=== PATIENT | female | born 2000 | race Caucasian/White ===

== ENCOUNTER 2019-09-05 06:30 | Emergency (ER) | payer BC ==
--- NOTE | 2019-09-05 06:59 | EDM.PDOC ---
ED HPI GENERAL MEDICAL PROBLEM - General Chief Complaint: Genitourinary Problem Stated Complaint: UTI Time Seen by Provider: 09/05/19 06:58 Source of Information: Reports: Patient - History of Present Illness INITIAL COMMENTS - FREE TEXT/NARRATIVE: HISTORY AND PHYSICAL: History of present illness: [A shunt presents with 4 days of frequency and dysuria no fever nausea vomiting chills sweats] Review of systems: As per history of present illness and below otherwise all systems reviewed and negative. Past medical history: As per history of present illness and as reviewed below otherwise noncontributory. Surgical history: As per history of present illness and as reviewed below otherwise noncontributory. Social history: No reported history of drug or alcohol abuse. Family history: As per history of present illness and as reviewed below otherwise noncontributory. Physical exam: HEENT: Atraumatic, normocephalic, pupils reactive, negative for conjunctival pallor or scleral icterus, mucous membranes moist, throat clear, neck supple, nontender, trachea midline. Lungs: Clear to auscultation, breath sounds equal bilaterally, chest nontender. Heart: S1S2, regular, negative for clicks, rubs, or JVD. Abdomen: Soft, nondistended, nontender. Negative for masses or hepatosplenomegaly. Negative for costovertebral tenderness. Pelvis: Stable nontender. Genitourinary: Deferred. Rectal: Deferred. Extremities: Atraumatic, negative for cords or calf pain. Neurovascular unremarkable. Neuro: Awake, alert, oriented. Cranial nerves II through XII unremarkable. Cerebellum unremarkable. Motor and sensory unremarkable throughout. Exam nonfocal. Diagnostics: [Way hCG ] Therapeutics: [Bactrim Pyridium ] Impression: [ dysuria UTI ] Definitive disposition and diagnosis as appropriate pending reevaluation and review of above. suprapubic Pain Score (Numeric/FACES): 3 - Related Data Allergies Allergy/AdvReac Type Severity Reaction Status Date / Time No Known Allergies Allergy Verified 09/05/19 06:35 Home Meds: Home Meds . [No Known Home Meds] 09/05/19 [History] Past Medical History - Past Health History Medical/Surgical History: Denies Medical/Surgical History Social & Family History - Family History Family Medical History: Noncontributory - Tobacco Use Smoking Status *Q: Never Smoker - Recreational Drug Use Recreational Drug Use: No ED ROS GENERAL - Review of Systems Review Of Systems: See Below ED EXAM, GENERAL - Physical Exam Exam: See Below Course - Vital Signs Last Recorded V/S: Last Vital Signs Temp 96.4 F 09/05/19 06:44 Pulse 86 09/05/19 06:44 Resp 18 09/05/19 06:44 BP 110/55 L 09/05/19 06:44 Pulse Ox 95 09/05/19 06:44 - Orders/Labs/Meds Orders: Active Orders 24 hr Category Date Time Status UA W/MICROSCOPIC [URIN] Stat Lab 09/05/19 06:44 Results Labs: Laboratory Tests 09/05/19 09/05/19 Range/Units 06:44 06:44 Urine Color YELLOW Urine Appearance SLT CLOUDY Urine pH 5.0 (5.0-8.0) Ur Specific [place] >= 1.030 (1.001-1.035) Urine Protein NEGATIVE (NEGATIVE) mg/dL Urine Glucose (UA) NEGATIVE (NEGATIVE) mg/dL Urine Ketones NEGATIVE (NEGATIVE) mg/dL Urine Occult Blood MODERATE H (NEGATIVE) Urine Nitrite NEGATIVE (NEGATIVE) Urine Bilirubin NEGATIVE (NEGATIVE) Urine Urobilinogen 0.2 (<2.0) EU/dL Ur Leukocyte Esterase NEGATIVE (NEGATIVE) Urine HCG, Qual NEGATIVE (NEGATIVE) Departure - Departure Time of Disposition: 06:59 Disposition: Home, Self-Care 01 Condition: Good Clinical Impression: UTI, Urinary tract infectious disease - Discharge Information Referrals: PCP,None [Primary Care Provider] - Additional Instructions: The following information is given to patients seen in the emergency department who are being discharged to home. This information is to outline your options for follow-up care. We provide all patients seen in our emergency department with a follow-up referral. The need for follow-up, as well as the timing and circumstances, are variable depending upon the specifics of your emergency department visit. If you don't have a primary care physician on staff, we will provide you with a referral. We always advise you to contact your personal physician following an emergency department visit to inform them of the circumstance of the visit and for follow-up with them and/or the need for any referrals to a consulting specialist. The emergency department will also refer you to a specialist when appropriate. This referral assures that you have the opportunity for follow-up care with a specialist. All of these measure are taken in an effort to provide you with optimal care, which includes your follow-up. Under all circumstances we always encourage you to contact your private physician who remains a resource for coordinating your care. When calling for follow-up care, please make the office aware that this follow-up is from your recent emergency room visit. If for any reason you are refused follow-up, please contact the emergency department at and asked to speak to the emergency department charge nurse. - My Orders Last 24 Hours: My Active Orders 09/05/19 06:44 UA W/MICROSCOPIC [URIN] Stat - Assessment/Plan Last 24 Hours: My Active Orders 09/05/19 06:44 UA W/MICROSCOPIC [URIN] Stat
== END 2019-09-05 07:07 | disposition home or self-care (01) ==
LOC: MW.ED 06:30
DX: N39.0 Urinary tract infection, site not specified (principal)
CPT/HCPCS: 81001; 81025; 99283

== ENCOUNTER 2020-01-19 18:59 | Emergency (ER) | payer BC ==
--- NOTE | 2020-01-19 19:48 | EDM.PDOC ---
ED HPI GENERAL MEDICAL PROBLEM - General Chief Complaint: General Stated Complaint: UTI Time Seen by Provider: 01/19/20 19:01 Source of Information: Reports: Patient History Limitations: Reports: No Limitations - History of Present Illness INITIAL COMMENTS - FREE TEXT/NARRATIVE: HISTORY AND PHYSICAL: History of present illness: Patient is a 19-year-old female who presents to the ED today with concern of possible urinary tract infection. Patient states she has had burning with urination over the past 2 to 3 days and urinary frequency. Patient states she is been taking [id number] Azo hoping that this would treat her symptoms and make the urinary tract infection go away. Patient states she took her last dose of Azo last night and started having burning again today. Patient states she took an [id number] test which stated that she probably has a urine infection. Patient denies any other symptoms or concerns. Patient denies fever, chills, chest pain, shortness of breath, or cough. Denies headache, neck stiff ness, change in vision, syncope, or near syncope. Denies nausea, vomiting, abdominal pain, diarrhea, constipation. Has not noted any blood in urine or stool. Patient has been eating and drinking appropriately. Review of systems: As per history of present illness and below otherwise all systems reviewed and negative. Past medical history: As per history of present illness and as reviewed below otherwise noncontributory. Surgical history: As per history of present illness and as reviewed below otherwise noncontributory. Social history: See social history for further information Family history: As per history of present illness and as reviewed below otherwise noncontributory. Physical exam: General: Patient is alert, oriented, and in no acute distress. Patient sitting comfortably on exam table. HEENT: Atraumatic, normocephalic, pupils equal and reactive bilaterally, negative for conjunctival pallor or scleral icterus, mucous membranes moist, TMs normal bilaterally, throat clear, neck supple, nontender, trachea midline. No drooling or trismus noted. No meningeal signs. No hot potato voice noted. Lungs: Clear to auscultation, breath sounds equal bilaterally, chest nontender. Heart: S1S2, regular rate and rhythm without overt murmur Abdomen: Soft, nondistended, nontender. Negative for masses or hepatosplenomegaly. Negative for costovertebral tenderness. Pelvis: Stable nontender. Genitourinary: Deferred. Rectal: Deferred. Skin: Intact, warm, dry. No lesions or rashes noted. Extremities: Atraumatic, negative for cords or calf pain. Neurovascular unremarkable. Neuro: Awake, alert, oriented. Cranial nerves II through XII unremarkable. Cerebellum unremarkable. Motor and sensory unremarkable throughout. Exam nonfocal. Notes: Discussed importance for follow-up with a primary care provider. Voices understanding and is agreeable to plan of care. Denies any further questions or concerns at this time. Diagn[facility]: [facility] Therapeutics: None Prescription: Bactrim DS Impression: Urinary tract infection Plan: 1. Take medication as prescribed. Continue to use Azo [id number] as directed for pain and discomfort. You can also use Tylenol and ibuprofen as directed for pain and discomfort. 2. Follow-up with a primary care provider as discussed. Return to the ED as needed and as discussed. Definitive disposition and diagnosis as appropriate pending reevaluation and review of above. perineal area Pain Score (Numeric/FACES): 3 - Related Data Allergies Allergy/AdvReac Type Severity Reaction Status Date / Time No Known Allergies Allergy Verified 01/19/20 19:13 Home Meds: Home Meds Sulfamethoxazole/Trimethoprim [Bactrim Ds Tablet] 1 each PO BID #20 tablet 01/18 [Rx] Past Medical History - Past Health History Medical/Surgical History: Denies Medical/Surgical History Social & Family History - Family History Family Medical History: Noncontributory - Tobacco Use Smoking Status *Q: Never Smoker Second Hand Smoke Exposure: No - Caffeine Use Caffeine Use: Reports: Coffee - Recreational Drug Use Recreational Drug Use: No ED ROS GENERAL - Review of Systems Review Of Systems: Comprehensive ROS is negative, except as noted in HPI. ED EXAM, GENERAL - Physical Exam Exam: See Below (see dictation) Course - Vital Signs Last Recorded V/S: Last Vital Signs Temp 98.2 F 01/19/20 19:10 Pulse 86 01/19/20 19:10 Resp 18 01/19/20 19:10 BP 114/64 01/19/20 19:10 Pulse Ox 100 01/19/20 19:10 - Orders/Labs/Meds Orders: Active Orders 24 hr Category Date Time Status CULTURE URINE [RM] Stat Lab 01/19/20 19:40 Received Labs: Laboratory Tests 01/19/20 01/19/20 Range/Units 19:40 19:40 Urine Color YELLOW Urine Appearance SLT CLOUDY Urine pH 5.5 (5.0-8.0) Ur Specific [place] >= 1.030 (1.001-1.035) Urine Protein NEGATIVE (NEGATIVE) mg/dL Urine Glucose (UA) NEGATIVE (NEGATIVE) mg/dL Urine Ketones NEGATIVE (NEGATIVE) mg/dL Urine Occult Blood NEGATIVE (NEGATIVE) Urine Nitrite POSITIVE H (NEGATIVE) Urine Bilirubin NEGATIVE (NEGATIVE) Urine Urobilinogen 0.2 (<2.0) EU/dL Ur Leukocyte Esterase SMALL H (NEGATIVE) Urine RBC 0-4 (0-2/HPF) Urine WBC 30-40 (0-5/HPF) Ur Epithelial Cells MODERATE (NONE-FEW) Urine Bacteria 2+ H (NEGATIVE) Urine Mucus MODERATE (NONE-MOD) Urine HCG, Qual NEGATIVE (NEGATIVE) Departure - Departure Time of Disposition: 20:17 Disposition: Home, Self-Care 01 Clinical Impression: Urinary tract infection Qualifiers: Urinary tract infection type: acute cystitis Hematuria presence: without hematuria Qualified Code(s): N30.00 - Acute cystitis without hematuria - Discharge Information Prescriptions: Sulfamethoxazole/Trimethoprim [Bactrim Ds Tablet] 1 each PO BID #20 tablet Referrals: PCP,None [Primary Care Provider] - Forms: ED Department Discharge Additional Instructions: The following information is given to patients seen in the emergency department who are being discharged to home. This information is to outline your options for follow-up care. We provide all patients seen in our emergency department with a follow-up referral. The need for follow-up, as well as the timing and circumstances, are variable depending upon the specifics of your emergency department visit. If you don't have a primary care physician on staff, we will provide you with a referral. We always advise you to contact your personal physician following an emergency department visit to inform them of the circumstance of the visit and for follow-up with them and/or the need for any referrals to a consulting specialist. The emergency department will also refer you to a specialist when appropriate. This referral assures that you have the opportunity for follow-up care with a specialist. All of these measure are taken in an effort to provide you with optimal care, which includes your follow-up. Under all circumstances we always encourage you to contact your private physician who remains a resource for coordinating your care. When calling for follow-up care, please make the office aware that this follow-up is from your recent emergency room visit. If for any reason you are refused follow-up, please contact the [facility] Emergency Department at and asked to speak to the emergency department charge nurse. [facility] [address] [place] [address] [facility] [address] [place] [id number] 1. Take medication as prescribed. Continue to use Azo [id number] as directed for pain and discomfort. You can also use Tylenol and ibuprofen as directed for pain and discomfort. 2. Follow-up with a primary care provider as discussed. Return to the ED as needed and as discussed. Sepsis Event Note - Evaluation Sepsis Screening Result: No Definite Risk - Focused Exam Vital Signs: Vital Signs Temp Pulse Resp BP Pulse Ox 01/19/20 19:10 98.2 F 86 18 114/64 100 Date Exam was Performed: 01/19/20 Time Exam was Performed: 20:16 - My Orders Last 24 Hours: My Active Orders 01/19/20 19:40 CULTURE URINE [RM] Stat - Assessment/Plan Last 24 Hours: My Active Orders 01/19/20 19:40 CULTURE URINE [RM] Stat
== END 2020-01-19 20:33 | disposition home or self-care (01) ==
LOC: MW.ED 18:59
DX: N30.00 Acute cystitis without hematuria (principal)
CPT/HCPCS: 81001; 81025; 87086; 99283

== ENCOUNTER 2020-07-01 15:04 | Emergency (ER) | payer BC ==
[2020-07-01] MEDS ORDERED: Acetaminophen 500 MG Tab PO ONE (15:11)
--- NOTE | 2020-07-01 15:15 | EDM.PDOC ---
ED HPI GENERAL MEDICAL PROBLEM - General Chief Complaint: General Stated Complaint: possible SEIZURE Time Seen by Provider: 07/01/20 15:10 Source of Information: Reports: Patient, Family History Limitations: Reports: No Limitations - History of Present Illness INITIAL COMMENTS - FREE TEXT/NARRATIVE: 20F approx 8-weeks presents w/ AHUMADA and neurologic complaints. Patient w as in normal state of health until approx 30-min [employer] when she had a sudden onset AHUMADA diffuse associated with numbness/tingling sensation in her entire face L>R and left arm numbness/tingling. She had difficulty speaking. She was very emotional throughout history and crying. She states symptoms are improving but still present. AHUMADA presently at b/l back of head. Not worst AHUMADA of life, patient does note remote history of migraines, but not for several years. Nausea without vomiting. No abdominal pain. Left Face/Facial Pain Score (Numeric/FACES): 4 - Related Data Allergies Allergy/AdvReac Type Severity Reaction Status Date / Time No Known Allergies Allergy Verified 07/01/20 15:11 Home Meds: Home Meds . [No Known Home Meds] 07/01/20 [History] Past Medical History - Past Health History Medical/Surgical History: Denies Medical/Surgical History Social & Family History - Family History Family Medical History: Noncontributory - Caffeine Use Caffeine Use: Reports: Coffee ED ROS GENERAL - Review of Systems Review Of Systems: See Below ED EXAM, GENERAL - Physical Exam Exam: See Below Exam Limited By: No Limitations General Appearance: Alert, WD/WN, No Apparent Distress, Anxious Eye Exam: Bilateral Eye: EOMI, PERRL Ears: Normal External Exam Nose: Normal Inspection Head: Atraumatic, Normocephalic Neck: Normal Inspection, Supple Respiratory/Chest: No Respiratory Distress, Lungs Clear, Normal Breath Sounds, No Accessory Muscle Use Cardiovascular: Normal Peripheral Pulses, Tachycardia GI/Abdominal: Soft, Non-Tender Extremities: Normal Inspection Neurological: Alert, Oriented, CN II-XII Intact, Normal Cognition, Normal Gait, Normal Reflexes, No Motor/Sensory Deficits, Other (normal [id number]) Psychiatric: Anxious, Tearful Skin Exam: Warm, Dry EKG INTERPRETATION EKG Date: 07/01/20 Time: 15:51 Rhythm: NSR Rate (Beats/Min): 74 [place]: Normal P-Wave: Present QRS: Normal ST-T: Normal QT: Normal Course - Vital Signs Last Recorded V/S: Last Vital Signs Temp 96.7 F L 07/01/20 15:12 Pulse 65 07/01/20 17:29 Resp 16 07/01/20 17:29 BP 117/75 07/01/20 15:12 Pulse Ox 100 07/01/20 17:29 - Orders/Labs/Meds Orders: Active Orders 24 hr Category Date Time Status Blood Glucose Check, Bedside [RC] ONETIME Care 07/01/20 15:11 Active Labs: Laboratory Tests 07/01/20 07/01/20 07/01/20 Range/Units 15:15 15:38 15:38 WBC 8.86 (4.0-11.0) K/uL RBC 4.36 (4.30-5.90) M/uL Hgb 12.5 (12.0-16.0) g/dL Hct 37.8 (36.0-46.0) % MCV 86.7 (80.0-98.0) fL MCH 28.7 (27.0-32.0) pg MCHC 33.1 (31.0-37.0) g/dL RDW Std Deviation 41.9 (28.0-62.0) fl RDW Coeff of Leslee 13 (11.0-15.0) % Plt Count 169 (150-400) K/uL MPV 10.80 (7.40-12.00) fL Neut % (Auto) 65.2 (48.0-80.0) % Lymph % (Auto) 27.4 (16.0-40.0) % Wayne % (Auto) 6.0 (0.0-15.0) % Eos % (Auto) 1.2 (0.0-7.0) % Baso % (Auto) 0.2 (0.0-1.5) % Neut # (Auto) 5.8 H (1.4-5.7) K/uL Lymph # (Auto) 2.4 (0.6-2.4) K/uL [place] # (Auto) 0.5 (0.0-0.8) K/uL Eos # (Auto) 0.1 (0.0-0.7) K/uL Baso # (Auto) 0.0 (0.0-0.1) K/uL Nucleated RBC % 0.0 /100WBC Nucleated RBCs # 0 K/uL Sodium 134 L (136-145) mmol/L Potassium 3.8 (3.5-5.1) mmol/L Chloride 101 (98-107) mmol/L Carbon Dioxide 25.4 (21.0-32.0) mmol/L BUN 7 (7.0-18.0) mg/dL Creatinine 0.7 (0.6-1.0) mg/dL Est Cr Clr Drug Dosing 114.40 mL/min Estimated GFR (MDRD) > 60.0 ml/min Glucose 89 (74-106) mg/dL Calcium 8.4 L (8.5-10.1) mg/dL Magnesium 1.7 L (1.8-2.4) mg/dL HCG, Qual (NEG) Urine Color YELLOW Urine Appearance CLEAR Urine pH 5.5 (5.0-8.0) Ur Specific [place] >= 1.030 (1.001-1.035) Urine Protein NEGATIVE (NEGATIVE) mg/dL Urine Glucose (UA) NEGATIVE (NEGATIVE) mg/dL Urine Ketones TRACE H (NEGATIVE) mg/dL Urine Occult Blood NEGATIVE (NEGATIVE) Urine Nitrite NEGATIVE (NEGATIVE) Urine Bilirubin NEGATIVE (NEGATIVE) Urine Urobilinogen 0.2 (<2.0) EU/dL Ur Leukocyte Esterase TRACE H (NEGATIVE) Urine RBC 0-1 (0-2/HPF) Urine WBC 0-2 (0-5/HPF) Ur Epithelial Cells OCCASIONAL (NONE-FEW) Urine Bacteria RARE (NEGATIVE) 07/01/20 Range/Units 15:38 WBC (4.0-11.0) K/uL RBC (4.30-5.90) M/uL Hgb (12.0-16.0) g/dL Hct (36.0-46.0) % MCV (80.0-98.0) fL MCH (27.0-32.0) pg MCHC (31.0-37.0) g/dL RDW Std Deviation (28.0-62.0) fl RDW Coeff of Leslee (11.0-15.0) % Plt Count (150-400) K/uL MPV (7.40-12.00) fL Neut % (Auto) (48.0-80.0) % Lymph % (Auto) (16.0-40.0) % [place] % (Auto) (0.0-15.0) % Eos % (Auto) (0.0-7.0) % Baso % (Auto) (0.0-1.5) % Neut # (Auto) (1.4-5.7) K/uL Lymph # (Auto) (0.6-2.4) K/uL [place] # (Auto) (0.0-0.8) K/uL Eos # (Auto) (0.0-0.7) K/uL Baso # (Auto) (0.0-0.1) K/uL Nucleated RBC % /100WBC Nucleated RBCs # K/uL Sodium (136-145) mmol/L Potassium (3.5-5.1) mmol/L Chloride (98-107) mmol/L Carbon Dioxide (21.0-32.0) mmol/L BUN (7.0-18.0) mg/dL Creatinine (0.6-1.0) mg/dL Est Cr Clr Drug Dosing mL/min Estimated GFR (MDRD) ml/min Glucose (74-106) mg/dL Calcium (8.5-10.1) mg/dL Magnesium (1.8-2.4) mg/dL HCG, Qual POSITIVE H (NEG) Urine Color Urine Appearance Urine pH (5.0-8.0) Ur Specific [place] (1.001-1.035) Urine Protein (NEGATIVE) mg/dL Urine Glucose (UA) (NEGATIVE) mg/dL Urine Ketones (NEGATIVE) mg/dL Urine Occult Blood (NEGATIVE) Urine Nitrite (NEGATIVE) Urine Bilirubin (NEGATIVE) Urine Urobilinogen (<2.0) EU/dL Ur Leukocyte Esterase (NEGATIVE) Urine RBC (0-2/HPF) Urine WBC (0-5/HPF) Ur Epithelial Cells (NONE-FEW) Urine Bacteria (NEGATIVE) Meds: Medications Discontinued Medications Generic Name Dose Route Start Last Admin Trade Name Freq PRN Reason Stop Dose Admin Acetaminophen 1,000 mg 07/01/20 15:11 07/01/20 16:06 Tylenol Extra Strength PO 07/01/20 15:12 1,000 mg ONETIME ONE Administration - Re-Assessments/Exams Free Text/Narrative Re-Assessment/Exam: 07/01/20 15:49 Patient presents with AHUMADA and numbness/tingling of face and L arm. Considering concerning history of sudden onset symptoms, will get head CT to r/o intracranial hemorrhage. Patient's symptoms have rapidly improved just while taking H&P. Discussed risks associated with radiation from head CT in setting of known , but benefits clearly outweigh risks and patient agrees. 07/01/20 16:00 CT delayed as there is a trauma code patient still on the table; patient will be next for CT as soon as possible. She remains neurologically intact without new symptoms and with AHUMADA continuing to improve. 07/01/20 18:07 CT imaging unremarkable. Patient notes AHUMADA now 3/10 and no longer with any numbness/tingling/neuro complaints. Those symptoms resolved roughly 5-min into ED stay. She is well appearing. I recommend f/u with OBGYN and explained return precautions including onset of worst AHUMADA of life or another episode of thunderclap onset AHUMADA. Patient understands and agrees with plan. Departure - Departure Time of Disposition: 17:15 Disposition: Home, Self-Care 01 Condition: Good Clinical Impression: Migraine Qualifiers: Migraine type: other Status migrainosus presence: without status migrainosus Intractability: not intractable Qualified Code(s): G43.809 - Other migraine, not intractable, without status migrainosus - Discharge Information Instructions: Migraine Headache Referrals: PMD, PMD [Other] Forms: ED Department Discharge Additional Instructions: The following information is given to patients seen in the emergency department who are being discharged to home. This information is to outline your options for follow-up care. We provide all patients seen in our emergency department with a follow-up referral. The need for follow-up, as well as the timing and circumstances, are variable depending upon the specifics of your emergency department visit. If you don't have a primary care physician on staff, we will provide you with a referral. We always advise you to contact your personal physician following an emergency department visit to inform them of the circumstance of the visit and for follow-up with them and/or the need for any referrals to a consulting specialist. The emergency department will also refer you to a specialist when appropriate. This referral assures that you have the opportunity for follow-up care with a specialist. All of these measure are taken in an effort to provide you with optimal care, which includes your follow-up. Under all circumstances we always encourage you to contact your private physician who remains a resource for coordinating your care. When calling for follow-up care, please make the office aware that this follow-up is from your recent emergency room visit. If for any reason you are refused follow-up, please contact the [facility] Emergency Department at and asked to speak to the emergency department charge nurse. Sepsis Event Note (ED) - Focused Exam Vital Signs: Vital Signs Temp Pulse Resp BP Pulse Ox 07/01/20 17:29 65 16 100 07/01/20 15:12 96.7 F L 102 H 22 H 117/75 98 - My Orders Last 24 Hours: My Active Orders 07/01/20 15:11 Blood Glucose Check, Bedside [RC] ONETIME - Assessment/Plan Last 24 Hours: My Active Orders 07/01/20 15:11 Blood Glucose Check, Bedside [RC] ONETIME
[2020-07-01 15:59] LABS: BLOOD UREA NITROGEN,BUN 7 mg/dL (7.0-18.0); CARBON DIOXIDE,CO2 25.4 mmol/L (21.0-32.0); CHLORIDE,CL 101 mmol/L (98-107); GLUCOSE RANDOM 89 mg/dL (74-106); POTASSIUM,K 3.8 mmol/L (3.5-5.1); SODIUM,NA 134 mmol/L (136-145)
--- NOTE | 2020-07-01 17:05 | CT ---
Head CT Technique: Multiple axial sections through the brain were obtained. Intravenous contrast was not utilized. Comparison: No prior intracranial imaging is available. Findings: Ventricles along with basal cisterns and sulci over the convexities are within normal limits for the patient's age. No abnormal parenchymal densities are seen. No evidence of intracranial hemorrhage. No midline shift or mass-effect is seen. Bone window settings were reviewed which shows no acute calvarial finding. Visualized paranasal sinuses and mastoid sinuses show nothing acute. Impression: 1. Nothing acute is appreciated on noncontrast head CT exam. Diagnostic code #1 This report was dictated in MDT
== END 2020-07-01 18:20 | disposition home or self-care (01) ==
LOC: MW.ED 15:04
DX: G43.809 Other migraine, not intractable, without status migrainosus (principal)
CPT/HCPCS: 36415; 70450; 80048; 81001; 83735; 84703; 85025; 93005; 99285; A9270

== ENCOUNTER 2021-01-12 10:17 | Inpatient (IN) | payer BC ==
[2021-01-12] MEDS ORDERED: Sodium Chloride 0.9% 2.5 ML Syringe FLUSH PRN (11:47)
[2021-01-12] MEDS ORDERED: Sodium Chloride 0.9% 10 ML SDV IV PRN (11:47)
[2021-01-12] MEDS ORDERED: Butorphanol 1 MG/ML SDV IVPUSH PRN (11:47)
[2021-01-12] MEDS ORDERED: Sodium Chloride 0.9% 10 ML Syringe FLUSH PRN (11:47)
[2021-01-12] MEDS ORDERED: Lidocaine 1% 50 ML MDV INJECT PRN (11:47)
[2021-01-12] MEDS ORDERED: Carboprost Tromethamine 250 MCG/1 ML Amp IM PRN (11:47)
[2021-01-12] MEDS ORDERED: Misoprostol 200 MCG Tab PO PRN (11:47)
[2021-01-12] MEDS ORDERED: Methylergonovine 0.2 MG/1 ML Amp IM PRN (11:47)
[2021-01-12] MEDS ORDERED: Tranexamic Acid 1,000 MG in Sodium Chloride 0.9% 100 ML IV PRN (11:47)
[2021-01-12] MEDS ORDERED: Water For Irrigation,Sterile 1,000 ML Container IRR PRN (11:47)
[2021-01-12] MEDS ORDERED: Nalbuphine 10 MG/1 ML Vial IVPUSH PRN (11:47)
[2021-01-12] MEDS ORDERED: Ampicillin 2 GM in Sodium Chloride 0.9% 100 ML IV ONE (12:00)
[2021-01-12] MEDS ORDERED: Oxytocin/0.9 % Sodium Chloride 30 UNIT/500 ML BAG IV SCH ×2 (12:00→15:45)
[2021-01-12] MEDS: Lactated Ringers 1,000 ML IV SCH ×2 (12:15→21:53)
[2021-01-12] MEDS ORDERED: Ampicillin 1 GM in Sodium Chloride 0.9% 50 ML IV SCH ×2 (13:15→16:30)
[2021-01-12] MEDS ORDERED: Terbutaline 1 MG/ML SDV SUBCUT PRN (15:40)
[2021-01-12] MEDS ORDERED: Misoprostol 25 MCG (1/4 of 100 MCG) Tab VAG PRN ×2 (15:40)
[2021-01-12] MEDS ORDERED: Oxytocin/0.9 % Sodium Chloride 30 UNIT/500 ML BAG ONE ×2 (16:17→20:23)
[2021-01-12] MEDS ORDERED: Lidocaine 1% 50 ML MDV ONE (18:08)
--- NOTE | 2021-01-12 18:34 | PCM.LDHP ---
L&D History of Present Illness - General Date of Service: 01/12/21 Admit Problem/Dx: Patient Status Order with Admit Dx/Problem 01/12/21 10:51 Patient Status [ADT] Routine Admission Diagnosis/Problem Admission Diagnosis/Problem Source of Information: Patient History Limitations: Reports: No Limitations - History of Present Illness Introduction:: 20 year old at 36+0 with premature rupture of membranes early this morning. Patient is from [place], [place] and transferred to [place], [place] after membrane rupture for evaluation. Patient was currently breathing through contractions upon entering the room and reports regular contractions approximately every 5 minutes. Good movement. Denies bleeding or complications with the . Pain Score: 0 - Related Data Allergies/Adverse Reactions: Allergies Allergy/AdvReac Type Severity Reaction Status Date / Time No Known Allergies Allergy Verified 01/12/21 10:50 Home Medications: Home Meds . [No Known Home Meds] 07/01/20 [History] Past Medical History - Past Health History Medical/Surgical History: Denies Medical/Surgical History [employer] History: Reports: : 1 - Infectious Disease History Infectious Disease History: Reports: None Social & Family History - Family History Family Medical History: No Pertinent Family History - Tobacco Use Tobacco Use Status *Q: Never Tobacco User Second Hand Smoke Exposure: No - Caffeine Use Caffeine Use: Reports: Coffee, Soda - Recreational Drug Use Recreational Drug Use: No H&P Review of Systems - Review of Systems: Review Of Systems: See Below General: Reports: No Symptoms HEENT: Reports: No Symptoms Pulmonary: Reports: No Symptoms Cardiovascular: Reports: No Symptoms Gastrointestinal: Reports: No Symptoms Genitourinary: Reports: Other (Pelvic pain with contractions) Musculoskeletal: Reports: No Symptoms Skin: Reports: No Symptoms Psychiatric: Reports: No Symptoms Neurological: Reports: No Symptoms Hematologic/Lymphatic: Reports: No Symptoms Immunologic: Reports: No Symptoms L&D Exam - Exam Exam: See Below - Vital Signs Weight: 180 lb - OB Specific Contraction Frequency (min): 2-5 Contraction Intensity: Moderate Movement: Active Heart Tones: Present Heart Tones per Min: 130 Heart Rate (FHR) Variability: Moderate (6-25 bmp) Presentation: Vertex Estimated Weight: 2800 - Villanueva Score Villanueva Score Cervix Position: Posterior Villanueva Score Consistency: Soft Villanueva Score Effacement: >80% Villanueva Score Dilation: 3-4 cm Villanueva Score Infant's Station: -1 ,0 Villanueva Score Total: 9 - Exam General: Alert, Oriented HEENT: EACs Clear, EOMI, Hearing Intact, TMs Clear, PERRLA Neck: Supple, Trachea Midline Lungs: Clear to Auscultation, Normal Respiratory Effort Cardiovascular: Regular Rate, Regular Rhythm GI/Abdominal Exam: Soft, Non-Tender, No Organomegaly, No Distention, No Mass Rectal Exam: Normal Exam Genitourinary: Normal external exam Extremities: Normal Inspection, Normal Range of Motion, Non-Tender, No Pedal Edema, Normal Capillary Refill Skin: Warm, Dry, Intact Psychiatric: Alert, Normal Affect, Normal Mood - Patient Data Lab Results Last 24 hrs: Laboratory Results - last 24 hr 01/12/21 01/12/21 01/12/21 Range/Units 11:00 11:10 12:15 WBC 15.95 H (4.0-11.0) K/uL RBC 4.55 (4.30-5.90) M/uL Hgb 13.8 (12.0-16.0) g/dL Hct 41.5 (36.0-46.0) % MCV 91.2 (80.0-98.0) fL MCH 30.3 (27.0-32.0) pg MCHC 33.3 (31.0-37.0) g/dL RDW Std Deviation 43.7 (28.0-62.0) fl RDW Coeff of Leslee 13 (11.0-15.0) % Plt Count 185 (150-400) K/uL MPV 11.70 (7.40-12.00) fL Nucleated RBC % 0.0 /100WBC Nucleated RBCs # 0 K/uL Urine Color YELLOW Urine Appearance CLEAR Urine pH 6.0 (5.0-8.0) Ur Specific [place] 1.020 (1.001-1.035) Urine Protein NEGATIVE (NEGATIVE) mg/dL Urine Glucose (UA) NEGATIVE (NEGATIVE) mg/dL Urine Ketones NEGATIVE (NEGATIVE) mg/dL Urine Occult Blood SMALL H (NEGATIVE) Urine Nitrite NEGATIVE (NEGATIVE) Urine Bilirubin NEGATIVE (NEGATIVE) Urine Urobilinogen 0.2 (<2.0) EU/dL Ur Leukocyte Esterase NEGATIVE (NEGATIVE) Membrane Rupture POSITIVE SARS-CoV-2 RNA (FERNANDO) (NEGATIVE) Blood Type Antibody Screen 01/12/21 01/12/21 Range/Units 12:15 12:20 WBC (4.0-11.0) K/uL RBC (4.30-5.90) M/uL Hgb (12.0-16.0) g/dL Hct (36.0-46.0) % MCV (80.0-98.0) fL MCH (27.0-32.0) pg MCHC (31.0-37.0) g/dL RDW Std Deviation (28.0-62.0) fl RDW Coeff of Leslee (11.0-15.0) % Plt Count (150-400) K/uL MPV (7.40-12.00) fL Nucleated RBC % /100WBC Nucleated RBCs # K/uL Urine Color Urine Appearance Urine pH (5.0-8.0) Ur Specific [place] (1.001-1.035) Urine Protein (NEGATIVE) mg/dL Urine Glucose (UA) (NEGATIVE) mg/dL Urine Ketones (NEGATIVE) mg/dL Urine Occult Blood (NEGATIVE) Urine Nitrite (NEGATIVE) Urine Bilirubin (NEGATIVE) Urine Urobilinogen (<2.0) EU/dL Ur Leukocyte Esterase (NEGATIVE) Membrane Rupture SARS-CoV-2 RNA (FERNANDO) NEGATIVE (NEGATIVE) Blood Type A POSITIVE Antibody Screen NEGATIVE Result Diagrams: 01/12/21 12:15 - Problem List (1) premature rupture of membranes SNOMED Code(s): 844527529 ICD Code: O42.919 - PRETRM GREG ROM, UNSP TIME BETW RUPT AND ONST LABR, UNSP TRI Status: Acute Current Visit: Yes Onset Date: ~01/12/21 Qualifiers: PROM onset of labor timing: onset of labor within 24 hours of rupture Qualified Code(s): O42.019 - premature rupture of membranes, onset of labor within 24 hours of rupture, unspecified trimester Problem List Initiated/Reviewed/Updated: Yes Orders Last 24hrs: Active Orders 24 hr Category Date Time Status Patient Status [ADT] Routine ADT 01/12/21 10:51 Active Bedrest Bathroom Privileges [RC] ASDIRECTED Care 01/12/21 15:40 Active Communication Order [RC] ASDIRECTED Care 01/12/21 15:40 Active Heart Tones [RC] CONTINUOUS Care 01/12/21 11:47 Active Non Stress Test [RC] PER UNIT ROUTINE Care 01/12/21 10:51 Active Notify Provider [RC] PRN Care 01/12/21 11:47 Active Notify Provider [RC] PRN Care 01/12/21 15:40 Active Notify Provider [RC] PRN Care 01/12/21 15:40 Active Notify Provider [RC] STAT Care 01/12/21 15:40 Active Up ad Kenzie [RC] ASDIRECTED Care 01/12/21 10:51 Active Up ad Kenzie [RC] ASDIRECTED Care 01/12/21 11:47 Active Vaginal Exam [RC] Click to Edit Care 01/12/21 10:51 Active Vaginal Exam [RC] PRN Care 01/12/21 11:47 Active Vaginal Exam [RC] PRN Care 01/12/21 15:40 Active Vital Signs [RC] PER UNIT ROUTINE Care 01/12/21 10:51 Active GBS [CULTURE GROUP B STREP] [RM] Routine Lab 01/12/21 14:05 Received RPR (SYPHILIS SERO) W/ RFLX [REF] Routine Lab 01/12/21 12:15 Received Ampicillin 1 gm Med 01/12/21 16:30 Active Sodium Chloride 0.9% [Normal Saline] 50 ml IV Q4H Butorphanol [Stadol] Med 01/12/21 11:47 Active 1 mg IVPUSH Q1H PRN Carboprost Tromethamine [Hemabate DS] Med 01/12/21 11:47 Active 250 mcg IM ASDIRECTED PRN Lactated Ringers [Ringers, Lactated] 1,000 ml Med 01/12/21 12:00 Active IV ASDIRECTED Lidocaine 1% [Xylocaine 1%] Med 01/12/21 11:47 Active 50 ml INJECT ONETIME PRN Methylergonovine [Methergine] Med 01/12/21 11:47 Active 0.2 mg IM ASDIRECTED PRN Nalbuphine [Nubain] Med 01/12/21 11:47 Active 10 mg IVPUSH Q1H PRN Oxytocin/0.9 % Sodium Chloride [Oxytocin 30 Unit/500 ML Med 01/12/21 12:00 Active -NS] 30 unit in 500 ml IV TITRATE Oxytocin/0.9 % Sodium Chloride [Oxytocin 30 Unit/500 ML Med 01/12/21 15:45 Active -NS] 30 unit in 500 ml IV TITRATE Sodium Chloride 0.9% [Normal Saline] Med 01/12/21 11:47 Active 10 ml IV ASDIRECTED PRN Sodium Chloride 0.9% [Saline Flush] Med 01/12/21 11:47 Active 10 ml FLUSH ASDIRECTED PRN Sodium Chloride 0.9% [Saline Flush] Med 01/12/21 11:47 Active 2.5 ml FLUSH ASDIRECTED PRN Terbutaline [Brethine] Med 01/12/21 15:40 Active 0.25 mg SUBCUT ASDIRECTED PRN Tranexamic Acid [Cyklokapron] 1,000 mg Med 01/12/21 11:47 Active Sodium Chloride 0.9% [Normal Saline] 100 ml IV ONETIME Water For Irrigation,Sterile [Sterile Water for Med 01/12/21 11:47 Active Irrigation] 1,000 ml IRR ASDIRECTED PRN miSOPROStoL [Cytotec] Med 01/12/21 11:47 Active 200 mcg PO ONETIME PRN miSOPROStoL [Cytotec] Med 01/12/21 15:40 Active 25 mcg VAG ONETIME PRN miSOPROStoL [Cytotec] Med 01/12/21 15:40 Active 25 mcg VAG Q4H PRN Scalp Electrode [WOMSER] Per Unit Routine Oth 01/12/21 11:47 Ordered Medication Administration Instruction [OM.PC] Q3H Oth 01/12/21 15:45 Ordered Peripheral IV Insertion Adult [OM.PC] Routine Oth 01/12/21 11:47 Ordered Resuscitation Status Routine Resus Stat 01/12/21 10:50 Ordered Medication Orders Butorphanol Tartrate (Stadol) 1 mg IVPUSH Q1H PRN PRN Reason: Pain Last Admin: 01/12/21 16:59 Dose: 1 mg Documented by: MORTEZA Carboprost Tromethamine (Hemabate Ds) 250 mcg IM ASDIRECTED PRN PRN Reason: Post Hemorrhage Lactated Ringer's (Ringers, Lactated) 1,000 mls @ 150 mls/hr IV ASDIRECTED DANNY Last Admin: 01/12/21 12:15 Dose: 150 mls/hr Documented by: MORTEZA Oxytocin/Sodium Chloride (Oxytocin 30 Unit/500 Ml-Ns) 30 unit in 500 mls @ 500 mls/hr IV TITRATE DANNY Tranexamic Acid 1,000 mg/ (Sodium Chloride) 110 mls @ 660 mls/hr IV ONETIME PRN PRN Reason: Bleeding Ampicillin Sodium 1 gm/ Sodium (Chloride) 50 mls @ 100 mls/hr IV Q4H DANNY Last Admin: 01/12/21 16:26 Dose: 100 mls/hr Documented by: MORTEZA Oxytocin/Sodium Chloride (Oxytocin 30 Unit/500 Ml-Ns) 30 unit in 500 mls @ 2 mls/hr IV TITRATE DANNY; Protocol Last Titration: 01/12/21 17:44 Dose: 4 munits/min, 4 mls/hr Documented by: Admin: 01/12/21 16:43 Dose: 2 munits/min, 2 mls/hr Documented by: MORTEZA Lidocaine HCl (Xylocaine 1%) 50 ml INJECT ONETIME PRN PRN Reason: Laceration repair Methylergonovine Maleate (Methergine) 0.2 mg IM ASDIRECTED PRN PRN Reason: Post Hemorrhage Misoprostol (Cytotec) 200 mcg PO ONETIME PRN PRN Reason: Post Hemorrhage Misoprostol (Cytotec) 25 mcg VAG ONETIME PRN PRN Reason: Cervical Ripening Misoprostol (Cytotec) 25 mcg VAG Q4H PRN PRN Reason: Cervical Ripening Nalbuphine HCl (Nubain) 10 mg IVPUSH Q1H PRN PRN Reason: Pain (severe 7-10) Sodium Chloride (Saline Flush) 10 ml FLUSH ASDIRECTED PRN PRN Reason: Keep Vein Open Sodium Chloride (Saline Flush) 2.5 ml FLUSH ASDIRECTED PRN PRN Reason: Keep Vein Open Sodium Chloride (Normal Saline) 10 ml IV ASDIRECTED PRN PRN Reason: IV Use Sterile Water (Sterile Water For Irrigation) 1,000 ml IRR ASDIRECTED PRN PRN Reason: delivery Terbutaline Sulfate (Brethine) 0.25 mg SUBCUT ASDIRECTED PRN PRN Reason: Tacysystole Assessment/Plan Comment:: 20 year old G1 at 36+0 (EDC 02/09/21 by LMP c/w 1st trimester u/s) with PPROM in labor. * Admit to labor and delivery for PPROM * GBS status unknown - 2g loading dose ampicillin and secondary dose given. GBS swab collected * A positive, rubella immune * Will recheck cervix in 2 hours, if no change noted will augment with Pitocin due to increased risk of infection with prolonged rupture of membranes * May receive epidural PRN pain * Proceed with expectant management of labor Dispo - stable. Anticipate routine labor course.
[2021-01-12] MEDS ORDERED: Morphine 2 MG/ML SYRINGE ONE ×2 (19:00→20:29)
[2021-01-12] MEDS ORDERED: Bisacodyl 10 MG Supp RECTAL PRN (20:08)
[2021-01-12] MEDS ORDERED: Witch Hazel Medicated Pads 40/Jar TOP PRN (20:08)
[2021-01-12] MEDS ORDERED: Acetaminophen 500 MG Tab PO PRN (20:08)
[2021-01-12] MEDS ORDERED: Benzocaine/Menthol 20%-0.5% Spray 78 GM Cannister TOP PRN (20:08)
[2021-01-12] MEDS ORDERED: Ibuprofen 400 MG Tab PO PRN (20:08)
[2021-01-12] MEDS ORDERED: Lanolin 100% Cream 7 GM Tube TOP PRN (20:08)
--- NOTE | 2021-01-12 20:15 | PCM.DEL ---
<Sofia Washington - Last Filed: 01/12/21 20:17> L & D Note - General Info Date of Service: 01/12/21 Mother's Due Date: 02/09/21 - Delivery Note Labor: Spontaneous, Augmented by Oxytocin Delivery Outcome: Livebirth Infant Delivery Method: Spontaneous Vaginal Delivery-Single Infant Delivery Mode: Spontaneous Presentation: Vertex Nuchal Cord: None Prep: Other Anesthesia Type: Local Anesthetic: Lidocaine (Xylocaine) 1% Plain Local Anesthetic Volume: Other Amniotic Fluid Description: Clear Episiotomy Type: None Laceration: Labial Suture type: Chromic Suture size: 4-0 Placenta: Intact, Spontaneous Cord: 3 Vessels Estimated Blood Loss: 100 Resuscitation Needed: No : Suctioned, Bulb Syringe, Stimulated Score 1 min: 8 Score 5 min: 9 - General Info Date of Service: 01/12/21 - Review of Systems General: Reports: No Symptoms HEENT: Reports: No Symptoms Pulmonary: Reports: No Symptoms Cardiovascular: Reports: No Symptoms Gastrointestinal: Reports: No Symptoms Genitourinary: Reports: No Symptoms Musculoskeletal: Reports: No Symptoms Skin: Reports: No Symptoms Neurological: Reports: No Symptoms Psychiatric: Reports: No Symptoms - Patient Data Weight - Most Recent: 180 lb Lab Results Last 24 Hours: Laboratory Results - last 24 hr 01/12/21 01/12/21 01/12/21 Range/Units 11:00 11:10 12:15 WBC 15.95 H (4.0-11.0) K/uL RBC 4.55 (4.30-5.90) M/uL Hgb 13.8 (12.0-16.0) g/dL Hct 41.5 (36.0-46.0) % MCV 91.2 (80.0-98.0) fL MCH 30.3 (27.0-32.0) pg MCHC 33.3 (31.0-37.0) g/dL RDW Std Deviation 43.7 (28.0-62.0) fl RDW Coeff of Leslee 13 (11.0-15.0) % Plt Count 185 (150-400) K/uL MPV 11.70 (7.40-12.00) fL Nucleated RBC % 0.0 /100WBC Nucleated RBCs # 0 K/uL Urine Color YELLOW Urine Appearance CLEAR Urine pH 6.0 (5.0-8.0) Ur Specific [place] 1.020 (1.001-1.035) Urine Protein NEGATIVE (NEGATIVE) mg/dL Urine Glucose (UA) NEGATIVE (NEGATIVE) mg/dL Urine Ketones NEGATIVE (NEGATIVE) mg/dL Urine Occult Blood SMALL H (NEGATIVE) Urine Nitrite NEGATIVE (NEGATIVE) Urine Bilirubin NEGATIVE (NEGATIVE) Urine Urobilinogen 0.2 (<2.0) EU/dL Ur Leukocyte Esterase NEGATIVE (NEGATIVE) Membrane Rupture POSITIVE SARS-CoV-2 RNA (FERNANDO) (NEGATIVE) Blood Type Antibody Screen 01/12/21 01/12/21 Range/Units 12:15 12:20 WBC (4.0-11.0) K/uL RBC (4.30-5.90) M/uL Hgb (12.0-16.0) g/dL Hct (36.0-46.0) % MCV (80.0-98.0) fL MCH (27.0-32.0) pg MCHC (31.0-37.0) g/dL RDW Std Deviation (28.0-62.0) fl RDW Coeff of Leslee (11.0-15.0) % Plt Count (150-400) K/uL MPV (7.40-12.00) fL Nucleated RBC % /100WBC Nucleated RBCs # K/uL Urine Color Urine Appearance Urine pH (5.0-8.0) Ur Specific [place] (1.001-1.035) Urine Protein (NEGATIVE) mg/dL Urine Glucose (UA) (NEGATIVE) mg/dL Urine Ketones (NEGATIVE) mg/dL Urine Occult Blood (NEGATIVE) Urine Nitrite (NEGATIVE) Urine Bilirubin (NEGATIVE) Urine Urobilinogen (<2.0) EU/dL Ur Leukocyte Esterase (NEGATIVE) Membrane Rupture SARS-CoV-2 RNA (FERNANDO) NEGATIVE (NEGATIVE) Blood Type A POSITIVE Antibody Screen NEGATIVE Med Orders - Current: Current Medications Butorphanol Tartrate (Stadol) 1 mg IVPUSH Q1H PRN PRN Reason: Pain Last Admin: 01/12/21 16:59 Dose: 1 mg Documented by: Carboprost Tromethamine (Hemabate Ds) 250 mcg IM ASDIRECTED PRN PRN Reason: Post Hemorrhage Lactated Ringer's (Ringers, Lactated) 1,000 mls @ 150 mls/hr IV ASDIRECTED DANNY Last Admin: 01/12/21 12:15 Dose: 150 mls/hr Documented by: Oxytocin/Sodium Chloride (Oxytocin 30 Unit/500 Ml-Ns) 30 unit in 500 mls @ 500 mls/hr IV TITRATE [facility] Tranexamic Acid 1,000 mg/ (Sodium Chloride) 110 mls @ 660 mls/hr IV ONETIME PRN PRN Reason: Bleeding Ampicillin Sodium 1 gm/ Sodium (Chloride) 50 mls @ 100 mls/hr IV Q4H DANNY Last Admin: 01/12/21 16:26 Dose: 100 mls/hr Documented by: Oxytocin/Sodium Chloride (Oxytocin 30 Unit/500 Ml-Ns) 30 unit in 500 mls @ 2 mls/hr IV TITRATE [facility]; Protocol Last Titration: 01/12/21 17:44 Dose: 4 munits/min, 4 mls/hr Documented by: Lidocaine HCl (Xylocaine 1%) 50 ml INJECT ONETIME PRN PRN Reason: Laceration repair Methylergonovine Maleate (Methergine) 0.2 mg IM ASDIRECTED PRN PRN Reason: Post Hemorrhage Misoprostol (Cytotec) 200 mcg PO ONETIME PRN PRN Reason: Post Hemorrhage Misoprostol (Cytotec) 25 mcg VAG ONETIME PRN PRN Reason: Cervical Ripening Misoprostol (Cytotec) 25 mcg VAG Q4H PRN PRN Reason: Cervical Ripening Nalbuphine HCl (Nubain) 10 mg IVPUSH Q1H PRN PRN Reason: Pain (severe 7-10) Sodium Chloride (Saline Flush) 10 ml FLUSH ASDIRECTED PRN PRN Reason: Keep Vein Open Sodium Chloride (Saline Flush) 2.5 ml FLUSH ASDIRECTED PRN PRN Reason: Keep Vein Open Sodium Chloride (Normal Saline) 10 ml IV ASDIRECTED PRN PRN Reason: IV Use Sterile Water (Sterile Water For Irrigation) 1,000 ml IRR ASDIRECTED PRN PRN Reason: delivery Terbutaline Sulfate (Brethine) 0.25 mg SUBCUT ASDIRECTED PRN PRN Reason: Tacysystole Discontinued Medications Ampicillin Sodium 2 gm/ Sodium (Chloride) 100 mls @ 200 mls/hr IV ONETIME ONE Stop: 01/12/21 12:29 Last Admin: 01/12/21 12:36 Dose: 200 mls/hr Documented by: Oxytocin/Sodium Chloride (Oxytocin 30 Unit/500 Ml-Ns) Confirm Administered Dose 30 unit in 500 mls @ as directed .ROUTE .STK-MED ONE Stop: 01/12/21 16:18 Lidocaine HCl (Xylocaine 1%) Confirm Administered Dose 50 ml .ROUTE .STK-MED ONE Stop: 01/12/21 18:09 Morphine Sulfate (Morphine) Confirm Administered Dose 2 mg .ROUTE .STK-MED ONE Stop: 01/12/21 19:01 - Exam General: Alert, Oriented HEENT: Pupils Equal, Pupils Reactive, EOMI, Mucous Membr. Moist/[place] Neck: Supple Lungs: Clear to Auscultation, Normal Respiratory Effort Cardiovascular: Regular Rate, Regular Rhythm GI/Abdominal Exam: Soft, No Organomegaly, No Distention, No Mass (Female) Exam: Vaginal Bleeding, Other (small left labial/paraurethral laceration repaired) Back Exam: Normal Inspection, Full Range of Motion Extremities: Normal Inspection, Normal Range of Motion, Non-Tender, No Pedal Edema, Normal Capillary Refill Skin: Warm, Dry, Intact Wound/Incisions: Healing Well Neurological: No New Focal Deficit Psy/Mental Status: Alert, Normal Affect, Normal Mood - Problem List & Annotations (1) premature rupture of membranes SNOMED Code(s): 070420671 Code(s): O42.919 - PRETRM GREG ROM, UNSP TIME BETW RUPT AND ONST LABR, UNSP TRI Status: Acute Current Visit: Yes Onset Date: ~01/12/21 Qualifiers: PROM onset of labor timing: onset of labor within 24 hours of rupture Qualified Code(s): O42.019 - premature rupture of membranes, onset of labor within 24 hours of rupture, unspecified trimester (2) Vaginal delivery SNOMED Code(s): 266244573 Code(s): O80 - ENCOUNTER FOR FULL-TERM UNCOMPLICATED DELIVERY Status: Acute Current Visit: Yes Onset Date: ~01/12/21 - Problem List Review Problem List Initiated/Reviewed/Updated: Yes - Assessment Assessment:: 20 year old G1 at 36+0 weeks (EDC 02/09/21 by LMP c/w 1st trimester u/s) presented with PPROM, delivered via a viable female infant, weight 2760, apgars 8 & 9. Small left labial/paraurethral laceration repaired. Uterus firm. Mom and baby stable. - Plan Plan:: 20 year old G1 at 36+0 (EDC 02/09/21 by LMP c/w 1st trimester u/s) with PPROM s/p . Routine pp cares * GBS status unknown - 2g loading dose ampicillin and secondary dose given. GBS swab collected. Monitor for s/s of infection. * A positive, rubella immune * PO pain medications ordered PRN * Regular diet as tolerated * Encourage fluid intake and ambulation * , nursing assistance as indicated Dispo - stable. Anticipate routine post- course. <DejasienaErinn miramontes M - Last Filed: 01/12/21 20:56> L & D Note - Delivery Note Delivery Comments (Free Text/Narrative):: Dictation #[id number] - Patient Data Lab Results Last 24 Hours: Laboratory Results - last 24 hr 01/12/21 01/12/21 01/12/21 Range/Units 11:00 11:10 12:15 WBC 15.95 H (4.0-11.0) K/uL RBC 4.55 (4.30-5.90) M/uL Hgb 13.8 (12.0-16.0) g/dL Hct 41.5 (36.0-46.0) % MCV 91.2 (80.0-98.0) fL MCH 30.3 (27.0-32.0) pg MCHC 33.3 (31.0-37.0) g/dL RDW Std Deviation 43.7 (28.0-62.0) fl RDW Coeff of Leslee 13 (11.0-15.0) % Plt Count 185 (150-400) K/uL MPV 11.70 (7.40-12.00) fL Nucleated RBC % 0.0 /100WBC Nucleated RBCs # 0 K/uL Urine Color YELLOW Urine Appearance CLEAR Urine pH 6.0 (5.0-8.0) Ur Specific [place] 1.020 (1.001-1.035) Urine Protein NEGATIVE (NEGATIVE) mg/dL Urine Glucose (UA) NEGATIVE (NEGATIVE) mg/dL Urine Ketones NEGATIVE (NEGATIVE) mg/dL Urine Occult Blood SMALL H (NEGATIVE) Urine Nitrite NEGATIVE (NEGATIVE) Urine Bilirubin NEGATIVE (NEGATIVE) Urine Urobilinogen 0.2 (<2.0) EU/dL Ur Leukocyte Esterase NEGATIVE (NEGATIVE) Membrane Rupture POSITIVE SARS-CoV-2 RNA (FERNANDO) (NEGATIVE) Blood Type Antibody Screen 01/12/21 01/12/21 Range/Units 12:15 12:20 WBC (4.0-11.0) K/uL RBC (4.30-5.90) M/uL Hgb (12.0-16.0) g/dL Hct (36.0-46.0) % MCV (80.0-98.0) fL MCH (27.0-32.0) pg MCHC (31.0-37.0) g/dL RDW Std Deviation (28.0-62.0) fl RDW Coeff of Leslee (11.0-15.0) % Plt Count (150-400) K/uL MPV (7.40-12.00) fL Nucleated RBC % /100WBC Nucleated RBCs # K/uL Urine Color Urine Appearance Urine pH (5.0-8.0) Ur Specific [place] (1.001-1.035) Urine Protein (NEGATIVE) mg/dL Urine Glucose (UA) (NEGATIVE) mg/dL Urine Ketones (NEGATIVE) mg/dL Urine Occult Blood (NEGATIVE) Urine Nitrite (NEGATIVE) Urine Bilirubin (NEGATIVE) Urine Urobilinogen (<2.0) EU/dL Ur Leukocyte Esterase (NEGATIVE) Membrane Rupture SARS-CoV-2 RNA (FERNANDO) NEGATIVE (NEGATIVE) Blood Type A POSITIVE Antibody Screen NEGATIVE Med Orders - Current: Current Medications Acetaminophen (Tylenol Extra Strength) 500 mg PO Q4H PRN PRN Reason: Pain Acetaminophen (Tylenol Extra Strength) 1,000 mg PO Q4H PRN PRN Reason: Pain Benzocaine/Menthol (Dermoplast Pain Relief 20%-0.5% [place]) 78 gm TOP ASDIRECTED PRN PRN Reason: Perineal Comfort Measure Bisacodyl (Dulcolax) 10 mg RECTAL ONETIME PRN PRN Reason: Constipation Butorphanol Tartrate (Stadol) 1 mg IVPUSH Q1H PRN PRN Reason: Pain Last Admin: 01/12/21 16:59 Dose: 1 mg Documented by: Carboprost Tromethamine (Hemabate Ds) 250 mcg IM ASDIRECTED PRN PRN Reason: Post Hemorrhage Docusate Sodium (Colace) 100 mg PO BID PRN PRN Reason: Constipation Emollient Ointment (Lansinoh Hpa) 0 gm TOP ASDIRECTED PRN PRN Reason: Sore Nipples Lactated Ringer's (Ringers, Lactated) 1,000 mls @ 150 mls/hr IV ASDIRECTED DANNY Last Admin: 01/12/21 12:15 Dose: 150 mls/hr Documented by: Oxytocin/Sodium Chloride (Oxytocin 30 Unit/500 Ml-Ns) 30 unit in 500 mls @ 500 mls/hr IV TITRATE [facility] Tranexamic Acid 1,000 mg/ (Sodium Chloride) 110 mls @ 660 mls/hr IV ONETIME PRN PRN Reason: Bleeding Ampicillin Sodium 1 gm/ Sodium (Chloride) 50 mls @ 100 mls/hr IV Q4H [facility] Last Admin: 01/12/21 16:26 Dose: 100 mls/hr Documented by: Oxytocin/Sodium Chloride (Oxytocin 30 Unit/500 Ml-Ns) 30 unit in 500 mls @ 2 mls/hr IV TITRATE [facility]; Protocol Last Titration: 01/12/21 17:44 Dose: 4 munits/min, 4 mls/hr Documented by: Ibuprofen (Motrin) 400 mg PO Q4H PRN PRN Reason: Pain Ibuprofen (Motrin) 800 mg PO Q6H PRN PRN Reason: Pain Lidocaine HCl (Xylocaine 1%) 50 ml INJECT ONETIME PRN PRN Reason: Laceration repair Methylergonovine Maleate (Methergine) 0.2 mg IM ASDIRECTED PRN PRN Reason: Post Hemorrhage Misoprostol (Cytotec) 200 mcg PO ONETIME PRN PRN Reason: Post Hemorrhage Misoprostol (Cytotec) 25 mcg VAG ONETIME PRN PRN Reason: Cervical Ripening Misoprostol (Cytotec) 25 mcg VAG Q4H PRN PRN Reason: Cervical Ripening Nalbuphine HCl (Nubain) 10 mg IVPUSH Q1H PRN PRN Reason: Pain (severe 7-10) Oxycodone HCl (Oxycodone) 5 mg PO Q2H PRN PRN Reason: Pain Sodium Chloride (Saline Flush) 10 ml FLUSH ASDIRECTED PRN PRN Reason: Keep Vein Open Sodium Chloride (Saline Flush) 2.5 ml FLUSH ASDIRECTED PRN PRN Reason: Keep Vein Open Sodium Chloride (Normal Saline) 10 ml IV ASDIRECTED PRN PRN Reason: IV Use Sterile Water (Sterile Water For Irrigation) 1,000 ml IRR ASDIRECTED PRN PRN Reason: delivery Terbutaline Sulfate (Brethine) 0.25 mg SUBCUT ASDIRECTED PRN PRN Reason: Tacysystole Witch Eliza (Tucks) 1 pad TOP ASDIRECTED PRN PRN Reason: comfort care Discontinued Medications Ampicillin Sodium 2 gm/ Sodium (Chloride) 100 mls @ 200 mls/hr IV ONETIME ONE Stop: 01/12/21 12:29 Last Admin: 01/12/21 12:36 Dose: 200 mls/hr Documented by: Oxytocin/Sodium Chloride (Oxytocin 30 Unit/500 Ml-Ns) Confirm Administered Dose 30 unit in 500 mls @ as directed .ROUTE .STK-MED ONE Stop: 01/12/21 16:18 Oxytocin/Sodium Chloride (Oxytocin 30 Unit/500 Ml-Ns) Confirm Administered Dose 30 unit in 500 mls @ as directed .ROUTE .STK-MED ONE Stop: 01/12/21 20:24 Lidocaine HCl (Xylocaine 1%) Confirm Administered Dose 50 ml .ROUTE .STK-MED ONE Stop: 01/12/21 18:09 Methylergonovine Maleate (Methergine) Confirm Administered Dose 0.2 mg .ROUTE .STK-MED ONE Stop: 01/12/21 20:30 Morphine Sulfate (Morphine) Confirm Administered Dose 2 mg .ROUTE .STK-MED ONE Stop: 01/12/21 19:01 Morphine Sulfate (Morphine) Confirm Administered Dose 2 mg .ROUTE .STK-MED ONE Stop: 01/12/21 20:30 - My Orders Last 24 Hours: My Active Orders 01/12/21 10:50 Resuscitation Status Routine 01/12/21 10:51 Patient Status [ADT] Routine Non Stress Test [RC] PER UNIT ROUTINE Up ad Kenzie [RC] ASDIRECTED Vaginal Exam [RC] Click to Edit Vital Signs [RC] PER UNIT ROUTINE 01/12/21 11:47 Heart Tones [RC] CONTINUOUS Notify Provider [RC] PRN Up ad Kenzie [RC] ASDIRECTED Vaginal Exam [RC] PRN Butorphanol [Stadol] 1 mg IVPUSH Q1H PRN Carboprost Tromethamine [Hemabate DS] 250 mcg IM ASDIRECTED PRN Lidocaine 1% [Xylocaine 1%] 50 ml INJECT ONETIME PRN Methylergonovine [Methergine] 0.2 mg IM ASDIRECTED PRN Nalbuphine [Nubain] 10 mg IVPUSH Q1H PRN Sodium Chloride 0.9% [Normal Saline] 10 ml IV ASDIRECTED PRN Sodium Chloride 0.9% [Saline Flush] 10 ml FLUSH ASDIRECTED PRN Sodium Chloride 0.9% [Saline Flush] 2.5 ml FLUSH ASDIRECTED PRN Tranexamic Acid [Cyklokapron] 1,000 mg Sodium Chloride 0.9% [Normal Saline] 100 ml IV ONETIME Water For Irrigation,Sterile [Sterile Water for Irrigation] 1,000 ml IRR ASDIRECTED PRN miSOPROStoL [Cytotec] 200 mcg PO ONETIME PRN Scalp Electrode [WOMSER] Per Unit Routine Peripheral IV Insertion Adult [OM.PC] Routine 01/12/21 12:00 Lactated Ringers [Ringers, Lactated] 1,000 ml IV ASDIRECTED Oxytocin/0.9 % Sodium Chloride [Oxytocin 30 Unit/500 ML-NS] 30 unit in 500 ml IV TITRATE 01/12/21 12:15 RPR (SYPHILIS SERO) W/ RFLX [REF] Routine 01/12/21 14:05 GBS [CULTURE GROUP B STREP] [RM] Routine 01/12/21 15:40 Bedrest Bathroom Privileges [RC] ASDIRECTED Communication Order [RC] ASDIRECTED Notify Provider [RC] PRN Notify Provider [RC] PRN Notify Provider [RC] STAT Vaginal Exam [RC] PRN Terbutaline [Brethine] 0.25 mg SUBCUT ASDIRECTED PRN miSOPROStoL [Cytotec] 25 mcg VAG ONETIME PRN miSOPROStoL [Cytotec] 25 mcg VAG Q4H PRN 01/12/21 15:45 Oxytocin/0.9 % Sodium Chloride [Oxytocin 30 Unit/500 ML-NS] 30 unit in 500 ml IV TITRATE Medication Administration Instruction [OM.PC] Q3H 01/12/21 16:30 Ampicillin 1 gm Sodium Chloride 0.9% [Normal Saline] 50 ml IV Q4H 01/12/21 20:08 Patient Status [ADT] Routine May Shower [RC] ASDIRECTED Up ad Kenzie [RC] ASDIRECTED Vital Signs [RC] PER UNIT ROUTINE Acetaminophen [Tylenol Extra Strength] 1,000 mg PO Q4H PRN Acetaminophen [Tylenol Extra Strength] 500 mg PO Q4H PRN Benzocaine/Menthol [Dermoplast Pain Relief 20%-0.5% [place]] 78 gm TOP ASDIRECTED PRN Docusate Sodium [Colace] 100 mg PO BID PRN Ibuprofen [Motrin] 400 mg PO Q4H PRN Ibuprofen [Motrin] 800 mg PO Q6H PRN Lanolin [Lansinoh HPA] See Dose Instructions TOP ASDIRECTED PRN bisacodyL [Dulcolax] 10 mg RECTAL ONETIME PRN oxyCODONE 5 mg PO Q2H PRN witch Eliza [Tucks] 1 pad TOP ASDIRECTED PRN Assess Lochia [WOMSER] Per Unit Routine Assess Uterine Involution [WOMSER] Per Unit Routine Peripheral IV Discontinue [OM.PC] Routine 01/13/21 05:11 HEMOGLOBIN/HEMATOCRIT,HH [HEME] Timed
[2021-01-12] MEDS ORDERED: Methylergonovine 0.2 MG/1 ML Amp ONE (20:29)
[2021-01-12] MEDS: Ibuprofen 800 MG Tab PO PRN (20:58)
--- NOTE | 2021-01-12 21:01 | PCM.SN.2 ---
- Free Text/Narrative Note: At approximately 2024, I was notified that patient had a large gush of vaginal bleeding. Presented to patient's room as nursing staff was starting a second bag of IV Pitocin. Uterine fundus was difficult to palpate and moderate amount of vaginal bleeding was noted. hemorrhage cart was brought into the room . The patient received IV Morphine for pain. The patient's bladder was drained with approximately 100cc of clear urine noted. Fundal massage was continued and two large clots were expelled. IM Methergine was administered in patient's left thigh at 2031. After these interventions, the uterine fundus was palpated below the umbilicus and was firm. Vaginal bleeding diminished. Vital signs remained stable throughout the episode. Hemoglobin and hematocrit ordered. Hgb prior to delivery was 13.8. Weighed EBL was 436cc. Patient denies symptoms of lightheadedness, dizziness, nausea or vomiting. Bleeding precautions reviewed with patient and nursing staff.
[2021-01-12] MEDS ORDERED: Misoprostol 200 MCG Tab RECTAL ONE (21:45)
[2021-01-12] MEDS: Acetaminophen 500 MG Tab PO PRN (23:49)
[2021-01-13] MEDS ORDERED: Morphine 4 MG/ML Syringe ONE (00:48)
[2021-01-13] MEDS ORDERED: Morphine 2 MG/ML SYRINGE ONE ×2 (00:58)
[2021-01-13] MEDS ORDERED: Misoprostol 200 MCG Tab ONE ×2 (01:13→14:27)
--- NOTE | 2021-01-13 01:44 | OR ---
SURGEON: BUBBA ELIAS MD DATE OF PROCEDURE: 01/12/2021 PREOPERATIVE DIAGNOSES: 1. intrauterine at 36 weeks 0 days. 2. premature rupture of membranes. 3. Group B Streptococcus unknown. POSTOPERATIVE DIAGNOSES: 1. intrauterine at 36 weeks 0 days. 2. premature rupture of membranes. 3. Group B Streptococcus unknown. PROCEDURE: Spontaneous vaginal delivery. PRIMARY SURGEON: Bubba Elias MD. Present for the entire procedure. WATER CONTROL SUPERVISOR: DEMETRIO Lopez. ANESTHESIA: Local anesthetic with 1% lidocaine. COMPLICATIONS: None known at the time of delivery. ESTIMATED BLOOD LOSS: 100 mL at the time of delivery. FINDINGS: Normal-appearing female , cephalic presentation, clear amniotic fluid. scores 8 and 9. Weight was 2760 g. Periurethral laceration. INDICATION: This 20-year-old 1 female presented to Labor and Delivery at 36 weeks 0 days with spontaneous rupture of membranes at approximately 8 hours prior to arrival. Clear fluid was noted. Contractions were noted at approximately every 5 minutes. Upon arrival, she was admitted to Labor and Delivery. Cervical exam was 5 cm, 80% effaced, and -1 station with in the vertex presentation. Group B strep swab was obtained, however, due to group B strep unknown status, IV ampicillin was initiated. The patient labored with contractions every 2 to 5 minutes. After 2 hours, no cervical changes noted, and Pitocin was initiated. The patient then quickly progressed to 8 cm dilated, 100% effaced, and +1 station. PROCEDURE IN DETAIL: I was called to the patient's room when she was completely dilated, and the patient desired to initiate pushing efforts in the [id number] position. Over several contractions, the patient spontaneously delivered the infant's head followed quickly by the anterior and posterior shoulders and the rest of the infant's body. The nose and mouth were suctioned with a bulb, and the was passed to awaiting nursing staff at bedside. The umbilical cord was clamped and cut, and the baby was taken over to the warmer for assessment by the stereo operator and the respiratory therapist along with nursing staff. The patient was then repositioned onto her back. Cord blood gases were then obtained along with arterial and venous blood. The placenta then delivered intact, 3-vessel cord was noted. The placenta was noted to be small in size for 36 weeks' gestation and had probable findings of concealed placental abruption. The perineum was then inspected and a small midline periurethral laceration was noted. Due to oozing from the laceration site, approximately 5 mL of local anesthetic was injected, and the incision was repaired in a running fashion with 4-0 chromic. Hemostasis was then assured. EBL at the time of delivery was 100 mL. The patient tolerated the procedure well. Mother and are recovering in patient's room at this time. KERI DOMINIQUE /[id number] MTDD
[2021-01-13] MEDS ORDERED: Methylergonovine 0.2 MG/1 ML Amp PRN (01:46)
[2021-01-13] MEDS ORDERED: Methylergonovine 0.2 MG Tab ONE ×2 (01:51→06:06)
[2021-01-13] MEDS: Lactated Ringers 1,000 ML IV SCH ×4 (02:23→22:58)
[2021-01-13] MEDS: Prenatal Multivitamin with Calcium/Folic Acid/Iron Tab PO SCH (06:29)
[2021-01-13] MEDS: Ibuprofen 800 MG Tab PO PRN ×3 (06:29→21:48)
[2021-01-13] MEDS: Ferrous Sulfate 325 MG Tab PO SCH ×3 (06:30→19:06)
[2021-01-13] MEDS ORDERED: Morphine 2 MG/ML SYRINGE IVPUSH ONE (07:32)
--- NOTE | 2021-01-13 08:17 | PCM.PNPP ---
- General Info Date of Service: 01/13/21 Admission Dx/Problem (Free Text): Patient Status Order with Admit Dx/Problem 01/12/21 10:51 Patient Status [ADT] Routine Admission Diagnosis/Problem Admission Diagnosis/Problem Subjective Update: Resting in bed upon arrival to patient's room. Reports lightheadedness and dizziness with ambulation. Pain controlled between fundal checks. Denies fever/chills, headaches or nausea/vomiting. See additional physician's note for full details of overnight care. - Patient Data Weight - Most Recent: 180 lb I&O - Last 24 Hours: Intake & Output 01/12/21 01/13/21 01/13/21 22:59 06:59 14:59 Intake Total 1000 Balance 1000 Lab Results - Last 24 Hours: Laboratory Results - last 24 hr 01/12/21 01/12/21 01/12/21 Range/Units 11:00 11:10 12:15 WBC 15.95 H (4.0-11.0) K/uL RBC 4.55 (4.30-5.90) M/uL Hgb 13.8 (12.0-16.0) g/dL Hct 41.5 (36.0-46.0) % MCV 91.2 (80.0-98.0) fL MCH 30.3 (27.0-32.0) pg MCHC 33.3 (31.0-37.0) g/dL RDW Std Deviation 43.7 (28.0-62.0) fl RDW Coeff of Leslee 13 (11.0-15.0) % Plt Count 185 (150-400) K/uL MPV 11.70 (7.40-12.00) fL Neut % (Auto) (48.0-80.0) % Lymph % (Auto) (16.0-40.0) % Williamson % (Auto) (0.0-15.0) % Eos % (Auto) (0.0-7.0) % Baso % (Auto) (0.0-1.5) % Neut # (Auto) (1.4-5.7) K/uL Lymph # (Auto) (0.6-2.4) K/uL Williamson # (Auto) (0.0-0.8) K/uL Eos # (Auto) (0.0-0.7) K/uL Baso # (Auto) (0.0-0.1) K/uL Nucleated RBC % 0.0 /100WBC Nucleated RBCs # 0 K/uL Urine Color YELLOW Urine Appearance CLEAR Urine pH 6.0 (5.0-8.0) Ur Specific [place] 1.020 (1.001-1.035) Urine Protein NEGATIVE (NEGATIVE) mg/dL Urine Glucose (UA) NEGATIVE (NEGATIVE) mg/dL Urine Ketones NEGATIVE (NEGATIVE) mg/dL Urine Occult Blood SMALL H (NEGATIVE) Urine Nitrite NEGATIVE (NEGATIVE) Urine Bilirubin NEGATIVE (NEGATIVE) Urine Urobilinogen 0.2 (<2.0) EU/dL Ur Leukocyte Esterase NEGATIVE (NEGATIVE) Membrane Rupture POSITIVE SARS-CoV-2 RNA (FERNANDO) (NEGATIVE) Blood Type Antibody Screen Crossmatch 01/12/21 01/12/21 01/12/21 Range/Units 12:15 12:20 13:07 WBC (4.0-11.0) K/uL RBC (4.30-5.90) M/uL Hgb (12.0-16.0) g/dL Hct (36.0-46.0) % MCV (80.0-98.0) fL MCH (27.0-32.0) pg MCHC (31.0-37.0) g/dL RDW Std Deviation (28.0-62.0) fl RDW Coeff of Leslee (11.0-15.0) % Plt Count (150-400) K/uL MPV (7.40-12.00) fL Neut % (Auto) (48.0-80.0) % Lymph % (Auto) (16.0-40.0) % Williamson % (Auto) (0.0-15.0) % Eos % (Auto) (0.0-7.0) % Baso % (Auto) (0.0-1.5) % Neut # (Auto) (1.4-5.7) K/uL Lymph # (Auto) (0.6-2.4) K/uL Williamson # (Auto) (0.0-0.8) K/uL Eos # (Auto) (0.0-0.7) K/uL Baso # (Auto) (0.0-0.1) K/uL Nucleated RBC % /100WBC Nucleated RBCs # K/uL Urine Color Urine Appearance Urine pH (5.0-8.0) Ur Specific [place] (1.001-1.035) Urine Protein (NEGATIVE) mg/dL Urine Glucose (UA) (NEGATIVE) mg/dL Urine Ketones (NEGATIVE) mg/dL Urine Occult Blood (NEGATIVE) Urine Nitrite (NEGATIVE) Urine Bilirubin (NEGATIVE) Urine Urobilinogen (<2.0) EU/dL Ur Leukocyte Esterase (NEGATIVE) Membrane Rupture SARS-CoV-2 RNA (FERNANDO) NEGATIVE (NEGATIVE) Blood Type A POSITIVE Antibody Screen NEGATIVE Crossmatch See Detail See Detail 01/12/21 01/13/21 Range/Units 22:05 06:20 WBC 23.95 H (4.0-11.0) K/uL RBC 4.03 L (4.30-5.90) M/uL Hgb 12.2 8.6 L (12.0-16.0) g/dL Hct 36.7 26.0 L (36.0-46.0) % MCV 91.1 (80.0-98.0) fL MCH 30.3 (27.0-32.0) pg MCHC 33.2 (31.0-37.0) g/dL RDW Std Deviation 43.7 (28.0-62.0) fl RDW Coeff of Leslee 13 (11.0-15.0) % Plt Count 160 (150-400) K/uL MPV 11.50 (7.40-12.00) fL Neut % (Auto) 89.6 H (48.0-80.0) % Lymph % (Auto) 6.5 L (16.0-40.0) % Williamson % (Auto) 3.8 (0.0-15.0) % Eos % (Auto) 0.1 (0.0-7.0) % Baso % (Auto) 0.0 (0.0-1.5) % Neut # (Auto) 21.5 H (1.4-5.7) K/uL Lymph # (Auto) 1.6 (0.6-2.4) K/uL Williamson # (Auto) 0.9 H (0.0-0.8) K/uL Eos # (Auto) 0.0 (0.0-0.7) K/uL Baso # (Auto) 0.0 (0.0-0.1) K/uL Nucleated RBC % 0.0 /100WBC Nucleated RBCs # 0 K/uL Urine Color Urine Appearance Urine pH (5.0-8.0) Ur Specific [place] (1.001-1.035) Urine Protein (NEGATIVE) mg/dL Urine Glucose (UA) (NEGATIVE) mg/dL Urine Ketones (NEGATIVE) mg/dL Urine Occult Blood (NEGATIVE) Urine Nitrite (NEGATIVE) Urine Bilirubin (NEGATIVE) Urine Urobilinogen (<2.0) EU/dL Ur Leukocyte Esterase (NEGATIVE) Membrane Rupture SARS-CoV-2 RNA (FERNANDO) (NEGATIVE) Blood Type Antibody Screen Crossmatch Med Orders - Current: Current Medications Acetaminophen (Tylenol Extra Strength) 500 mg PO Q4H PRN PRN Reason: Pain Acetaminophen (Tylenol Extra Strength) 1,000 mg PO Q4H PRN PRN Reason: Pain Last Admin: 01/12/21 23:49 Dose: 1,000 mg Documented by: Benzocaine/Menthol (Dermoplast Pain Relief 20%-0.5% Jewett) 78 gm TOP ASDIRECTED PRN PRN Reason: Perineal Comfort Measure Last Admin: 01/12/21 22:38 Dose: 1 bottle Documented by: Bisacodyl (Dulcolax) 10 mg RECTAL ONETIME PRN PRN Reason: Constipation Butorphanol Tartrate (Stadol) 1 mg IVPUSH Q1H PRN PRN Reason: Pain Last Admin: 01/12/21 16:59 Dose: 1 mg Documented by: Carboprost Tromethamine (Hemabate Ds) 250 mcg IM ASDIRECTED PRN PRN Reason: Post Hemorrhage Last Admin: 01/12/21 21:27 Dose: 250 mcg Documented by: Docusate Sodium (Colace) 100 mg PO BID PRN PRN Reason: Constipation Emollient Ointment (Lansinoh Hpa) 0 gm TOP ASDIRECTED PRN PRN Reason: Sore Nipples Last Admin: 01/12/21 22:39 Dose: 1 applic Documented by: Ferrous Sulfate (Ferrous Sulfate) 325 mg PO BIDNVALS [facility] Last Admin: 01/13/21 06:30 Dose: 325 mg Documented by: Lactated Ringer's (Ringers, Lactated) 1,000 mls @ 150 mls/hr IV ASDIRECTED DANNY Last Admin: 01/13/21 07:29 Dose: 150 mls/hr Documented by: Oxytocin/Sodium Chloride (Oxytocin 30 Unit/500 Ml-Ns) 30 unit in 500 mls @ 500 mls/hr IV TITRATE DANNY Tranexamic Acid 1,000 mg/ (Sodium Chloride) 110 mls @ 660 mls/hr IV ONETIME PRN PRN Reason: Bleeding Last Admin: 01/12/21 22:59 Dose: 660 mls/hr Documented by: Ampicillin Sodium 1 gm/ Sodium (Chloride) 50 mls @ 100 mls/hr IV Q4H DANNY Last Admin: 01/12/21 16:26 Dose: 100 mls/hr Documented by: Oxytocin/Sodium Chloride (Oxytocin 30 Unit/500 Ml-Ns) 30 unit in 500 mls @ 2 mls/hr IV TITRATE [facility]; Protocol Last Titration: 01/12/21 17:44 Dose: 4 munits/min, 4 mls/hr Documented by: Ibuprofen (Motrin) 400 mg PO Q4H PRN PRN Reason: Pain Ibuprofen (Motrin) 800 mg PO Q6H PRN PRN Reason: Pain Last Admin: 01/13/21 06:29 Dose: 800 mg Documented by: Lidocaine HCl (Xylocaine 1%) 50 ml INJECT ONETIME PRN PRN Reason: Laceration repair Methylergonovine Maleate (Methergine) 0.2 mg IM ASDIRECTED PRN PRN Reason: Post Hemorrhage Last Admin: 01/12/21 22:54 Dose: 0.2 mg Documented by: Methylergonovine Maleate (Methergine) 0.2 mg .XX Q4H PRN PRN Reason: Bleeding Misoprostol (Cytotec) 200 mcg PO ONETIME PRN PRN Reason: Post Hemorrhage Misoprostol (Cytotec) 25 mcg VAG ONETIME PRN PRN Reason: Cervical Ripening Nalbuphine HCl (Nubain) 10 mg IVPUSH Q1H PRN PRN Reason: Pain (severe 7-10) Oxycodone HCl (Oxycodone) 5 mg PO Q2H PRN PRN Reason: Pain Prenat Multivit/Loan Counselor/Iron/Folic Ac ( Plus Iron) 1 each PO DAILY [facility] Last Admin: 01/13/21 06:29 Dose: 1 each Documented by: Sodium Chloride (Saline Flush) 10 ml FLUSH ASDIRECTED PRN PRN Reason: Keep Vein Open Sodium Chloride (Saline Flush) 2.5 ml FLUSH ASDIRECTED PRN PRN Reason: Keep Vein Open Sodium Chloride (Normal Saline) 10 ml IV ASDIRECTED PRN PRN Reason: IV Use Sterile Water (Sterile Water For Irrigation) 1,000 ml IRR ASDIRECTED PRN PRN Reason: delivery Terbutaline Sulfate (Brethine) 0.25 mg SUBCUT ASDIRECTED PRN PRN Reason: Tacysystole Witritesh Eliza (Tucks) 1 pad TOP ASDIRECTED PRN PRN Reason: comfort care Last Admin: 01/12/21 22:38 Dose: 1 box Documented by: Discontinued Medications Ampicillin Sodium 2 gm/ Sodium (Chloride) 100 mls @ 200 mls/hr IV ONETIME ONE Stop: 01/12/21 12:29 Last Admin: 01/12/21 12:36 Dose: 200 mls/hr Documented by: Oxytocin/Sodium Chloride (Oxytocin 30 Unit/500 Ml-Ns) Confirm Administered Dose 30 unit in 500 mls @ as directed .ROUTE .STK-MED ONE Stop: 01/12/21 16:18 Last Admin: 01/12/21 20:40 Dose: 999 mls/hr Documented by: Oxytocin/Sodium Chloride (Oxytocin 30 Unit/500 Ml-Ns) Confirm Administered Dose 30 unit in 500 mls @ as directed .ROUTE .STK-MED ONE Stop: 01/12/21 20:24 Last Admin: 01/12/21 21:17 Dose: 999 mls/hr Documented by: Lidocaine HCl (Xylocaine 1%) Confirm Administered Dose 50 ml .ROUTE .STK-MED ONE Stop: 01/12/21 18:09 Last Admin: 01/12/21 19:40 Dose: 50 ml Documented by: Methylergonovine Maleate (Methergine) Confirm Administered Dose 0.2 mg .ROUTE .STK-MED ONE Stop: 01/12/21 20:30 Last Admin: 01/12/21 20:31 Dose: 0.2 mg Documented by: Methylergonovine Maleate (Methergine) Confirm Administered Dose 0.2 mg .ROUTE .STK-MED ONE Stop: 01/13/21 01:52 Methylergonovine Maleate (Methergine) Confirm Administered Dose 0.2 mg .ROUTE .STK-MED ONE Stop: 01/13/21 06:07 Last Admin: 01/13/21 06:30 Dose: 0.2 mg Documented by: Misoprostol (Cytotec) 25 mcg VAG Q4H PRN PRN Reason: Cervical Ripening Misoprostol (Cytotec) 600 mcg RECTAL ONETIME ONE Stop: 01/12/21 21:46 Last Admin: 01/12/21 21:27 Dose: 600 mcg Documented by: Misoprostol (Cytotec) Confirm Administered Dose 600 mcg .ROUTE .STK-MED ONE Stop: 01/13/21 01:14 Last Admin: 01/13/21 01:21 Dose: 600 mcg Documented by: Morphine Sulfate (Morphine) Confirm Administered Dose 2 mg .ROUTE .STK-MED ONE Stop: 01/12/21 19:01 Last Admin: 01/12/21 19:00 Dose: 2 mg Documented by: Morphine Sulfate (Morphine) Confirm Administered Dose 2 mg .ROUTE .STK-MED ONE Stop: 01/12/21 20:30 Last Admin: 01/12/21 22:12 Dose: 2 mg Documented by: Morphine Sulfate (Morphine) Confirm Administered Dose 4 mg .ROUTE .STK-MED ONE Stop: 01/13/21 00:49 Morphine Sulfate (Morphine) Confirm Administered Dose 2 mg .ROUTE .STK-MED ONE Stop: 01/13/21 00:59 Last Admin: 01/13/21 01:05 Dose: 2 mg Documented by: Morphine Sulfate (Morphine) Confirm Administered Dose 2 mg .ROUTE .STK-MED ONE Stop: 01/13/21 00:59 Last Admin: 01/13/21 01:33 Dose: 2 mg Documented by: Morphine Sulfate (Morphine) 2 mg IVPUSH ONETIME ONE Stop: 01/13/21 07:33 Last Admin: 01/13/21 07:44 Dose: 2 mg Documented by: - Interaction Infant Disposition, : to Nursery Feeding: Attempted ; Nursed Fair/Poor Support Person: Significant Other - Recovery Exam Fundal Tone: Firm Fundal Level: 1 Fingerbreadths Above Umbilicus Fundal Placement: Midline Lochia Amount: Small (during roundings this AM), Clots/Tissue Present (occasional with fundal check) Lochia Color: Rubra/Red Perineum Description: Intact, Minimal Bruising/Swelling Episiotomy/Laceration: Approximated Bladder Status: Voiding Urinary Elimination: Voided - Exam General: Alert Lungs: Clear to Auscultation, Normal Respiratory Effort Cardiovascular: Regular Rate, Regular Rhythm GI/Abdominal Exam: Soft, Tender (appropriate) Extremities: Normal Inspection, Normal Range of Motion, Pedal Edema (trace) Skin: Warm, Dry, Intact Neurological: No New Focal Deficit Psy/Mental Status: Normal Mood - Problem List Review Problem List Initiated/Reviewed/Updated: Yes - My Orders Last 24 Hours: My Active Orders 01/12/21 10:50 Resuscitation Status Routine 01/12/21 10:51 Patient Status [ADT] Routine Non Stress Test [RC] PER UNIT ROUTINE Up ad Kenzie [RC] ASDIRECTED Vaginal Exam [RC] Click to Edit Vital Signs [RC] PER UNIT ROUTINE 01/12/21 11:47 Heart Tones [RC] CONTINUOUS Notify Provider [RC] PRN Up ad Kenzie [RC] ASDIRECTED Vaginal Exam [RC] PRN Butorphanol [Stadol] 1 mg IVPUSH Q1H PRN Carboprost Tromethamine [Hemabate DS] 250 mcg IM ASDIRECTED PRN Lidocaine 1% [Xylocaine 1%] 50 ml INJECT ONETIME PRN Methylergonovine [Methergine] 0.2 mg IM ASDIRECTED PRN Nalbuphine [Nubain] 10 mg IVPUSH Q1H PRN Sodium Chloride 0.9% [Normal Saline] 10 ml IV ASDIRECTED PRN Sodium Chloride 0.9% [Saline Flush] 10 ml FLUSH ASDIRECTED PRN Sodium Chloride 0.9% [Saline Flush] 2.5 ml FLUSH ASDIRECTED PRN Tranexamic Acid [Cyklokapron] 1,000 mg Sodium Chloride 0.9% [Normal Saline] 100 ml IV ONETIME Water For Irrigation,Sterile [Sterile Water for Irrigation] 1,000 ml IRR ASDIRECTED PRN miSOPROStoL [Cytotec] 200 mcg PO ONETIME PRN Scalp Electrode [WOMSER] Per Unit Routine Peripheral IV Insertion Adult [OM.PC] Routine 01/12/21 12:00 Lactated Ringers [Ringers, Lactated] 1,000 ml IV ASDIRECTED Oxytocin/0.9 % Sodium Chloride [Oxytocin 30 Unit/500 ML-NS] 30 unit in 500 ml IV TITRATE 01/12/21 12:15 RED BLOOD CELLS LP [BBK] Routine RPR (SYPHILIS SERO) W/ RFLX [REF] Routine TYPE AND SCREEN [BBK] Routine 01/12/21 14:05 GBS [CULTURE GROUP B STREP] [RM] Routine 01/12/21 15:40 Bedrest Bathroom Privileges [RC] ASDIRECTED Communication Order [RC] ASDIRECTED Notify Provider [RC] PRN Notify Provider [RC] PRN Notify Provider [RC] STAT Vaginal Exam [RC] PRN Terbutaline [Brethine] 0.25 mg SUBCUT ASDIRECTED PRN miSOPROStoL [Cytotec] 25 mcg VAG ONETIME PRN 01/12/21 15:45 Oxytocin/0.9 % Sodium Chloride [Oxytocin 30 Unit/500 ML-NS] 30 unit in 500 ml IV TITRATE Medication Administration Instruction [OM.PC] Q3H 01/12/21 16:30 Ampicillin 1 gm Sodium Chloride 0.9% [Normal Saline] 50 ml IV Q4H 01/12/21 20:08 Patient Status [ADT] Routine May Shower [RC] ASDIRECTED Up ad Kenzie [RC] ASDIRECTED Vital Signs [RC] PER UNIT ROUTINE Acetaminophen [Tylenol Extra Strength] 1,000 mg PO Q4H PRN Acetaminophen [Tylenol Extra Strength] 500 mg PO Q4H PRN Benzocaine/Menthol [Dermoplast Pain Relief 20%-0.5% Jewett] 78 gm TOP ASDIRECTED PRN Docusate Sodium [Colace] 100 mg PO BID PRN Ibuprofen [Motrin] 400 mg PO Q4H PRN Ibuprofen [Motrin] 800 mg PO Q6H PRN Lanolin [Lansinoh HPA] See Dose Instructions TOP ASDIRECTED PRN bisacodyL [Dulcolax] 10 mg RECTAL ONETIME PRN oxyCODONE 5 mg PO Q2H PRN witch Eliza [Tucks] 1 pad TOP ASDIRECTED PRN Assess Lochia [WOMSER] Per Unit Routine Assess Uterine Involution [WOMSER] Per Unit Routine Peripheral IV Discontinue [OM.PC] Routine 01/13/21 01:46 Methylergonovine [Methergine] 0.2 mg .XX Q4H PRN 01/13/21 03:00 Ferrous Sulfate 325 mg PO BIDMEALS Vit with Ca/FA/Iron [ Plus Iron] 1 each PO DAILY - Assessment Assessment:: 20 year old G1 now P1 PPD #1 s/p and hemorrhage - Plan Plan:: Routine pp cares * A positive, rubella immune * GBS status unknown - 2g loading dose ampicillin and secondary dose given. GBS swab collected. Monitor for s/s of infection. * PO pain medications ordered PRN * Regular diet as tolerated * Encourage fluid intake and ambulation * , nursing assistance as indicated hemorrhage secondary to MICHELLE atony * Hgb 12.2 > 8.6 after delivery * Asymptomatic with ambulation * Vital signs: systolic BP 90-100s, pulse 90-100s, SpO2 >95% * Medications given overnight - Pitocin x2 - Metherine IM x2, PO Metherine 0.2mg started this morning at 0600 and will continue q6hrs - Hemabate IM - Rectal Cytotec - TXA * Second IV successfully placed, 1u pRBCs currently infusing. Will draw H&H 2 hours after infusion. 4u pRBCs on hold for patient. * IVF running at 150cc, s/p 2L IVF overnight * Bleeding stable at this time Dispo: stable. Will continue to monitor patient's vaginal bleeding closely and will transfuse 2nd unit of pRBCs as indicated.
[2021-01-13] MEDS: Methylergonovine 0.2 MG Tab PO SCH ×4 (10:01→22:51)
[2021-01-13] MEDS: oxyCODONE 5 MG Tab PO PRN ×2 (10:01→17:31)
--- NOTE | 2021-01-13 19:07 | PCM.SN.2 ---
- Free Text/Narrative Note: S: Patient transferred to room this afternoon. Resting comfortably in bed this evening. Has been able to sleep off and on today. Reports symptoms of lightheadedness and dizziness have resolved after receiving 2u pRBCs. Has been ambulating to bedside commode. Scant amount of vaginal bleeding noted with last void. Denies expulsion of clots since this morning. Attempting to pump for baby in nursery. Tolerating regular diet. Has been passing gas, no bowel movement since delivery. O: * VSS, afebrile * No facial palor * Uterus fundus firm and palpated two fingerbreadths below the umbilicus. * No vaginal bleeding with fundal check * Trace pedal edema A: 20 year old G1 now P1 s/p with hemorrhage secondary to MICHELLE atony P: * Continue to monitor bleeding and vital signs closely * Repeat H&H ordered two hours after last unit of pRBCs * Discussed starting IV iron infusion pending hemoglobin level * Will continue PO Metherine x24hrs * PO iron and vitamin ordered for this evening Dispo: stable. Continue cares.
[2021-01-13] MEDS ORDERED: diphenhydrAMINE 25 MG Cap PO ONE (21:54)
[2021-01-14] MEDS: Methylergonovine 0.2 MG Tab PO SCH ×2 (02:10→05:49)
[2021-01-14] MEDS: oxyCODONE 5 MG Tab PO PRN ×2 (02:53→08:50)
[2021-01-14] MEDS: Lactated Ringers 1,000 ML IV SCH (05:59)
[2021-01-14] MEDS: Ferrous Sulfate 325 MG Tab PO SCH ×2 (07:20→17:23)
--- NOTE | 2021-01-14 08:36 | PCM.PNPP ---
- General Info Date of Service: 01/14/21 Functional Status: Reports: Pain Controlled, Tolerating Diet, Urinating (some incontinence). Denies: Ambulating - Review of Systems General: Reports: No Symptoms HEENT: Reports: No Symptoms Pulmonary: Reports: No Symptoms Cardiovascular: Reports: No Symptoms Gastrointestinal: Reports: No Symptoms Genitourinary: Reports: No Symptoms Musculoskeletal: Reports: No Symptoms Skin: Reports: No Symptoms Neurological: Reports: No Symptoms Psychiatric: Reports: No Symptoms - General Info Date of Service: 01/14/21 - Patient Data Vital Signs - Most Recent: Last Vital Signs Temp 37.1 C 01/14/21 07:45 Pulse 86 01/14/21 07:45 Resp 16 01/14/21 07:45 BP 84/45 L 01/14/21 08:00 Pulse Ox 99 01/14/21 07:45 Weight - Most Recent: 81.647 kg I&O - Last 24 Hours: Intake & Output 01/13/21 01/14/21 01/14/21 22:59 06:59 14:59 Intake Total 350 350 Balance 350 350 Lab Results - Last 24 Hours: Laboratory Results - last 24 hr 01/12/21 01/12/21 01/13/21 Range/Units 12:15 19:40 13:16 WBC 19.56 H (4.0-11.0) K/uL RBC 2.95 L (4.30-5.90) M/uL Hgb 9.0 L (12.0-16.0) g/dL Hct 27.0 L (36.0-46.0) % MCV 91.5 (80.0-98.0) fL MCH 30.5 (27.0-32.0) pg MCHC 33.3 (31.0-37.0) g/dL RDW Std Deviation 45.0 (28.0-62.0) fl RDW Coeff of Leslee 14 (11.0-15.0) % Plt Count 153 (150-400) K/uL MPV 11.50 (7.40-12.00) fL Neut % (Auto) 80.9 H (48.0-80.0) % Lymph % (Auto) 12.6 L (16.0-40.0) % Ida % (Auto) 6.3 (0.0-15.0) % Eos % (Auto) 0.1 (0.0-7.0) % Baso % (Auto) 0.1 (0.0-1.5) % Neut # (Auto) 15.8 H (1.4-5.7) K/uL Lymph # (Auto) 2.5 H (0.6-2.4) K/uL Ida # (Auto) 1.2 H (0.0-0.8) K/uL Eos # (Auto) 0.0 (0.0-0.7) K/uL Baso # (Auto) 0.0 (0.0-0.1) K/uL Nucleated RBC % 0.0 /100WBC Nucleated RBCs # 0 K/uL INR APTT (18.6-31.3) SEC Fibrinogen (215-411) mg/dL Cord VBG pH 7.314 (7.25-7.45) Cord VBG Base Excess -5 (-10--2) Blood Type A POSITIVE Antibody Screen NEGATIVE Crossmatch See Detail 01/13/21 01/13/21 01/13/21 Range/Units 13:16 13:16 21:29 WBC (4.0-11.0) K/uL RBC (4.30-5.90) M/uL Hgb 9.1 L (12.0-16.0) g/dL Hct 27.1 L (36.0-46.0) % MCV (80.0-98.0) fL MCH (27.0-32.0) pg MCHC (31.0-37.0) g/dL RDW Std Deviation (28.0-62.0) fl RDW Coeff of Leslee (11.0-15.0) % Plt Count (150-400) K/uL MPV (7.40-12.00) fL Neut % (Auto) (48.0-80.0) % Lymph % (Auto) (16.0-40.0) % Ida % (Auto) (0.0-15.0) % Eos % (Auto) (0.0-7.0) % Baso % (Auto) (0.0-1.5) % Neut # (Auto) (1.4-5.7) K/uL Lymph # (Auto) (0.6-2.4) K/uL Ida # (Auto) (0.0-0.8) K/uL Eos # (Auto) (0.0-0.7) K/uL Baso # (Auto) (0.0-0.1) K/uL Nucleated RBC % /100WBC Nucleated RBCs # K/uL INR 1.00 APTT 24.1 (18.6-31.3) SEC Fibrinogen 531 H (215-411) mg/dL Cord VBG pH (7.25-7.45) Cord VBG Base Excess (-10--2) Blood Type Antibody Screen Crossmatch 01/14/21 Range/Units 05:05 WBC (4.0-11.0) K/uL RBC (4.30-5.90) M/uL Hgb 9.4 L (12.0-16.0) g/dL Hct 28.3 L (36.0-46.0) % MCV (80.0-98.0) fL MCH (27.0-32.0) pg MCHC (31.0-37.0) g/dL RDW Std Deviation (28.0-62.0) fl RDW Coeff of Leslee (11.0-15.0) % Plt Count (150-400) K/uL MPV (7.40-12.00) fL Neut % (Auto) (48.0-80.0) % Lymph % (Auto) (16.0-40.0) % Ida % (Auto) (0.0-15.0) % Eos % (Auto) (0.0-7.0) % Baso % (Auto) (0.0-1.5) % Neut # (Auto) (1.4-5.7) K/uL Lymph # (Auto) (0.6-2.4) K/uL Ida # (Auto) (0.0-0.8) K/uL Eos # (Auto) (0.0-0.7) K/uL Baso # (Auto) (0.0-0.1) K/uL Nucleated RBC % /100WBC Nucleated RBCs # K/uL INR APTT (18.6-31.3) SEC Fibrinogen (215-411) mg/dL Cord VBG pH (7.25-7.45) Cord VBG Base Excess (-10--2) Blood Type Antibody Screen Crossmatch Med Orders - Current: Current Medications Acetaminophen (Tylenol Extra Strength) 500 mg PO Q4H PRN PRN Reason: Pain Acetaminophen (Tylenol Extra Strength) 1,000 mg PO Q4H PRN PRN Reason: Pain Last Admin: 01/12/21 23:49 Dose: 1,000 mg Documented by: Benzocaine/Menthol (Dermoplast Pain Relief 20%-0.5% [place]) 78 gm TOP ASDIRECTED PRN PRN Reason: Perineal Comfort Measure Last Admin: 01/12/21 22:38 Dose: 1 bottle Documented by: Bisacodyl (Dulcolax) 10 mg RECTAL ONETIME PRN PRN Reason: Constipation Butorphanol Tartrate (Stadol) 1 mg IVPUSH Q1H PRN PRN Reason: Pain Last Admin: 01/12/21 16:59 Dose: 1 mg Documented by: Carboprost Tromethamine (Hemabate Ds) 250 mcg IM ASDIRECTED PRN PRN Reason: Post Hemorrhage Last Admin: 01/12/21 21:27 Dose: 250 mcg Documented by: Docusate Sodium (Colace) 100 mg PO BID PRN PRN Reason: Constipation Emollient Ointment (Lansinoh Hpa) 0 gm TOP ASDIRECTED PRN PRN Reason: Sore Nipples Last Admin: 01/12/21 22:39 Dose: 1 applic Documented by: Ferrous Sulfate (Ferrous Sulfate) 325 mg PO BIDMEALS [facility] Last Admin: 01/14/21 07:20 Dose: 325 mg Documented by: Lactated Ringer's (Ringers, Lactated) 1,000 mls @ 150 mls/hr IV ASDIRECTED [facility] Last Admin: 01/14/21 05:59 Dose: 999 mls/hr Documented by: Oxytocin/Sodium Chloride (Oxytocin 30 Unit/500 Ml-Ns) 30 unit in 500 mls @ 500 mls/hr IV TITRATE [facility] Tranexamic Acid 1,000 mg/ (Sodium Chloride) 110 mls @ 660 mls/hr IV ONETIME PRN PRN Reason: Bleeding Last Admin: 01/12/21 22:59 Dose: 660 mls/hr Documented by: Ampicillin Sodium 1 gm/ Sodium (Chloride) 50 mls @ 100 mls/hr IV Q4H [facility] Last Admin: 01/12/21 16:26 Dose: 100 mls/hr Documented by: Oxytocin/Sodium Chloride (Oxytocin 30 Unit/500 Ml-Ns) 30 unit in 500 mls @ 2 mls/hr IV TITRATE [facility]; Protocol Last Titration: 01/12/21 17:44 Dose: 4 munits/min, 4 mls/hr Documented by: Iron Sucrose 100 mg/ Sodium (Chloride) 105 mls @ 400 mls/hr IV DAILY [facility] Stop: 01/18/21 09:01 Ibuprofen (Motrin) 400 mg PO Q4H PRN PRN Reason: Pain Ibuprofen (Motrin) 800 mg PO Q6H PRN PRN Reason: Pain Last Admin: 01/13/21 21:48 Dose: 800 mg Documented by: Lidocaine HCl (Xylocaine 1%) 50 ml INJECT ONETIME PRN PRN Reason: Laceration repair Methylergonovine Maleate (Methergine) 0.2 mg IM ASDIRECTED PRN PRN Reason: Post Hemorrhage Last Admin: 01/12/21 22:54 Dose: 0.2 mg Documented by: Misoprostol (Cytotec) 200 mcg PO ONETIME PRN PRN Reason: Post Hemorrhage Misoprostol (Cytotec) 25 mcg VAG ONETIME PRN PRN Reason: Cervical Ripening Nalbuphine HCl (Nubain) 10 mg IVPUSH Q1H PRN PRN Reason: Pain (severe 7-10) Oxycodone HCl (Oxycodone) 5 mg PO Q2H PRN PRN Reason: Pain Last Admin: 01/14/21 02:53 Dose: 5 mg Documented by: Prenat Multivit/Ruhenstroth/Iron/Folic Ac ( Plus Iron) 1 each PO DAILY [facility] Last Admin: 01/13/21 06:29 Dose: 1 each Documented by: Sodium Chloride (Saline Flush) 10 ml FLUSH ASDIRECTED PRN PRN Reason: Keep Vein Open Sodium Chloride (Saline Flush) 2.5 ml FLUSH ASDIRECTED PRN PRN Reason: Keep Vein Open Sodium Chloride (Normal Saline) 10 ml IV ASDIRECTED PRN PRN Reason: IV Use Sterile Water (Sterile Water For Irrigation) 1,000 ml IRR ASDIRECTED PRN PRN Reason: delivery Terbutaline Sulfate (Brethine) 0.25 mg SUBCUT ASDIRECTED PRN PRN Reason: Tacysystole Estefany Kay (Tucks) 1 pad TOP ASDIRECTED PRN PRN Reason: comfort care Last Admin: 01/12/21 22:38 Dose: 1 box Documented by: Discontinued Medications Diphenhydramine HCl (Benadryl) 25 mg PO ONETIME ONE Stop: 01/13/21 21:55 Last Admin: 01/13/21 22:04 Dose: 25 mg Documented by: Ampicillin Sodium 2 gm/ Sodium (Chloride) 100 mls @ 200 mls/hr IV ONETIME ONE Stop: 01/12/21 12:29 Last Admin: 01/12/21 12:36 Dose: 200 mls/hr Documented by: Oxytocin/Sodium Chloride (Oxytocin 30 Unit/500 Ml-Ns) Confirm Administered Dose 30 unit in 500 mls @ as directed .ROUTE .STK-MED ONE Stop: 01/12/21 16:18 Last Admin: 01/12/21 20:40 Dose: 999 mls/hr Documented by: Oxytocin/Sodium Chloride (Oxytocin 30 Unit/500 Ml-Ns) Confirm Administered Dose 30 unit in 500 mls @ as directed .ROUTE .STK-MED ONE Stop: 01/12/21 20:24 Last Admin: 01/12/21 21:17 Dose: 999 mls/hr Documented by: Lidocaine HCl (Xylocaine 1%) Confirm Administered Dose 50 ml .ROUTE .STK-MED ONE Stop: 01/12/21 18:09 Last Admin: 01/12/21 19:40 Dose: 50 ml Documented by: Methylergonovine Maleate (Methergine) Confirm Administered Dose 0.2 mg .ROUTE .STK-MED ONE Stop: 01/12/21 20:30 Last Admin: 01/12/21 20:31 Dose: 0.2 mg Documented by: Methylergonovine Maleate (Methergine) Confirm Administered Dose 0.2 mg .ROUTE .STK-MED ONE Stop: 01/13/21 01:52 Methylergonovine Maleate (Methergine) Confirm Administered Dose 0.2 mg .ROUTE .STK-MED ONE Stop: 01/13/21 06:07 Last Admin: 01/13/21 06:30 Dose: 0.2 mg Documented by: Methylergonovine Maleate (Methergine) 0.2 mg PO Q4H [facility]AN[facility] Stop: 01/14/21 05:46 Last Admin: 01/14/21 05:49 Dose: Not Given Documented by: Misoprostol (Cytotec) 25 mcg VAG Q4H PRN PRN Reason: Cervical Ripening Misoprostol (Cytotec) 600 mcg RECTAL ONETIME ONE Stop: 01/12/21 21:46 Last Admin: 01/12/21 21:27 Dose: 600 mcg Documented by: Misoprostol (Cytotec) Confirm Administered Dose 600 mcg .ROUTE .STK-MED ONE Stop: 01/13/21 01:14 Last Admin: 01/13/21 01:21 Dose: 600 mcg Documented by: Misoprostol (Cytotec) Confirm Administered Dose 600 mcg .ROUTE .STK-MED ONE Stop: 01/13/21 14:28 Morphine Sulfate (Morphine) Confirm Administered Dose 2 mg .ROUTE .STK-MED ONE Stop: 01/12/21 19:01 Last Admin: 01/12/21 19:00 Dose: 2 mg Documented by: Morphine Sulfate (Morphine) Confirm Administered Dose 2 mg .ROUTE .STK-MED ONE Stop: 01/12/21 20:30 Last Admin: 01/12/21 22:12 Dose: 2 mg Documented by: Morphine Sulfate (Morphine) Confirm Administered Dose 4 mg .ROUTE .STK-MED ONE Stop: 01/13/21 00:49 Morphine Sulfate (Morphine) Confirm Administered Dose 2 mg .ROUTE .STK-MED ONE Stop: 01/13/21 00:59 Last Admin: 01/13/21 01:05 Dose: 2 mg Documented by: Morphine Sulfate (Morphine) Confirm Administered Dose 2 mg .ROUTE .STK-MED ONE Stop: 01/13/21 00:59 Last Admin: 01/13/21 01:33 Dose: 2 mg Documented by: Morphine Sulfate (Morphine) 2 mg IVPUSH ONETIME ONE Stop: 01/13/21 07:33 Last Admin: 01/13/21 07:44 Dose: 2 mg Documented by: Tranexamic Acid (Cyklokapron) Confirm Administered Dose 1,000 mg .ROUTE .STK-MED ONE Stop: 01/13/21 13:53 - Interaction Disposition, : to Nursery Feeding: Attempted ; Nursed Fair/Poor Support Person: Significant Other - Recovery Exam Fundal Tone: Firm Fundal Level: 2 Fingerbreadths Below Umbilicus Fundal Placement: Left Lochia Amount: Small Lochia Color: Rubra/Red Perineum Description: Intact, Minimal Bruising/Swelling Episiotomy/Laceration: Approximated Bladder Status: Voiding Urinary Elimination: Voided - Exam General: Alert, Oriented HEENT: Pupils Equal Neck: Supple Lungs: Normal Respiratory Effort GI/Abdominal Exam: Normal Bowel Sounds, Soft, Non-Tender, No Organomegaly, No Distention, No Abnormal Bruit, No Mass, Pelvis Stable Extremities: Non-Tender. No: No Pedal Edema (1+) Skin: Warm, Dry, Intact Neurological: No New Focal Deficit Psy/Mental Status: Alert, Normal Affect, Normal Mood - Problem List & Annotations (1) hemorrhage, delivered, current hospitalization SNOMED Code(s): 90744669, 218815124 Code(s): O72.1 - OTHER IMMEDIATE HEMORRHAGE Status: Acute Current Visit: Yes (2) premature rupture of membranes SNOMED Code(s): 672182439 Code(s): O42.919 - PRETRM GREG ROM, UNSP TIME BETW RUPT AND ONST LABR, UNSP TRI Status: Acute Current Visit: Yes Onset Date: ~01/12/21 Qualifiers: PROM onset of labor timing: onset of labor within 24 hours of rupture Qualified Code(s): O42.019 - premature rupture of membranes, onset of labor within 24 hours of rupture, unspecified trimester (3) Vaginal delivery SNOMED Code(s): 584451135 Code(s): O80 - ENCOUNTER FOR FULL-TERM UNCOMPLICATED DELIVERY Status: Acute Current Visit: Yes Onset Date: ~01/12/21 - Problem List Review Problem List Initiated/Reviewed/Updated: Yes - Assessment Assessment:: 20 year old G1 now P1 PPD #2 after , complicated by hemorrhage with hypotension, has received 3 units of PRBC, completing final dose of methergine, and getting iron transfusion. Has not been successfully yet. - Plan Plan:: Second iron transfusion today complete methergine. Hemoglobin is stable Saline lock IV Ambulate with assist Shower with assist Work with nursing staff on . Re[place] for discharge this evening, potentially tomorrow due to recovery from hemorrhage.
[2021-01-14] MEDS: Ibuprofen 800 MG Tab PO PRN ×2 (08:37→19:56)
[2021-01-14] MEDS: Docusate Sodium 100 MG Cap PO PRN (08:44)
[2021-01-14] MEDS ORDERED: Sodium Chloride 0.9% 100 ML IV SCH (10:30)
[2021-01-14] MEDS: Iron Sucrose Complex 100 MG in Sodium Chloride 0.9% 100 ML IV SCH (11:05)
[2021-01-14] MEDS: Acetaminophen 500 MG Tab PO PRN (14:17)
--- NOTE | 2021-01-14 20:09 | PCM.SN.2 ---
- Free Text/Narrative Note: Notified by RN of patient passing clot, roughly 4-5cm diameter. Patient denies dizziness, chest pain, shortness of breath. Had scant lochia prior to passing clot. BP 120s/80s. Fundus firm with scant bleeding on fundal rub. Will monitor closely. H&H ordered for morning.
[2021-01-15] MEDS: Acetaminophen 500 MG Tab PO PRN ×2 (00:53→08:07)
[2021-01-15] MEDS: Docusate Sodium 100 MG Cap PO PRN ×2 (00:53→09:15)
[2021-01-15] MEDS ORDERED: diphenhydrAMINE 25 MG Cap PO ONE (01:08)
--- NOTE | 2021-01-15 08:16 | PCM.PNPP ---
- General Info Date of Service: 01/15/21 Admission Dx/Problem (Free Text): Patient Status Order with Admit Dx/Problem 01/12/21 10:51 Patient Status [ADT] Routine Admission Diagnosis/Problem Admission Diagnosis/Problem Subjective Update: Patient improved this am. Sitting up in bed holding and states she feels much better. Ambulating in room and halls yesterday without difficulty. States did pass clot last evening - was assessed by on-call OBGYN Dr. Sanchez. Voiding without difficulty. Pain controlled with PO pain meds. Eating and drinking without difficulty. Significant other voices concerns in regards to going home today stating they live [place] out of town. Concerns regarding on-going bleeding and potential for hemorrhage. Functional Status: Reports: Pain Controlled - Review of Systems General: Reports: No Symptoms HEENT: Reports: No Symptoms Pulmonary: Reports: No Symptoms Cardiovascular: Reports: No Symptoms Gastrointestinal: Reports: No Symptoms Genitourinary: Reports: No Symptoms Musculoskeletal: Reports: No Symptoms Skin: Reports: No Symptoms Neurological: Reports: No Symptoms Psychiatric: Reports: No Symptoms - General Info Date of Service: 01/15/21 - Patient Data Vital Signs - Most Recent: Last Vital Signs Temp 98.7 F 01/15/21 07:59 Pulse 101 H 01/15/21 07:59 Resp 18 01/15/21 07:59 BP 103/70 01/15/21 07:59 Pulse Ox 99 01/15/21 07:59 Weight - Most Recent: 180 lb Lab Results - Last 24 Hours: Laboratory Results - last 24 hr 01/12/21 01/15/21 Range/Units 14:35 05:12 Hgb 8.8 L (12.0-16.0) g/dL Hct 26.2 L (36.0-46.0) % Group B Strep (PCR) NEGATIVE (NEGATIVE) Med Orders - Current: Current Medications Acetaminophen (Tylenol Extra Strength) 500 mg PO Q4H PRN PRN Reason: Pain Acetaminophen (Tylenol Extra Strength) 1,000 mg PO Q4H PRN PRN Reason: Pain Last Admin: 01/15/21 08:07 Dose: 1,000 mg Documented by: Benzocaine/Menthol (Dermoplast Pain Relief 20%-0.5% [place]) 78 gm TOP ASDIRECTED PRN PRN Reason: Perineal Comfort Measure Last Admin: 01/12/21 22:38 Dose: 1 bottle Documented by: Bisacodyl (Dulcolax) 10 mg RECTAL ONETIME PRN PRN Reason: Constipation Butorphanol Tartrate (Stadol) 1 mg IVPUSH Q1H PRN PRN Reason: Pain Last Admin: 01/12/21 16:59 Dose: 1 mg Documented by: Carboprost Tromethamine (Hemabate Ds) 250 mcg IM ASDIRECTED PRN PRN Reason: Post Hemorrhage Last Admin: 01/12/21 21:27 Dose: 250 mcg Documented by: Docusate Sodium (Colace) 100 mg PO BID PRN PRN Reason: Constipation Last Admin: 01/15/21 00:53 Dose: 100 mg Documented by: Emollient Ointment (Lansinoh Hpa) 0 gm TOP ASDIRECTED PRN PRN Reason: Sore Nipples Last Admin: 01/12/21 22:39 Dose: 1 applic Documented by: Ferrous Sulfate (Ferrous Sulfate) 325 mg PO BIDMEALS [facility] Last Admin: 01/14/21 17:23 Dose: 325 mg Documented by: Lactated Ringer's (Ringers, Lactated) 1,000 mls @ 150 mls/hr IV ASDIRECTED DANNY Last Admin: 01/14/21 05:59 Dose: 999 mls/hr Documented by: Oxytocin/Sodium Chloride (Oxytocin 30 Unit/500 Ml-Ns) 30 unit in 500 mls @ 500 mls/hr IV TITRATE [facility] Tranexamic Acid 1,000 mg/ (Sodium Chloride) 110 mls @ 660 mls/hr IV ONETIME PRN PRN Reason: Bleeding Last Admin: 01/12/21 22:59 Dose: 660 mls/hr Documented by: Ampicillin Sodium 1 gm/ Sodium (Chloride) 50 mls @ 100 mls/hr IV Q4H [facility] Last Admin: 01/12/21 16:26 Dose: 100 mls/hr Documented by: Oxytocin/Sodium Chloride (Oxytocin 30 Unit/500 Ml-Ns) 30 unit in 500 mls @ 2 mls/hr IV TITRATE [facility]; Protocol Last Titration: 01/12/21 17:44 Dose: 4 munits/min, 4 mls/hr Documented by: Iron Sucrose 100 mg/ Sodium (Chloride) 105 mls @ 400 mls/hr IV DAILY [facility] Stop: 01/18/21 09:01 Last Admin: 01/14/21 11:05 Dose: 200 mls/hr Documented by: Sodium Chloride (Normal Saline) 100 mls @ 200 mls/hr IV ASDIRECTED [facility] Ibuprofen (Motrin) 400 mg PO Q4H PRN PRN Reason: Pain Ibuprofen (Motrin) 800 mg PO Q6H PRN PRN Reason: Pain Last Admin: 01/14/21 19:56 Dose: 800 mg Documented by: Lidocaine HCl (Xylocaine 1%) 50 ml INJECT ONETIME PRN PRN Reason: Laceration repair Methylergonovine Maleate (Methergine) 0.2 mg IM ASDIRECTED PRN PRN Reason: Post Hemorrhage Last Admin: 01/12/21 22:54 Dose: 0.2 mg Documented by: Misoprostol (Cytotec) 200 mcg PO ONETIME PRN PRN Reason: Post Hemorrhage Misoprostol (Cytotec) 25 mcg VAG ONETIME PRN PRN Reason: Cervical Ripening Nalbuphine HCl (Nubain) 10 mg IVPUSH Q1H PRN PRN Reason: Pain (severe 7-10) Oxycodone HCl (Oxycodone) 5 mg PO Q2H PRN PRN Reason: Pain Last Admin: 01/14/21 08:50 Dose: 5 mg Documented by: Powerat Multivit/Refrigerating Engineer/Iron/Folic Ac ( Plus Iron) 1 each PO DAILY [facility] Last Admin: 01/13/21 06:29 Dose: 1 each Documented by: Sodium Chloride (Saline Flush) 10 ml FLUSH ASDIRECTED PRN PRN Reason: Keep Vein Open Sodium Chloride (Saline Flush) 2.5 ml FLUSH ASDIRECTED PRN PRN Reason: Keep Vein Open Sodium Chloride (Normal Saline) 10 ml IV ASDIRECTED PRN PRN Reason: IV Use Sterile Water (Sterile Water For Irrigation) 1,000 ml IRR ASDIRECTED PRN PRN Reason: delivery Terbutaline Sulfate (Brethine) 0.25 mg SUBCUT ASDIRECTED PRN PRN Reason: Tacysystole Witch Eliza (Tucks) 1 pad TOP ASDIRECTED PRN PRN Reason: comfort care Last Admin: 01/12/21 22:38 Dose: 1 box Documented by: Discontinued Medications Diphenhydramine HCl (Benadryl) 25 mg PO ONETIME ONE Stop: 01/13/21 21:55 Last Admin: 01/13/21 22:04 Dose: 25 mg Documented by: Diphenhydramine HCl (Benadryl) 25 mg PO ONETIME ONE Stop: 01/15/21 01:09 Last Admin: 01/15/21 01:20 Dose: 25 mg Documented by: Ampicillin Sodium 2 gm/ Sodium (Chloride) 100 mls @ 200 mls/hr IV ONETIME ONE Stop: 01/12/21 12:29 Last Admin: 01/12/21 12:36 Dose: 200 mls/hr Documented by: Oxytocin/Sodium Chloride (Oxytocin 30 Unit/500 Ml-Ns) Confirm Administered Dose 30 unit in 500 mls @ as directed .ROUTE .STK-MED ONE Stop: 01/12/21 16:18 Last Admin: 01/12/21 20:40 Dose: 999 mls/hr Documented by: Oxytocin/Sodium Chloride (Oxytocin 30 Unit/500 Ml-Ns) Confirm Administered Dose 30 unit in 500 mls @ as directed .ROUTE .STK-MED ONE Stop: 01/12/21 20:24 Last Admin: 01/12/21 21:17 Dose: 999 mls/hr Documented by: Lidocaine HCl (Xylocaine 1%) Confirm Administered Dose 50 ml .ROUTE .STK-MED ONE Stop: 01/12/21 18:09 Last Admin: 01/12/21 19:40 Dose: 50 ml Documented by: Methylergonovine Maleate (Methergine) Confirm Administered Dose 0.2 mg .ROUTE .STK-MED ONE Stop: 01/12/21 20:30 Last Admin: 01/12/21 20:31 Dose: 0.2 mg Documented by: Methylergonovine Maleate (Methergine) Confirm Administered Dose 0.2 mg .ROUTE .STK-MED ONE Stop: 01/13/21 01:52 Methylergonovine Maleate (Methergine) Confirm Administered Dose 0.2 mg .ROUTE .STK-MED ONE Stop: 01/13/21 06:07 Last Admin: 01/13/21 06:30 Dose: 0.2 mg Documented by: Methylergonovine Maleate (Methergine) 0.2 mg PO Q4H [facility] Stop: 01/14/21 05:46 Last Admin: 01/14/21 05:49 Dose: Not Given Documented by: Misoprostol (Cytotec) 25 mcg VAG Q4H PRN PRN Reason: Cervical Ripening Misoprostol (Cytotec) 600 mcg RECTAL ONETIME ONE Stop: 01/12/21 21:46 Last Admin: 01/12/21 21:27 Dose: 600 mcg Documented by: Misoprostol (Cytotec) Confirm Administered Dose 600 mcg .ROUTE .STK-MED ONE Stop: 01/13/21 01:14 Last Admin: 01/13/21 01:21 Dose: 600 mcg Documented by: Misoprostol (Cytotec) Confirm Administered Dose 600 mcg .ROUTE .STK-MED ONE Stop: 01/13/21 14:28 Morphine Sulfate (Morphine) Confirm Administered Dose 2 mg .ROUTE .STK-MED ONE Stop: 01/12/21 19:01 Last Admin: 01/12/21 19:00 Dose: 2 mg Documented by: Morphine Sulfate (Morphine) Confirm Administered Dose 2 mg .ROUTE .STK-MED ONE Stop: 01/12/21 20:30 Last Admin: 01/12/21 22:12 Dose: 2 mg Documented by: Morphine Sulfate (Morphine) Confirm Administered Dose 4 mg .ROUTE .STK-MED ONE Stop: 01/13/21 00:49 Morphine Sulfate (Morphine) Confirm Administered Dose 2 mg .ROUTE .STK-MED ONE Stop: 01/13/21 00:59 Last Admin: 01/13/21 01:05 Dose: 2 mg Documented by: Morphine Sulfate (Morphine) Confirm Administered Dose 2 mg .ROUTE .STK-MED ONE Stop: 01/13/21 00:59 Last Admin: 01/13/21 01:33 Dose: 2 mg Documented by: Morphine Sulfate (Morphine) 2 mg IVPUSH ONETIME ONE Stop: 01/13/21 07:33 Last Admin: 01/13/21 07:44 Dose: 2 mg Documented by: Tranexamic Acid (Cyklokapron) Confirm Administered Dose 1,000 mg .ROUTE .STK-MED ONE Stop: 01/13/21 13:53 - Interaction Infant Disposition, : [place] in Room with Family Infant Interaction: Holding Infant Feeding: Attempted ; Nursed Fair/Poor Support Person: Significant Other - Recovery Exam Fundal Tone: Firm Fundal Level: 1 Fingerbreadths Below Umbilicus Fundal Placement: Midline Lochia Amount: Scant Lochia Color: Rubra/Red Perineum Description: Intact, Minimal Bruising/Swelling Episiotomy/Laceration: None Bladder Status: Voiding Urinary Elimination: Voided - Exam General: Alert, Oriented HEENT: Pupils Equal, EOMI Neck: Supple Lungs: Clear to Auscultation, Normal Respiratory Effort Cardiovascular: Regular Rate, Regular Rhythm GI/Abdominal Exam: Soft, No Distention, No Mass, Tender (appropriate) Extremities: Normal Inspection, Normal Range of Motion, No Pedal Edema, Normal Capillary Refill Skin: Warm, Dry, Intact Neurological: No New Focal Deficit Psy/Mental Status: Alert, Normal Affect, Normal Mood - Problem List & Annotations (1) premature rupture of membranes SNOMED Code(s): 321815009 Code(s): O42.919 - PRETRM GREG ROM, UNSP TIME BETW RUPT AND ONST LABR, UNSP TRI Status: Acute Current Visit: Yes Onset Date: ~01/12/21 Qualifiers: PROM onset of labor timing: onset of labor within 24 hours of rupture Qualified Code(s): O42.019 - premature rupture of membranes, onset of labor within 24 hours of rupture, unspecified trimester (2) Vaginal delivery SNOMED Code(s): 532324505 Code(s): O80 - ENCOUNTER FOR FULL-TERM UNCOMPLICATED DELIVERY Status: Acute Current Visit: Yes Onset Date: ~01/12/21 - Problem List Review Problem List Initiated/Reviewed/Updated: Yes - Assessment Assessment:: 20 year old G1 now P1 PPD #3 after , complicated by hemorrhage with hypotension, has received 3 units of PRBC, completing final dose of methergine, and getting iron transfusion x 2. Has not been successfully yet. - Plan Plan:: Second iron transfusion today. Completed methergine. Hemoglobin is stable. VS stable. Continue oral iron upon discharge. Discharge to home today. Bleeding precautions reviewed.
[2021-01-15] MEDS: Prenatal Multivitamin with Calcium/Folic Acid/Iron Tab PO SCH ×2 (08:30→14:46)
[2021-01-15] MEDS: Ferrous Sulfate 325 MG Tab PO SCH (09:15)
[2021-01-15] MEDS: Iron Sucrose Complex 100 MG in Sodium Chloride 0.9% 100 ML IV SCH (09:20)
== END 2021-01-15 16:00 | disposition home or self-care (01) | DRG 560 ==
LOC: MW.OB 10:17 → MW.OBCHECK 10:17 → MW.OB 19:39 → MW.OBCHECK 19:39 → MW.OB 19:40 → MW.OBCHECK 19:40 → OBSVTOIN 19:40 → MW.OB 01-13 13:55
PROVIDERS: ADMIT Obstetrics & Gynecology; ATTEND Obstetrics & Gynecology
PROC: 10E0XZZ Delivery of Products of Conception, External Approach (ICD-10-PCS; principal; 2021-01-12)
PROC: 10907ZC Drainage of Amniotic Fluid, Therapeutic from Products of Conception, Via Natural or Artificial Opening (ICD-10-PCS; 2021-01-12)
PROC: 0HQ9XZZ Repair Perineum Skin, External Approach (ICD-10-PCS; 2021-01-12)
PROC: 4A1HXCZ Monitoring of Products of Conception, Cardiac Rate, External Approach (ICD-10-PCS; 2021-01-12)
PROC: 30233N1 Transfusion of Nonautologous Red Blood Cells into Peripheral Vein, Percutaneous Approach (ICD-10-PCS; 2021-01-14)
DX: O42.013 Preterm premature rupture of membranes, onset of labor within 24 hours of rupture, third trimester (principal); Z3A.36 36 weeks gestation of pregnancy; Z37.0 Single live birth; O70.0 First degree perineal laceration during delivery; O72.1 Other immediate postpartum hemorrhage; I95.9 Hypotension, unspecified; Z20.822 Contact with and (suspected) exposure to COVID-19
CPT/HCPCS: 36415; 36430; 59025; 59409; 81003; 82803; 84112; 85014; 85018; 85025; 85027; 85384; 85610; 85730; 86592; 86850; 86900; 86901; 86920; 86921; 86922; 87653; 88307; A9270-GY; J0290; J0595; J1756; J2001; J2210; J2270; J2590; J7120; P9016; U0002

== ENCOUNTER 2021-01-18 07:28 | Emergency (ER) | payer BC ==
--- NOTE | 2021-01-18 07:36 | EDM.PDOC ---
ED HPI GENERAL MEDICAL PROBLEM - General Stated Complaint: POSSIBLE IV INFECTION ON LEFT FOREARM Time Seen by Provider: 01/18/21 07:31 Source of Information: Reports: Patient History Limitations: Reports: No Limitations - History of Present Illness INITIAL COMMENTS - FREE TEXT/NARRATIVE: 20-year-old female status post vaginal delivery on Thursday followed by hemorrhage with 2 units PRBC transfusion presents with left upper extremity swelling and pain that started at 530 this morning. She had an IV in her left forearm while she was in the hospital, she started noticing pain and redness and swelling to her left forearm this morning at 530. She is still having trace vaginal bleeding with clots and is concerned about being anemic again. She denies feeling lightheaded or dizzy, chest pain, shortness of breath, palpitation, fever, chills. ROS: A 10-point review of systems, other than pertinent positives and negatives as stated per HPI, is otherwise negative Past medical history: No additional pertinent history Past Surgical history: No additional pertinent history Social history: No additional pertinent history Family history: No additional pertinent history PHYSICAL EXAM General: AOx4, GCS = 15, No distress HEENT: dry mucous membrane Neck: supple, no meningismus, no Kernig or Brudzinski Cardiac: S1S2 RRR Respiratory: CTAB, no crackles or rales, no wheezing Abdomen: Soft, nontender, no rebound or guarding, nondistended, no pulsatile mass. Back: nontender Musculoskeletal: NVI distally, left forearm swelling, erythema, warmth, or redness at peripheral IV site 7x10cm in size. Neuro: No focal deficits, CN 2 - 12 WNL. left arm Pain Score (Numeric/FACES): 4 - Related Data Allergies Allergy/AdvReac Type Severity Reaction Status Date / Time No Known Allergies Allergy Verified 01/18/21 07:49 Home Meds: Home Meds Diclofenac Sodium 100 gm TP Q6H PRN 5 Days #1 gel..gram. 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: - Infectious Disease History Infectious Disease History: Reports: None Social & Family History - Family History Family Medical History: No Pertinent Family History - Caffeine Use Caffeine Use: Reports: Coffee, Soda ED ROS GENERAL - Review of Systems Review Of Systems: See Below (see dictation) ED EXAM, GENERAL - Physical Exam Exam: See Below (see dictation) Course - Vital Signs Last Recorded V/S: Last Vital Signs Temp 97.1 F 01/18/21 07:42 Pulse 101 H 01/18/21 07:42 Resp 18 01/18/21 07:42 BP 117/61 01/18/21 07:42 Pulse Ox 99 01/18/21 07:42 - Orders/Labs/Meds Orders: Active Orders 24 hr Category Date Time Status Venous Doppler Upr Ext Lt [US] Stat Exams 01/18/21 07:51 Taken Labs: Laboratory Tests 01/18/21 Range/Units 08:04 Hgb 10.0 L (12.0-16.0) g/dL - Re-Assessments/Exams Free Text/Narrative Re-Assessment/Exam: 01/18/21 0900 After doppler study, she is currently stable for discharge. I advised the patient to return to the ER for reevaluation if symptoms worsened, including pain/swelling, fever, or any other worrisome symptoms. I instructed the patient to follow up with their PCP within 2-3 days. MEDICAL DECISION MAKING: I reviewed the patients past medical records, lab and radiographic findings. I discussed the case with the patient. My differential diagnosis included: Phlebitis, superficial thrombophlebitis, superficial/deep venous thrombosis. She does not have coagulopathy despite recent vaginal delivery. I suspect she is at low risk for deep vein thromboembolism propogation for need for anticoagulation at this time, furthermore she is still having vaginal bleeding, which would be made worse if anticoagulation is initiated now. She does not have a proximal basilic or cephalic vein thrombosis, she does not have a deep vein thrombosis, no anticoagulation is recommended per ACCP guidelines. Ultrasound demonstrated superficial thrombophlebitis, amendable for conservative management in the outpatient setting with instruction for serial doppler in 6 weeks to investigate for propagation, patient is informed of the need for serial doppler in 6 weeks. I instructed her to return promptly for repeat duplex ultrasound if she has expansion of her swelling or redness or pain. I instructed her to practice symptomatic care, including topical NSAIDs, compression, elevation, warm compresses. No fever to suggest infectious etiology, do not suspect need for antibiotic at this time. Departure - Departure Time of Disposition: 09:09 Disposition: Home, Self-Care 01 Condition: Good Clinical Impression: Superficial thrombophlebitis - Discharge Information *PRESCRIPTION DRUG MONITORING PROGRAM REVIEWED*: Not Applicable *COPY OF PRESCRIPTION DRUG MONITORING REPORT IN PATIENT KELVIN: Not Applicable Prescriptions: Diclofenac Sodium 100 gm TP Q6H PRN 5 Days #1 gel..gram. PRN Reason: Pain (Moderate 4-6) Instructions: Thrombophlebitis Referrals: Keena Oakes MD [Primary Care Provider] - 3 Days Forms: ED Department Discharge Additional Instructions: The need for follow-up, as well as the timing and circumstances, are variable depending upon the specifics of your emergency department visit. If you don't have a primary care physician on staff, we will provide you with a referral. We always advise you to contact your personal physician following an emergency department visit to inform them of the circumstance of the visit and for follow-up with them and/or the need for any referrals to a consulting specialist. The emergency department will also refer you to a specialist when appropriate. This referral assures that you have the opportunity for follow-up care with a specialist. All of these measure are taken in an effort to provide you with optimal care, which includes your follow-up. Under all circumstances we always encourage you to contact your private physician who remains a resource for coordinating your care. When calling for follow-up care, please make the office aware that this follow-up is from your recent emergency room visit. If for any reason you are refused follow-up, please contact the [facility] Emergency Department at and asked to speak to the emergency department charge nurse. If you do not have a primary care doctor, please follow up with the clinics below within 3-5 days. [facility] [address] [place] [address] [facility] [address] [place] [address] Sepsis Event Note (ED) - Focused Exam Vital Signs: Vital Signs Temp Pulse Resp BP Pulse Ox 01/18/21 07:42 97.1 F 101 H 18 117/61 99 - My Orders Last 24 Hours: My Active Orders 01/18/21 07:51 Venous Doppler Upr Ext Lt [US] Stat - Assessment/Plan Last 24 Hours: My Active Orders 01/18/21 07:51 Venous Doppler Upr Ext Lt [US] Stat
--- NOTE | 2021-01-18 09:02 | US ---
INDICATION: Painful swelling left forearm; patient had an IV 3 days ago in the left forearm. COMPARISON: None. TECHNIQUE: Duplex ultrasound evaluation venous system left upper extremity; color Doppler duplex assessment. FINDINGS: No evidence of deep venous thrombosis left upper extremity venous system. The cephalic and basilic veins in the left arm are unremarkable . Occlusive thrombus identified in 1 of the superficial veins in the left forearm for a length of 10 cm indicating superficial thrombophlebitis. This is the site of previous intravenous catheter insertion. IMPRESSION: 1. Superficial thrombophlebitis left forearm. 2. No DVT left upper extremity venous system. Dictated by Adis Nunn MD @ Jan 18 2021 8:56AM Signed by Dr. Adis Nunn @ Jan 18 2021 9:00AM
== END 2021-01-18 09:28 | disposition home or self-care (01) ==
LOC: MW.ED 07:28
DX: I80.8 Phlebitis and thrombophlebitis of other sites (principal)
CPT/HCPCS: 36415; 85018; 93971-26-LT; 93971-LT; 99282; 99284-25

== ENCOUNTER 2021-01-20 16:40 | Observation (INO) | payer BC ==
[2021-01-20] MEDS ORDERED: Sodium Chloride 0.9% 2.5 ML Syringe FLUSH PRN (16:43)
[2021-01-20] MEDS ORDERED: Sodium Chloride 0.9% 10 ML Syringe FLUSH PRN (16:43)
[2021-01-20] MEDS ORDERED: Sodium Chloride 0.9% 1,000 ML IV STA (18:14)
[2021-01-20] MEDS ORDERED: cefTRIAXone 1 GM in Premix Bag 1 BAG IV ONE (18:27)
[2021-01-20 18:46] LABS: BLOOD UREA NITROGEN,BUN 7 mg/dL (7.0-18.0); CARBON DIOXIDE,CO2 25.8 mmol/L (21.0-32.0); CHLORIDE,CL 101 mmol/L (98-107); GLUCOSE RANDOM 103 mg/dL (74-106); POTASSIUM,K 3.5 mmol/L (3.5-5.1); SODIUM,NA 137 mmol/L (136-145)
[2021-01-20] MEDS ORDERED: Sodium Chloride 0.9% 1,000 ML IV ONE (18:52)
--- NOTE | 2021-01-20 18:52 | EDM.PDOC ---
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 She did have a vaginal delivery on 01/12/2021 in which she said she had to receive 2 units of blood. Since then her bleeding has been mild with a few clots. She is concerned she has a "bad bladder infection". Patient denies any fever, chills, headache, change in vision, syncope or near syncope. Denies any chest pain, back pain, shortness of breath or cough. Denies any abdominal pain, nausea, vomiting, diarrhea, constipation or dysuria. Has not noted any blood in urine or stool. Patient has been eating and drinking appropriately. Review of systems: As per history of present illness and below otherwise all systems reviewed and negative. Past medical history: As per history of present illness and as reviewed below otherwise noncontributory. Surgical history: As per history of present illness and as reviewed below otherwise noncontributory. Social history: See social history for further information Family history: As per history of present illness and as reviewed below otherwise noncontributory. Physical exam: General: Well developed and well nourished. Alert and orientated x 3. Nontoxic in appearance and in no acute distress. Vital signs are stable and have been reviewed by me. Nursing notes were reviewed. HEENT: Atraumatic, normocephalic, pupils equal and reactive bilaterally, negative for conjunctival pallor or scleral icterus, mucous membranes moist, TMs normal bilaterally, throat clear, neck supple, nontender, trachea midline. No drooling or trismus noted. No meningeal signs. No hot potato voice noted. Lungs: Clear to auscultation bilaterally. No wheezes, rales, or rhonchi. Chest nontender. Normal work of breathing, no accessory muscles used. Heart: S1S2, regular rate and rhythm without overt murmur, gallops, or rubs. No JVD. No peripheral edema Abdomen: Soft, nondistended, nontender. Normoactive bowel sounds. Negative for masses or costovertebral tenderness. Pelvis: Stable nontender. Genitourinary/Rectal: This was done with consent and a physiotherapy aide at the bedside. Skin: Intact, warm, dry. No lesions or rashes noted. Hematologic: No petechiae or purpra. Mucosa appropriate color and normal nail bed color and refill. Extremities: Atraumatic, moves all extremities per self without difficulty or deficits, negative for cords or calf pain. Neurovascular unremarkable. Neuro: Awake, alert, oriented. Cranial nerves II through XII unremarkable. Cerebellum unremarkable. Motor and sensory unremarkable throughout. Exam nonfocal. Psychiatric: Mood and affect are appropriate. Normal thought process. Answering questions appropriately. Notes: *This patient was seen and evaluated during the 2019 SARS-CoV-2 novel coronavirus pandemic period. Community viral transmission is ongoing at time of this encounter and the emergency department is operating under pandemic response procedures. Patient does have a leukocytosis. With the recent vaginal delivery of child I will do a CT of the abdomen and pelvis. CT shows uterine enlargement with large amount of heterogeneous material within the endometrial cavity likely representing hemorrhage. Extensive hyperdensity within the presumed endometrial hemorrhage is suspicious for active bleeding. Underlying retained products of conception is not excluded. I did call and talk with Dr Clark, [facility] on-call provider, about patient and her presentation. She states this is a normal finding. Dr Robison, hospitalist on-call, was consulted and agreeable to keeping patient for further care and management. Patient is aware and agreeable. She states she does feel somewhat improved since IV fluids and medication. Diagnostics: CBC, CMP, UA, CT abd/pelvis, BC x 2, Lactate Therapeutics: Rocephin, IV fluids Impression: Urosepsis Plan: Observation admission Definitive disposition and diagnosis as appropriate pending reevaluation and review of above. headache Pain Score (Numeric/FACES): 4 - Related Data Allergies Allergy/AdvReac Type Severity Reaction Status Date / Time No Known Allergies Allergy Verified 01/20/21 18:09 Home Meds: Home Meds Diclofenac Sodium 100 gm TP Q6H PRN 5 Days #1 gel..gram. 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 ED EXAM, RENAL/ - Physical Exam Exam: See Below (See dictation) Course - Vital Signs Last Recorded V/S: Last Vital Signs Temp 97.5 F 01/20/21 18:01 Pulse 136 H 01/20/21 18:01 Resp 16 01/20/21 18:01 BP 109/78 01/20/21 18:01 Pulse Ox 99 01/20/21 18:01 - Orders/Labs/Meds Orders: Active Orders 24 hr Category Date Time Status Admission Status [Patient Status] [ADT] Stat ADT 01/20/21 20:48 Active CULTURE BLOOD [BC] Stat Lab 01/20/21 18:20 Received CULTURE BLOOD [BC] Stat Lab 01/20/21 18:38 Received CULTURE URINE [RM] Stat Lab 01/20/21 17:58 Received TYPE AND SCREEN [BBK] Stat Lab 01/20/21 20:31 Received Sodium Chloride 0.9% [Normal Saline] 1,000 ml Med 01/20/21 18:52 Active IV STAT Sodium Chloride 0.9% [Saline Flush] Med 01/20/21 16:43 Active 10 ml FLUSH ASDIRECTED PRN Sodium Chloride 0.9% [Saline Flush] Med 01/20/21 16:43 Active 2.5 ml FLUSH ASDIRECTED PRN Blood Culture x2 Reflex Set [OM.PC] Stat Oth 01/20/21 18:13 Ordered Saline Lock Insert [OM.PC] Stat Oth 01/20/21 16:43 Ordered Medication Orders Sodium Chloride (Normal Saline) 1,000 mls @ 125 mls/hr IV STAT ONE Stop: 01/21/21 02:51 Last Admin: 01/20/21 19:42 Dose: 125 mls/hr Documented by: HANSMAC Sodium Chloride (Saline Flush) 10 ml FLUSH ASDIRECTED PRN PRN Reason: Keep Vein Open Last Admin: 01/20/21 18:41 Dose: 10 ml Documented by: MURDNIC Sodium Chloride (Saline Flush) 2.5 ml FLUSH ASDIRECTED PRN PRN Reason: Keep Vein Open Last Admin: 01/20/21 18:41 Dose: 2.5 ml Documented by: OLIVIA Labs: Laboratory Tests 01/20/21 01/20/21 01/20/21 Range/Units 17:58 18:20 18:20 WBC 18.20 H (4.0-11.0) K/uL RBC 3.82 L (4.30-5.90) M/uL Hgb 11.6 L (12.0-16.0) g/dL Hct 35.4 L (36.0-46.0) % MCV 92.7 (80.0-98.0) fL MCH 30.4 (27.0-32.0) pg MCHC 32.8 (31.0-37.0) g/dL RDW Std Deviation 46.0 (28.0-62.0) fl RDW Coeff of Leslee 14 (11.0-15.0) % Plt Count 323 (150-400) K/uL MPV 9.70 (7.40-12.00) fL Neut % (Auto) 80.6 H (48.0-80.0) % Lymph % (Auto) 12.4 L (16.0-40.0) % Nash % (Auto) 6.0 (0.0-15.0) % Eos % (Auto) 0.9 (0.0-7.0) % Baso % (Auto) 0.1 (0.0-1.5) % Neut # (Auto) 14.7 H (1.4-5.7) K/uL Lymph # (Auto) 2.3 (0.6-2.4) K/uL Nash # (Auto) 1.1 H (0.0-0.8) K/uL Eos # (Auto) 0.2 (0.0-0.7) K/uL Baso # (Auto) 0.0 (0.0-0.1) K/uL Nucleated RBC % 0.0 /100WBC Nucleated RBCs # 0 K/uL Lactate (0.20-2.00) mmol/L Sodium 137 (136-145) mmol/L Potassium 3.5 (3.5-5.1) mmol/L Chloride 101 (98-107) mmol/L Carbon Dioxide 25.8 (21.0-32.0) mmol/L BUN 7 (7.0-18.0) mg/dL Creatinine 0.7 (0.6-1.0) mg/dL Est Cr Clr Drug Dosing 109.78 mL/min Estimated GFR (MDRD) > 60.0 ml/min Glucose 103 (74-106) mg/dL Calcium 9.2 (8.5-10.1) mg/dL Total Bilirubin 0.3 (0.2-1.0) mg/dL AST 16 (15-37) IU/L ALT 19 (14-63) IU/L Alkaline Phosphatase 177 H (46-116) U/L Total Protein 7.9 (6.4-8.2) g/dL Albumin 3.0 L (3.4-5.0) g/dL Globulin 4.9 H (2.6-4.0) g/dL Albumin/Globulin Ratio 0.6 L (0.9-1.6) Urine Color DARK YELLOW Urine Appearance CLOUDY Urine pH 6.0 (5.0-8.0) Ur Specific [place] <= 1.005 (1.001-1.035) Urine Protein 30 H (NEGATIVE) mg/dL Urine Glucose (UA) NEGATIVE (NEGATIVE) mg/dL Urine Ketones NEGATIVE (NEGATIVE) mg/dL Urine Occult Blood LARGE H (NEGATIVE) Urine Nitrite NEGATIVE (NEGATIVE) Urine Bilirubin NEGATIVE (NEGATIVE) Urine Urobilinogen 0.2 (<2.0) EU/dL Ur Leukocyte Esterase LARGE H (NEGATIVE) Urine RBC 35-40 (0-2/HPF) Urine WBC 45-50 (0-5/HPF) Ur Epithelial Cells MODERATE (NONE-FEW) Urine Bacteria 1+ H (NEGATIVE) SARS-CoV-2 RNA (FERNANDO) (NEGATIVE) 01/20/21 01/20/21 Range/Units 18:20 19:49 WBC (4.0-11.0) K/uL RBC (4.30-5.90) M/uL Hgb (12.0-16.0) g/dL Hct (36.0-46.0) % MCV (80.0-98.0) fL MCH (27.0-32.0) pg MCHC (31.0-37.0) g/dL RDW Std Deviation (28.0-62.0) fl RDW Coeff of Leslee (11.0-15.0) % Plt Count (150-400) K/uL MPV (7.40-12.00) fL Neut % (Auto) (48.0-80.0) % Lymph % (Auto) (16.0-40.0) % Nash % (Auto) (0.0-15.0) % Eos % (Auto) (0.0-7.0) % Baso % (Auto) (0.0-1.5) % Neut # (Auto) (1.4-5.7) K/uL Lymph # (Auto) (0.6-2.4) K/uL Nash # (Auto) (0.0-0.8) K/uL Eos # (Auto) (0.0-0.7) K/uL Baso # (Auto) (0.0-0.1) K/uL Nucleated RBC % /100WBC Nucleated RBCs # K/uL Lactate 0.6 (0.20-2.00) mmol/L Sodium (136-145) mmol/L Potassium (3.5-5.1) mmol/L Chloride (98-107) mmol/L Carbon Dioxide (21.0-32.0) mmol/L BUN (7.0-18.0) mg/dL Creatinine (0.6-1.0) mg/dL Est Cr Clr Drug Dosing mL/min Estimated GFR (MDRD) ml/min Glucose (74-106) mg/dL Calcium (8.5-10.1) mg/dL Total Bilirubin (0.2-1.0) mg/dL AST (15-37) IU/L ALT (14-63) IU/L Alkaline Phosphatase (46-116) U/L Total Protein (6.4-8.2) g/dL Albumin (3.4-5.0) g/dL Globulin (2.6-4.0) g/dL Albumin/Globulin Ratio (0.9-1.6) Urine Color Urine Appearance Urine pH (5.0-8.0) Ur Specific [place] (1.001-1.035) Urine Protein (NEGATIVE) mg/dL Urine Glucose (UA) (NEGATIVE) mg/dL Urine Ketones (NEGATIVE) mg/dL Urine Occult Blood (NEGATIVE) Urine Nitrite (NEGATIVE) Urine Bilirubin (NEGATIVE) Urine Urobilinogen (<2.0) EU/dL Ur Leukocyte Esterase (NEGATIVE) Urine RBC (0-2/HPF) Urine WBC (0-5/HPF) Ur Epithelial Cells (NONE-FEW) Urine Bacteria (NEGATIVE) SARS-CoV-2 RNA (FERNANDO) NEGATIVE (NEGATIVE) Meds: Medications Generic Name Dose Route Start Last Admin Trade Name Freq PRN Reason Stop Dose Admin Sodium Chloride 1,000 mls @ 125 mls/hr 01/20/21 18:52 01/20/21 19:42 Normal Saline IV 01/21/21 02:51 125 mls/hr STAT ONE Administration Sodium Chloride 10 ml 01/20/21 16:43 01/20/21 18:41 Saline Flush FLUSH 10 ml ASDIRECTED PRN Administration Keep Vein Open Sodium Chloride 2.5 ml 01/20/21 16:43 01/20/21 18:41 Saline Flush FLUSH 2.5 ml ASDIRECTED PRN Administration Keep Vein Open Discontinued Medications Generic Name Dose Route Start Last Admin Trade Name Freq PRN Reason Stop Dose Admin Sodium Chloride 1,000 mls @ 999 mls/hr 01/20/21 18:14 01/20/21 18:42 Normal Saline IV 01/20/21 19:14 999 mls/hr NOW STA Administration Ceftriaxone Sodium/Dextrose 1 50 mls @ 100 mls/hr 01/20/21 18:27 01/20/21 18:42 gm/ Premix IV 01/20/21 18:56 100 mls/hr ONETIME ONE Administration Iopamidol 100 ml 01/20/21 19:44 01/20/21 19:45 Isovue Multipack-370 (76%) IVPUSH 01/20/21 19:45 100 ml ONETIME STA Administration Departure - Departure Time of Disposition: 20:51 Disposition: Refer to Observation Clinical Impression: Sepsis secondary to UTI - Discharge Information Referrals: PCP,None [Primary Care Provider] - Forms: ED Department Discharge Sepsis Event Note (ED) - Evaluation Sepsis Screening Result: Possible Sepsis Risk - Focused Exam Vital Signs: Vital Signs Temp Pulse Resp BP Pulse Ox 01/20/21 18:01 97.5 F 136 H 16 109/78 99 - My Orders Last 24 Hours: My Active Orders 01/20/21 16:43 Sodium Chloride 0.9% [Saline Flush] 10 ml FLUSH ASDIRECTED PRN Sodium Chloride 0.9% [Saline Flush] 2.5 ml FLUSH ASDIRECTED PRN Saline Lock Insert [OM.PC] Stat 01/20/21 17:58 CULTURE URINE [RM] Stat 01/20/21 18:13 Blood Culture x2 Reflex Set [OM.PC] Stat 01/20/21 18:20 CULTURE BLOOD [BC] Stat 01/20/21 18:38 CULTURE BLOOD [BC] Stat 01/20/21 18:52 Sodium Chloride 0.9% [Normal Saline] 1,000 ml IV STAT 01/20/21 20:31 TYPE AND SCREEN [BBK] Stat 01/20/21 20:48 Admission Status [Patient Status] [ADT] Stat - Assessment/Plan Last 24 Hours: My Active Orders 01/20/21 16:43 Sodium Chloride 0.9% [Saline Flush] 10 ml FLUSH ASDIRECTED PRN Sodium Chloride 0.9% [Saline Flush] 2.5 ml FLUSH ASDIRECTED PRN Saline Lock Insert [OM.PC] Stat 01/20/21 17:58 CULTURE URINE [RM] Stat 01/20/21 18:13 Blood Culture x2 Reflex Set [OM.PC] Stat 01/20/21 18:20 CULTURE BLOOD [BC] Stat 01/20/21 18:38 CULTURE BLOOD [BC] Stat 01/20/21 18:52 Sodium Chloride 0.9% [Normal Saline] 1,000 ml IV STAT 01/20/21 20:31 TYPE AND SCREEN [BBK] Stat 01/20/21 20:48 Admission Status [Patient Status] [ADT] Stat
[2021-01-20] MEDS ORDERED: Iopamidol 755 MG/ML 500 ML Multipack Bottle IVPUSH STA (19:44)
--- NOTE | 2021-01-20 20:19 | CT ---
INDICATION: 1 week with lower abdominal pain. CT ABDOMEN AND PELVIS WITH CONTRAST TECHNIQUE: Multidetector CT imaging was performed through the abdomen and pelvis following intravenous contrast administration using 100 mL Isovue 370. Coronal and sagittal reconstructions were generated. COMPARISON: None. FINDINGS: Lower chest: Lung bases are clear. Liver: Within normal limits. Gallbladder and bile ducts: No gallbladder wall thickening or calcified gallstones. No biliary dilation identified. Pancreas: Unremarkable. Spleen: Normal. Adrenals: No nodules or masses. Kidneys, ureters, and urinary bladder: No renal masses or hydronephrosis. No bladder mass or definite wall thickening. Gastrointestinal tract: Normal caliber bowel without wall thickening. The appendix is normal. Vascular structures: Normal for age. Peritoneum: No free air, abscess, or significant free fluid. Lymph nodes: No pathologically enlarged nodes identified. Reproductive organs: uterine enlargement measuring 17 x 8 x 11 centimeters. Large amount of heterogeneous material within the endometrial cavity, likely representing hemorrhage. Portions of the presumed hemorrhage are low to moderate in density, while other portions are hyperdense. The hyperdensity is suspicious for extravasated contrast from active bleeding. Underlying retained products of conception is not excluded. Bones: Normal for age. IMPRESSION: uterine enlargement with large amount of heterogeneous material within the endometrial cavity likely representing hemorrhage. Extensive hyperdensity within the presumed endometrial hemorrhage is suspicious for active bleeding. Underlying retained products of conception is not excluded. Results were called to Dr. Rodríguez at 8:12 p.m. on 01/20/2021. MARY ANNE MARIEE MD [facility] Dictated by Martin Mariee MD @ 01/20/2021 8:16:05 PM Dictated by: Martin Mariee MD @ 01/20/2021 20:17:19 (Electronically Signed)
[2021-01-20] MEDS ORDERED: Morphine 2 MG/ML SYRINGE IVPUSH PRN (21:57)
[2021-01-20] MEDS ORDERED: Ondansetron 4 MG/2 ML SDV IVPUSH PRN (21:57)
[2021-01-20] MEDS ORDERED: Albuterol/Ipratropium 3.0-0.5 MG/3 ML Neb Soln NEB PRN (21:57)
--- NOTE | 2021-01-20 22:02 | PCM.HP.2 ---
H&P History of Present Illness - General Date of Service: 01/20/21 Admit Problem/Dx: Admission Diagnosis/Problem Admission Diagnosis/Problem Urosepsis - History of Present Illness Initial Comments - Free Text/Narative: Patient is a 20-year-old female who presents to the emergency room with complaints of dizziness, blurry vision, fevers, pelvic pressure and dysuria for the past 2 days. Patient is post , had a vaginal delivery on 01/12/2021 which was complicated by post hemorrhage, she said she had to receive 2 units of blood due to blood loss and was put on severe hemostatic agents to stop bleeding per the patient. After discharge she has been passing few smaller clots and has some bleeding but no overt bleeding. Patient denies any fever, chills, headache, syncope or near syncope. Denies any chest pain, back pain, shortness of breath or cough. Denies any abdominal pain, nausea, vomiting, diarrhea, constipation or dysuria. Has not noted any blood in urine or stool. Patient has been eating and drinking appropriately. CT A/P pelvis showed uterine enlargement with large amount of heterogeneous material within the endometrial cavity likely representing hemorrhage. Extensive hyperdensity within the presumed endometrial hemorrhage is suspicious for active bleeding. Underlying retained products of conception is not excluded. Dr Clark, at [facility] on-call provider was consulted, about patient and her presentation, She stated this is a normal finding, pelvic exam done in ER was not tender or painful, Patient was septic with leucocytosis and tachycardia, lactate was normal, Hb had improved from prior level. Patient was admitted for sepsis secondary to UTI. headache Pain Score (Numeric/FACES): 4 - Related Data Allergies/Adverse Reactions: Allergies Allergy/AdvReac Type Severity Reaction Status Date / Time No Known Allergies Allergy Verified 01/20/21 18:09 Home Medications: Home Meds Diclofenac Sodium 100 gm TP Q6H PRN 5 Days #1 gel..gram. 01/18/21 [Rx] Past Medical History - Past Health History Medical/Surgical History: Denies Medical/Surgical History [employer] History: Reports: Psychiatric History: Reports: Anxiety - Infectious Disease History Infectious Disease History: Reports: Novel Coronavirus Social & Family History - Family History Family Medical History: No Pertinent Family History - Caffeine Use Caffeine Use: Reports: None - Recreational Drug Use Recreational Drug Use: No H&P Review of Systems - Review of Systems: Review Of Systems: See Below General: Reports: Chills, Malaise, Weakness Pulmonary: Denies: Shortness of Breath, Wheezing Gastrointestinal: Reports: Abdominal Pain, Decreased Appetite. Denies: Anorexia, Black Stool, Distension, Flatus, Hematemesis, Hematochezia Genitourinary: Reports: Dysuria, Burning, Pain, Urgency. Denies: Frequency, Hematuria, Retention, Discharge Musculoskeletal: Denies: Neck Pain, Shoulder Pain, Arm Pain, Back Pain Skin: Denies: Cyanosis, Jaundice, Mottled Psychiatric: Denies: Confusion, Depression, Mood Lability Neurological: Denies: Confusion, Dizziness, Headache Exam - Exam Exam: See Below - Vital Signs Vital Signs: Last Vital Signs Temp 36.4 C 01/20/21 18:01 Pulse 90 01/20/21 21:31 Resp 18 01/20/21 21:31 BP 106/53 L 01/20/21 21:31 Pulse Ox 98 01/20/21 21:31 Weight: 90.718 kg - Exam General: Alert, Oriented, Cooperative, Mild Distress Neck: Supple, Trachea Midline Lungs: Clear to Auscultation, Normal Respiratory Effort Cardiovascular: Regular Rate, Regular Rhythm, Normal S1, Normal S2 GI/Abdominal Exam: Normal Bowel Sounds, Soft, Distended, Tender. No: Hepatomegaly, Splenomegaly (Female) Exam: Normal External Exam, Enlarged Uterus, Vaginal Bleeding. No: Cervical Lesions, Cervix Motion Tenderness, Uterine Tenderness - Patient Data Lab Results Last 24 hrs: Laboratory Results - last 24 hr 01/20/21 01/20/21 01/20/21 Range/Units 17:58 18:20 18:20 WBC 18.20 H (4.0-11.0) K/uL RBC 3.82 L (4.30-5.90) M/uL Hgb 11.6 L (12.0-16.0) g/dL Hct 35.4 L (36.0-46.0) % MCV 92.7 (80.0-98.0) fL MCH 30.4 (27.0-32.0) pg MCHC 32.8 (31.0-37.0) g/dL RDW Std Deviation 46.0 (28.0-62.0) fl RDW Coeff of Leslee 14 (11.0-15.0) % Plt Count 323 (150-400) K/uL MPV 9.70 (7.40-12.00) fL Neut % (Auto) 80.6 H (48.0-80.0) % Lymph % (Auto) 12.4 L (16.0-40.0) % Moca % (Auto) 6.0 (0.0-15.0) % Eos % (Auto) 0.9 (0.0-7.0) % Baso % (Auto) 0.1 (0.0-1.5) % Neut # (Auto) 14.7 H (1.4-5.7) K/uL Lymph # (Auto) 2.3 (0.6-2.4) K/uL Moca # (Auto) 1.1 H (0.0-0.8) K/uL Eos # (Auto) 0.2 (0.0-0.7) K/uL Baso # (Auto) 0.0 (0.0-0.1) K/uL Nucleated RBC % 0.0 /100WBC Nucleated RBCs # 0 K/uL Lactate (0.20-2.00) mmol/L Sodium 137 (136-145) mmol/L Potassium 3.5 (3.5-5.1) mmol/L Chloride 101 (98-107) mmol/L Carbon Dioxide 25.8 (21.0-32.0) mmol/L BUN 7 (7.0-18.0) mg/dL Creatinine 0.7 (0.6-1.0) mg/dL Est Cr Clr Drug Dosing 109.78 mL/min Estimated GFR (MDRD) > 60.0 ml/min Glucose 103 (74-106) mg/dL Calcium 9.2 (8.5-10.1) mg/dL Total Bilirubin 0.3 (0.2-1.0) mg/dL AST 16 (15-37) IU/L ALT 19 (14-63) IU/L Alkaline Phosphatase 177 H (46-116) U/L Total Protein 7.9 (6.4-8.2) g/dL Albumin 3.0 L (3.4-5.0) g/dL Globulin 4.9 H (2.6-4.0) g/dL Albumin/Globulin Ratio 0.6 L (0.9-1.6) Urine Color DARK YELLOW Urine Appearance CLOUDY Urine pH 6.0 (5.0-8.0) Ur Specific [place] <= 1.005 (1.001-1.035) Urine Protein 30 H (NEGATIVE) mg/dL Urine Glucose (UA) NEGATIVE (NEGATIVE) mg/dL Urine Ketones NEGATIVE (NEGATIVE) mg/dL Urine Occult Blood LARGE H (NEGATIVE) Urine Nitrite NEGATIVE (NEGATIVE) Urine Bilirubin NEGATIVE (NEGATIVE) Urine Urobilinogen 0.2 (<2.0) EU/dL Ur Leukocyte Esterase LARGE H (NEGATIVE) Urine RBC 35-40 (0-2/HPF) Urine WBC 45-50 (0-5/HPF) Ur Epithelial Cells MODERATE (NONE-FEW) Urine Bacteria 1+ H (NEGATIVE) SARS-CoV-2 RNA (FERNANDO) (NEGATIVE) Blood Type Antibody Screen 01/20/21 01/20/21 01/20/21 Range/Units 18:20 19:49 20:31 WBC (4.0-11.0) K/uL RBC (4.30-5.90) M/uL Hgb (12.0-16.0) g/dL Hct (36.0-46.0) % MCV (80.0-98.0) fL MCH (27.0-32.0) pg MCHC (31.0-37.0) g/dL RDW Std Deviation (28.0-62.0) fl RDW Coeff of Leslee (11.0-15.0) % Plt Count (150-400) K/uL MPV (7.40-12.00) fL Neut % (Auto) (48.0-80.0) % Lymph % (Auto) (16.0-40.0) % Moca % (Auto) (0.0-15.0) % Eos % (Auto) (0.0-7.0) % Baso % (Auto) (0.0-1.5) % Neut # (Auto) (1.4-5.7) K/uL Lymph # (Auto) (0.6-2.4) K/uL Moca # (Auto) (0.0-0.8) K/uL Eos # (Auto) (0.0-0.7) K/uL Baso # (Auto) (0.0-0.1) K/uL Nucleated RBC % /100WBC Nucleated RBCs # K/uL Lactate 0.6 (0.20-2.00) mmol/L Sodium (136-145) mmol/L Potassium (3.5-5.1) mmol/L Chloride (98-107) mmol/L Carbon Dioxide (21.0-32.0) mmol/L BUN (7.0-18.0) mg/dL Creatinine (0.6-1.0) mg/dL Est Cr Clr Drug Dosing mL/min Estimated GFR (MDRD) ml/min Glucose (74-106) mg/dL Calcium (8.5-10.1) mg/dL Total Bilirubin (0.2-1.0) mg/dL AST (15-37) IU/L ALT (14-63) IU/L Alkaline Phosphatase (46-116) U/L Total Protein (6.4-8.2) g/dL Albumin (3.4-5.0) g/dL Globulin (2.6-4.0) g/dL Albumin/Globulin Ratio (0.9-1.6) Urine Color Urine Appearance Urine pH (5.0-8.0) Ur Specific [place] (1.001-1.035) Urine Protein (NEGATIVE) mg/dL Urine Glucose (UA) (NEGATIVE) mg/dL Urine Ketones (NEGATIVE) mg/dL Urine Occult Blood (NEGATIVE) Urine Nitrite (NEGATIVE) Urine Bilirubin (NEGATIVE) Urine Urobilinogen (<2.0) EU/dL Ur Leukocyte Esterase (NEGATIVE) Urine RBC (0-2/HPF) Urine WBC (0-5/HPF) Ur Epithelial Cells (NONE-FEW) Urine Bacteria (NEGATIVE) SARS-CoV-2 RNA (FERNANDO) NEGATIVE (NEGATIVE) Blood Type A POSITIVE Antibody Screen NEGATIVE Result Diagrams: 01/20/21 18:20 01/20/21 18:20 Sepsis Event Note - Evaluation Sepsis Screening Result: Possible Sepsis Risk - Focused Exam Vital Signs: Vital Signs Temp Pulse Resp BP Pulse Ox 01/20/21 21:31 90 18 106/53 L 98 01/20/21 18:01 36.4 C 136 H 16 109/78 99 - Problem List (1) History of hemorrhage SNOMED Code(s): 222796016 ICD Code: Z87.59 - PERSONAL HISTORY OF COMP OF PREG, CHLDBRTH AND THE PUERP Status: Acute Current Visit: Yes (2) Sepsis secondary to UTI SNOMED Code(s): 491239828 ICD Code: A41.9 - SEPSIS, UNSPECIFIED ORGANISM; N39.0 - URINARY TRACT INFECTION, SITE NOT SPECIFIED Status: Acute Current Visit: Yes (3) Vaginal delivery SNOMED Code(s): 390545937 ICD Code: O80 - ENCOUNTER FOR FULL-TERM UNCOMPLICATED DELIVERY Status: Acute Current Visit: No Onset Date: ~01/12/21 (4) premature rupture of membranes SNOMED Code(s): 838660371 ICD Code: O42.919 - PRETRM GREG ROM, UNSP TIME BETW RUPT AND ONST LABR, UNSP TRI Status: Acute Current Visit: No Onset Date: ~01/12/21 Qualifiers: PROM onset of labor timing: onset of labor within 24 hours of rupture Qualified Code(s): O42.019 - premature rupture of membranes, onset of labor within 24 hours of rupture, unspecified trimester Problem List Initiated/Reviewed/Updated: Yes Orders Last 24hrs: Active Orders 24 hr Category Date Time Status Admission Status [Patient Status] [ADT] Stat ADT 01/20/21 20:48 Active Ambulate [RC] ASDIRECTED Care 01/20/21 21:57 Active Antiembolic Devices [RC] PER UNIT ROUTINE Care 01/20/21 21:58 Active Oxygen Therapy [RC] PRN Care 01/20/21 21:57 Active RT Aerosol Therapy [RC] ASDIRECTED Care 01/20/21 21:58 Active VTE/DVT Education [RC] PER UNIT ROUTINE Care 01/20/21 21:57 Active Vital Signs [RC] Q4H Care 01/20/21 21:57 Active Clear Liquid Diet [DIET] Diet 01/21/21 Breakfast Active CULTURE BLOOD [BC] Stat Lab 01/20/21 18:20 Received CULTURE BLOOD [BC] Stat Lab 01/20/21 18:38 Received CULTURE URINE [RM] Stat Lab 01/20/21 17:58 Received Albuterol/Ipratropium [DuoNeb 3.0-0.5 MG/3 ML] Med 01/20/21 21:57 Active 3 ml NEB Q4HRRT PRN Lactated Ringers [Ringers, Lactated] 1,000 ml Med 01/20/21 22:00 Active IV ASDIRECTED Morphine Med 01/20/21 21:57 Ordered 2 mg IVPUSH Q4H PRN Ondansetron [Zofran] Med 01/20/21 21:57 Active 4 mg IVPUSH Q4H PRN Pantoprazole [ProTONIX IV] Med 01/21/21 09:00 Active 40 mg IV DAILY Piperacillin/Tazobactam [Piperacil-Tazobact] 4.5 gm Med 01/20/21 22:00 Active Sodium Chloride 0.9% [Normal Saline] 100 ml IV Q8H Sodium Chloride 0.9% [Normal Saline] 1,000 ml Med 01/20/21 18:52 Active IV STAT Sodium Chloride 0.9% [Saline Flush] Med 01/20/21 16:43 Active 10 ml FLUSH ASDIRECTED PRN Sodium Chloride 0.9% [Saline Flush] Med 01/20/21 16:43 Active 2.5 ml FLUSH ASDIRECTED PRN Blood Culture x2 Reflex Set [OM.PC] Stat Oth 01/20/21 18:13 Ordered Saline Lock Insert [OM.PC] Stat Oth 01/20/21 16:43 Ordered Sequential Compression Device [OM.PC] Per Unit Routine Oth 01/20/21 21:57 Ordered Resuscitation Status Routine Resus Stat 01/20/21 21:57 Ordered Medication Orders Albuterol/Ipratropium (Duoneb 3.0-0.5 Mg/3 Ml) 3 ml NEB Q4HRRT PRN PRN Reason: Shortness Of Breath/wheezing Sodium Chloride (Normal Saline) 1,000 mls @ 125 mls/hr IV STAT ONE Stop: 01/21/21 02:51 Last Admin: 01/20/21 19:42 Dose: 125 mls/hr Documented by: CARMEN Lactated Ringer's (Ringers, Lactated) 1,000 mls @ 200 mls/hr IV ASDIRECTED DANNY Piperacillin Sod/Tazobactam (Sod 4.5 gm/ Sodium Chloride) 100 mls @ 100 mls/hr IV Q8H DANNY Morphine Sulfate (Morphine) 2 mg IVPUSH Q4H PRN PRN Reason: Pain (severe 7-10) Stop: 01/21/21 21:58 Ondansetron HCl (Zofran) 4 mg IVPUSH Q4H PRN PRN Reason: Nausea/Vomiting Pantoprazole Sodium (Protonix Iv) 40 mg IV DAILY DANNY Sodium Chloride (Saline Flush) 10 ml FLUSH ASDIRECTED PRN PRN Reason: Keep Vein Open Last Admin: 01/20/21 18:41 Dose: 10 ml Documented by: OLIVIA Sodium Chloride (Saline Flush) 2.5 ml FLUSH ASDIRECTED PRN PRN Reason: Keep Vein Open Last Admin: 01/20/21 18:41 Dose: 2.5 ml Documented by: [email or web address] Assessment/Plan Comment:: 20 y/o F admitted for sepsis secondary to UTI start aggressive IV fluid hydration Pelvic exam reveled some clots in the vaginal vault and some bleeding CT abdomen noted, OBGYN consulted in ER, recommendations noted Will start IV Zosyn for broad spectrum coverage IV tranexamic acid Obtain Transvaginal USG Watch closely for active bleeding, soaking of pads, soaking of linen Check Hb in AM Will consult OBGYN again if bleeding gets worse f/u on urine and blood cultures
[2021-01-20] MEDS ORDERED: Tranexamic Acid 1,000 MG in Sodium Chloride 0.9% 100 ML IV ONE (23:00)
[2021-01-21] MEDS: Piperacillin/Tazobactam 4.5 GM in Sodium Chloride 0.9% 100 ML IV SCH ×4 (00:01→18:02)
[2021-01-21] MEDS: Lactated Ringers 1,000 ML IV SCH ×3 (00:01→19:18)
[2021-01-21] MEDS ORDERED: Acetaminophen 325 MG/10.15 ML ML PO PRN (00:50)
[2021-01-21] MEDS: Acetaminophen 325 MG Tab PO PRN ×5 (01:14→22:12)
[2021-01-21 06:09] LABS: BLOOD UREA NITROGEN,BUN 4 mg/dL (7.0-18.0); CARBON DIOXIDE,CO2 22.6 mmol/L (21.0-32.0); CHLORIDE,CL 107 mmol/L (98-107); GLUCOSE RANDOM 87 mg/dL (74-106); POTASSIUM,K 3.6 mmol/L (3.5-5.1); SODIUM,NA 140 mmol/L (136-145)
[2021-01-21] MEDS ORDERED: Sodium Chloride 0.9% 2.5 ML Syringe FLUSH PRN (07:54)
--- NOTE | 2021-01-21 07:57 | PCM.PN ---
- General Info Date of Service: 01/21/21 Admission Dx/Problem (Free Text): Admission Diagnosis/Problem Admission Diagnosis/Problem Urosepsis Subjective Update: Having lower abdominal pain and fullness this morning just received Tylenol. Denies any chest pain shortness of breath, blurred vision, headache. She reports she has small amount of vaginal flow no significant clots. Significant other at bedside. Denies any dizziness or lightheadedness. Did have fever last evening 101.6 F. No other concerns this morning. - Review of Systems General: Reports: Weakness, Fatigue HEENT: Reports: No Symptoms. Denies: Headaches, Sore Throat, Visual Changes Pulmonary: Reports: No Symptoms. Denies: Shortness of Breath Cardiovascular: Reports: No Symptoms. Denies: Chest Pain Gastrointestinal: Reports: Abdominal Pain. Denies: Nausea Genitourinary: Reports: Dysuria, Burning, Other (vaginal bleeding) Musculoskeletal: Reports: No Symptoms Skin: Reports: No Symptoms Neurological: Reports: No Symptoms Psychiatric: Reports: No Symptoms - Patient Data Vitals - Most Recent: Last Vital Signs Temp 97.4 F 01/21/21 03:50 Pulse 89 01/21/21 03:50 Resp 16 01/21/21 03:50 BP 88/48 L 01/21/21 03:50 Pulse Ox 97 01/21/21 03:50 Weight - Most Recent: 87.997 kg I&O - Last 24 Hours: Intake & Output 01/20/21 01/21/21 01/21/21 22:59 06:59 14:59 Intake Total 1695 Output Total 400 Balance 1295 Lab Results Last 24 Hours: Laboratory Results - last 24 hr 01/20/21 01/20/21 01/20/21 Range/Units 17:58 18:20 18:20 WBC 18.20 H (4.0-11.0) K/uL RBC 3.82 L (4.30-5.90) M/uL Hgb 11.6 L (12.0-16.0) g/dL Hct 35.4 L (36.0-46.0) % MCV 92.7 (80.0-98.0) fL MCH 30.4 (27.0-32.0) pg MCHC 32.8 (31.0-37.0) g/dL RDW Std Deviation 46.0 (28.0-62.0) fl RDW Coeff of Leslee 14 (11.0-15.0) % Plt Count 323 (150-400) K/uL MPV 9.70 (7.40-12.00) fL Neut % (Auto) 80.6 H (48.0-80.0) % Lymph % (Auto) 12.4 L (16.0-40.0) % [place] % (Auto) 6.0 (0.0-15.0) % Eos % (Auto) 0.9 (0.0-7.0) % Baso % (Auto) 0.1 (0.0-1.5) % Neut # (Auto) 14.7 H (1.4-5.7) K/uL Lymph # (Auto) 2.3 (0.6-2.4) K/uL [place] # (Auto) 1.1 H (0.0-0.8) K/uL Eos # (Auto) 0.2 (0.0-0.7) K/uL Baso # (Auto) 0.0 (0.0-0.1) K/uL Nucleated RBC % 0.0 /100WBC Nucleated RBCs # 0 K/uL Lactate (0.20-2.00) mmol/L Sodium 137 (136-145) mmol/L Potassium 3.5 (3.5-5.1) mmol/L Chloride 101 (98-107) mmol/L Carbon Dioxide 25.8 (21.0-32.0) mmol/L BUN 7 (7.0-18.0) mg/dL Creatinine 0.7 (0.6-1.0) mg/dL Est Cr Clr Drug Dosing 109.78 mL/min Estimated GFR (MDRD) > 60.0 ml/min Glucose 103 (74-106) mg/dL Calcium 9.2 (8.5-10.1) mg/dL Phosphorus (2.6-4.7) mg/dL Magnesium (1.8-2.4) mg/dL Total Bilirubin 0.3 (0.2-1.0) mg/dL AST 16 (15-37) IU/L ALT 19 (14-63) IU/L Alkaline Phosphatase 177 H (46-116) U/L Total Protein 7.9 (6.4-8.2) g/dL Albumin 3.0 L (3.4-5.0) g/dL Globulin 4.9 H (2.6-4.0) g/dL Albumin/Globulin Ratio 0.6 L (0.9-1.6) Urine Color DARK YELLOW Urine Appearance CLOUDY Urine pH 6.0 (5.0-8.0) Ur Specific Lindsay <= 1.005 (1.001-1.035) Urine Protein 30 H (NEGATIVE) mg/dL Urine Glucose (UA) NEGATIVE (NEGATIVE) mg/dL Urine Ketones NEGATIVE (NEGATIVE) mg/dL Urine Occult Blood LARGE H (NEGATIVE) Urine Nitrite NEGATIVE (NEGATIVE) Urine Bilirubin NEGATIVE (NEGATIVE) Urine Urobilinogen 0.2 (<2.0) EU/dL Ur Leukocyte Esterase LARGE H (NEGATIVE) Urine RBC 35-40 (0-2/HPF) Urine WBC 45-50 (0-5/HPF) Ur Epithelial Cells MODERATE (NONE-FEW) Urine Bacteria 1+ H (NEGATIVE) SARS-CoV-2 RNA (FERNANDO) (NEGATIVE) Blood Type Antibody Screen 01/20/21 01/20/21 01/20/21 Range/Units 18:20 19:49 20:31 WBC (4.0-11.0) K/uL RBC (4.30-5.90) M/uL Hgb (12.0-16.0) g/dL Hct (36.0-46.0) % MCV (80.0-98.0) fL MCH (27.0-32.0) pg MCHC (31.0-37.0) g/dL RDW Std Deviation (28.0-62.0) fl RDW Coeff of Leslee (11.0-15.0) % Plt Count (150-400) K/uL MPV (7.40-12.00) fL Neut % (Auto) (48.0-80.0) % Lymph % (Auto) (16.0-40.0) % [place] % (Auto) (0.0-15.0) % Eos % (Auto) (0.0-7.0) % Baso % (Auto) (0.0-1.5) % Neut # (Auto) (1.4-5.7) K/uL Lymph # (Auto) (0.6-2.4) K/uL [place] # (Auto) (0.0-0.8) K/uL Eos # (Auto) (0.0-0.7) K/uL Baso # (Auto) (0.0-0.1) K/uL Nucleated RBC % /100WBC Nucleated RBCs # K/uL Lactate 0.6 (0.20-2.00) mmol/L Sodium (136-145) mmol/L Potassium (3.5-5.1) mmol/L Chloride (98-107) mmol/L Carbon Dioxide (21.0-32.0) mmol/L BUN (7.0-18.0) mg/dL Creatinine (0.6-1.0) mg/dL Est Cr Clr Drug Dosing mL/min Estimated GFR (MDRD) ml/min Glucose (74-106) mg/dL Calcium (8.5-10.1) mg/dL Phosphorus (2.6-4.7) mg/dL Magnesium (1.8-2.4) mg/dL Total Bilirubin (0.2-1.0) mg/dL AST (15-37) IU/L ALT (14-63) IU/L Alkaline Phosphatase (46-116) U/L Total Protein (6.4-8.2) g/dL Albumin (3.4-5.0) g/dL Globulin (2.6-4.0) g/dL Albumin/Globulin Ratio (0.9-1.6) Urine Color Urine Appearance Urine pH (5.0-8.0) Ur Specific Lindsay (1.001-1.035) Urine Protein (NEGATIVE) mg/dL Urine Glucose (UA) (NEGATIVE) mg/dL Urine Ketones (NEGATIVE) mg/dL Urine Occult Blood (NEGATIVE) Urine Nitrite (NEGATIVE) Urine Bilirubin (NEGATIVE) Urine Urobilinogen (<2.0) EU/dL Ur Leukocyte Esterase (NEGATIVE) Urine RBC (0-2/HPF) Urine WBC (0-5/HPF) Ur Epithelial Cells (NONE-FEW) Urine Bacteria (NEGATIVE) SARS-CoV-2 RNA (FERNANDO) NEGATIVE (NEGATIVE) Blood Type A POSITIVE Antibody Screen NEGATIVE 01/21/21 01/21/21 Range/Units 05:15 05:15 WBC 15.91 H (4.0-11.0) K/uL RBC 3.04 L (4.30-5.90) M/uL Hgb 9.3 L (12.0-16.0) g/dL Hct 28.3 L (36.0-46.0) % MCV 93.1 (80.0-98.0) fL MCH 30.6 (27.0-32.0) pg MCHC 32.9 (31.0-37.0) g/dL RDW Std Deviation 46.1 (28.0-62.0) fl RDW Coeff of Leslee 14 (11.0-15.0) % Plt Count 269 (150-400) K/uL MPV 9.60 (7.40-12.00) fL Neut % (Auto) 73.9 (48.0-80.0) % Lymph % (Auto) 17.8 (16.0-40.0) % [place] % (Auto) 7.4 (0.0-15.0) % Eos % (Auto) 0.8 (0.0-7.0) % Baso % (Auto) 0.1 (0.0-1.5) % Neut # (Auto) 11.8 H (1.4-5.7) K/uL Lymph # (Auto) 2.8 H (0.6-2.4) K/uL [place] # (Auto) 1.2 H (0.0-0.8) K/uL Eos # (Auto) 0.1 (0.0-0.7) K/uL Baso # (Auto) 0.0 (0.0-0.1) K/uL Nucleated RBC % 0.0 /100WBC Nucleated RBCs # 0 K/uL Lactate (0.20-2.00) mmol/L Sodium 140 (136-145) mmol/L Potassium 3.6 (3.5-5.1) mmol/L Chloride 107 (98-107) mmol/L Carbon Dioxide 22.6 (21.0-32.0) mmol/L BUN 4 L (7.0-18.0) mg/dL Creatinine 0.6 (0.6-1.0) mg/dL Est Cr Clr Drug Dosing 128.08 mL/min Estimated GFR (MDRD) > 60.0 ml/min Glucose 87 (74-106) mg/dL Calcium 8.1 L (8.5-10.1) mg/dL Phosphorus 2.2 L (2.6-4.7) mg/dL Magnesium 1.8 (1.8-2.4) mg/dL Total Bilirubin (0.2-1.0) mg/dL AST (15-37) IU/L ALT (14-63) IU/L Alkaline Phosphatase (46-116) U/L Total Protein (6.4-8.2) g/dL Albumin (3.4-5.0) g/dL Globulin (2.6-4.0) g/dL Albumin/Globulin Ratio (0.9-1.6) Urine Color Urine Appearance Urine pH (5.0-8.0) Ur Specific Lindsay (1.001-1.035) Urine Protein (NEGATIVE) mg/dL Urine Glucose (UA) (NEGATIVE) mg/dL Urine Ketones (NEGATIVE) mg/dL Urine Occult Blood (NEGATIVE) Urine Nitrite (NEGATIVE) Urine Bilirubin (NEGATIVE) Urine Urobilinogen (<2.0) EU/dL Ur Leukocyte Esterase (NEGATIVE) Urine RBC (0-2/HPF) Urine WBC (0-5/HPF) Ur Epithelial Cells (NONE-FEW) Urine Bacteria (NEGATIVE) SARS-CoV-2 RNA (FERNANDO) (NEGATIVE) Blood Type Antibody Screen Med Orders - Current: Current Medications Acetaminophen (Tylenol) 650 mg PO Q4H PRN PRN Reason: Pain/Fever Last Admin: 01/21/21 01:14 Dose: 650 mg Documented by: Albuterol/Ipratropium (Duoneb 3.0-0.5 Mg/3 Ml) 3 ml NEB Q4HRRT PRN PRN Reason: Shortness Of Breath/wheezing Lactated Ringer's (Ringers, Lactated) 1,000 mls @ 200 mls/hr IV ASDIRECTED DANNY Last Admin: 01/21/21 06:19 Dose: 200 mls/hr Documented by: Piperacillin Sod/Tazobactam (Sod 4.5 gm/ Sodium Chloride) 100 mls @ 100 mls/hr IV Q12H [facility] Morphine Sulfate (Morphine) 2 mg IVPUSH Q4H PRN PRN Reason: Pain (severe 7-10) Stop: 01/21/21 21:58 Ondansetron HCl (Zofran) 4 mg IVPUSH Q4H PRN PRN Reason: Nausea/Vomiting Pantoprazole Sodium (Protonix Iv) 40 mg IV DAILY [facility] Sodium Chloride (Saline Flush) 2.5 ml FLUSH ASDIRECTED PRN PRN Reason: Keep Vein Open Discontinued Medications Acetaminophen (Tylenol) 650 mg PO Q4H PRN PRN Reason: Pain/Fever Sodium Chloride (Normal Saline) 1,000 mls @ 999 mls/hr IV NOW STA Stop: 01/20/21 19:14 Last Admin: 01/20/21 18:42 Dose: 999 mls/hr Documented by: Ceftriaxone Sodium/Dextrose 1 (gm/ Premix) 50 mls @ 100 mls/hr IV ONETIME ONE Stop: 01/20/21 18:56 Last Admin: 01/20/21 18:42 Dose: 100 mls/hr Documented by: Sodium Chloride (Normal Saline) 1,000 mls @ 125 mls/hr IV STAT ONE Stop: 01/21/21 02:51 Last Admin: 01/20/21 19:42 Dose: 125 mls/hr Documented by: Piperacillin Sod/Tazobactam (Sod 4.5 gm/ Sodium Chloride) 100 mls @ 100 mls/hr IV Q8H DANNY Last Admin: 01/21/21 06:20 Dose: 100 mls/hr Documented by: Tranexamic Acid 1,000 mg/ (Sodium Chloride) 110 mls @ 600 mls/hr IV ONETIME ONE Stop: 01/20/21 23:10 Last Admin: 01/21/21 01:23 Dose: 600 mls/hr Documented by: Iopamidol (Isovue Multipack-370 (76%)) 100 ml IVPUSH ONETIME STA Stop: 01/20/21 19:45 Last Admin: 01/20/21 19:45 Dose: 100 ml Documented by: Sodium Chloride (Saline Flush) 10 ml FLUSH ASDIRECTED PRN PRN Reason: Keep Vein Open Last Admin: 01/20/21 18:41 Dose: 10 ml Documented by: Sodium Chloride (Saline Flush) 2.5 ml FLUSH ASDIRECTED PRN PRN Reason: Keep Vein Open Last Admin: 01/20/21 18:41 Dose: 2.5 ml Documented by: - Exam General: Alert, Oriented, Cooperative, No Acute Distress Lungs: Clear to Auscultation, Normal Respiratory Effort Cardiovascular: Regular Rate, Regular Rhythm GI/Abdominal Exam: Normal Bowel Sounds, Soft, No Distention, Tender Back Exam: Normal Inspection, Full Range of Motion Extremities: Normal Inspection, Normal Range of Motion, Non-Tender, No Pedal Edema Neurological: No New Focal Deficit Psy/Mental Status: Alert, Normal Affect, Normal Mood - Patient Data Lab Results Last 24 hrs: Laboratory Results - last 24 hr 01/20/21 01/20/21 01/20/21 Range/Units 17:58 18:20 18:20 WBC 18.20 H (4.0-11.0) K/uL RBC 3.82 L (4.30-5.90) M/uL Hgb 11.6 L (12.0-16.0) g/dL Hct 35.4 L (36.0-46.0) % MCV 92.7 (80.0-98.0) fL MCH 30.4 (27.0-32.0) pg MCHC 32.8 (31.0-37.0) g/dL RDW Std Deviation 46.0 (28.0-62.0) fl RDW Coeff of Leslee 14 (11.0-15.0) % Plt Count 323 (150-400) K/uL MPV 9.70 (7.40-12.00) fL Neut % (Auto) 80.6 H (48.0-80.0) % Lymph % (Auto) 12.4 L (16.0-40.0) % [place] % (Auto) 6.0 (0.0-15.0) % Eos % (Auto) 0.9 (0.0-7.0) % Baso % (Auto) 0.1 (0.0-1.5) % Neut # (Auto) 14.7 H (1.4-5.7) K/uL Lymph # (Auto) 2.3 (0.6-2.4) K/uL [place] # (Auto) 1.1 H (0.0-0.8) K/uL Eos # (Auto) 0.2 (0.0-0.7) K/uL Baso # (Auto) 0.0 (0.0-0.1) K/uL Nucleated RBC % 0.0 /100WBC Nucleated RBCs # 0 K/uL Lactate (0.20-2.00) mmol/L Sodium 137 (136-145) mmol/L Potassium 3.5 (3.5-5.1) mmol/L Chloride 101 (98-107) mmol/L Carbon Dioxide 25.8 (21.0-32.0) mmol/L BUN 7 (7.0-18.0) mg/dL Creatinine 0.7 (0.6-1.0) mg/dL Est Cr Clr Drug Dosing 109.78 mL/min Estimated GFR (MDRD) > 60.0 ml/min Glucose 103 (74-106) mg/dL Calcium 9.2 (8.5-10.1) mg/dL Phosphorus (2.6-4.7) mg/dL Magnesium (1.8-2.4) mg/dL Total Bilirubin 0.3 (0.2-1.0) mg/dL AST 16 (15-37) IU/L ALT 19 (14-63) IU/L Alkaline Phosphatase 177 H (46-116) U/L Total Protein 7.9 (6.4-8.2) g/dL Albumin 3.0 L (3.4-5.0) g/dL Globulin 4.9 H (2.6-4.0) g/dL Albumin/Globulin Ratio 0.6 L (0.9-1.6) Urine Color DARK YELLOW Urine Appearance CLOUDY Urine pH 6.0 (5.0-8.0) Ur Specific [place] <= 1.005 (1.001-1.035) Urine Protein 30 H (NEGATIVE) mg/dL Urine Glucose (UA) NEGATIVE (NEGATIVE) mg/dL Urine Ketones NEGATIVE (NEGATIVE) mg/dL Urine Occult Blood LARGE H (NEGATIVE) Urine Nitrite NEGATIVE (NEGATIVE) Urine Bilirubin NEGATIVE (NEGATIVE) Urine Urobilinogen 0.2 (<2.0) EU/dL Ur Leukocyte Esterase LARGE H (NEGATIVE) Urine RBC 35-40 (0-2/HPF) Urine WBC 45-50 (0-5/HPF) Ur Epithelial Cells MODERATE (NONE-FEW) Urine Bacteria 1+ H (NEGATIVE) SARS-CoV-2 RNA (FERNANDO) (NEGATIVE) Blood Type Antibody Screen 01/20/21 01/20/21 01/20/21 Range/Units 18:20 19:49 20:31 WBC (4.0-11.0) K/uL RBC (4.30-5.90) M/uL Hgb (12.0-16.0) g/dL Hct (36.0-46.0) % MCV (80.0-98.0) fL MCH (27.0-32.0) pg MCHC (31.0-37.0) g/dL RDW Std Deviation (28.0-62.0) fl RDW Coeff of Leslee (11.0-15.0) % Plt Count (150-400) K/uL MPV (7.40-12.00) fL Neut % (Auto) (48.0-80.0) % Lymph % (Auto) (16.0-40.0) % [place] % (Auto) (0.0-15.0) % Eos % (Auto) (0.0-7.0) % Baso % (Auto) (0.0-1.5) % Neut # (Auto) (1.4-5.7) K/uL Lymph # (Auto) (0.6-2.4) K/uL [place] # (Auto) (0.0-0.8) K/uL Eos # (Auto) (0.0-0.7) K/uL Baso # (Auto) (0.0-0.1) K/uL Nucleated RBC % /100WBC Nucleated RBCs # K/uL Lactate 0.6 (0.20-2.00) mmol/L Sodium (136-145) mmol/L Potassium (3.5-5.1) mmol/L Chloride (98-107) mmol/L Carbon Dioxide (21.0-32.0) mmol/L BUN (7.0-18.0) mg/dL Creatinine (0.6-1.0) mg/dL Est Cr Clr Drug Dosing mL/min Estimated GFR (MDRD) ml/min Glucose (74-106) mg/dL Calcium (8.5-10.1) mg/dL Phosphorus (2.6-4.7) mg/dL Magnesium (1.8-2.4) mg/dL Total Bilirubin (0.2-1.0) mg/dL AST (15-37) IU/L ALT (14-63) IU/L Alkaline Phosphatase (46-116) U/L Total Protein (6.4-8.2) g/dL Albumin (3.4-5.0) g/dL Globulin (2.6-4.0) g/dL Albumin/Globulin Ratio (0.9-1.6) Urine Color Urine Appearance Urine pH (5.0-8.0) Ur Specific Lindsay (1.001-1.035) Urine Protein (NEGATIVE) mg/dL Urine Glucose (UA) (NEGATIVE) mg/dL Urine Ketones (NEGATIVE) mg/dL Urine Occult Blood (NEGATIVE) Urine Nitrite (NEGATIVE) Urine Bilirubin (NEGATIVE) Urine Urobilinogen (<2.0) EU/dL Ur Leukocyte Esterase (NEGATIVE) Urine RBC (0-2/HPF) Urine WBC (0-5/HPF) Ur Epithelial Cells (NONE-FEW) Urine Bacteria (NEGATIVE) SARS-CoV-2 RNA (FERNANDO) NEGATIVE (NEGATIVE) Blood Type A POSITIVE Antibody Screen NEGATIVE 01/21/21 01/21/21 Range/Units 05:15 05:15 WBC 15.91 H (4.0-11.0) K/uL RBC 3.04 L (4.30-5.90) M/uL Hgb 9.3 L (12.0-16.0) g/dL Hct 28.3 L (36.0-46.0) % MCV 93.1 (80.0-98.0) fL MCH 30.6 (27.0-32.0) pg MCHC 32.9 (31.0-37.0) g/dL RDW Std Deviation 46.1 (28.0-62.0) fl RDW Coeff of Leslee 14 (11.0-15.0) % Plt Count 269 (150-400) K/uL MPV 9.60 (7.40-12.00) fL Neut % (Auto) 73.9 (48.0-80.0) % Lymph % (Auto) 17.8 (16.0-40.0) % [place] % (Auto) 7.4 (0.0-15.0) % Eos % (Auto) 0.8 (0.0-7.0) % Baso % (Auto) 0.1 (0.0-1.5) % Neut # (Auto) 11.8 H (1.4-5.7) K/uL Lymph # (Auto) 2.8 H (0.6-2.4) K/uL [place] # (Auto) 1.2 H (0.0-0.8) K/uL Eos # (Auto) 0.1 (0.0-0.7) K/uL Baso # (Auto) 0.0 (0.0-0.1) K/uL Nucleated RBC % 0.0 /100WBC Nucleated RBCs # 0 K/uL Lactate (0.20-2.00) mmol/L Sodium 140 (136-145) mmol/L Potassium 3.6 (3.5-5.1) mmol/L Chloride 107 (98-107) mmol/L Carbon Dioxide 22.6 (21.0-32.0) mmol/L BUN 4 L (7.0-18.0) mg/dL Creatinine 0.6 (0.6-1.0) mg/dL Est Cr Clr Drug Dosing 128.08 mL/min Estimated GFR (MDRD) > 60.0 ml/min Glucose 87 (74-106) mg/dL Calcium 8.1 L (8.5-10.1) mg/dL Phosphorus 2.2 L (2.6-4.7) mg/dL Magnesium 1.8 (1.8-2.4) mg/dL Total Bilirubin (0.2-1.0) mg/dL AST (15-37) IU/L ALT (14-63) IU/L Alkaline Phosphatase (46-116) U/L Total Protein (6.4-8.2) g/dL Albumin (3.4-5.0) g/dL Globulin (2.6-4.0) g/dL Albumin/Globulin Ratio (0.9-1.6) Urine Color Urine Appearance Urine pH (5.0-8.0) Ur Specific Lindsay (1.001-1.035) Urine Protein (NEGATIVE) mg/dL Urine Glucose (UA) (NEGATIVE) mg/dL Urine Ketones (NEGATIVE) mg/dL Urine Occult Blood (NEGATIVE) Urine Nitrite (NEGATIVE) Urine Bilirubin (NEGATIVE) Urine Urobilinogen (<2.0) EU/dL Ur Leukocyte Esterase (NEGATIVE) Urine RBC (0-2/HPF) Urine WBC (0-5/HPF) Ur Epithelial Cells (NONE-FEW) Urine Bacteria (NEGATIVE) SARS-CoV-2 RNA (FERNANDO) (NEGATIVE) Blood Type Antibody Screen Result Diagrams: 01/21/21 05:15 01/21/21 05:15 Sepsis Event Note - Evaluation Sepsis Screening Result: Sepsis Risk - Focused Exam Vital Signs: Vital Signs Temp Temp Pulse Resp BP Pulse Ox 01/21/21 03:50 97.4 F 89 16 88/48 L 97 01/21/21 02:42 97.8 F 01/21/21 01:14 101.6 F H 01/21/21 00:08 101.6 F H 103 H 18 87/48 L 98 01/20/21 21:31 90 18 106/53 L 98 - Problem List & Annotations (1) History of hemorrhage SNOMED Code(s): 621073789 Code(s): Z87.59 - PERSONAL HISTORY OF COMP OF PREG, CHLDBRTH AND THE PUERP Status: Acute Current Visit: Yes (2) Sepsis secondary to UTI SNOMED Code(s): 160234539 Code(s): A41.9 - SEPSIS, UNSPECIFIED ORGANISM; N39.0 - URINARY TRACT INFECTION, SITE NOT SPECIFIED Status: Acute Current Visit: Yes - Problem List Review Problem List Initiated/Reviewed/Updated: Yes - My Orders Last 24 Hours: My Active Orders 01/21/21 07:54 Sodium Chloride 0.9% [Saline Flush] 2.5 ml FLUSH ASDIRECTED PRN Saline Lock Insert [OM.PC] Routine - Plan Plan:: 20 y/o F admitted for sepsis secondary to UTI 1. Urosepsis, Group B strep UTI -Continue IV fluid hydration, LR -Continue Zosyn -UC returned with group B strep -Blood cultures pending 2. History of hemorrhage status post blood transfusion -Having small amount of bleeding with clots, pad count low not soaking a pad in 1 hour. -Hemoglobin 9.3 today which is likely closer to baseline as she was discharged home after blood transfusion with hemoglobin of 8. -Transvaginal ultrasound ordered today reveals mildly large amount of echogenic material within the endometrial canal without internal blood flow favoring blood products rather than retained products of conception. - I did speak with Dr. Oakes [employer] who is quite familiar with patient and sees her in the clinic. She was appreciative of obtaining ultrasound which she feels supports that this is likely more UTI than retained products of conception. She would recommend 2 weeks of antibiotic treatment and she would then be able to follow-up with GITA Jules at their clinic next week as she is out of town. She did say reach out if bleeding worsens or hemoglobin does dip. -Tylenol for pain as needed -Continue prenatals and iron -Continue Colace -Patient on and off breast-feeding, offered hospital pump but patient declined at this time. VTE prophylaxis: SCDs and ambulation CODE STATUS: Full code Dispo 1 to 2 days pending improvement.
[2021-01-21] MEDS: Pantoprazole 40 MG Vial IV SCH (08:20)
[2021-01-21] MEDS ORDERED: Ibuprofen 600 MG Tab PO PRN (09:04)
[2021-01-21] MEDS: Iron Polysaccharides Complex 150 MG Cap PO SCH (10:11)
[2021-01-21] MEDS: Docusate Sodium 100 MG Cap PO SCH (10:11)
--- NOTE | 2021-01-21 10:40 | US ---
INDICATION: bleeding. TECHNIQUE: Ultrasound pelvis transabdominal. Real-time sonographic images with spectral and color Doppler imaging of the ovaries were obtained. COMPARISON: None. FINDINGS: Uterus: 15 x 8 x 7 cm. Normal echotexture of the myometrium. No masses. Endometrium: Endometrial thickness measures 47 mm. Endometrium is distended with a relatively large amount of echogenic soft tissue material. There is no significant color Doppler blood flow within this material. Right ovary measures 2 x 2 x 1 cm and left ovary measures 2 x 2 x 1 cm. No ovarian or adnexal masses. Normal arterial and venous blood flow is demonstrated in both ovaries. Cul-de-sac: No significant free fluid. IMPRESSION: Relatively large amount of echogenic material within the endometrial canal without internal blood flow favors blood products rather than retained products of conception. Dictated by Jose Manuel Carvajal MD @ Jan 21 2021 10:37AM Signed by Dr. Jose Manuel Carvajal @ Jan 21 2021 10:40AM
[2021-01-21] MEDS: Prenatal Multivitamin with Calcium/Folic Acid/Iron Tab PO SCH (11:39)
[2021-01-22] MEDS: Lactated Ringers 1,000 ML IV SCH ×2 (01:55→11:02)
[2021-01-22] MEDS: Piperacillin/Tazobactam 4.5 GM in Sodium Chloride 0.9% 100 ML IV SCH ×2 (02:14→09:54)
[2021-01-22 07:09] LABS: BLOOD UREA NITROGEN,BUN 4 mg/dL (7.0-18.0); CARBON DIOXIDE,CO2 22.8 mmol/L (21.0-32.0); CHLORIDE,CL 107 mmol/L (98-107); GLUCOSE RANDOM 82 mg/dL (74-106); POTASSIUM,K 3.8 mmol/L (3.5-5.1); SODIUM,NA 139 mmol/L (136-145)
[2021-01-22] MEDS ORDERED: Piperacillin/Tazobactam 4.5 GM in Sodium Chloride 0.9% 100 ML IV SCH (08:15)
[2021-01-22] MEDS: Iron Polysaccharides Complex 150 MG Cap PO SCH (08:42)
[2021-01-22] MEDS: Docusate Sodium 100 MG Cap PO SCH (08:42)
[2021-01-22] MEDS: Pantoprazole 40 MG Vial IV SCH (08:43)
[2021-01-22] MEDS: Prenatal Multivitamin with Calcium/Folic Acid/Iron Tab PO SCH (08:43)
--- NOTE | 2021-01-22 08:56 | PCM.DCSUM1 ---
Discharge Summary - Hospital Course Brief History: Patient is a 20-year-old female who presents to the emergency room with complaints of dizziness, blurry vision, fevers, pelvic pressure and dysuria for the past 2 days. Patient is post , had a vaginal delivery on 01/12/2021 which was complicated by post hemorrhage, she said she had to receive 2 units of blood due to blood loss and was put on severe hemostatic agents to stop bleeding per the patient. After discharge she has been passing few smaller clots and has some bleeding but no overt bleeding. Patient denies any fever, chills, headache, syncope or near syncope. Denies any chest pain, back pain, shortness of breath or cough. Denies any abdominal pain, nausea, vomiting, diarrhea, constipation or dysuria. Has not noted any blood in urine or stool. Patient has been eating and drinking appropriately. CT A/P pelvis showed uterine enlargement with large amount of heterogeneous material within the endometrial cavity likely representing hemorrhage. Extensive hyperdensity within the presumed endometrial hemorrhage is suspicious for active bleeding. Underlying retained products of conception is not excluded. Dr Clark, at [facility] on-call provider was consulted, about patient and her presentation, She stated this is a normal finding, pelvic exam done in ER was not tender or painful, Patient was septic with leucocytosis and tachycardia, lactate was normal, Hb had improved from prior level. Patient was admitted for sepsis secondary to UTI. Diagnosis: Stroke: No - Discharge Data Discharge Date: 01/22/21 Discharge Disposition: Home, Self-Care 01 Condition: Good - Referral to Home Health Primary Care Physician: PCP None - Discharge Diagnosis/Problem(s) (1) History of hemorrhage SNOMED Code(s): 083659057 ICD Code: Z87.59 - PERSONAL HISTORY OF COMP OF PREG, CHLDBRTH AND THE PUERP Status: Acute (2) Sepsis secondary to UTI SNOMED Code(s): 452767315 ICD Code: A41.9 - SEPSIS, UNSPECIFIED ORGANISM; N39.0 - URINARY TRACT INFECTION, SITE NOT SPECIFIED Status: Acute - Patient Summary/Data Hospital Course: Admission diagnoses: Urosepsis UTI History hemorrhage status post PRBC transfusion Discharge diagnoses: Urosepsis-resolved Group B strep UTI History hemorrhage post PRBC transfusion General admitted secondary to urosepsis with significant leukocytosis hypotension and dizziness. Blood cultures were obtained along with UC. She was admitted and treated with aggressive IV fluid resuscitation along with TXA due to concern for possible hemorrhage. She had recently been discharged after blood transfusion for anemia secondary to hemorrhage. She was started on Zosyn for broad-spectrum coverage due to recent delivery as well as concern for gram-negative main sepsis. Blood cultures returned negative. UC returned with group B strep. She is continued on Zosyn as she was improving. Diet was increased and she tolerated this well. Hemoglobin on admission was noted to be 11.6 likely hemoconcentrated due to recent discharge on 01/18 with hemoglobin at 10. She denies significant vaginal bleeding at home she reported as a normal heavy period with some clots intermittently. Pad counts were kept here and she changed 3-4 in a 12-hour shift. She was offered BuSpar multiple times but had denied this. She reports she is intermittently breast-feeding at home otherwise formula is being fed to her . CT on admit showed possible hemorrhage within the uterus. [facility] provider Dr. Clark was consulted from the ER she felt this was normal finding for female. Transvaginal ultrasound was obtained the next morning there is no blood flow noted on Doppler suggesting no products of conception were being retained. There was noted to be blood products within the uterus. Consulted Dr. Oakes via telephone she felt very confident as no blood flow was noted on ultrasound that this is likely urosepsis and agreed with antibiotic treatment. She would like patient to be seen 1 week after discharge with the provider in their office. She will be discharged home today with amoxicillin 500 mg 3 times daily for total of 2 weeks. She was counseled on good perineal hygiene along with monitoring for any signs and symptoms and staying well-hydrated. She is to return to see G[facility] Jules [facility]. She is to return to the ER or clinic sooner if concerns should arise. - Patient Instructions Diet: Regular Diet as Tolerated Activity: As Tolerated, No Strenuous Activities Showering/Bathing: May Shower Notify Provider of: Fever, Increased Pain, Swelling and Redness, Drainage, Nausea and/or Vomiting - Discharge Plan *PRESCRIPTION DRUG MONITORING PROGRAM REVIEWED*: Not Applicable *COPY OF PRESCRIPTION DRUG MONITORING REPORT IN PATIENT KELVIN: Not Applicable Prescriptions/Med Rec: Amoxicillin 500 mg PO TID #36 tab Home Medications: Home Meds Diclofenac Sodium 100 gm TP Q6H PRN 5 Days #1 gel..gram. 01/18/21 [Rx] Acetaminophen [Tylenol] 650 mg PO Q4H PRN tablet 01/22/21 [Rx] Amoxicillin 500 mg PO TID #36 tab 01/22/21 [Rx] Iron Polysaccharides Complex [Ferrex 150] 150 mg PO DAILY cap 01/22/21 [Rx] Vit with Ca/FA/Iron [ Plus Iron] 1 each PO DAILY tablet 01/22/21 [Rx] Oxygen Therapy Mode: Room Air Patient Handouts: Amoxicillin capsules or tablets, Urinary Tract Infection, Adult, Care After Vaginal Delivery, Sepsis, Self Care, Adult Referrals: Kiah Zaragoza PA [Ordering Only Provider] - 01/30/21 2:30 pm () - Discharge Summary/Plan Comment DC Time >30 min.: No - Patient Data Vitals - Most Recent: Last Vital Signs Temp 97.9 F 01/22/21 07:47 Pulse 91 01/22/21 07:47 Resp 15 01/22/21 07:47 BP 97/42 L 01/22/21 07:47 Pulse Ox 97 01/22/21 07:47 Weight - Most Recent: 87.997 kg I&O - Last 24 hours: Intake & Output 01/21/21 01/22/21 01/22/21 22:59 06:59 14:59 Intake Total 540 100 Output Total 800 Balance -260 100 Lab Results - Last 24 hrs: Laboratory Results - last 24 hr 01/22/21 01/22/21 Range/Units 05:13 05:13 WBC 13.92 H (4.0-11.0) K/uL RBC 3.24 L (4.30-5.90) M/uL Hgb 9.8 L (12.0-16.0) g/dL Hct 30.3 L (36.0-46.0) % MCV 93.5 (80.0-98.0) fL MCH 30.2 (27.0-32.0) pg MCHC 32.3 (31.0-37.0) g/dL RDW Std Deviation 46.6 (28.0-62.0) fl RDW Coeff of Leslee 14 (11.0-15.0) % Plt Count 329 (150-400) K/uL MPV 9.70 (7.40-12.00) fL Neut % (Auto) 75.0 (48.0-80.0) % Lymph % (Auto) 16.7 (16.0-40.0) % [place] % (Auto) 6.8 (0.0-15.0) % Eos % (Auto) 1.4 (0.0-7.0) % Baso % (Auto) 0.1 (0.0-1.5) % Neut # (Auto) 10.4 H (1.4-5.7) K/uL Lymph # (Auto) 2.3 (0.6-2.4) K/uL [place] # (Auto) 1.0 H (0.0-0.8) K/uL Eos # (Auto) 0.2 (0.0-0.7) K/uL Baso # (Auto) 0.0 (0.0-0.1) K/uL Nucleated RBC % 0.0 /100WBC Nucleated RBCs # 0 K/uL Sodium 139 (136-145) mmol/L Potassium 3.8 (3.5-5.1) mmol/L Chloride 107 (98-107) mmol/L Carbon Dioxide 22.8 (21.0-32.0) mmol/L BUN 4 L (7.0-18.0) mg/dL Creatinine 0.7 (0.6-1.0) mg/dL Est Cr Clr Drug Dosing 109.78 mL/min Estimated GFR (MDRD) > 60.0 ml/min Glucose 82 (74-106) mg/dL Calcium 8.2 L (8.5-10.1) mg/dL Magnesium 1.7 L (1.8-2.4) mg/dL BAKARI Results - Last 24 hrs: Microbiology 01/20/21 17:58 Urine Culture - Preliminary Urine, Clean Catch Positive For Group B Strep 01/20/21 18:38 Aerobic Blood Culture - Preliminary Blood - Venous NO GROWTH AFTER 1 DAY Anaerobic Blood Culture - Preliminary NO GROWTH AFTER 1 DAY 01/20/21 18:20 Aerobic Blood Culture - Preliminary Blood - Venous - Lab Draw NO GROWTH AFTER 1 DAY Anaerobic Blood Culture - Preliminary NO GROWTH AFTER 1 DAY Med Orders - Current: Current Medications Acetaminophen (Tylenol) 650 mg PO Q4H PRN PRN Reason: Pain/Fever Last Admin: 01/21/21 22:12 Dose: 650 mg Documented by: Albuterol/Ipratropium (Duoneb 3.0-0.5 Mg/3 Ml) 3 ml NEB Q4HRRT PRN PRN Reason: Shortness Of Breath/wheezing Docusate Sodium (Colace) 100 mg PO DAILY [facility] Last Admin: 01/21/21 10:11 Dose: 100 mg Documented by: Piperacillin Sod/Tazobactam (Sod 4.5 gm/ Sodium Chloride) 100 mls @ 100 mls/hr IV Q6H [facility] Last Admin: 01/22/21 02:14 Dose: 100 mls/hr Documented by: Lactated Ringer's (Ringers, Lactated) 1,000 mls @ 125 mls/hr IV Q8H [facility] Last Admin: 01/22/21 01:55 Dose: Not Given Documented by: Ondansetron HCl (Zofran) 4 mg IVPUSH Q4H PRN PRN Reason: Nausea/Vomiting Pantoprazole Sodium (Protonix Iv) 40 mg IV DAILY [facility] Last Admin: 01/21/21 08:20 Dose: 40 mg Documented by: Polysaccharide Iron Complex (Ferrex 150) 150 mg PO DAILY [facility] Last Admin: 01/21/21 10:11 Dose: 150 mg Documented by: Prenat Multivit/[place]/Iron/Folic Ac ( Plus Iron) 1 each PO DAILY [facility] Last Admin: 01/21/21 11:39 Dose: 1 each Documented by: Sodium Chloride (Saline Flush) 2.5 ml FLUSH ASDIRECTED PRN PRN Reason: Keep Vein Open Discontinued Medications Acetaminophen (Tylenol) 650 mg PO Q4H PRN PRN Reason: Pain/Fever Sodium Chloride (Normal Saline) 1,000 mls @ 999 mls/hr IV NOW STA Stop: 01/20/21 19:14 Last Admin: 01/20/21 18:42 Dose: 999 mls/hr Documented by: Ceftriaxone Sodium/Dextrose 1 (gm/ Premix) 50 mls @ 100 mls/hr IV ONETIME ONE Stop: 01/20/21 18:56 Last Admin: 01/20/21 18:42 Dose: 100 mls/hr Documented by: Sodium Chloride (Normal Saline) 1,000 mls @ 125 mls/hr IV STAT ONE Stop: 01/21/21 02:51 Last Admin: 01/20/21 19:42 Dose: 125 mls/hr Documented by: Lactated Ringer's (Ringers, Lactated) 1,000 mls @ 200 mls/hr IV ASDIRECTED DANNY Last Admin: 01/21/21 06:19 Dose: 200 mls/hr Documented by: Piperacillin Sod/Tazobactam (Sod 4.5 gm/ Sodium Chloride) 100 mls @ 100 mls/hr IV Q8H [facility] Last Admin: 01/21/21 06:20 Dose: 100 mls/hr Documented by: Tranexamic Acid 1,000 mg/ (Sodium Chloride) 110 mls @ 600 mls/hr IV ONETIME ONE Stop: 01/20/21 23:10 Last Admin: 01/21/21 01:23 Dose: 600 mls/hr Documented by: Ibuprofen (Motrin) 600 mg PO Q6H PRN PRN Reason: Pain Iopamidol (Isovue Multipack-370 (76%)) 100 ml IVPUSH ONETIME STA Stop: 01/20/21 19:45 Last Admin: 01/20/21 19:45 Dose: 100 ml Documented by: Morphine Sulfate (Morphine) 2 mg IVPUSH Q4H PRN PRN Reason: Pain (severe 7-10) Stop: 01/21/21 21:58 Sodium Chloride (Saline Flush) 10 ml FLUSH ASDIRECTED PRN PRN Reason: Keep Vein Open Last Admin: 01/20/21 18:41 Dose: 10 ml Documented by: Sodium Chloride (Saline Flush) 2.5 ml FLUSH ASDIRECTED PRN PRN Reason: Keep Vein Open Last Admin: 01/20/21 18:41 Dose: 2.5 ml Documented by:
== END 2021-01-22 11:10 | disposition home or self-care (01) ==
LOC: MW.ED 16:40 → MW.MS 20:48
PROVIDERS: ADMIT Student in an Organized Health Care Education/Training Program; ATTEND Student in an Organized Health Care Education/Training Program
DX: A41.89 Other specified sepsis (principal); N39.0 Urinary tract infection, site not specified; B95.1 Streptococcus, group B, as the cause of diseases classified elsewhere; Z79.899 Other long term (current) drug therapy; Z87.59 Personal history of other complications of pregnancy, childbirth and the puerperium; Z20.822 Contact with and (suspected) exposure to COVID-19
CPT/HCPCS: 36415; 74177; 74177-26; 76857; 76857-26; 80048; 80053; 81001; 83605; 83735; 84100; 85025; 86850; 86900; 86901; 87040; 87086; 87088; 87186; 96365; 96366; 96367; 96375; 96376; 99284; 99285-25; A9270-GY; C9113; G0378; J0696; J2543; J7030; J7120; Q9967; U0002

== ENCOUNTER 2021-02-04 02:43 | Emergency (ER) | payer BC ==
--- NOTE | 2021-02-04 03:15 | EDM.PDOC ---
ED HPI GENERAL MEDICAL PROBLEM - General Chief Complaint: General Stated Complaint: BLADDER PROBLEM Time Seen by Provider: 02/04/21 03:00 - History of Present Illness INITIAL COMMENTS - FREE TEXT/NARRATIVE: History of present illness: [] Review of systems: As per history of present illness and below otherwise all systems reviewed and negative. Past medical history: As per history of present illness and as reviewed below otherwise noncontributory. Surgical history: As per history of present illness and as reviewed below otherwise noncontributory. Social history: No reported history of drug or alcohol abuse. Family history: As per history of present illness and as reviewed below otherwise noncontributory. Physical exam: Constitutional - well developed, well-nourished and in no acute distress HEENT - normocephalic, no evidence of trauma - external nose and mouth normal - no mass in neck and no JVD - mucosae moist EYES - full EOM, PERRL, no icterus - no evidence of inflammation, injection, or drainage Respiratory - no respiratory distress, equal bilateral expansion, lungs clear to auscultation and no abnormal lung sounds Cardiovascular - Regular Rhythm with S1 and S2 appreciated and no murmur, gallop or rub. GI - abdomen soft without distension or organomegaly - normal bowel sounds - no guard or rebound Musculoskeletal no gross deformity of long bones or joints - no tenderness, swelling or edema Neurologic - Alert and oriented times four - CN II-XII grossly intact - motor sensory and coordination symmetrically normal Psychiatric -has a flat affect. At times she is distressed. At the time she is calm relaxed and cooperative. She is not completely and continuously coherent. She tries to tell me the story of what she has been through and she says to ask her . She has trouble with concentration and remembering all the things she wants to tell me. Hematologic - No petechiae or purpura - mucosa appropriate color and sclera not pale - normal nail bed color and refill Integument - no rash or evidence of trauma - normal turgor Diagnostics: [] Therapeutics: [] Impression: [] Plan: [] Definitive disposition and diagnosis as appropriate pending reevaluation and review of above. - Related Data Allergies Allergy/AdvReac Type Severity Reaction Status Date / Time No Known Allergies Allergy Verified 02/04/21 03:06 Home Meds: Home Meds Diclofenac Sodium 100 gm TP Q6H PRN 5 Days #1 gel..gram. 01/18/21 [Rx] Acetaminophen [Tylenol] 650 mg PO Q4H PRN tablet 01/22/21 [Rx] Amoxicillin 500 mg PO TID #36 tab 01/22/21 [Rx] Iron Polysaccharides Complex [Ferrex 150] 150 mg PO DAILY cap 01/22/21 [Rx] Vit with Ca/FA/Iron [ Plus Iron] 1 each PO DAILY tablet 01/22/21 [Rx] Past Medical History - Past Health History Medical/Surgical History: Denies Medical/Surgical History [employer] History: Reports: Psychiatric History: Reports: Anxiety - Infectious Disease History Infectious Disease History: Reports: Novel Coronavirus Social & Family History - Family History Family Medical History: No Pertinent Family History - Caffeine Use Caffeine Use: Reports: Soda ED ROS GENERAL - Review of Systems Review Of Systems: Comprehensive ROS is negative, except as noted in HPI. ED EXAM, GENERAL - Physical Exam Exam: See Below Free Text/Narrative:: My physical exam is in the HPI Course - Vital Signs Text/Narrative:: When the patient was calm and understood we had a plan there is a chance that she would be able to improve back to baseline she became totally coherent and calm. She is not confused at all. Her doctors told her to take antibiotics for another 14 days to clear the urinary tract infection. The patient will be asked to have her doctor refer to neurology and psychology if she finishes clearing her urinary tract infection and still has difficulty concentrating or emotional lability. CT pending at the time of my shift ending and I will turn her over to my partner for CT results and disposition. Last Recorded V/S: Last Vital Signs Temp 36.3 C 02/04/21 05:49 Pulse 84 02/04/21 05:49 Resp 18 02/04/21 05:49 BP 95/58 L 02/04/21 05:49 Pulse Ox 100 02/04/21 05:49 - Orders/Labs/Meds Orders: Active Orders 24 hr Category Date Time Status CULTURE BLOOD [BC] Stat Lab 02/04/21 03:55 Received CULTURE BLOOD [BC] Stat Lab 02/04/21 04:10 Received Sodium Chloride 0.9% [Saline Flush] Med 02/04/21 03:38 Active 10 ml FLUSH ASDIRECTED PRN Sodium Chloride 0.9% [Saline Flush] Med 02/04/21 03:38 Active 2.5 ml FLUSH ASDIRECTED PRN Blood Culture x2 Reflex Set [OM.PC] Stat Ot 02/04/21 03:40 Ordered Saline Lock Insert [OM.PC] Stat Ot 02/04/21 03:38 Ordered Medication Orders Sodium Chloride (Sodium Chloride 0.9% 10 Ml Syringe) 10 ml FLUSH ASDIRECTED PRN PRN Reason: Keep Vein Open Last Admin: 02/04/21 05:21 Dose: 10 ml Documented by: ELLIOTT Sodium Chloride (Sodium Chloride 0.9% 2.5 Ml Syringe) 2.5 ml FLUSH ASDIRECTED PRN PRN Reason: Keep Vein Open Last Admin: 02/04/21 05:21 Dose: 2.5 ml Documented by: ELLIOTT Labs: Laboratory Tests 02/04/21 02/04/21 02/04/21 Range/Units 03:10 03:10 03:55 WBC 12.33 H (4.0-11.0) K/uL RBC 3.68 L (4.30-5.90) M/uL Hgb 10.8 L (12.0-16.0) g/dL Hct 33.4 L (36.0-46.0) % MCV 90.8 (80.0-98.0) fL MCH 29.3 (27.0-32.0) pg MCHC 32.3 (31.0-37.0) g/dL RDW Std Deviation 44.1 (28.0-62.0) fl RDW Coeff of Leslee 13 (11.0-15.0) % Plt Count 393 (150-400) K/uL MPV 10.40 (7.40-12.00) fL Neut % (Auto) 81.4 H (48.0-80.0) % Lymph % (Auto) 12.5 L (16.0-40.0) % [place] % (Auto) 5.3 (0.0-15.0) % Eos % (Auto) 0.6 (0.0-7.0) % Baso % (Auto) 0.2 (0.0-1.5) % Neut # (Auto) 10.1 H (1.4-5.7) K/uL Lymph # (Auto) 1.5 (0.6-2.4) K/uL [place] # (Auto) 0.7 (0.0-0.8) K/uL Eos # (Auto) 0.1 (0.0-0.7) K/uL Baso # (Auto) 0.0 (0.0-0.1) K/uL Nucleated RBC % 0.0 /100WBC Nucleated RBCs # 0 K/uL Lactate (0.20-2.00) mmol/L Sodium (136-145) mmol/L Potassium (3.5-5.1) mmol/L Chloride (98-107) mmol/L Carbon Dioxide (21.0-32.0) mmol/L BUN (7.0-18.0) mg/dL Creatinine (0.6-1.0) mg/dL Est Cr Clr Drug Dosing mL/min Estimated GFR (MDRD) ml/min Glucose (74-106) mg/dL Calcium (8.5-10.1) mg/dL Total Bilirubin (0.2-1.0) mg/dL AST (15-37) IU/L ALT (14-63) IU/L Alkaline Phosphatase (46-116) U/L Total Protein (6.4-8.2) g/dL Albumin (3.4-5.0) g/dL Globulin (2.6-4.0) g/dL Albumin/Globulin Ratio (0.9-1.6) TSH 3rd Generation (0.36-3.74) uIU/mL HCG, Quant mIU/mL Urine Color DARK YELLOW Urine Appearance SLT CLOUDY Urine pH 6.0 (5.0-8.0) Ur Specific [place] 1.010 (1.001-1.035) Urine Protein TRACE H (NEGATIVE) mg/dL Urine Glucose (UA) NEGATIVE (NEGATIVE) mg/dL Urine Ketones NEGATIVE (NEGATIVE) mg/dL Urine Occult Blood LARGE H (NEGATIVE) Urine Nitrite NEGATIVE (NEGATIVE) Urine Bilirubin NEGATIVE (NEGATIVE) Urine Urobilinogen 0.2 (<2.0) EU/dL Ur Leukocyte Esterase LARGE H (NEGATIVE) Urine RBC 5-10 (0-2/HPF) Urine WBC 30-40 (0-5/HPF) Ur Epithelial Cells FEW (NONE-FEW) Urine Bacteria 1+ H (NEGATIVE) Urine Opiates Screen POSITIVE (NEGATIVE) Ur Oxycodone Screen NEGATIVE (NEGATIVE) Urine Methadone Screen NEGATIVE (NEGATIVE) Ur Barbiturates Screen NEGATIVE (NEGATIVE) Ur Phencyclidine Scrn NEGATIVE (NEGATIVE) Ur Amphetamine Screen NEGATIVE (NEGATIVE) U Methamphetamines Scrn NEGATIVE (NEGATIVE) U Benzodiazepines Scrn NEGATIVE (NEGATIVE) U Cocaine Metab Screen NEGATIVE (NEGATIVE) U Marijuana (THC) Screen NEGATIVE (NEGATIVE) Ethyl Alcohol mg/dL 02/04/21 02/04/21 02/04/21 Range/Units 03:55 03:55 04:10 WBC (4.0-11.0) K/uL RBC (4.30-5.90) M/uL Hgb (12.0-16.0) g/dL Hct (36.0-46.0) % MCV (80.0-98.0) fL MCH (27.0-32.0) pg MCHC (31.0-37.0) g/dL RDW Std Deviation (28.0-62.0) fl RDW Coeff of Leslee (11.0-15.0) % Plt Count (150-400) K/uL MPV (7.40-12.00) fL Neut % (Auto) (48.0-80.0) % Lymph % (Auto) (16.0-40.0) % [place] % (Auto) (0.0-15.0) % Eos % (Auto) (0.0-7.0) % Baso % (Auto) (0.0-1.5) % Neut # (Auto) (1.4-5.7) K/uL Lymph # (Auto) (0.6-2.4) K/uL [place] # (Auto) (0.0-0.8) K/uL Eos # (Auto) (0.0-0.7) K/uL Baso # (Auto) (0.0-0.1) K/uL Nucleated RBC % /100WBC Nucleated RBCs # K/uL Lactate 0.7 (0.20-2.00) mmol/L Sodium 140 (136-145) mmol/L Potassium 3.8 (3.5-5.1) mmol/L Chloride 106 (98-107) mmol/L Carbon Dioxide 22.0 (21.0-32.0) mmol/L BUN 7 (7.0-18.0) mg/dL Creatinine 0.8 (0.6-1.0) mg/dL Est Cr Clr Drug Dosing 96.06 mL/min Estimated GFR (MDRD) > 60.0 ml/min Glucose 109 H (74-106) mg/dL Calcium 8.7 (8.5-10.1) mg/dL Total Bilirubin 0.2 (0.2-1.0) mg/dL AST 12 L (15-37) IU/L ALT 15 (14-63) IU/L Alkaline Phosphatase 105 (46-116) U/L Total Protein 6.6 (6.4-8.2) g/dL Albumin 2.8 L (3.4-5.0) g/dL Globulin 3.8 (2.6-4.0) g/dL Albumin/Globulin Ratio 0.7 L (0.9-1.6) TSH 3rd Generation 3.94 H (0.36-3.74) uIU/mL HCG, Quant 14.0 mIU/mL Urine Color Urine Appearance Urine pH (5.0-8.0) Ur Specific [place] (1.001-1.035) Urine Protein (NEGATIVE) mg/dL Urine Glucose (UA) (NEGATIVE) mg/dL Urine Ketones (NEGATIVE) mg/dL Urine Occult Blood (NEGATIVE) Urine Nitrite (NEGATIVE) Urine Bilirubin (NEGATIVE) Urine Urobilinogen (<2.0) EU/dL Ur Leukocyte Esterase (NEGATIVE) Urine RBC (0-2/HPF) Urine WBC (0-5/HPF) Ur Epithelial Cells (NONE-FEW) Urine Bacteria (NEGATIVE) Urine Opiates Screen (NEGATIVE) Ur Oxycodone Screen (NEGATIVE) Urine Methadone Screen (NEGATIVE) Ur Barbiturates Screen (NEGATIVE) Ur Phencyclidine Scrn (NEGATIVE) Ur Amphetamine Screen (NEGATIVE) U Methamphetamines Scrn (NEGATIVE) U Benzodiazepines Scrn (NEGATIVE) U Cocaine Metab Screen (NEGATIVE) U Marijuana (THC) Screen (NEGATIVE) Ethyl Alcohol < 3.0 mg/dL Meds: Medications Generic Name Dose Route Start Last Admin Trade Name Freq PRN Reason Stop Dose Admin Sodium Chloride 10 ml 02/04/21 03:38 02/04/21 05:21 Sodium Chloride 0.9% 10 Ml Syringe FLUSH 10 ml ASDIRECTED PRN Administration Keep Vein Open Sodium Chloride 2.5 ml 02/04/21 03:38 02/04/21 05:21 Sodium Chloride 0.9% 2.5 Ml Syringe FLUSH 2.5 ml ASDIRECTED PRN Administration Keep Vein Open Discontinued Medications Generic Name Dose Route Start Last Admin Trade Name [place] PRN Reason Stop Dose Admin Ceftriaxone Sodium/Dextrose 1 50 mls @ 100 mls/hr 02/04/21 04:44 02/04/21 05:18 gm/ Premix IV 02/04/21 05:13 100 mls/hr ONETIME ONE Administration Iopamidol 100 ml 02/04/21 05:49 02/04/21 05:49 Iopamidol 755 Mg/Ml 500 Ml Multipack Bottle IVPUSH 02/04/21 05:50 100 ml ONETIME STA Administration Departure - Departure Time of Disposition: 06:52 Disposition: Home, Self-Care 01 Condition: Good Clinical Impression: urinary tract infection, Confusion - Discharge Information Instructions: Confusion, Urinary Tract Infection, Adult Referrals: Keena Oakes MD [Primary Care Provider] - Forms: ED Department Discharge Additional Instructions: 10 you antibiotics as prescribed by your doctor but let your doctor know that a culture was sent again. [facility] [address] [place] [address] [facility] [address] [place] [address] Have your pastry cook apprentice refer you for neurology and neuropsychology evaluation if there is continued difficulty concentrating. The following information is given to patients seen in the emergency department who are being discharged to home. This information is to outline your options for follow-up care. We provide all patients seen in our emergency department with a follow-up referral. The need for follow-up, as well as the timing and circumstances, are variable depending upon the specifics of your emergency department visit. If you don't have a primary care physician on staff, we will provide you with a referral. We always advise you to contact your personal physician following an emergency department visit to inform them of the circumstance of the visit and f or follow-up with them and/or the need for any referrals to a consulting specialist. The emergency department will also refer you to a specialist when appropriate. This referral assures that you have the opportunity for follow-up care with a specialist. All of these measure are taken in an effort to provide you with optimal care, which includes your follow-up. Under all circumstances we always encourage you to contact your private physician who remains a resource for coordinating your care. When calling for follow-up care, please make the office aware that this follow-up is from your recent emergency room visit. If for any reason you are refused follow-up, please contact the [facility] Emergency Department at and asked to speak to the emergency department charge nurse. Sepsis Event Note (ED) - Evaluation Sepsis Screening Result: No Definite Risk - Focused Exam Vital Signs: Vital Signs Temp Pulse Resp BP Pulse Ox 02/04/21 05:49 36.3 C 84 18 95/58 L 100 02/04/21 03:05 36.6 C 104 H 18 108/65 97 - My Orders Last 24 Hours: My Active Orders 02/04/21 03:38 Sodium Chloride 0.9% [Saline Flush] 10 ml FLUSH ASDIRECTED PRN Sodium Chloride 0.9% [Saline Flush] 2.5 ml FLUSH ASDIRECTED PRN Saline Lock Insert [OM.PC] Stat 02/04/21 03:40 Blood Culture x2 Reflex Set [OM.PC] Stat 02/04/21 03:55 CULTURE BLOOD [BC] Stat 02/04/21 04:10 CULTURE BLOOD [BC] Stat - Assessment/Plan Last 24 Hours: My Active Orders 02/04/21 03:38 Sodium Chloride 0.9% [Saline Flush] 10 ml FLUSH ASDIRECTED PRN Sodium Chloride 0.9% [Saline Flush] 2.5 ml FLUSH ASDIRECTED PRN Saline Lock Insert [OM.PC] Stat 02/04/21 03:40 Blood Culture x2 Reflex Set [OM.PC] Stat 02/04/21 03:55 CULTURE BLOOD [BC] Stat 02/04/21 04:10 CULTURE BLOOD [BC] Stat
[2021-02-04] MEDS ORDERED: Sodium Chloride 0.9% 2.5 ML Syringe FLUSH PRN (03:38)
[2021-02-04] MEDS ORDERED: Sodium Chloride 0.9% 10 ML Syringe FLUSH PRN (03:38)
[2021-02-04] MEDS ORDERED: cefTRIAXone 1 GM in Premix Bag 1 BAG IV ONE (04:44)
[2021-02-04 05:04] LABS: BLOOD UREA NITROGEN,BUN 7 mg/dL (7.0-18.0); CHLORIDE,CL 106 mmol/L (98-107); GLUCOSE RANDOM 109 mg/dL (74-106); POTASSIUM,K 3.8 mmol/L (3.5-5.1); SODIUM,NA 140 mmol/L (136-145)
[2021-02-04] MEDS ORDERED: Iopamidol 755 MG/ML 500 ML Multipack Bottle IVPUSH STA (05:49)
--- NOTE | 2021-02-04 06:46 | CT ---
INDICATION: Abdominal pain. TECHNIQUE: CT abdomen and pelvis acquired with 100 cc Isovue 370 IV contrast. COMPARISON: None. FINDINGS: Lower chest: Unremarkable. Liver: Unremarkable. Normal in size and attenuation. No masses. Gallbladder and bile ducts: Unremarkable. No stones or inflammation. No biliary dilatation. Pancreas: Unremarkable. No mass or inflammation. Spleen: Unremarkable. Normal in size. No masses. Adrenal glands: Unremarkable. No nodules. Kidneys: Unremarkable. No masses, stones, or hydronephrosis. GI tract: Unremarkable. Normal in caliber. No sign of mass or inflammation. Normal appendix. Vasculature: Unremarkable. Mesenteric arteries are patent. Lymph nodes: No lymphadenopathy. Omentum/Peritoneum/Abdominal Wall: Unremarkable. No sign of mass or infiltration. No free air or significant free fluid. Pelvis: The endometrium is markedly distended with fluid and hyperdense material consistent with blood products. Remainder of the pelvis is unremarkable. Bones: Unremarkable for age. IMPRESSION: 1. uterus with marked fluid-filled distention of the endometrial canal which contains hyperdense material consistent with blood products. This is not significantly changed from the prior exam. 2. Remainder of the exam is unremarkable. No other finding to explain abdominal pain. Please note that all CT scans at this facility use dose modulation, iterative reconstruction, and/or weight-based dosing when appropriate to reduce radiation dose to as low as reasonably achievable. Dictated by Jose Manuel Carvajal MD @ Feb 04 2021 6:33AM Signed by Dr. Jose Manuel Carvajal @ Feb 04 2021 6:45AM
== END 2021-02-04 07:05 | disposition home or self-care (01) ==
LOC: MW.ED 02:43
DX: O86.20 Urinary tract infection following delivery, unspecified (principal); O90.89 Other complications of the puerperium, not elsewhere classified; R41.0 Disorientation, unspecified; Z86.16 Personal history of COVID-19
CPT/HCPCS: 36415; 74177; 80053; 80305; 80307; 81001; 83605; 84443; 84702; 85025; 87040; 87086; 87088; 87186; 96365; 99285; J0696; Q9967; 99283

== ENCOUNTER 2021-02-12 21:03 | Observation (INO) | payer BC ==
[2021-02-12] MEDS ORDERED: Sodium Chloride 0.9% 1,000 ML IV STA (21:32)
[2021-02-12] MEDS ORDERED: fentaNYL 50 MCG/ML SDV IVPUSH ONE (21:49)
[2021-02-12] MEDS ORDERED: Sodium Chloride 0.9% 1,000 ML IV ONE (21:49)
[2021-02-12] MEDS ORDERED: Ondansetron 4 MG/2 ML SDV IVPUSH ONE (21:49)
[2021-02-12] MEDS ORDERED: Vancomycin 1.5 GM in Dextrose 5% in Water 250 ML IV ONE ×2 (21:54)
[2021-02-12] MEDS ORDERED: Piperacillin/Tazobactam 3.375 GM in Sodium Chloride 0.9% 50 ML IV ONE (21:57)
[2021-02-12 21:59] LABS: BLOOD UREA NITROGEN,BUN 8 mg/dL (7.0-18.0); CARBON DIOXIDE,CO2 21.4 mmol/L (21.0-32.0); CHLORIDE,CL 101 mmol/L (98-107); GLUCOSE RANDOM 107 mg/dL (74-106); POTASSIUM,K 3.8 mmol/L (3.5-5.1); SODIUM,NA 138 mmol/L (136-145)
[2021-02-12] MEDS ORDERED: Pantoprazole 40 MG Vial IVPUSH SCH (22:00)
[2021-02-12] MEDS ORDERED: VANCOmycin 1.5 GM/300 ML 1.5 GM in Premix Bag 1 BAG IV ONE (22:30)
--- NOTE | 2021-02-12 22:36 | CR ---
Indication: Sepsis Technique: Chest 1 view Comparison: None Findings/Impression: Cardiovascular and mediastinum: Heart size and vasculature are normal in caliber and appearance. Mediastinum is within normal limits. Lungs and pleural space: A subtle medial left basilar retrocardiac opacity could represent focal vascular crowding/atelectasis, however correlate clinically to exclude an evolving infectious infiltrate/pneumonia, and follow-up, as clinically indicated. Slight blunting of the left costophrenic angle could represent minimal fluid. No pneumothorax. Bones and soft tissues: No significant findings. Dictated by Yang Engel MD @ Feb 12 2021 10:30PM Signed by Dr. Yang Engel @ Feb 12 2021 10:34PM
[2021-02-12] MEDS ORDERED: Iopamidol 755 MG/ML 500 ML Multipack Bottle IVPUSH STA (22:39)
--- NOTE | 2021-02-12 23:20 | CT ---
INDICATION: Abdominal pain TECHNIQUE: Axial images were obtained from the diaphragm to the pubic symphysis. Reformats were obtained in the coronal and sagittal plane. IV Contrast: 100 cc Isovue 370 Oral Contrast: None COMPARISON: Abdomen and pelvis CT 02/04/2021 FINDINGS: Lower chest: Noncalcified pulmonary nodule right lower lobe measuring 4 millimeters, stable. Liver: Unremarkable. Normal in size and attenuation. No masses. Gallbladder and bile ducts: Mild gallbladder distention without gallbladder wall thickening or pericholecystic inflammation. Spleen: Unremarkable. Normal in size without mass. Pancreas: Unremarkable. No mass or inflammation. Adrenal glands: Unremarkable. No nodules. Kidneys: Unremarkable. No masses, stones, or hydronephrosis. Vasculature: Unremarkable. GI tract: The stomach is unremarkable. No dilated loops of large or small intestine. Colon is decompressed with slight prominence of the colonic wall although this is probably due to incomplete distension. Pelvis: Enlargement of the uterus consistent with recent status with hypoechoic material filling the lower uterine segment expanding the uterus with thinning of the uterine wall measuring up to 7.0 centimeters. This extends inferiorly into the ray with thinning and distortion of the uterine wall and lateral vaginal fornix. This likely represents hematoma extending through a dehiscence section defect and/or hematoma markedly expanding the upper vaginal canal. Bones: Unremarkable for age. IMPRESSION: Extensive hypoechoic material measuring up to 7.0 centimeters, likely hematoma, which extends inferiorly from the lower uterine segment and to the right. This may represent partial hematoma extension through the section defect and/or extension to the upper vaginal vault (series 201, image 162). Please note that all CT scans at this facility use dose modulation, iterative reconstruction, and/or weight-based dosing when appropriate to reduce radiation dose to as low as reasonably achievable. Dictated by Messi Diggs MD @ Feb 12 2021 10:56PM Signed by Dr. Messi Diggs @ Feb 12 2021 11:19PM
[2021-02-12] MEDS ORDERED: HYDROmorphone 1 MG/ML Syringe IVPUSH ONE (23:48)
[2021-02-13] MEDS ORDERED: HYDROmorphone 1 MG/ML Syringe IVPUSH PRN (00:25)
--- NOTE | 2021-02-13 03:04 | US ---
INDICATION: Vaginal bleeding, s/p vaginal delivery on 01/12/2021 COMPARISON: CT abdomen pelvis with contrast 02/12/2021 TECHNIQUE: Multiple grayscale sonographic images of the pelvis. Scanning was performed transvaginally. FINDINGS/IMPRESSION: Enlarged uterus, consistent with status. Markedly thickened and heterogeneous endometrium measuring up to 5 cm in thickness. Color Doppler evaluation was not performed. While this may represent hematoma, retained products of conception are not excluded. The ovaries are not visualized. Consider follow-up contrast enhanced MRI. Dictated by Marquez Tyson MD @ 02/13/2021 3:03:18 AM Dictated by: Marquez Tyson MD @ 02/13/2021 03:03:35 (Electronically Signed)
--- NOTE | 2021-02-13 03:30 | EDM.PDOC ---
ED HPI GENERAL MEDICAL PROBLEM - General Chief Complaint: Fever Stated Complaint: ABDOMINAL PAIN Time Seen by Provider: 02/12/21 21:23 - History of Present Illness INITIAL COMMENTS - FREE TEXT/NARRATIVE: HISTORY AND PHYSICAL: History of present illness: This is a 20-year-old female who presents ER today complaining of abdominal pain in the suprapubic region with associated chills. Patient reports that her abdominal pain has been constant for the last 5 days however today she noticed chills that was new and was concerned that she might be having sepsis again. Patient is . Patient had a complicated course resulting in urosepsis requiring admission to the hospital. Patient was recently discharged from the hospital after receiving a course of IV antibiotics for urosepsis. Patient was seen and evaluated in the OB clinic and was initially diagnosed with group B strep in her urine and then changed over to Macrobid after being diagnosed with E. coli in her urine. Patient admits to tactile fevers with shakes and chills today. Patient complains of difficulty with urination and discomfort. Patient complains of suprapubic pain. Patient reports that she has had several episodes of vomiting over the last 12 hours with approximately 6 loose watery bowel movements throughout the course of the day. Patient denies any melena or bright red blood per rectum. Patient denies any chest pain or shortness of breath. Patient denies any cough or URI symptoms. Patient denies any Covid exposures Patient reports decreased appetite. Review of systems: As per history of present illness and below otherwise all systems reviewed and negative. Past medical history: As per history of present illness and as reviewed below otherwise noncontributory. Surgical history: As per history of present illness and as reviewed below otherwise noncontributory. Social history: No reported history of drug or alcohol abuse. Family history: As per history of present illness and as reviewed below otherwise noncontributory. Physical exam: This patient was seen and evaluated during the 2019 SARS-CoV-2 novel coronavirus pandemic period. Community viral transmission is ongoing at time of this encounter and the emergency department is operating under pandemic response procedures. Constitutional: Patient is oriented to person, place, and time. Appears well- developed and well-nourished. No distress. HEENT: Moist mucous membranes Head: Normocephalic and atraumatic Eyes: Right eye exhibits no discharge. Left eye exhibits no discharge. No scleral icterus Neck: Normal range of motion. No tracheal deviation present. Cardiovascular: Normal rate and regular rhythm. Pulmonary: Effort normal, no respiratory distress. Abd: Soft, nondistended, no rebound/guarding, no psoas or obturator signs, no tenderness at Mcberney's point, no Holley's sign. Pt does not present with an exam that would be consistent with an acute surgical abdomen at this time. Patient was tenderness to palpation to the suprapubic region. Musculoskeletal: Normal range of motion Neurologic: Alert and oriented to person, place and time. Skin: [place], warm and dry. Psychiatric: Normal mood and affect. Behavior is normal. Judgment and thought content normal. Nursing note and vital signs have been reviewed Diagnostics: [] Therapeutics: [] Assessment and plan: 20-year-old female who presents ER today secondary to abdominal pain with shaking chills. Patient has had a recent admission for a UTI with sepsis. Patient reports that her symptoms today are very similar to her prior admission for sepsis. Upon arrival to the ED, patient was noted to be tachycardic and to be in a moderate amount of abdominal discomfort. Patient was given IV, IV fluids, IV pain meds. Patient's labs are significant for an elevated WBC count of 19,000. Patient has a normal anion gap with a normal bicarb level. Patient's urinalysis does not reveal a significant amount WBCs or bacteria in her urine. Patient has CT scan of her abdomen pelvis which was concerning for possible large clot versus infection. Patient was started on vancomycin and Zosyn for broad-spectrum coverage. Case was discussed with her INSIDE TESTER doctor who is requested a transvaginal ultrasound. Patient's transvaginal ultrasound was reviewed with her INSIDE TESTER doctor. At this time, it is not felt that the pain discomfort or the elevated WBC count/sepsis is secondary to a [employer] source. She has requested we admit to the medical service and that she will assist with consultation. I have discussed the case with Dr. Slater who is agreed to accept patient for observation level care for IV antibiotics and monitoring of her abdominal discomfort. Critical Care: The high probability of sudden, clinically significant deterioration in the patient's condition required the highest level of my preparedness to intervene urgently. The services I provided to this patient were to treat and/or prevent clinically significant deterioration. Services included the following: chart data review, reviewing nursing notes and/or old charts, documentation time, systems security consultant collaboration regarding findings and treatment options, medication orders and management, direct patient care, vital sign assessments and ordering, interpreting and reviewing diagnostic studies/lab tests. Aggregate critical care time includes only time during which I was engaged inwork directly related to the patient's care, as described above, whether at the bedside or elsewhere in the Emergency Department. It did not include time spent performing other reported procedures or the services of residents, students, nurses or physician assistants. Critical Care Time: 35 minutes Definitive disposition and diagnosis as appropriate pending reevaluation and review of above. generalized Pain Score (Numeric/FACES): 9 - Related Data Allergies Allergy/AdvReac Type Severity Reaction Status Date / Time No Known Allergies Allergy Verified 02/13/21 04:26 Home Meds: Home Meds nitrofurantoin macrocrystaL [Nitrofurantoin] 100 mg PO BID 02/12/21 [History] Past Medical History - Past Health History Medical/Surgical History: Denies Medical/Surgical History HEENT History: Reports: None Cardiovascular History: Reports: None Respiratory History: Reports: None Gastrointestinal History: Reports: None Genitourinary History: Reports: None INSIDE TESTER History: Reports: Musculoskeletal History: Reports: None Neurological History: Reports: None Psychiatric History: Reports: Anxiety Endocrine/Metabolic History: Reports: None Insulin Pump Model and Performance Improvement Director: None Hematologic History: Reports: Blood Transfusion(s) Immunologic History: Reports: None Oncologic (Cancer) History: Reports: None Dermatologic History: Reports: None - Infectious Disease History Infectious Disease History: Reports: Novel Coronavirus - Past Surgical History Head Surgeries/Procedures: Reports: None Female Surgical History: Reports: None Social & Family History - Family History Family Medical History: No Pertinent Family History - Tobacco Use Tobacco Use Status *Q: Current Status Unknown - Caffeine Use Caffeine Use: Reports: None - Recreational Drug Use Recreational Drug Use: No ED ROS GENERAL - Review of Systems Review Of Systems: See Below ED EXAM, GENERAL - Physical Exam Exam: See Below #1 Interpretation EKG Interpretation Comments: EKG: As interpreted by ER physician: Luda: Nonspecific ST-T wave abnormalities Normal axis No evidence of ST elevation IA Sinus tachycardia with heart rate of 111 Course - Vital Signs Last Recorded V/S: Last Vital Signs Temp 99.6 F 02/13/21 04:20 Pulse 111 H 02/13/21 04:20 Resp 18 02/13/21 04:20 BP 107/53 L 02/13/21 04:20 Pulse Ox 97 02/13/21 04:20 - Orders/Labs/Meds Orders: Active Orders 24 hr Category Date Time Status Patient Status [ADT] Routine ADT 02/13/21 03:25 Active EKG Documentation Completion [RC] AM Care 02/12/21 21:49 Active C DIFFICILE AG/TOXIN W/REFLEX [RM] Stat Lab 02/12/21 21:51 Ordered CULTURE BLOOD [BC] Stat Lab 02/12/21 21:23 Received CULTURE BLOOD [BC] Stat Lab 02/12/21 22:04 Received CULTURE URINE [RM] Stat Lab 02/12/21 21:15 Received FECAL LACTOFERRIN [MREF] Stat Lab 02/12/21 21:51 Ordered STOOL CULTURE/SHIGA TOXIN [MREF] Stat Lab 02/12/21 21:51 Ordered HYDROmorphone [Dilaudid] Med 02/13/21 00:25 Active 0.5 mg IVPUSH ONETIME PRN Blood Culture x2 Reflex Set [OM.PC] Stat Oth 02/12/21 21:50 Ordered Severe Sepsis Onset Time [OM.PC] Stat Oth 02/12/21 21:54 Ordered Medication Orders Hydromorphone HCl (Hydromorphone 1 Mg/Ml Syringe) 0.5 mg IVPUSH ONETIME PRN PRN Reason: Other Last Admin: 02/13/21 03:13 Dose: 0.5 mg Documented by: TARIK Piperacillin Sod/Tazobactam (Sod 3.375 gm/ Sodium Chloride) 50 mls @ 100 mls/hr IV Q8H [facility] Lactated Ringer's (Ringers, Lactated) 1,000 mls @ 125 mls/hr IV ASDIRECTED [facility] Pantoprazole Sodium 40 mg/ (Sodium Chloride) 10 mls @ 300 mls/hr IV DAILY [facility] Morphine Sulfate (Morphine 2 Mg/Ml Syringe) 2 mg IVPUSH Q2H PRN PRN Reason: Pain Ondansetron HCl (Ondansetron 4 Mg/2 Ml Sdv) 4 mg IVPUSH Q6H PRN PRN Reason: Nausea/Vomiting Vancomycin HCl (Pharmacy To Dose - Vancomycin) 1 dose .XX ASDIRECTED [facility] Labs: Laboratory Tests 02/12/21 02/12/21 02/12/21 Range/Units 21:15 21:15 21:23 WBC 19.69 H (4.0-11.0) K/uL RBC 4.10 L (4.30-5.90) M/uL Hgb 11.8 L (12.0-16.0) g/dL Hct 37.2 (36.0-46.0) % MCV 90.7 (80.0-98.0) fL MCH 28.8 (27.0-32.0) pg MCHC 31.7 (31.0-37.0) g/dL RDW Std Deviation 45.8 (28.0-62.0) fl RDW Coeff of Leslee 14 (11.0-15.0) % Plt Count 336 (150-400) K/uL MPV 10.00 (7.40-12.00) fL Neut % (Auto) 85.7 H (48.0-80.0) % Lymph % (Auto) 10.6 L (16.0-40.0) % [place] % (Auto) 2.9 (0.0-15.0) % Eos % (Auto) 0.6 (0.0-7.0) % Baso % (Auto) 0.2 (0.0-1.5) % Neut # (Auto) 16.9 H (1.4-5.7) K/uL Lymph # (Auto) 2.1 (0.6-2.4) K/uL [place] # (Auto) 0.6 (0.0-0.8) K/uL Eos # (Auto) 0.1 (0.0-0.7) K/uL Baso # (Auto) 0.0 (0.0-0.1) K/uL Nucleated RBC % 0.0 /100WBC Nucleated RBCs # 0 K/uL Lactate (0.20-2.00) mmol/L Sodium (136-145) mmol/L Potassium (3.5-5.1) mmol/L Chloride (98-107) mmol/L Carbon Dioxide (21.0-32.0) mmol/L BUN (7.0-18.0) mg/dL Creatinine (0.6-1.0) mg/dL Est Cr Clr Drug Dosing Estimated GFR (MDRD) ml/min Glucose (74-106) mg/dL Calcium (8.5-10.1) mg/dL Total Bilirubin (0.2-1.0) mg/dL AST (15-37) IU/L ALT (14-63) IU/L Alkaline Phosphatase (46-116) U/L Total Protein (6.4-8.2) g/dL Albumin (3.4-5.0) g/dL Globulin (2.6-4.0) g/dL Albumin/Globulin Ratio (0.9-1.6) HCG, Quant mIU/mL Urine Color RED Urine Appearance CLOUDY Urine pH 6.0 (5.0-8.0) Ur Specific [place] >= 1.030 (1.001-1.035) Urine Protein 100 H (NEGATIVE) mg/dL Urine Glucose (UA) NEGATIVE (NEGATIVE) mg/dL Urine Ketones >=80 (NEGATIVE) mg/dL Urine Occult Blood LARGE H (NEGATIVE) Urine Nitrite NEGATIVE (NEGATIVE) Urine Bilirubin SMALL H (NEGATIVE) Urine Ictotest NEGATIVE Urine Urobilinogen 0.2 (<2.0) EU/dL Ur Leukocyte Esterase TRACE H (NEGATIVE) Urine RBC TOO NUMEROUS TO CT H (0-2/HPF) Urine WBC 5-8 (0-5/HPF) Ur Epithelial Cells FEW (NONE-FEW) Urine Bacteria FEW (NEGATIVE) Urine Mucus LIGHT (NONE-MOD) Urinalysis Comment Urine HCG, Qual NEGATIVE (NEGATIVE) SARS-CoV-2 RNA (FERNANDO) (NEGATIVE) 02/12/21 02/12/21 02/12/21 Range/Units 21:23 21:23 22:04 WBC (4.0-11.0) K/uL RBC (4.30-5.90) M/uL Hgb (12.0-16.0) g/dL Hct (36.0-46.0) % MCV (80.0-98.0) fL MCH (27.0-32.0) pg MCHC (31.0-37.0) g/dL RDW Std Deviation (28.0-62.0) fl RDW Coeff of Leslee (11.0-15.0) % Plt Count (150-400) K/uL MPV (7.40-12.00) fL Neut % (Auto) (48.0-80.0) % Lymph % (Auto) (16.0-40.0) % [place] % (Auto) (0.0-15.0) % Eos % (Auto) (0.0-7.0) % Baso % (Auto) (0.0-1.5) % Neut # (Auto) (1.4-5.7) K/uL Lymph # (Auto) (0.6-2.4) K/uL [place] # (Auto) (0.0-0.8) K/uL Eos # (Auto) (0.0-0.7) K/uL Baso # (Auto) (0.0-0.1) K/uL Nucleated RBC % /100WBC Nucleated RBCs # K/uL Lactate 1.3 (0.20-2.00) mmol/L Sodium 138 (136-145) mmol/L Potassium 3.8 (3.5-5.1) mmol/L Chloride 101 (98-107) mmol/L Carbon Dioxide 21.4 (21.0-32.0) mmol/L BUN 8 (7.0-18.0) mg/dL Creatinine 0.9 (0.6-1.0) mg/dL Est Cr Clr Drug Dosing TNP Estimated GFR (MDRD) > 60.0 ml/min Glucose 107 H (74-106) mg/dL Calcium 9.6 (8.5-10.1) mg/dL Total Bilirubin 0.4 (0.2-1.0) mg/dL AST 13 L (15-37) IU/L ALT 20 (14-63) IU/L Alkaline Phosphatase 100 (46-116) U/L Total Protein 8.3 H (6.4-8.2) g/dL Albumin 3.8 (3.4-5.0) g/dL Globulin 4.5 H (2.6-4.0) g/dL Albumin/Globulin Ratio 0.8 L (0.9-1.6) HCG, Quant 4.0 mIU/mL Urine Color Urine Appearance Urine pH (5.0-8.0) Ur Specific [place] (1.001-1.035) Urine Protein (NEGATIVE) mg/dL Urine Glucose (UA) (NEGATIVE) mg/dL Urine Ketones (NEGATIVE) mg/dL Urine Occult Blood (NEGATIVE) Urine Nitrite (NEGATIVE) Urine Bilirubin (NEGATIVE) Urine Ictotest Urine Urobilinogen (<2.0) EU/dL Ur Leukocyte Esterase (NEGATIVE) Urine RBC (0-2/HPF) Urine WBC (0-5/HPF) Ur Epithelial Cells (NONE-FEW) Urine Bacteria (NEGATIVE) Urine Mucus (NONE-MOD) Urinalysis Comment Urine HCG, Qual (NEGATIVE) SARS-CoV-2 RNA (FERNANDO) (NEGATIVE) 02/12/21 Range/Units 22:45 WBC (4.0-11.0) K/uL RBC (4.30-5.90) M/uL Hgb (12.0-16.0) g/dL Hct (36.0-46.0) % MCV (80.0-98.0) fL MCH (27.0-32.0) pg MCHC (31.0-37.0) g/dL RDW Std Deviation (28.0-62.0) fl RDW Coeff of Leslee (11.0-15.0) % Plt Count (150-400) K/uL MPV (7.40-12.00) fL Neut % (Auto) (48.0-80.0) % Lymph % (Auto) (16.0-40.0) % [place] % (Auto) (0.0-15.0) % Eos % (Auto) (0.0-7.0) % Baso % (Auto) (0.0-1.5) % Neut # (Auto) (1.4-5.7) K/uL Lymph # (Auto) (0.6-2.4) K/uL [place] # (Auto) (0.0-0.8) K/uL Eos # (Auto) (0.0-0.7) K/uL Baso # (Auto) (0.0-0.1) K/uL Nucleated RBC % /100WBC Nucleated RBCs # K/uL Lactate (0.20-2.00) mmol/L Sodium (136-145) mmol/L Potassium (3.5-5.1) mmol/L Chloride (98-107) mmol/L Carbon Dioxide (21.0-32.0) mmol/L BUN (7.0-18.0) mg/dL Creatinine (0.6-1.0) mg/dL Est Cr Clr Drug Dosing Estimated GFR (MDRD) ml/min Glucose (74-106) mg/dL Calcium (8.5-10.1) mg/dL Total Bilirubin (0.2-1.0) mg/dL AST (15-37) IU/L ALT (14-63) IU/L Alkaline Phosphatase (46-116) U/L Total Protein (6.4-8.2) g/dL Albumin (3.4-5.0) g/dL Globulin (2.6-4.0) g/dL Albumin/Globulin Ratio (0.9-1.6) HCG, Quant mIU/mL Urine Color Urine Appearance Urine pH (5.0-8.0) Ur Specific [place] (1.001-1.035) Urine Protein (NEGATIVE) mg/dL Urine Glucose (UA) (NEGATIVE) mg/dL Urine Ketones (NEGATIVE) mg/dL Urine Occult Blood (NEGATIVE) Urine Nitrite (NEGATIVE) Urine Bilirubin (NEGATIVE) Urine Ictotest Urine Urobilinogen (<2.0) EU/dL Ur Leukocyte Esterase (NEGATIVE) Urine RBC (0-2/HPF) Urine WBC (0-5/HPF) Ur Epithelial Cells (NONE-FEW) Urine Bacteria (NEGATIVE) Urine Mucus (NONE-MOD) Urinalysis Comment Urine HCG, Qual (NEGATIVE) SARS-CoV-2 RNA (FERNANDO) NEGATIVE (NEGATIVE) Meds: Medications Generic Name Dose Route Start Last Admin Trade Name Freq PRN Reason Stop Dose Admin Hydromorphone HCl 0.5 mg 02/13/21 00:25 02/13/21 03:13 Hydromorphone 1 Mg/Ml Syringe IVPUSH 0.5 mg ONETIME PRN Administration Other Piperacillin Sod/Tazobactam 50 mls @ 100 mls/hr 02/13/21 06:00 Sod 3.375 gm/ Sodium Chloride IV Q8H DANNY Lactated Ringer's 1,000 mls @ 125 mls/hr 02/13/21 05:00 Ringers, Lactated IV ASDIRECTED DANNY Pantoprazole Sodium 40 mg/ 10 mls @ 300 mls/hr 02/13/21 07:00 Sodium Chloride IV DAILY DANNY Morphine Sulfate 2 mg 02/13/21 04:52 Morphine 2 Mg/Ml Syringe IVPUSH Q2H PRN Pain Ondansetron HCl 4 mg 02/13/21 05:03 Ondansetron 4 Mg/2 Ml Sdv IVPUSH Q6H PRN Nausea/Vomiting Vancomycin HCl 1 dose 02/13/21 05:00 Pharmacy To Dose - Vancomycin .XX ASDIRECTED DANNY Discontinued Medications Generic Name Dose Route Start Last Admin Trade Name Freq PRN Reason Stop Dose Admin Fentanyl 100 mcg 02/12/21 21:49 02/12/21 22:07 Fentanyl 50 Mcg/Ml Sdv IVPUSH 02/12/21 21:50 100 mcg ONETIME ONE Administration Hydromorphone HCl 1 mg 02/12/21 23:48 02/13/21 00:04 Hydromorphone 1 Mg/Ml Syringe IVPUSH 02/12/21 23:49 1 mg ONETIME ONE Administration Hydromorphone HCl 1 mg 02/13/21 04:06 02/13/21 04:08 Hydromorphone 1 Mg/Ml Syringe IVPUSH 02/13/21 04:07 1 mg ONETIME ONE Administration Hydromorphone HCl Confirm 02/13/21 04:06 Hydromorphone 1 Mg/Ml Syringe Administered 02/13/21 04:07 Dose 1 mg .ROUTE .STK-MED ONE Sodium Chloride 1,000 mls @ 999 mls/hr 02/12/21 21:32 02/12/21 22:06 Normal Saline IV 02/12/21 22:32 999 mls/hr NOW STA Administration Sodium Chloride 1,000 mls @ 999 mls/hr 02/12/21 21:49 02/12/21 22:07 Normal Saline IV 02/12/21 22:49 999 mls/hr .Bolus ONE Administration Vancomycin HCl 1.5 gm/ 250 mls @ 167 mls/hr 02/12/21 21:54 02/12/21 22:50 Dextrose/Water IV 02/12/21 23:23 Not Given ONETIME ONE Piperacillin Sod/Tazobactam 50 mls @ 100 mls/hr 02/12/21 21:57 02/12/21 22:07 Sod 3.375 gm/ Sodium Chloride IV 02/12/21 22:26 100 mls/hr ONETIME ONE Administration Vancomycin HCl 1.5 gm/ Premix 300 mls @ 200 mls/hr 02/12/21 22:30 02/12/21 22:40 IV 02/12/21 23:59 200 mls/hr ONETIME ONE Administration Iopamidol 100 ml 02/12/21 22:39 02/12/21 22:39 Iopamidol 755 Mg/Ml 500 Ml Multipack Bottle IVPUSH 02/12/21 22:40 100 ml ONETIME STA Administration Ondansetron HCl 4 mg 02/12/21 21:49 02/12/21 22:07 Ondansetron 4 Mg/2 Ml Sdv IVPUSH 02/12/21 21:50 4 mg ONETIME ONE Administration Pantoprazole Sodium 40 mg 02/12/21 22:00 02/12/21 22:07 Pantoprazole 40 Mg Vial IVPUSH 40 mg Q12H DANNY Administration Departure - Departure Time of Disposition: 03:30 Disposition: Refer to Observation Condition: Fair Clinical Impression: Sepsis, Abdominal pain, hemorrhage of vagina, History of hemorrhage, urinary tract infection - Discharge Information Sepsis Event Note (ED) - Evaluation Sepsis Screening Result: No Definite Risk - Focused Exam Vital Signs: Vital Signs Temp Temp Pulse Resp BP Pulse Ox 02/13/21 03:05 100 F 107 H 18 111/54 L 100 02/13/21 00:40 98 F 104 H 18 106/53 L 99 02/12/21 23:40 99.5 F 02/12/21 23:10 100 18 108/63 98 02/12/21 22:41 98.8 F 110 H 18 104/59 L 100 02/12/21 21:20 98.7 F 135 H 18 151/79 H 100 - My Orders Last 24 Hours: My Active Orders 02/12/21 21:15 CULTURE URINE [RM] Stat 02/12/21 21:23 CULTURE BLOOD [BC] Stat 02/12/21 21:49 EKG Documentation Completion [RC] AM 02/12/21 21:50 Blood Culture x2 Reflex Set [OM.PC] Stat 02/12/21 21:51 C DIFFICILE AG/TOXIN W/REFLEX [RM] Stat FECAL LACTOFERRIN [MREF] Stat STOOL CULTURE/SHIGA TOXIN [MREF] Stat 02/12/21 21:54 Severe Sepsis Onset Time [OM.PC] Stat 02/12/21 22:04 CULTURE BLOOD [BC] Stat 02/13/21 00:25 HYDROmorphone [Dilaudid] 0.5 mg IVPUSH ONETIME PRN 02/13/21 03:25 Patient Status [ADT] Routine - Assessment/Plan Last 24 Hours: My Active Orders 02/12/21 21:15 CULTURE URINE [RM] Stat 02/12/21 21:23 CULTURE BLOOD [BC] Stat 02/12/21 21:49 EKG Documentation Completion [RC] AM 02/12/21 21:50 Blood Culture x2 Reflex Set [OM.PC] Stat 02/12/21 21:51 C DIFFICILE AG/TOXIN W/REFLEX [RM] Stat FECAL LACTOFERRIN [MREF] Stat STOOL CULTURE/SHIGA TOXIN [MREF] Stat 02/12/21 21:54 Severe Sepsis Onset Time [OM.PC] Stat 02/12/21 22:04 CULTURE BLOOD [BC] Stat 02/13/21 00:25 HYDROmorphone [Dilaudid] 0.5 mg IVPUSH ONETIME PRN 02/13/21 03:25 Patient Status [ADT] Routine
[2021-02-13] MEDS ORDERED: HYDROmorphone 1 MG/ML Syringe ONE (04:06)
[2021-02-13] MEDS ORDERED: HYDROmorphone 1 MG/ML Syringe IVPUSH ONE (04:06)
[2021-02-13] MEDS: Morphine 2 MG/ML SYRINGE IVPUSH PRN ×3 (05:21→22:36)
[2021-02-13] MEDS: Ondansetron 4 MG/2 ML SDV IVPUSH PRN ×3 (05:25→23:00)
[2021-02-13] MEDS: Piperacillin/Tazobactam 3.375 GM in Sodium Chloride 0.9% 50 ML IV SCH ×3 (05:27→23:17)
[2021-02-13] MEDS: Pantoprazole 40 MG in Sodium Chloride 0.9% 10 ML IV SCH (06:26)
[2021-02-13] MEDS ORDERED: VANCOmycin 1.25 GM/250 ML 250 ML IV SCH (06:30)
[2021-02-13] MEDS: Lactated Ringers 1,000 ML IV SCH ×2 (06:34→16:53)
--- NOTE | 2021-02-13 07:17 | PCM.HP.2 ---
<Oleg Salazar - Last Filed: 02/13/21 16:52> H&P History of Present Illness - General Date of Service: 02/13/21 Admit Problem/Dx: Admission Diagnosis/Problem Admission Diagnosis/Problem Sepsis - History of Present Illness Initial Comments - Free Text/Narative: 20-year-old G1, P1, 6-week , admitted for medical management for sepsis. Past medical history to include admission for sepsis, UTI, hemorrhage, blood transfusion post delivery. Patient presented to the ER with complaints of abdominal pain in the suprapubic, fever, chills. Patient states abdominal pain for roughly 5 days but fever and chills have increased since this morning. Patient is with delivery on 01/12/2021. Patient did have complications resulting in urosepsis requiring admission to the hospital. On admission patient states headache, fever, chills, abdominal pain, nausea. Patient denies chest pain or shortness of breath. WBC 19 on admission, hgb 11.5. CT abdomen/pelvis-enlargement of the uterus consistent with recent status with hypoechoic material from the lower uterine segment spanning the uterus with thinning of the wall measuring 7 cm. Likely represents hematoma. Transvaginal ultrasound- hematoma versus retained proximal conception. Dr. Oakes [facility] was consulted and patient was scheduled for an ultrasound-guided D&C for retained products of conception. generalized Pain Score (Numeric/FACES): 9 - Related Data Allergies/Adverse Reactions: Allergies Allergy/AdvReac Type Severity Reaction Status Date / Time No Known Allergies Allergy Verified 02/13/21 04:26 Home Medications: Home Meds Doxycycline [Vibra-Tabs] 100 mg PO Q12HR 14 Days #28 tab 02/13/21 [Rx] Vancomycin [Vancocin 125 MG Capsule] 125 mg PO Q6H 8 Days #32 cap 02/15/21 [Rx] cephALEXin [Keflex] 500 mg PO BID 3 Days #6 cap 02/15/21 [Rx] Past Medical History - Past Health History Medical/Surgical History: Denies Medical/Surgical History HEENT History: Reports: None Cardiovascular History: Reports: None Respiratory History: Reports: None Gastrointestinal History: Reports: None Genitourinary History: Reports: None [facility] [facility] History: Reports: Musculoskeletal History: Reports: None Neurological History: Reports: None Psychiatric History: Reports: Anxiety Endocrine/Metabolic History: Reports: None Insulin Pump Model and [place] Furnace Operator: None Hematologic History: Reports: Anemia, Blood Transfusion(s) Immunologic History: Reports: None Oncologic (Cancer) History: Reports: None Dermatologic History: Reports: None - Infectious Disease History Infectious Disease History: Reports: Novel Coronavirus - Past Surgical History Head Surgeries/Procedures: Reports: None HEENT Surgical History: Reports: Tonsillectomy Female Surgical History: Reports: None Social & Family History - Family History Family Medical History: No Pertinent Family History - Tobacco Use Tobacco Use Status *Q: Never Tobacco User Second Hand Smoke Exposure: No - Caffeine Use Caffeine Use: Reports: Energy Drinks - Recreational Drug Use Recreational Drug Use: No H&P Review of Systems - Review of Systems: Review Of Systems: See Below General: Reports: Fever, Chills Pulmonary: Denies: Shortness of Breath, Wheezing, Cough Cardiovascular: Denies: Chest Pain, Palpitations, Dyspnea on Exertion Gastrointestinal: Reports: Abdominal Pain, Nausea. Denies: Constipation Genitourinary: Reports: Dysuria Musculoskeletal: Reports: Neck Pain Psychiatric: Denies: Confusion Neurological: Denies: Confusion Exam - Exam Exam: See Below - Vital Signs Vital Signs: Last Vital Signs Temp 99.6 F 02/13/21 04:20 Pulse 111 H 02/13/21 04:20 Resp 18 02/13/21 04:20 BP 107/53 L 02/13/21 04:20 Pulse Ox 97 02/13/21 04:20 Weight: 76.1 kg - Exam General: Alert, Oriented Lungs: Clear to Auscultation, Normal Respiratory Effort Cardiovascular: Regular Rhythm, Tachycardia GI/Abdominal Exam: Soft, No Distention, Tender (SUPRAPUBIC REGION) Extremities: No Pedal Edema Neuro Extensive - Mental Status: Alert, Oriented x3 - Patient Data Lab Results Last 24 hrs: Laboratory Results - last 24 hr 02/12/21 02/12/21 02/12/21 Range/Units 21:15 21:15 21:23 WBC 19.69 H (4.0-11.0) K/uL RBC 4.10 L (4.30-5.90) M/uL Hgb 11.8 L (12.0-16.0) g/dL Hct 37.2 (36.0-46.0) % MCV 90.7 (80.0-98.0) fL MCH 28.8 (27.0-32.0) pg MCHC 31.7 (31.0-37.0) g/dL RDW Std Deviation 45.8 (28.0-62.0) fl RDW Coeff of Leslee 14 (11.0-15.0) % Plt Count 336 (150-400) K/uL MPV 10.00 (7.40-12.00) fL Neut % (Auto) 85.7 H (48.0-80.0) % Lymph % (Auto) 10.6 L (16.0-40.0) % [place] % (Auto) 2.9 (0.0-15.0) % Eos % (Auto) 0.6 (0.0-7.0) % Baso % (Auto) 0.2 (0.0-1.5) % Neut # (Auto) 16.9 H (1.4-5.7) K/uL Lymph # (Auto) 2.1 (0.6-2.4) K/uL [place] # (Auto) 0.6 (0.0-0.8) K/uL Eos # (Auto) 0.1 (0.0-0.7) K/uL Baso # (Auto) 0.0 (0.0-0.1) K/uL Nucleated RBC % 0.0 /100WBC Nucleated RBCs # 0 K/uL Lactate (0.20-2.00) mmol/L Sodium (136-145) mmol/L Potassium (3.5-5.1) mmol/L Chloride (98-107) mmol/L Carbon Dioxide (21.0-32.0) mmol/L BUN (7.0-18.0) mg/dL Creatinine (0.6-1.0) mg/dL Est Cr Clr Drug Dosing Estimated GFR (MDRD) ml/min Glucose (74-106) mg/dL Calcium (8.5-10.1) mg/dL Total Bilirubin (0.2-1.0) mg/dL AST (15-37) IU/L ALT (14-63) IU/L Alkaline Phosphatase (46-116) U/L Total Protein (6.4-8.2) g/dL Albumin (3.4-5.0) g/dL Globulin (2.6-4.0) g/dL Albumin/Globulin Ratio (0.9-1.6) HCG, Quant mIU/mL Urine Color RED Urine Appearance CLOUDY Urine pH 6.0 (5.0-8.0) Ur Specific [place] >= 1.030 (1.001-1.035) Urine Protein 100 H (NEGATIVE) mg/dL Urine Glucose (UA) NEGATIVE (NEGATIVE) mg/dL Urine Ketones >=80 (NEGATIVE) mg/dL Urine Occult Blood LARGE H (NEGATIVE) Urine Nitrite NEGATIVE (NEGATIVE) Urine Bilirubin SMALL H (NEGATIVE) Urine Ictotest NEGATIVE Urine Urobilinogen 0.2 (<2.0) EU/dL Ur Leukocyte Esterase TRACE H (NEGATIVE) Urine RBC TOO NUMEROUS TO CT H (0-2/HPF) Urine WBC 5-8 (0-5/HPF) Ur Epithelial Cells FEW (NONE-FEW) Urine Bacteria FEW (NEGATIVE) Urine Mucus LIGHT (NONE-MOD) Urinalysis Comment Urine HCG, Qual NEGATIVE (NEGATIVE) SARS-CoV-2 RNA (FERNANDO) (NEGATIVE) 02/12/21 02/12/21 02/12/21 Range/Units 21:23 21:23 22:04 WBC (4.0-11.0) K/uL RBC (4.30-5.90) M/uL Hgb (12.0-16.0) g/dL Hct (36.0-46.0) % MCV (80.0-98.0) fL MCH (27.0-32.0) pg MCHC (31.0-37.0) g/dL RDW Std Deviation (28.0-62.0) fl RDW Coeff of Leslee (11.0-15.0) % Plt Count (150-400) K/uL MPV (7.40-12.00) fL Neut % (Auto) (48.0-80.0) % Lymph % (Auto) (16.0-40.0) % [place] % (Auto) (0.0-15.0) % Eos % (Auto) (0.0-7.0) % Baso % (Auto) (0.0-1.5) % Neut # (Auto) (1.4-5.7) K/uL Lymph # (Auto) (0.6-2.4) K/uL [place] # (Auto) (0.0-0.8) K/uL Eos # (Auto) (0.0-0.7) K/uL Baso # (Auto) (0.0-0.1) K/uL Nucleated RBC % /100WBC Nucleated RBCs # K/uL Lactate 1.3 (0.20-2.00) mmol/L Sodium 138 (136-145) mmol/L Potassium 3.8 (3.5-5.1) mmol/L Chloride 101 (98-107) mmol/L Carbon Dioxide 21.4 (21.0-32.0) mmol/L BUN 8 (7.0-18.0) mg/dL Creatinine 0.9 (0.6-1.0) mg/dL Est Cr Clr Drug Dosing TNP Estimated GFR (MDRD) > 60.0 ml/min Glucose 107 H (74-106) mg/dL Calcium 9.6 (8.5-10.1) mg/dL Total Bilirubin 0.4 (0.2-1.0) mg/dL AST 13 L (15-37) IU/L ALT 20 (14-63) IU/L Alkaline Phosphatase 100 (46-116) U/L Total Protein 8.3 H (6.4-8.2) g/dL Albumin 3.8 (3.4-5.0) g/dL Globulin 4.5 H (2.6-4.0) g/dL Albumin/Globulin Ratio 0.8 L (0.9-1.6) HCG, Quant 4.0 mIU/mL Urine Color Urine Appearance Urine pH (5.0-8.0) Ur Specific [place] (1.001-1.035) Urine Protein (NEGATIVE) mg/dL Urine Glucose (UA) (NEGATIVE) mg/dL Urine Ketones (NEGATIVE) mg/dL Urine Occult Blood (NEGATIVE) Urine Nitrite (NEGATIVE) Urine Bilirubin (NEGATIVE) Urine Ictotest Urine Urobilinogen (<2.0) EU/dL Ur Leukocyte Esterase (NEGATIVE) Urine RBC (0-2/HPF) Urine WBC (0-5/HPF) Ur Epithelial Cells (NONE-FEW) Urine Bacteria (NEGATIVE) Urine Mucus (NONE-MOD) Urinalysis Comment Urine HCG, Qual (NEGATIVE) SARS-CoV-2 RNA (FERNANDO) (NEGATIVE) 03/30/21 Range/Units 22:45 WBC (4.0-11.0) K/uL RBC (4.30-5.90) M/uL Hgb (12.0-16.0) g/dL Hct (36.0-46.0) % MCV (80.0-98.0) fL MCH (27.0-32.0) pg MCHC (31.0-37.0) g/dL RDW Std Deviation (28.0-62.0) fl RDW Coeff of Leslee (11.0-15.0) % Plt Count (150-400) K/uL MPV (7.40-12.00) fL Neut % (Auto) (48.0-80.0) % Lymph % (Auto) (16.0-40.0) % [place] % (Auto) (0.0-15.0) % Eos % (Auto) (0.0-7.0) % Baso % (Auto) (0.0-1.5) % Neut # (Auto) (1.4-5.7) K/uL Lymph # (Auto) (0.6-2.4) K/uL [place] # (Auto) (0.0-0.8) K/uL Eos # (Auto) (0.0-0.7) K/uL Baso # (Auto) (0.0-0.1) K/uL Nucleated RBC % /100WBC Nucleated RBCs # K/uL Lactate (0.20-2.00) mmol/L Sodium (136-145) mmol/L Potassium (3.5-5.1) mmol/L Chloride (98-107) mmol/L Carbon Dioxide (21.0-32.0) mmol/L BUN (7.0-18.0) mg/dL Creatinine (0.6-1.0) mg/dL Est Cr Clr Drug Dosing Estimated GFR (MDRD) ml/min Glucose (74-106) mg/dL Calcium (8.5-10.1) mg/dL Total Bilirubin (0.2-1.0) mg/dL AST (15-37) IU/L ALT (14-63) IU/L Alkaline Phosphatase (46-116) U/L Total Protein (6.4-8.2) g/dL Albumin (3.4-5.0) g/dL Globulin (2.6-4.0) g/dL Albumin/Globulin Ratio (0.9-1.6) HCG, Quant mIU/mL Urine Color Urine Appearance Urine pH (5.0-8.0) Ur Specific [place] (1.001-1.035) Urine Protein (NEGATIVE) mg/dL Urine Glucose (UA) (NEGATIVE) mg/dL Urine Ketones (NEGATIVE) mg/dL Urine Occult Blood (NEGATIVE) Urine Nitrite (NEGATIVE) Urine Bilirubin (NEGATIVE) Urine Ictotest Urine Urobilinogen (<2.0) EU/dL Ur Leukocyte Esterase (NEGATIVE) Urine RBC (0-2/HPF) Urine WBC (0-5/HPF) Ur Epithelial Cells (NONE-FEW) Urine Bacteria (NEGATIVE) Urine Mucus (NONE-MOD) Urinalysis Comment Urine HCG, Qual (NEGATIVE) SARS-CoV-2 RNA (FERNANDO) NEGATIVE (NEGATIVE) Result Diagrams: 02/13/21 15:25 02/12/21 21:23 Sepsis Event Note - Evaluation Sepsis Screening Result: Sepsis Risk - Focused Exam Vital Signs: Vital Signs Temp Temp Pulse Resp BP Pulse Ox 02/13/21 04:20 99.6 F 111 H 18 107/53 L 97 02/13/21 03:05 100 F 107 H 18 111/54 L 100 02/13/21 00:40 98 F 104 H 18 106/53 L 99 02/12/21 23:40 99.5 F 02/12/21 23:10 100 18 108/63 98 02/12/21 22:41 98.8 F 110 H 18 104/59 L 100 02/12/21 21:20 98.7 F 135 H 18 151/79 H 100 - Problem List (1) Abdominal pain SNOMED Code(s): 93177922 ICD Code: R10.9 - UNSPECIFIED ABDOMINAL PAIN Status: Acute (2) History of hemorrhage SNOMED Code(s): 523318893 ICD Code: Z87.59 - PERSONAL HISTORY OF COMP OF PREG, CHLDBRTH AND THE PUERP Status: Acute (3) hemorrhage of vagina SNOMED Code(s): 09653264 ICD Code: O72.1 - OTHER IMMEDIATE HEMORRHAGE Status: Acute (4) urinary tract infection SNOMED Code(s): 826829984 ICD Code: O86.20 - URINARY TRACT INFECTION FOLLOWING DELIVERY, UNSPECIFIED Status: Acute (5) Sepsis SNOMED Code(s): 69017231 ICD Code: A41.9 - SEPSIS, UNSPECIFIED ORGANISM Status: Acute (6) Migraine SNOMED Code(s): 11529415 ICD Code: G43.909 - MIGRAINE, UNSP, NOT INTRACTABLE, WITHOUT STATUS MIGRAINOSUS Status: Acute Qualifiers: Migraine type: other Status migrainosus presence: without status migrainosus Intractability: not intractable Qualified Code(s): G43.809 - Other migraine, not intractable, without status migrainosus (7) Urinary tract infection SNOMED Code(s): 76350165 ICD Code: N39.0 - URINARY TRACT INFECTION, SITE NOT SPECIFIED Status: Acute Qualifiers: Urinary tract infection type: acute cystitis Hematuria presence: without hematuria Qualified Code(s): N30.00 - Acute cystitis without hematuria Problem List Initiated/Reviewed/Updated: Yes Orders Last 24hrs: Active Orders 24 hr Category Date Time Status Patient Status [ADT] Routine ADT 02/13/21 03:25 Active Ambulate [RC] ASDIRECTED Care 02/13/21 05:05 Active Antiembolic Devices [RC] PER UNIT ROUTINE Care 02/13/21 05:05 Active EKG Documentation Completion [RC] AM Care 02/12/21 21:49 Active Notify Provider Consults [RC] ASDIRECTED Care 02/13/21 05:33 Active Oxygen Therapy [RC] ASDIRECTED Care 02/13/21 05:05 Active Telemetry Monitoring [Cardiac Monitoring] [RC] Q8H Care 02/13/21 05:13 Active Vital Signs [RC] Q4H Care 02/13/21 05:05 Active Consult to Physician [CONS] Routine Cons 02/13/21 05:32 Active Clear Liquid Diet [DIET] Diet 02/13/21 Breakfast Active C DIFFICILE AG/TOXIN W/REFLEX [RM] Stat Lab 02/12/21 21:51 Ordered CULTURE BLOOD [BC] Stat Lab 02/12/21 21:23 Received CULTURE BLOOD [BC] Stat Lab 02/12/21 22:04 Received CULTURE URINE [RM] Stat Lab 02/12/21 21:15 Received FECAL LACTOFERRIN [MREF] Stat Lab 02/12/21 21:51 Ordered HEMOGLOBIN/HEMATOCRIT,HH [HEME] Routine Lab 02/13/21 11:00 Ordered STOOL CULTURE/SHIGA TOXIN [MREF] Stat Lab 02/12/21 21:51 Ordered VANCOMYCIN TROUGH [CHEM] Timed Lab 02/14/21 06:00 Ordered HYDROmorphone [Dilaudid] Med 02/13/21 00:25 Active 0.5 mg IVPUSH ONETIME PRN Lactated Ringers [Ringers, Lactated] 1,000 ml Med 02/13/21 05:00 Active IV ASDIRECTED Morphine Med 02/13/21 04:52 Active 2 mg IVPUSH Q2H PRN Ondansetron [Zofran] Med 02/13/21 05:03 Active 4 mg IVPUSH Q6H PRN Pantoprazole [ProTONIX IV] 40 mg Med 02/13/21 07:00 Active Sodium Chloride 0.9% [Normal Saline] 10 ml IV DAILY@0700 Pharmacy to Dose - Vancomycin Med 02/13/21 05:00 Pending 1 dose .XX ASDIRECTED Piperacillin/Tazobactam [Piperacil-Tazobact] 3.375 gm Med 02/13/21 06:00 Active Sodium Chloride 0.9% [Normal Saline] 50 ml IV Q8H VANCOmycin 1.25 GM/250 ML 250 ml Med 02/13/21 06:30 Active IV Q8H Blood Culture x2 Reflex Set [OM.PC] Stat Oth 02/12/21 21:50 Ordered SCD [Sequential Compression Device] [OM.PC] Routine Oth 02/13/21 05:05 Ordered Severe Sepsis Onset Time [OM.PC] Stat Oth 02/12/21 21:54 Ordered Medication Orders Hydromorphone HCl (Hydromorphone 1 Mg/Ml Syringe) 0.5 mg IVPUSH ONETIME PRN PRN Reason: Other Last Admin: 02/13/21 03:13 Dose: 0.5 mg Documented by: TARIK Piperacillin Sod/Tazobactam (Sod 3.375 gm/ Sodium Chloride) 50 mls @ 100 mls/hr IV Q8H [facility] Last Admin: 02/13/21 05:27 Dose: 100 mls/hr Documented by: RUSTY Lactated Ringer's (Ringers, Lactated) 1,000 mls @ 125 mls/hr IV ASDIRECTED DANNY Last Admin: 02/13/21 06:34 Dose: 125 mls/hr Documented by: RUSTY Pantoprazole Sodium 40 mg/ (Sodium Chloride) 10 mls @ 300 mls/hr IV DAILY@0700 [facility] Last Admin: 02/13/21 06:26 Dose: 300 mls/hr Documented by: RUSTY Vancomycin HCl (Vancomycin 1.25 Gm/250 Ml) 250 mls @ 250 mls/hr IV Q8H [facility] Morphine Sulfate (Morphine 2 Mg/Ml Syringe) 2 mg IVPUSH Q2H PRN PRN Reason: Pain Last Admin: 02/13/21 05:21 Dose: 2 mg Documented by: RUSTY Ondansetron HCl (Ondansetron 4 Mg/2 Ml Sdv) 4 mg IVPUSH Q6H PRN PRN Reason: Nausea/Vomiting Last Admin: 02/13/21 05:25 Dose: 4 mg Documented by: RUSTY Vancomycin HCl (Pharmacy To Dose - Vancomycin) 1 dose .XX ASDIRECTED [facility] Assessment/Plan Comment:: Sepsis- Secondary to retained products of conception. Patient admitted to the floor for medical management. IV fluids, vancomycin, Zosyn, Tylenol for pain and fever, morphine for pain, Zofran for nausea, PPI. Will follow up with [employer] [facility] [facility] for any medical recommendations. Regular Diet UTI-trace leukocyte Estrace, few urine bacteria. Patient currently received vancomycin and Zosyn antibiotics. <Rubi Robison - Last Filed: 02/18/21 15:52> H&P History of Present Illness - General Admit Problem/Dx: Admission Diagnosis/Problem Admission Diagnosis/Problem Sepsis - History of Present Illness Initial Comments - Free Text/Narative: I performed a history and physical exam of the patient and discussed management with resident. I have reviewed the residents note and agree with documented findings and plan unless otherwise specified in my note.' Exam - Vital Signs Vital Signs: Last Vital Signs Temp 36.4 C 02/15/21 08:00 Pulse 67 02/15/21 08:00 Resp 16 02/15/21 08:00 BP 107/65 02/15/21 08:00 Pulse Ox 100 02/15/21 08:00 - Patient Data Result Diagrams: 02/15/21 09:13 02/15/21 09:13 Chava Results Last 24 hrs: Microbiology 02/12/21 16:25 Stool Culture - Final Stool / Feces - Stool, Liquid Shiga Toxin I & II - Final 02/14/21 06:27 Aerobic Blood Culture - Preliminary Blood NO GROWTH AFTER 4 DAYS Anaerobic Blood Culture - Preliminary NO GROWTH AFTER 4 DAYS 02/14/21 06:16 Aerobic Blood Culture - Preliminary Blood NO GROWTH AFTER 4 DAYS Anaerobic Blood Culture - Preliminary NO GROWTH AFTER 4 DAYS 02/12/21 22:04 Aerobic Blood Culture - Final Blood - Venous - Lab Draw NO GROWTH AFTER 5 DAYS Anaerobic Blood Culture - Final NO GROWTH AFTER 5 DAYS 02/12/21 21:23 Aerobic Blood Culture - Final Blood - Venous NO GROWTH AFTER 5 DAYS Anaerobic Blood Culture - Preliminary
--- NOTE | 2021-02-13 10:57 | PCM.PREANE ---
Preanesthetic Assessment - Anesthesia/Transfusion/Family Hx Anesthesia History: No Prior Anesthesia Family History of Anesthesia Reaction: No Transfusion History: Prior Transfusion Without Reaction - Physical Assessment NPO Status Date: 02/13/21 NPO Status Time: 09:00 (clear liquids only at 0900) Vital Signs: Last Vital Signs Temp 36.7 C 02/13/21 07:38 Pulse 113 H 02/13/21 07:38 Resp 22 H 02/13/21 07:38 BP 119/72 02/13/21 09:24 Pulse Ox 95 02/13/21 07:38 Height: 1.63 m Weight: 76.1 kg ASA Class: 2 - Lab Values: Laboratory Last Values WBC 19.69 K/uL (4.0-11.0) H 02/12/21 21: RBC 4.10 M/uL (4.30-5.90) L 02/12/21 21: Hgb 11.8 g/dL (12.0-16.0) L 02/12/21 21: Hct 37.2 % (36.0-46.0) 02/12/21 21: MCV 90.7 fL (80.0-98.0) 02/12/21 21: MCH 28.8 pg (27.0-32.0) 02/12/21 21: MCHC 31.7 g/dL (31.0-37.0) 02/12/21 21: RDW Std Deviation 45.8 fl (28.0-62.0) 02/12/21: RDW Coeff of Leslee 14 % (11.0-15.0) 02/12/21: Plt Count 336 K/uL (150-400) 02/12/21 21: MPV 10.00 fL (7.40-12.00) 02/12/21 21: Neut % (Auto) 85.7 % (48.0-80.0) H 02/12/21 21: Lymph % (Auto) 10.6 % (16.0-40.0) L 02/12/21: [place] % (Auto) 2.9 % (0.0-15.0) 02/12/21: Eos % (Auto) 0.6 % (0.0-7.0) 02/12/21 21:23 Baso % (Auto) 0.2 % (0.0-1.5) 02/12/21 21: Neut # (Auto) 16.9 K/uL (1.4-5.7) H 02/12/21 21:23 Lymph # (Auto) 2.1 K/uL (0.6-2.4) 02/12/21 21: [place] # (Auto) 0.6 K/uL (0.0-0.8) 02/12/21 21: Eos # (Auto) 0.1 K/uL (0.0-0.7) 02/12/21 21: Baso # (Auto) 0.0 K/uL (0.0-0.1) 02/12/21 21: Nucleated RBC % 0.0 /100WBC 02/12/21 21: Nucleated RBCs # 0 K/uL 02/12/21 21: Lactate 1.3 mmol/L (0.20-2.00) 02/12/21 22:04 Sodium 138 mmol/L (136-145) 02/12/21 21:23 Potassium 3.8 mmol/L (3.5-5.1) 02/12/21 21: Chloride 101 mmol/L (98-107) 02/12/21 21: Carbon Dioxide 21.4 mmol/L (21.0-32.0) 02/12/21 21: BUN 8 mg/dL (7.0-18.0) 02/12/21 21: Creatinine 0.9 mg/dL (0.6-1.0) 02/12/21 21: Est Cr Clr Drug Dosing TNP 02/12/21 21:23 Estimated GFR (MDRD) > 60.0 ml/min 02/12/21 21:23 Glucose 107 mg/dL (74-106) H 02/12/21 21:23 Calcium 9.6 mg/dL (8.5-10.1) 02/12/21 21:23 Total Bilirubin 0.4 mg/dL (0.2-1.0) 02/12/21 21:23 AST 13 IU/L (15-37) L 02/12/21 21:23 ALT 20 IU/L (14-63) 02/12/21 21:23 Alkaline Phosphatase 100 U/L (46-116) 02/12/21 21:23 Total Protein 8.3 g/dL (6.4-8.2) H 02/12/21 21: Albumin 3.8 g/dL (3.4-5.0) 02/12/21 21: Globulin 4.5 g/dL (2.6-4.0) H 02/12/21 21: Albumin/Globulin Ratio 0.8 (0.9-1.6) L 02/12/21 21: HCG, Quant 4.0 mIU/mL 02/12/21 21: Urine Color RED 02/12/21 21: Urine Appearance CLOUDY 02/12/21 21: Urine pH 6.0 (5.0-8.0) 02/12/21 21:15 Ur Specific [place] >= 1.030 (1.001-1.035) 02/12/21 21:15 Urine Protein 100 mg/dL (NEGATIVE) H 02/12/21 21:15 Urine Glucose (UA) NEGATIVE mg/dL (NEGATIVE) 02/12/21 21:15 Urine Ketones >=80 mg/dL (NEGATIVE) 02/12/21 21:15 Urine Occult Blood LARGE (NEGATIVE) H 02/12/21 21:15 Urine Nitrite NEGATIVE (NEGATIVE) 02/12/21 21:15 Urine Bilirubin SMALL (NEGATIVE) H 02/12/21 21:15 Urine Ictotest NEGATIVE 02/12/21 21:15 Urine Urobilinogen 0.2 EU/dL (<2.0) 02/12/21 21:15 Ur Leukocyte Esterase TRACE (NEGATIVE) H 02/12/21 21:15 Urine RBC TOO NUMEROUS TO CT (0-2/HPF) H 02/12/21 21:15 Urine WBC 5-8 (0-5/HPF) 02/12/21 21:15 Ur Epithelial Cells FEW (NONE-FEW) 02/12/21 21:15 Urine Bacteria FEW (NEGATIVE) 02/12/21 21:15 Urine Mucus LIGHT (NONE-MOD) 02/12/21 21:15 Urinalysis Comment 02/12/21 21:15 Urine HCG, Qual NEGATIVE (NEGATIVE) 02/12/21 21:15 SARS-CoV-2 RNA (FERNANDO) NEGATIVE (NEGATIVE) 02/12/21 22:45 Blood Type A POSITIVE 02/13/21 09:00 Antibody Screen NEGATIVE 02/13/21 09:00 - Allergies Allergies/Adverse Reactions: Allergies Allergy/AdvReac Type Severity Reaction Status Date / Time No Known Allergies Allergy Verified 02/13/21 04:26 - Acknowledgements Anesthesia Type Planned: General Anesthesia Pt an Appropriate Candidate for the Planned Anesthesia: Yes Alternatives and Risks of Anesthesia Discussed w Pt/Guardian: Yes Pt/Guardian Understands and Agrees with Anesthesia Plan: Yes PreAnesthesia Questionnaire - Past Health History Medical/Surgical History: Denies Medical/Surgical History HEENT History: Reports: None Cardiovascular History: Reports: None Respiratory History: Reports: None Gastrointestinal History: Reports: None Genitourinary History: Reports: None [employer] History: Reports: Musculoskeletal History: Reports: None Neurological History: Reports: None Psychiatric History: Reports: Anxiety Endocrine/Metabolic History: Reports: None Hematologic History: Reports: Anemia, Blood Transfusion(s) Immunologic History: Reports: None Oncologic (Cancer) History: Reports: None Dermatologic History: Reports: None - Infectious Disease History Infectious Disease History: Reports: Novel Coronavirus - Past Surgical History Head Surgeries/Procedures: Reports: None HEENT Surgical History: Reports: Tonsillectomy Female Surgical History: Reports: None - SUBSTANCE USE Tobacco Use Status *Q: Never Tobacco User Tobacco Use Within Last Twelve Months: No Second Hand Smoke Exposure: No Recreational Drug Use History: No - HOME MEDS Home Medications: Home Meds nitrofurantoin macrocrystaL [Nitrofurantoin] 100 mg PO BID 02/12/21 [History] - CURRENT (IN HOUSE) MEDS Current Meds: Current Medications Hydromorphone HCl (Hydromorphone 1 Mg/Ml Syringe) 0.5 mg IVPUSH ONETIME PRN PRN Reason: Other Last Admin: 02/13/21 03:13 Dose: 0.5 mg Documented by: Piperacillin Sod/Tazobactam (Sod 3.375 gm/ Sodium Chloride) 50 mls @ 100 mls/hr IV Q8H [facility] Last Admin: 02/13/21 05:27 Dose: 100 mls/hr Documented by: Lactated Ringer's (Ringers, Lactated) 1,000 mls @ 200 mls/hr IV ASDIRECTED [facility] Last Admin: 02/13/21 06:34 Dose: 125 mls/hr Documented by: Pantoprazole Sodium 40 mg/ (Sodium Chloride) 10 mls @ 300 mls/hr IV DAILY@0700 [facility] Last Admin: 02/13/21 06:26 Dose: 300 mls/hr Documented by: Vancomycin HCl 1.25 gm/ Sodium (Chloride) 250 mls @ 166.667 mls/hr IV Q8H [facility] Last Admin: 02/13/21 08:05 Dose: 166.667 mls/hr Documented by: Morphine Sulfate (Morphine 2 Mg/Ml Syringe) 2 mg IVPUSH Q2H PRN PRN Reason: Pain Last Admin: 02/13/21 09:22 Dose: 2 mg Documented by: Ondansetron HCl (Ondansetron 4 Mg/2 Ml Sdv) 4 mg IVPUSH Q6H PRN PRN Reason: Nausea/Vomiting Last Admin: 02/13/21 09:24 Dose: 4 mg Documented by: Vancomycin HCl (Pharmacy To Dose - Vancomycin) 1 dose .XX ASDIRECTED [facility] Discontinued Medications Fentanyl (Fentanyl 50 Mcg/Ml Sdv) 100 mcg IVPUSH ONETIME ONE Stop: 02/12/21 21:50 Last Admin: 02/12/21 22:07 Dose: 100 mcg Documented by: Hydromorphone HCl (Hydromorphone 1 Mg/Ml Syringe) 1 mg IVPUSH ONETIME ONE Stop: 02/12/21 23:49 Last Admin: 02/13/21 00:04 Dose: 1 mg Documented by: Hydromorphone HCl (Hydromorphone 1 Mg/Ml Syringe) 1 mg IVPUSH ONETIME ONE Stop: 02/13/21 04:07 Last Admin: 02/13/21 04:08 Dose: 1 mg Documented by: Hydromorphone HCl (Hydromorphone 1 Mg/Ml Syringe) Confirm Administered Dose 1 mg .ROUTE .STK-MED ONE Stop: 02/13/21 04:07 Last Admin: 02/13/21 05:33 Dose: Not Given Documented by: Sodium Chloride (Normal Saline) 1,000 mls @ 999 mls/hr IV NOW STA Stop: 02/12/21 22:32 Last Admin: 02/12/21 22:06 Dose: 999 mls/hr Documented by: Sodium Chloride (Normal Saline) 1,000 mls @ 999 mls/hr IV .Bolus ONE Stop: 02/12/21 22:49 Last Admin: 02/12/21 22:07 Dose: 999 mls/hr Documented by: Vancomycin HCl 1.5 gm/ (Dextrose/Water) 250 mls @ 167 mls/hr IV ONETIME ONE Stop: 02/12/21 23:23 Last Admin: 02/12/21 22:50 Dose: Not Given Documented by: Piperacillin Sod/Tazobactam (Sod 3.375 gm/ Sodium Chloride) 50 mls @ 100 mls/hr IV ONETIME ONE Stop: 02/12/21 22:26 Last Admin: 02/12/21 22:07 Dose: 100 mls/hr Documented by: Vancomycin HCl 1.5 gm/ Premix 300 mls @ 200 mls/hr IV ONETIME ONE Stop: 02/12/21 23:59 Last Admin: 02/12/21 22:40 Dose: 200 mls/hr Documented by: Vancomycin HCl (Vancomycin 1.25 Gm/250 Ml) 250 mls @ 250 mls/hr IV Q8H [facility] Last Admin: 02/13/21 07:39 Dose: Not Given Documented by: Iopamidol (Iopamidol 755 Mg/Ml 500 Ml Multipack Bottle) 100 ml IVPUSH ONETIME STA Stop: 02/12/21 22:40 Last Admin: 02/12/21 22:39 Dose: 100 ml Documented by: Ondansetron HCl (Ondansetron 4 Mg/2 Ml Sdv) 4 mg IVPUSH ONETIME ONE Stop: 02/12/21 21:50 Last Admin: 02/12/21 22:07 Dose: 4 mg Documented by: Pantoprazole Sodium (Pantoprazole 40 Mg Vial) 40 mg IVPUSH Q12H [facility] Last Admin: 02/12/21 22:07 Dose: 40 mg Documented by:
[2021-02-13] MEDS ORDERED: Acetaminophen 1,000 MG in Premix Bag 1 BAG IV PRN (10:58)
[2021-02-13] MEDS ORDERED: fentaNYL 100 MCG/2 ML SDV ONE ×2 (11:12→11:51)
[2021-02-13] MEDS ORDERED: Propofol 200 MG/20 ML SDV ONE (11:12)
[2021-02-13] MEDS ORDERED: Midazolam 1 MG/ML 2 ML SDV ONE (11:13)
[2021-02-13] MEDS ORDERED: Ondansetron 4 MG/2 ML SDV ONE (11:14)
[2021-02-13] MEDS ORDERED: Ketorolac 30 MG/ML SDV ONE (11:14)
[2021-02-13] MEDS ORDERED: Glycopyrrolate 0.2 MG/ML SDV ONE (11:14)
[2021-02-13] MEDS ORDERED: Lidocaine 2% 5 ML SDV ONE (11:14)
[2021-02-13] MEDS ORDERED: Methylergonovine 0.2 MG/1 ML Amp ONE (11:57)
[2021-02-13] MEDS: fentaNYL 100 MCG/2 ML SDV IVPUSH PRN ×2 (12:31→12:40)
--- NOTE | 2021-02-13 12:39 | PCM.OPNOTE ---
- General Post-Op/Procedure Note Date of Surgery/Procedure: 02/13/21 Operative Procedure(s): suction dilatation and curettage Findings: preop uterus 12 week size, cervix 4 cm dilated with tissue at the os. postop uterus 8 weeks size, firm, cervix closed, ultrasound measurement of endometrial thickness 9 mm. Pre Op Diagnosis: retained products of conception Post-Op Diagnosis: Same Anesthesia Technique: General LMA Primary Surgeon: Keena Oakes Anesthesia Provider: David Bennett Pathology: products of conception EBL in mLs: 50 Complications: None Known Condition: Stable
--- NOTE | 2021-02-13 12:59 | PCM.POSTAN ---
POST ANESTHESIA ASSESSMENT - MENTAL STATUS Mental Status: Alert - VITAL SIGNS Vital Signs: Last Vital Signs Temp 36.4 C 02/13/21 12:20 Pulse 112 H 02/13/21 12:50 Resp 15 02/13/21 12:50 BP 100/57 L 02/13/21 12:50 Pulse Ox 94 L 02/13/21 12:50 - RESPIRATORY Respiratory Status: Respiratory Rate WNL - CARDIOVASCULAR CV Status: Pulse Rate WNL - GASTROINTESTINAL GI Status: No Symptoms - POST OP HYDRATION Hydration Status: Adequate & Stable
--- NOTE | 2021-02-13 13:47 | HP ---
DATE OF : 2000 PRIMARY CARE PHYSICIAN: None PCP CHIEF COMPLAINT: Pelvic pain and cramping. HISTORY: This is a 20-year-old female, G1, P1. She is now approximately six weeks . course initially was complicated by hemorrhage requiring blood transfusion. She did have manual exploration of the uterus at that time, and placenta was sent to Pathology and appeared to be intact. She approximately one week was admitted for urosepsis and started on IV antibiotics. She has continued on iron supplementation. Her bleeding has improved, but never completely resolved. She was seen for her four- week visit in the clinic. A followup ultrasound was ordered; however, the patient did not keep her appointment for the ultrasound. She now presents to the emergency room with low back pain, lower abdominal cramping, and a low-grade fever. In the clinic, she had been evaluated and was started on Macrobid for E coli in the urine; therefore, when she was admitted, she was admitted under the working diagnosis of urosepsis. However, CT scan at the time of admission shows enlargement of the uterus with hypoechoic material filling the lower uterine segment, expanding the uterus with thinning of the uterine wall measuring up to 7 cm. This extends inferiorly with thinning and distortion of the uterine wall and lateral vaginal fornix. The differential on the CT was hematoma extending through a defect (the patient did not have a C- section) or hematoma markedly expanding the upper vaginal canal. Ultrasound also showed a thickened 6 cm endometrium; however, Doppler studies were not done. On prior Doppler of the uterus, there was no flow to the endometrium to suggest retained products of conception. However, at this point, with her persistent cramping with the findings on the CT and pelvic pain, I have recommended proceeding with a suction dilatation and curettage under direct ultrasound guidance. She has been consented for the procedure including risk of bleeding, infection with uterine perforation, possibility of Asherman syndrome, risk of thromboembolic event. Understanding all these risks, she does desire to proceed. She is also consented for blood transfusion if needed and a type and screen will be obtained. Her current complaint is mainly lower abdominal pain and cramping. She has also had diarrhea but has been on multiple recent antibiotics. She has not been able to provide a stool culture to this point. PAST MEDICAL HISTORY: Positive for COVID on August 21, 2020; hemorrhage with anemia requiring transfusion. PAST SURGICAL HISTORY: Tonsillectomy and adenoidectomy. ALLERGIES: None known. GYNECOLOGIC HISTORY: Last Pap was on 08/01/2020 with normal Pap, negative HPV. Prior to , periods were every 28 days with normal blood loss. She does have a history of chlamydia. OBSTETRICAL HISTORY: She had a spontaneous vaginal delivery approximately six weeks ago. FAMILY HISTORY: Paternal grandfather, lung cancer. Maternal grandmother, type 2 diabetes. Father, depression and anger. Mother, type 2 diabetes. SOCIAL HISTORY: She is single but with a supportive significant other. She denies use of tobacco, alcohol, or street drugs. REVIEW OF SYSTEMS: Positive for headache which has improved. Positive for diarrhea and abdominal cramping as per HPI. Otherwise, negative review of systems. PHYSICAL EXAMINATION: VITAL SIGNS: Blood pressure is 99/48, pulse is 113, respiratory rate of 22, O2 saturation is 95%. GENERAL: She is alert and oriented. She has only intermittently appeared to be distressed and this is when she has uterine cramping. NECK: Supple without lymphadenopathy or thyromegaly. LUNGS: Clear. CV: Regular without murmur. ABDOMEN: Soft, nontender, except in the suprapubic area. BACK: She has no CVA tenderness. EXTREMITIES: No edema. PELVIC: Deferred to the OR. ASSESSMENT AND PLAN: 1. Suspected urosepsis. She is under the care of the hospitalist service for this and is under the sepsis protocol, currently receiving Zosyn and vancomycin as well as IV hydration. 2. Suspected retained product of conception with differential as noted above on CT scan. I will proceed with an exam under anesthesia with suction D and C under direct ultrasound guidance due to the concern of the very distended lower uterine segment, and as noted above, she has consented for this procedure and does agree to proceed. Other care will be continued under the hospitalist service. BREE / TRIP /[id number]
--- NOTE | 2021-02-13 13:58 | PCM.PN ---
- General Info Date of Service: 02/13/21 - Patient Data Vitals - Most Recent: Last Vital Signs Temp 98.1 F 02/13/21 13:14 Pulse 110 H 02/13/21 13:14 Resp 16 02/13/21 13:14 BP 107/60 02/13/21 13:14 Pulse Ox 94 L 02/13/21 13:14 Weight - Most Recent: 167 lb 12.348 oz I&O - Last 24 Hours: Intake & Output 02/12/21 02/13/21 02/13/21 22:59 06:59 14:59 Intake Total 1200 Output Total 10 Balance 1190 Lab Results Last 24 Hours: Laboratory Results - last 24 hr 02/12/21 02/12/21 02/12/21 Range/Units 21:15 21:15 21:23 WBC 19.69 H (4.0-11.0) K/uL RBC 4.10 L (4.30-5.90) M/uL Hgb 11.8 L (12.0-16.0) g/dL Hct 37.2 (36.0-46.0) % MCV 90.7 (80.0-98.0) fL MCH 28.8 (27.0-32.0) pg MCHC 31.7 (31.0-37.0) g/dL RDW Std Deviation 45.8 (28.0-62.0) fl RDW Coeff of Leslee 14 (11.0-15.0) % Plt Count 336 (150-400) K/uL MPV 10.00 (7.40-12.00) fL Neut % (Auto) 85.7 H (48.0-80.0) % Lymph % (Auto) 10.6 L (16.0-40.0) % [place] % (Auto) 2.9 (0.0-15.0) % Eos % (Auto) 0.6 (0.0-7.0) % Baso % (Auto) 0.2 (0.0-1.5) % Neut # (Auto) 16.9 H (1.4-5.7) K/uL Lymph # (Auto) 2.1 (0.6-2.4) K/uL [place] # (Auto) 0.6 (0.0-0.8) K/uL Eos # (Auto) 0.1 (0.0-0.7) K/uL Baso # (Auto) 0.0 (0.0-0.1) K/uL Nucleated RBC % 0.0 /100WBC Nucleated RBCs # 0 K/uL Lactate (0.20-2.00) mmol/L Sodium (136-145) mmol/L Potassium (3.5-5.1) mmol/L Chloride (98-107) mmol/L Carbon Dioxide (21.0-32.0) mmol/L BUN (7.0-18.0) mg/dL Creatinine (0.6-1.0) mg/dL Est Cr Clr Drug Dosing Estimated GFR (MDRD) ml/min Glucose (74-106) mg/dL Calcium (8.5-10.1) mg/dL Total Bilirubin (0.2-1.0) mg/dL AST (15-37) IU/L ALT (14-63) IU/L Alkaline Phosphatase (46-116) U/L Total Protein (6.4-8.2) g/dL Albumin (3.4-5.0) g/dL Globulin (2.6-4.0) g/dL Albumin/Globulin Ratio (0.9-1.6) HCG, Quant mIU/mL Urine Color RED Urine Appearance CLOUDY Urine pH 6.0 (5.0-8.0) Ur Specific [place] >= 1.030 (1.001-1.035) Urine Protein 100 H (NEGATIVE) mg/dL Urine Glucose (UA) NEGATIVE (NEGATIVE) mg/dL Urine Ketones >=80 (NEGATIVE) mg/dL Urine Occult Blood LARGE H (NEGATIVE) Urine Nitrite NEGATIVE (NEGATIVE) Urine Bilirubin SMALL H (NEGATIVE) Urine Ictotest NEGATIVE Urine Urobilinogen 0.2 (<2.0) EU/dL Ur Leukocyte Esterase TRACE H (NEGATIVE) Urine RBC TOO NUMEROUS TO CT H (0-2/HPF) Urine WBC 5-8 (0-5/HPF) Ur Epithelial Cells FEW (NONE-FEW) Urine Bacteria FEW (NEGATIVE) Urine Mucus LIGHT (NONE-MOD) Urinalysis Comment Urine HCG, Qual NEGATIVE (NEGATIVE) SARS-CoV-2 RNA (FERNANDO) (NEGATIVE) Blood Type Antibody Screen Crossmatch 02/12/21 02/12/21 02/12/21 Range/Units 21:23 21:23 22:04 WBC (4.0-11.0) K/uL RBC (4.30-5.90) M/uL Hgb (12.0-16.0) g/dL Hct (36.0-46.0) % MCV (80.0-98.0) fL MCH (27.0-32.0) pg MCHC (31.0-37.0) g/dL RDW Std Deviation (28.0-62.0) fl RDW Coeff of Leslee (11.0-15.0) % Plt Count (150-400) K/uL MPV (7.40-12.00) fL Neut % (Auto) (48.0-80.0) % Lymph % (Auto) (16.0-40.0) % [place] % (Auto) (0.0-15.0) % Eos % (Auto) (0.0-7.0) % Baso % (Auto) (0.0-1.5) % Neut # (Auto) (1.4-5.7) K/uL Lymph # (Auto) (0.6-2.4) K/uL [place] # (Auto) (0.0-0.8) K/uL Eos # (Auto) (0.0-0.7) K/uL Baso # (Auto) (0.0-0.1) K/uL Nucleated RBC % /100WBC Nucleated RBCs # K/uL Lactate 1.3 (0.20-2.00) mmol/L Sodium 138 (136-145) mmol/L Potassium 3.8 (3.5-5.1) mmol/L Chloride 101 (98-107) mmol/L Carbon Dioxide 21.4 (21.0-32.0) mmol/L BUN 8 (7.0-18.0) mg/dL Creatinine 0.9 (0.6-1.0) mg/dL Est Cr Clr Drug Dosing TNP Estimated GFR (MDRD) > 60.0 ml/min Glucose 107 H (74-106) mg/dL Calcium 9.6 (8.5-10.1) mg/dL Total Bilirubin 0.4 (0.2-1.0) mg/dL AST 13 L (15-37) IU/L ALT 20 (14-63) IU/L Alkaline Phosphatase 100 (46-116) U/L Total Protein 8.3 H (6.4-8.2) g/dL Albumin 3.8 (3.4-5.0) g/dL Globulin 4.5 H (2.6-4.0) g/dL Albumin/Globulin Ratio 0.8 L (0.9-1.6) HCG, Quant 4.0 mIU/mL Urine Color Urine Appearance Urine pH (5.0-8.0) Ur Specific [place] (1.001-1.035) Urine Protein (NEGATIVE) mg/dL Urine Glucose (UA) (NEGATIVE) mg/dL Urine Ketones (NEGATIVE) mg/dL Urine Occult Blood (NEGATIVE) Urine Nitrite (NEGATIVE) Urine Bilirubin (NEGATIVE) Urine Ictotest Urine Urobilinogen (<2.0) EU/dL Ur Leukocyte Esterase (NEGATIVE) Urine RBC (0-2/HPF) Urine WBC (0-5/HPF) Ur Epithelial Cells (NONE-FEW) Urine Bacteria (NEGATIVE) Urine Mucus (NONE-MOD) Urinalysis Comment Urine HCG, Qual (NEGATIVE) SARS-CoV-2 RNA (FERNANDO) (NEGATIVE) Blood Type Antibody Screen Crossmatch 02/12/21 02/13/21 02/13/21 Range/Units 22:45 09:00 09:00 WBC (4.0-11.0) K/uL RBC (4.30-5.90) M/uL Hgb (12.0-16.0) g/dL Hct (36.0-46.0) % MCV (80.0-98.0) fL MCH (27.0-32.0) pg MCHC (31.0-37.0) g/dL RDW Std Deviation (28.0-62.0) fl RDW Coeff of Leslee (11.0-15.0) % Plt Count (150-400) K/uL MPV (7.40-12.00) fL Neut % (Auto) (48.0-80.0) % Lymph % (Auto) (16.0-40.0) % [place] % (Auto) (0.0-15.0) % Eos % (Auto) (0.0-7.0) % Baso % (Auto) (0.0-1.5) % Neut # (Auto) (1.4-5.7) K/uL Lymph # (Auto) (0.6-2.4) K/uL [place] # (Auto) (0.0-0.8) K/uL Eos # (Auto) (0.0-0.7) K/uL Baso # (Auto) (0.0-0.1) K/uL Nucleated RBC % /100WBC Nucleated RBCs # K/uL Lactate (0.20-2.00) mmol/L Sodium (136-145) mmol/L Potassium (3.5-5.1) mmol/L Chloride (98-107) mmol/L Carbon Dioxide (21.0-32.0) mmol/L BUN (7.0-18.0) mg/dL Creatinine (0.6-1.0) mg/dL Est Cr Clr Drug Dosing Estimated GFR (MDRD) ml/min Glucose (74-106) mg/dL Calcium (8.5-10.1) mg/dL Total Bilirubin (0.2-1.0) mg/dL AST (15-37) IU/L ALT (14-63) IU/L Alkaline Phosphatase (46-116) U/L Total Protein (6.4-8.2) g/dL Albumin (3.4-5.0) g/dL Globulin (2.6-4.0) g/dL Albumin/Globulin Ratio (0.9-1.6) HCG, Quant mIU/mL Urine Color Urine Appearance Urine pH (5.0-8.0) Ur Specific [place] (1.001-1.035) Urine Protein (NEGATIVE) mg/dL Urine Glucose (UA) (NEGATIVE) mg/dL Urine Ketones (NEGATIVE) mg/dL Urine Occult Blood (NEGATIVE) Urine Nitrite (NEGATIVE) Urine Bilirubin (NEGATIVE) Urine Ictotest Urine Urobilinogen (<2.0) EU/dL Ur Leukocyte Esterase (NEGATIVE) Urine RBC (0-2/HPF) Urine WBC (0-5/HPF) Ur Epithelial Cells (NONE-FEW) Urine Bacteria (NEGATIVE) Urine Mucus (NONE-MOD) Urinalysis Comment Urine HCG, Qual (NEGATIVE) SARS-CoV-2 RNA (FERNANDO) NEGATIVE (NEGATIVE) Blood Type A POSITIVE Antibody Screen NEGATIVE Crossmatch See Detail 02/13/21 Range/Units 11:02 WBC 15.41 H (4.0-11.0) K/uL RBC 3.35 L (4.30-5.90) M/uL Hgb 9.7 L (12.0-16.0) g/dL Hct 30.3 L (36.0-46.0) % MCV 90.4 (80.0-98.0) fL MCH 29.0 (27.0-32.0) pg MCHC 32.0 (31.0-37.0) g/dL RDW Std Deviation 46.0 (28.0-62.0) fl RDW Coeff of Leslee 14 (11.0-15.0) % Plt Count 243 (150-400) K/uL MPV 9.40 (7.40-12.00) fL Neut % (Auto) 87.0 H (48.0-80.0) % Lymph % (Auto) 10.0 L (16.0-40.0) % [place] % (Auto) 2.8 (0.0-15.0) % Eos % (Auto) 0.1 (0.0-7.0) % Baso % (Auto) 0.1 (0.0-1.5) % Neut # (Auto) 13.4 H (1.4-5.7) K/uL Lymph # (Auto) 1.5 (0.6-2.4) K/uL [place] # (Auto) 0.4 (0.0-0.8) K/uL Eos # (Auto) 0.0 (0.0-0.7) K/uL Baso # (Auto) 0.0 (0.0-0.1) K/uL Nucleated RBC % 0.0 /100WBC Nucleated RBCs # 0 K/uL Lactate (0.20-2.00) mmol/L Sodium (136-145) mmol/L Potassium (3.5-5.1) mmol/L Chloride (98-107) mmol/L Carbon Dioxide (21.0-32.0) mmol/L BUN (7.0-18.0) mg/dL Creatinine (0.6-1.0) mg/dL Est Cr Clr Drug Dosing Estimated GFR (MDRD) ml/min Glucose (74-106) mg/dL Calcium (8.5-10.1) mg/dL Total Bilirubin (0.2-1.0) mg/dL AST (15-37) IU/L ALT (14-63) IU/L Alkaline Phosphatase (46-116) U/L Total Protein (6.4-8.2) g/dL Albumin (3.4-5.0) g/dL Globulin (2.6-4.0) g/dL Albumin/Globulin Ratio (0.9-1.6) HCG, Quant mIU/mL Urine Color Urine Appearance Urine pH (5.0-8.0) Ur Specific [place] (1.001-1.035) Urine Protein (NEGATIVE) mg/dL Urine Glucose (UA) (NEGATIVE) mg/dL Urine Ketones (NEGATIVE) mg/dL Urine Occult Blood (NEGATIVE) Urine Nitrite (NEGATIVE) Urine Bilirubin (NEGATIVE) Urine Ictotest Urine Urobilinogen (<2.0) EU/dL Ur Leukocyte Esterase (NEGATIVE) Urine RBC (0-2/HPF) Urine WBC (0-5/HPF) Ur Epithelial Cells (NONE-FEW) Urine Bacteria (NEGATIVE) Urine Mucus (NONE-MOD) Urinalysis Comment Urine HCG, Qual (NEGATIVE) SARS-CoV-2 RNA (FERNANDO) (NEGATIVE) Blood Type Antibody Screen Crossmatch Med Orders - Current: Current Medications Hydromorphone HCl (Hydromorphone 1 Mg/Ml Syringe) 0.5 mg IVPUSH ONETIME PRN PRN Reason: Other Last Admin: 02/13/21 03:13 Dose: 0.5 mg Documented by: Piperacillin Sod/Tazobactam (Sod 3.375 gm/ Sodium Chloride) 50 mls @ 100 mls/hr IV Q8H [facility] Last Admin: 02/13/21 05:27 Dose: 100 mls/hr Documented by: Lactated Ringer's (Ringers, Lactated) 1,000 mls @ 200 mls/hr IV ASDIRECTED [facility] Last Admin: 02/13/21 06:34 Dose: 125 mls/hr Documented by: Pantoprazole Sodium 40 mg/ (Sodium Chloride) 10 mls @ 300 mls/hr IV DAILY@0700 [facility] Last Admin: 02/13/21 06:26 Dose: 300 mls/hr Documented by: Vancomycin HCl 1.25 gm/ Sodium (Chloride) 250 mls @ 166.667 mls/hr IV Q8H [facility] Last Admin: 02/13/21 08:05 Dose: 166.667 mls/hr Documented by: Morphine Sulfate (Morphine 2 Mg/Ml Syringe) 2 mg IVPUSH Q2H PRN PRN Reason: Pain Last Admin: 02/13/21 09:22 Dose: 2 mg Documented by: Ondansetron HCl (Ondansetron 4 Mg/2 Ml Sdv) 4 mg IVPUSH Q6H PRN PRN Reason: Nausea/Vomiting Last Admin: 02/13/21 09:24 Dose: 4 mg Documented by: Vancomycin HCl (Pharmacy To Dose - Vancomycin) 1 dose .XX ASDIRECTED [facility] Discontinued Medications Fentanyl (Fentanyl 50 Mcg/Ml Sdv) 100 mcg IVPUSH ONETIME ONE Stop: 02/12/21 21:50 Last Admin: 02/12/21 22:07 Dose: 100 mcg Documented by: Fentanyl (Fentanyl 100 Mcg/2 Ml Sdv) 50 mcg IVPUSH Q5M PRN PRN Reason: Pain Last Admin: 02/13/21 12:40 Dose: 50 mcg Documented by: Fentanyl (Fentanyl 100 Mcg/2 Ml Sdv) Confirm Administered Dose 100 mcg .ROUTE .STK-MED ONE Stop: 02/13/21 11:13 Fentanyl (Fentanyl 100 Mcg/2 Ml Sdv) Confirm Administered Dose 100 mcg .ROUTE .STK-MED ONE Stop: 02/13/21 11:52 Glycopyrrolate (Glycopyrrolate 0.2 Mg/Ml Sdv) Confirm Administered Dose 0.2 mg .ROUTE .STK-MED ONE Stop: 02/13/21 11:15 Hydromorphone HCl (Hydromorphone 1 Mg/Ml Syringe) 1 mg IVPUSH ONETIME ONE Stop: 02/12/21 23:49 Last Admin: 02/13/21 00:04 Dose: 1 mg Documented by: Hydromorphone HCl (Hydromorphone 1 Mg/Ml Syringe) 1 mg IVPUSH ONETIME ONE Stop: 02/13/21 04:07 Last Admin: 02/13/21 04:08 Dose: 1 mg Documented by: Hydromorphone HCl (Hydromorphone 1 Mg/Ml Syringe) Confirm Administered Dose 1 mg .ROUTE .STK-MED ONE Stop: 02/13/21 04:07 Last Admin: 02/13/21 05:33 Dose: Not Given Documented by: Sodium Chloride (Normal Saline) 1,000 mls @ 999 mls/hr IV NOW STA Stop: 02/12/21 22:32 Last Admin: 02/12/21 22:06 Dose: 999 mls/hr Documented by: Sodium Chloride (Normal Saline) 1,000 mls @ 999 mls/hr IV .Bolus ONE Stop: 02/12/21 22:49 Last Admin: 02/12/21 22:07 Dose: 999 mls/hr Documented by: Vancomycin HCl 1.5 gm/ (Dextrose/Water) 250 mls @ 167 mls/hr IV ONETIME ONE Stop: 02/12/21 23:23 Last Admin: 02/12/21 22:50 Dose: Not Given Documented by: Piperacillin Sod/Tazobactam (Sod 3.375 gm/ Sodium Chloride) 50 mls @ 100 mls/hr IV ONETIME ONE Stop: 02/12/21 22:26 Last Admin: 02/12/21 22:07 Dose: 100 mls/hr Documented by: Vancomycin HCl 1.5 gm/ Premix 300 mls @ 200 mls/hr IV ONETIME ONE Stop: 02/12/21 23:59 Last Admin: 02/12/21 22:40 Dose: 200 mls/hr Documented by: Vancomycin HCl (Vancomycin 1.25 Gm/250 Ml) 250 mls @ 250 mls/hr IV Q8H [facility] Last Admin: 02/13/21 07:39 Dose: Not Given Documented by: Acetaminophen 1,000 mg/ Premix 100 mls @ 400 mls/hr IV Q6H PRN PRN Reason: Pain Last Admin: 02/13/21 12:33 Dose: 400 mls/hr Documented by: Iopamidol (Iopamidol 755 Mg/Ml 500 Ml Multipack Bottle) 100 ml IVPUSH ONETIME STA Stop: 02/12/21 22:40 Last Admin: 02/12/21 22:39 Dose: 100 ml Documented by: Ketorolac Tromethamine (Ketorolac 30 Mg/Ml Sdv) Confirm Administered Dose 0 mg .ROUTE .STK-MED ONE Stop: 02/13/21 11:15 Lidocaine (Lidocaine 2% 5 Ml Sdv) Confirm Administered Dose 5 ml .ROUTE .STK-MED ONE Stop: 02/13/21 11:15 Methylergonovine Maleate (Methylergonovine 0.2 Mg/1 Ml Amp) Confirm Administered Dose 0.2 mg .ROUTE .STK-MED ONE Stop: 02/13/21 11:58 Midazolam HCl (Midazolam 1 Mg/Ml 2 Ml Sdv) Confirm Administered Dose 2 mg .ROUTE .STK-MED ONE Stop: 02/13/21 11:14 Ondansetron HCl (Ondansetron 4 Mg/2 Ml Sdv) 4 mg IVPUSH ONETIME ONE Stop: 02/12/21 21:50 Last Admin: 02/12/21 22:07 Dose: 4 mg Documented by: Ondansetron HCl (Ondansetron 4 Mg/2 Ml Sdv) Confirm Administered Dose 4 mg .ROUTE .STK-MED ONE Stop: 02/13/21 11:15 Pantoprazole Sodium (Pantoprazole 40 Mg Vial) 40 mg IVPUSH Q12H DANNY Last Admin: 02/12/21 22:07 Dose: 40 mg Documented by: Propofol (Propofol 200 Mg/20 Ml Sdv) Confirm Administered Dose 200 mg .ROUTE .STK-MED ONE Stop: 02/13/21 11:13 - Patient Data Lab Results Last 24 hrs: Laboratory Results - last 24 hr 02/12/21 02/12/21 02/12/21 Range/Units 21:15 21:15 21:23 WBC 19.69 H (4.0-11.0) K/uL RBC 4.10 L (4.30-5.90) M/uL Hgb 11.8 L (12.0-16.0) g/dL Hct 37.2 (36.0-46.0) % MCV 90.7 (80.0-98.0) fL MCH 28.8 (27.0-32.0) pg MCHC 31.7 (31.0-37.0) g/dL RDW Std Deviation 45.8 (28.0-62.0) fl RDW Coeff of Leslee 14 (11.0-15.0) % Plt Count 336 (150-400) K/uL MPV 10.00 (7.40-12.00) fL Neut % (Auto) 85.7 H (48.0-80.0) % Lymph % (Auto) 10.6 L (16.0-40.0) % [place] % (Auto) 2.9 (0.0-15.0) % Eos % (Auto) 0.6 (0.0-7.0) % Baso % (Auto) 0.2 (0.0-1.5) % Neut # (Auto) 16.9 H (1.4-5.7) K/uL Lymph # (Auto) 2.1 (0.6-2.4) K/uL [place] # (Auto) 0.6 (0.0-0.8) K/uL Eos # (Auto) 0.1 (0.0-0.7) K/uL Baso # (Auto) 0.0 (0.0-0.1) K/uL Nucleated RBC % 0.0 /100WBC Nucleated RBCs # 0 K/uL Lactate (0.20-2.00) mmol/L Sodium (136-145) mmol/L Potassium (3.5-5.1) mmol/L Chloride (98-107) mmol/L Carbon Dioxide (21.0-32.0) mmol/L BUN (7.0-18.0) mg/dL Creatinine (0.6-1.0) mg/dL Est Cr Clr Drug Dosing Estimated GFR (MDRD) ml/min Glucose (74-106) mg/dL Calcium (8.5-10.1) mg/dL Total Bilirubin (0.2-1.0) mg/dL AST (15-37) IU/L ALT (14-63) IU/L Alkaline Phosphatase (46-116) U/L Total Protein (6.4-8.2) g/dL Albumin (3.4-5.0) g/dL Globulin (2.6-4.0) g/dL Albumin/Globulin Ratio (0.9-1.6) HCG, Quant mIU/mL Urine Color RED Urine Appearance CLOUDY Urine pH 6.0 (5.0-8.0) Ur Specific [place] >= 1.030 (1.001-1.035) Urine Protein 100 H (NEGATIVE) mg/dL Urine Glucose (UA) NEGATIVE (NEGATIVE) mg/dL Urine Ketones >=80 (NEGATIVE) mg/dL Urine Occult Blood LARGE H (NEGATIVE) Urine Nitrite NEGATIVE (NEGATIVE) Urine Bilirubin SMALL H (NEGATIVE) Urine Ictotest NEGATIVE Urine Urobilinogen 0.2 (<2.0) EU/dL Ur Leukocyte Esterase TRACE H (NEGATIVE) Urine RBC TOO NUMEROUS TO CT H (0-2/HPF) Urine WBC 5-8 (0-5/HPF) Ur Epithelial Cells FEW (NONE-FEW) Urine Bacteria FEW (NEGATIVE) Urine Mucus LIGHT (NONE-MOD) Urinalysis Comment Urine HCG, Qual NEGATIVE (NEGATIVE) SARS-CoV-2 RNA (FERNANDO) (NEGATIVE) Blood Type Antibody Screen Crossmatch 02/12/21 02/12/21 02/12/21 Range/Units 21:23 21:23 22:04 WBC (4.0-11.0) K/uL RBC (4.30-5.90) M/uL Hgb (12.0-16.0) g/dL Hct (36.0-46.0) % MCV (80.0-98.0) fL MCH (27.0-32.0) pg MCHC (31.0-37.0) g/dL RDW Std Deviation (28.0-62.0) fl RDW Coeff of Leslee (11.0-15.0) % Plt Count (150-400) K/uL MPV (7.40-12.00) fL Neut % (Auto) (48.0-80.0) % Lymph % (Auto) (16.0-40.0) % [place] % (Auto) (0.0-15.0) % Eos % (Auto) (0.0-7.0) % Baso % (Auto) (0.0-1.5) % Neut # (Auto) (1.4-5.7) K/uL Lymph # (Auto) (0.6-2.4) K/uL [place] # (Auto) (0.0-0.8) K/uL Eos # (Auto) (0.0-0.7) K/uL Baso # (Auto) (0.0-0.1) K/uL Nucleated RBC % /100WBC Nucleated RBCs # K/uL Lactate 1.3 (0.20-2.00) mmol/L Sodium 138 (136-145) mmol/L Potassium 3.8 (3.5-5.1) mmol/L Chloride 101 (98-107) mmol/L Carbon Dioxide 21.4 (21.0-32.0) mmol/L BUN 8 (7.0-18.0) mg/dL Creatinine 0.9 (0.6-1.0) mg/dL Est Cr Clr Drug Dosing TNP Estimated GFR (MDRD) > 60.0 ml/min Glucose 107 H (74-106) mg/dL Calcium 9.6 (8.5-10.1) mg/dL Total Bilirubin 0.4 (0.2-1.0) mg/dL AST 13 L (15-37) IU/L ALT 20 (14-63) IU/L Alkaline Phosphatase 100 (46-116) U/L Total Protein 8.3 H (6.4-8.2) g/dL Albumin 3.8 (3.4-5.0) g/dL Globulin 4.5 H (2.6-4.0) g/dL Albumin/Globulin Ratio 0.8 L (0.9-1.6) HCG, Quant 4.0 mIU/mL Urine Color Urine Appearance Urine pH (5.0-8.0) Ur Specific [place] (1.001-1.035) Urine Protein (NEGATIVE) mg/dL Urine Glucose (UA) (NEGATIVE) mg/dL Urine Ketones (NEGATIVE) mg/dL Urine Occult Blood (NEGATIVE) Urine Nitrite (NEGATIVE) Urine Bilirubin (NEGATIVE) Urine Ictotest Urine Urobilinogen (<2.0) EU/dL Ur Leukocyte Esterase (NEGATIVE) Urine RBC (0-2/HPF) Urine WBC (0-5/HPF) Ur Epithelial Cells (NONE-FEW) Urine Bacteria (NEGATIVE) Urine Mucus (NONE-MOD) Urinalysis Comment Urine HCG, Qual (NEGATIVE) SARS-CoV-2 RNA (FERNANDO) (NEGATIVE) Blood Type Antibody Screen Crossmatch 02/12/21 02/13/21 02/13/21 Range/Units 22:45 09:00 09:00 WBC (4.0-11.0) K/uL RBC (4.30-5.90) M/uL Hgb (12.0-16.0) g/dL Hct (36.0-46.0) % MCV (80.0-98.0) fL MCH (27.0-32.0) pg MCHC (31.0-37.0) g/dL RDW Std Deviation (28.0-62.0) fl RDW Coeff of Leslee (11.0-15.0) % Plt Count (150-400) K/uL MPV (7.40-12.00) fL Neut % (Auto) (48.0-80.0) % Lymph % (Auto) (16.0-40.0) % [place] % (Auto) (0.0-15.0) % Eos % (Auto) (0.0-7.0) % Baso % (Auto) (0.0-1.5) % Neut # (Auto) (1.4-5.7) K/uL Lymph # (Auto) (0.6-2.4) K/uL [place] # (Auto) (0.0-0.8) K/uL Eos # (Auto) (0.0-0.7) K/uL Baso # (Auto) (0.0-0.1) K/uL Nucleated RBC % /100WBC Nucleated RBCs # K/uL Lactate (0.20-2.00) mmol/L Sodium (136-145) mmol/L Potassium (3.5-5.1) mmol/L Chloride (98-107) mmol/L Carbon Dioxide (21.0-32.0) mmol/L BUN (7.0-18.0) mg/dL Creatinine (0.6-1.0) mg/dL Est Cr Clr Drug Dosing Estimated GFR (MDRD) ml/min Glucose (74-106) mg/dL Calcium (8.5-10.1) mg/dL Total Bilirubin (0.2-1.0) mg/dL AST (15-37) IU/L ALT (14-63) IU/L Alkaline Phosphatase (46-116) U/L Total Protein (6.4-8.2) g/dL Albumin (3.4-5.0) g/dL Globulin (2.6-4.0) g/dL Albumin/Globulin Ratio (0.9-1.6) HCG, Quant mIU/mL Urine Color Urine Appearance Urine pH (5.0-8.0) Ur Specific [place] (1.001-1.035) Urine Protein (NEGATIVE) mg/dL Urine Glucose (UA) (NEGATIVE) mg/dL Urine Ketones (NEGATIVE) mg/dL Urine Occult Blood (NEGATIVE) Urine Nitrite (NEGATIVE) Urine Bilirubin (NEGATIVE) Urine Ictotest Urine Urobilinogen (<2.0) EU/dL Ur Leukocyte Esterase (NEGATIVE) Urine RBC (0-2/HPF) Urine WBC (0-5/HPF) Ur Epithelial Cells (NONE-FEW) Urine Bacteria (NEGATIVE) Urine Mucus (NONE-MOD) Urinalysis Comment Urine HCG, Qual (NEGATIVE) SARS-CoV-2 RNA (FERNANDO) NEGATIVE (NEGATIVE) Blood Type A POSITIVE Antibody Screen NEGATIVE Crossmatch See Detail 02/13/21 Range/Units 11:02 WBC 15.41 H (4.0-11.0) K/uL RBC 3.35 L (4.30-5.90) M/uL Hgb 9.7 L (12.0-16.0) g/dL Hct 30.3 L (36.0-46.0) % MCV 90.4 (80.0-98.0) fL MCH 29.0 (27.0-32.0) pg MCHC 32.0 (31.0-37.0) g/dL RDW Std Deviation 46.0 (28.0-62.0) fl RDW Coeff of Leslee 14 (11.0-15.0) % Plt Count 243 (150-400) K/uL MPV 9.40 (7.40-12.00) fL Neut % (Auto) 87.0 H (48.0-80.0) % Lymph % (Auto) 10.0 L (16.0-40.0) % [place] % (Auto) 2.8 (0.0-15.0) % Eos % (Auto) 0.1 (0.0-7.0) % Baso % (Auto) 0.1 (0.0-1.5) % Neut # (Auto) 13.4 H (1.4-5.7) K/uL Lymph # (Auto) 1.5 (0.6-2.4) K/uL [place] # (Auto) 0.4 (0.0-0.8) K/uL Eos # (Auto) 0.0 (0.0-0.7) K/uL Baso # (Auto) 0.0 (0.0-0.1) K/uL Nucleated RBC % 0.0 /100WBC Nucleated RBCs # 0 K/uL Lactate (0.20-2.00) mmol/L Sodium (136-145) mmol/L Potassium (3.5-5.1) mmol/L Chloride (98-107) mmol/L Carbon Dioxide (21.0-32.0) mmol/L BUN (7.0-18.0) mg/dL Creatinine (0.6-1.0) mg/dL Est Cr Clr Drug Dosing Estimated GFR (MDRD) ml/min Glucose (74-106) mg/dL Calcium (8.5-10.1) mg/dL Total Bilirubin (0.2-1.0) mg/dL AST (15-37) IU/L ALT (14-63) IU/L Alkaline Phosphatase (46-116) U/L Total Protein (6.4-8.2) g/dL Albumin (3.4-5.0) g/dL Globulin (2.6-4.0) g/dL Albumin/Globulin Ratio (0.9-1.6) HCG, Quant mIU/mL Urine Color Urine Appearance Urine pH (5.0-8.0) Ur Specific [place] (1.001-1.035) Urine Protein (NEGATIVE) mg/dL Urine Glucose (UA) (NEGATIVE) mg/dL Urine Ketones (NEGATIVE) mg/dL Urine Occult Blood (NEGATIVE) Urine Nitrite (NEGATIVE) Urine Bilirubin (NEGATIVE) Urine Ictotest Urine Urobilinogen (<2.0) EU/dL Ur Leukocyte Esterase (NEGATIVE) Urine RBC (0-2/HPF) Urine WBC (0-5/HPF) Ur Epithelial Cells (NONE-FEW) Urine Bacteria (NEGATIVE) Urine Mucus (NONE-MOD) Urinalysis Comment Urine HCG, Qual (NEGATIVE) SARS-CoV-2 RNA (FERNANDO) (NEGATIVE) Blood Type Antibody Screen Crossmatch Result Diagrams: 02/13/21 11:02 02/12/21 21:23 Sepsis Event Note - Evaluation Sepsis Screening Result: Sepsis Risk - Focused Exam Vital Signs: Vital Signs Temp Temp Pulse Resp BP Pulse Ox Pulse Ox 02/13/21 13:14 98.1 F 110 H 16 107/60 94 L 02/13/21 12:50 112 H 15 100/57 L 94 L 02/13/21 12:45 104 H 18 99/54 L 94 L 02/13/21 12:40 104 H 18 102/53 L 94 L 02/13/21 12:35 102 H 20 101/50 L 93 L 02/13/21 12:30 140 H 19 105/50 L 96 02/13/21 12:25 142 H 15 105/60 96 02/13/21 12:20 97.5 F 130 H 16 113/58 L 96 02/13/21 09:24 119/72 02/13/21 08:00 99/48 L 02/13/21 07:38 98.1 F 113 H 22 H 97/48 L 95 02/13/21 05:05 97 02/13/21 04:20 99.6 F 111 H 18 107/53 L 97 02/13/21 03:05 100 F 107 H 18 111/54 L 100
--- NOTE | 2021-02-13 15:39 | OR ---
SURGEON: Keena Oakes M.D. DATE OF PROCEDURE: 02/13/2021 PREOPERATIVE DIAGNOSIS: Retained products of conception. POSTOPERATIVE DIAGNOSIS: Retained products of conception. PROCEDURE: Suction dilatation and curettage. PRIMARY SURGEON: Keena Oakes M.D. ANESTHESIA: General LMA. ESTIMATED BLOOD LOSS: 50 mL. FINDINGS: Preoperatively, the uterus met was 12 week size and the cervix was dilated to 3 to 4 cm with tissue at the os. Postoperatively, the uterus was approximately eight-week size, firm with minimal bleeding. COMPLICATIONS: None known. DISPOSITION: Stable to Recovery. PATHOLOGY SPECIMEN: Products of conception. BRIEF HISTORY: This is a 20-year-old female, G1, P1. She is eight weeks . She did have an acute hemorrhage after delivery and received 4 units of packed red blood cells. At that time, manual exploration of the uterus was performed. The placenta was sent to Pathology and did come back with a report saying that the placenta was intact. She was subsequently admitted with a diagnosis of urosepsis and discharged with followup in the clinic. At the time of her appointment in the clinic, ultrasound was ordered. However, the patient was unable to make that appointment and then presented again to the emergency room again with a working diagnosis of urosepsis. She did have E coli on her urine culture that was obtained in clinic and ultrasound and CT showed markedly thickened endometrium, 6 to 7 cm, with a distended lower uterine segment and although there was no Doppler performed at this time and a negative Doppler flow on prior studies, the decision was made to proceed with exam under anesthesia, as well as suction dilatation and curettage for suspected retained products of conception with risks reviewed including bleeding, infection, injury to surrounding organs, uterine perforation, thromboembolic event, and anesthesia. Understanding all these risks, she does desire to proceed. Notably, she did not receive immediate perioperative prophylaxis as she has been on vancomycin and Zosyn preoperatively. DESCRIPTION OF PROCEDURE: With the patient in dorsal lithotomy position and under adequate general LMA analgesia, the perineum and vagina were prepped with Betadine and draped in usual fashion for vaginal surgery. The bladder was drained with a red Zuniga catheter. SCDs were in place. An appropriate time-out was held. Bimanual examination was performed with findings as noted above, and using manual extraction, I was able to enter the lower uterine segment and remove the intact large piece of placenta. This being completed, I then proceeded with suction curettage using a 12 mm suction curette with vacuum and there was no further tissue obtained. There was minimal bleeding. She did receive Methergine IM. I did perform ultrasound following the procedure and the endometrial thickness was 9 mm. Therefore, all the instruments were removed from the vagina. Bimanual examination revealed a very firm, eight-week size uterus with minimal bleeding. Final sponge, needle, and instrument counts were reported as correct. There were no known complications. The patient was transferred to Recovery in good condition. BREE DOMINIQUE /[id number]
[2021-02-13] MEDS: Acetaminophen 325 MG Tab PO PRN (16:49)
[2021-02-14] MEDS: Acetaminophen 325 MG Tab PO PRN ×2 (00:19→11:38)
[2021-02-14] MEDS: Lactated Ringers 1,000 ML IV SCH ×3 (03:00→21:30)
[2021-02-14 06:17] LABS: BLOOD UREA NITROGEN,BUN 3 mg/dL (7.0-18.0); CARBON DIOXIDE,CO2 22.4 mmol/L (21.0-32.0); CHLORIDE,CL 111 mmol/L (98-107); GLUCOSE RANDOM 78 mg/dL (74-106); SODIUM,NA 144 mmol/L (136-145)
[2021-02-14] MEDS: Pantoprazole 40 MG in Sodium Chloride 0.9% 10 ML IV SCH (06:40)
[2021-02-14] MEDS: Piperacillin/Tazobactam 3.375 GM in Sodium Chloride 0.9% 50 ML IV SCH ×2 (09:00→16:17)
[2021-02-14] MEDS: Vancomycin 125 MG Cap PO SCH ×3 (09:05→19:54)
--- NOTE | 2021-02-14 09:07 | PCM.SURGPN ---
- General Info Date of Service: 02/14/21 Date of Surgery/Procedure: 02/13/21 POD#: 1 Post-Op Diagnosis: retained products of conception, endometritis Functional Status: Reports: Pain Controlled, Tolerating Diet, Ambulating, Urinating - Review of Systems General: Reports: No Symptoms HEENT: Reports: No Symptoms Pulmonary: Reports: No Symptoms Cardiovascular: Reports: No Symptoms Gastrointestinal: Reports: No Symptoms Genitourinary: Reports: No Symptoms Musculoskeletal: Reports: No Symptoms Skin: Reports: No Symptoms Neurological: Reports: No Symptoms Psychiatric: Reports: No Symptoms - Patient Data Vitals - Most Recent: Last Vital Signs Temp 36.4 C 02/14/21 07:36 Pulse 82 02/14/21 07:36 Resp 16 02/14/21 07:36 BP 102/62 02/14/21 07:36 Pulse Ox 100 02/14/21 07:36 Weight - Most Recent: 76.1 kg I&O - Last 24 Hours: Intake & Output 02/13/21 02/14/21 02/14/21 22:59 06:59 14:59 Intake Total 2260 820 Output Total 1400 800 Balance 860 20 Lab Results Last 24 Hrs: Laboratory Results - last 24 hr 02/13/21 02/13/21 02/13/21 Range/Units 09:00 09:00 11:02 WBC 15.41 H (4.0-11.0) K/uL RBC 3.35 L (4.30-5.90) M/uL Hgb 9.7 L (12.0-16.0) g/dL Hct 30.3 L (36.0-46.0) % MCV 90.4 (80.0-98.0) fL MCH 29.0 (27.0-32.0) pg MCHC 32.0 (31.0-37.0) g/dL RDW Std Deviation 46.0 (28.0-62.0) fl RDW Coeff of Leslee 14 (11.0-15.0) % Plt Count 243 (150-400) K/uL MPV 9.40 (7.40-12.00) fL Neut % (Auto) 87.0 H (48.0-80.0) % Lymph % (Auto) 10.0 L (16.0-40.0) % Surry % (Auto) 2.8 (0.0-15.0) % Eos % (Auto) 0.1 (0.0-7.0) % Baso % (Auto) 0.1 (0.0-1.5) % Neut # (Auto) 13.4 H (1.4-5.7) K/uL Lymph # (Auto) 1.5 (0.6-2.4) K/uL Surry # (Auto) 0.4 (0.0-0.8) K/uL Eos # (Auto) 0.0 (0.0-0.7) K/uL Baso # (Auto) 0.0 (0.0-0.1) K/uL Nucleated RBC % 0.0 /100WBC Nucleated RBCs # 0 K/uL Sodium (136-145) mmol/L Potassium (3.5-5.1) mmol/L Chloride (98-107) mmol/L Carbon Dioxide (21.0-32.0) mmol/L BUN (7.0-18.0) mg/dL Creatinine (0.6-1.0) mg/dL Est Cr Clr Drug Dosing mL/min Estimated GFR (MDRD) ml/min Glucose (74-106) mg/dL Calcium (8.5-10.1) mg/dL Blood Type A POSITIVE Antibody Screen NEGATIVE Crossmatch See Detail 02/13/21 02/14/21 02/14/21 Range/Units 15:25 05:04 05:04 WBC 6.85 (4.0-11.0) K/uL RBC 3.07 L (4.30-5.90) M/uL Hgb 9.5 L 8.8 L (12.0-16.0) g/dL Hct 29.3 L 28.0 L (36.0-46.0) % MCV 91.2 (80.0-98.0) fL MCH 28.7 (27.0-32.0) pg MCHC 31.4 (31.0-37.0) g/dL RDW Std Deviation 46.5 (28.0-62.0) fl RDW Coeff of Leslee 14 (11.0-15.0) % Plt Count 233 (150-400) K/uL MPV 10.00 (7.40-12.00) fL Neut % (Auto) 62.6 (48.0-80.0) % Lymph % (Auto) 28.2 (16.0-40.0) % Surry % (Auto) 5.1 (0.0-15.0) % Eos % (Auto) 3.8 (0.0-7.0) % Baso % (Auto) 0.3 (0.0-1.5) % Neut # (Auto) 4.3 (1.4-5.7) K/uL Lymph # (Auto) 1.9 (0.6-2.4) K/uL Surry # (Auto) 0.4 (0.0-0.8) K/uL Eos # (Auto) 0.3 (0.0-0.7) K/uL Baso # (Auto) 0.0 (0.0-0.1) K/uL Nucleated RBC % 0.0 /100WBC Nucleated RBCs # 0 K/uL Sodium 144 (136-145) mmol/L Potassium 4.0 (3.5-5.1) mmol/L Chloride 111 H (98-107) mmol/L Carbon Dioxide 22.4 (21.0-32.0) mmol/L BUN 3 L (7.0-18.0) mg/dL Creatinine 0.7 (0.6-1.0) mg/dL Est Cr Clr Drug Dosing 109.78 mL/min Estimated GFR (MDRD) > 60.0 ml/min Glucose 78 (74-106) mg/dL Calcium 8.0 L (8.5-10.1) mg/dL Blood Type Antibody Screen Crossmatch Chava Results Last 24 Hrs: Microbiology 02/12/21 21:23 Aerobic Blood Culture - Preliminary Blood - Venous NO GROWTH AFTER 1 DAY Anaerobic Blood Culture - Preliminary 02/12/21 22:04 Aerobic Blood Culture - Preliminary Blood - Venous - Lab Draw NO GROWTH AFTER 1 DAY Anaerobic Blood Culture - Preliminary NO GROWTH AFTER 1 DAY 02/12/21 16:25 C. difficile Antigen & Toxins A,B - Final Stool / Feces Med Orders - Current: Current Medications Acetaminophen (Acetaminophen 325 Mg Tab) 650 mg PO Q4H PRN PRN Reason: Pain Last Admin: 02/14/21 00:19 Dose: 650 mg Documented by: Hydromorphone HCl (Hydromorphone 1 Mg/Ml Syringe) 0.5 mg IVPUSH ONETIME PRN PRN Reason: Other Last Admin: 02/13/21 03:13 Dose: 0.5 mg Documented by: Lactated Ringer's (Ringers, Lactated) 1,000 mls @ 150 mls/hr IV ASDIRECTED [facility] Last Admin: 02/14/21 03:00 Dose: 150 mls/hr Documented by: Pantoprazole Sodium 40 mg/ (Sodium Chloride) 10 mls @ 300 mls/hr IV DAILY@0700 [facility] Last Admin: 02/14/21 06:40 Dose: 300 mls/hr Documented by: Vancomycin HCl 1.25 gm/ Sodium (Chloride) 250 mls @ 166.667 mls/hr IV Q8H [facility] Last Admin: 02/14/21 00:21 Dose: 166.667 mls/hr Documented by: Piperacillin Sod/Tazobactam (Sod 3.375 gm/ Sodium Chloride) 50 mls @ 100 mls/hr IV Q8H [facility] Last Admin: 02/13/21 23:17 Dose: 100 mls/hr Documented by: Morphine Sulfate (Morphine 2 Mg/Ml Syringe) 2 mg IVPUSH Q2H PRN PRN Reason: Pain Last Admin: 02/13/21 22:36 Dose: 2 mg Documented by: Ondansetron HCl (Ondansetron 4 Mg/2 Ml Sdv) 4 mg IVPUSH Q6H PRN PRN Reason: Nausea/Vomiting Last Admin: 02/13/21 23:00 Dose: 4 mg Documented by: Vancomycin HCl (Pharmacy To Dose - Vancomycin) 1 dose .XX ASDIRECTED [facility] Vancomycin HCl (Vancomycin 125 Mg Cap) 125 mg PO Q6H [facility] Discontinued Medications Fentanyl (Fentanyl 50 Mcg/Ml Sdv) 100 mcg IVPUSH ONETIME ONE Stop: 02/12/21 21:50 Last Admin: 02/12/21 22:07 Dose: 100 mcg Documented by: Fentanyl (Fentanyl 100 Mcg/2 Ml Sdv) 50 mcg IVPUSH Q5M PRN PRN Reason: Pain Last Admin: 02/13/21 12:40 Dose: 50 mcg Documented by: Fentanyl (Fentanyl 100 Mcg/2 Ml Sdv) Confirm Administered Dose 100 mcg .ROUTE .STK-MED ONE Stop: 02/13/21 11:13 Fentanyl (Fentanyl 100 Mcg/2 Ml Sdv) Confirm Administered Dose 100 mcg .ROUTE .STK-MED ONE Stop: 02/13/21 11:52 Glycopyrrolate (Glycopyrrolate 0.2 Mg/Ml Sdv) Confirm Administered Dose 0.2 mg .ROUTE .STK-MED ONE Stop: 02/13/21 11:15 Hydromorphone HCl (Hydromorphone 1 Mg/Ml Syringe) 1 mg IVPUSH ONETIME ONE Stop: 02/12/21 23:49 Last Admin: 02/13/21 00:04 Dose: 1 mg Documented by: Hydromorphone HCl (Hydromorphone 1 Mg/Ml Syringe) 1 mg IVPUSH ONETIME ONE Stop: 02/13/21 04:07 Last Admin: 02/13/21 04:08 Dose: 1 mg Documented by: Hydromorphone HCl (Hydromorphone 1 Mg/Ml Syringe) Confirm Administered Dose 1 mg .ROUTE .STK-MED ONE Stop: 02/13/21 04:07 Last Admin: 02/13/21 05:33 Dose: Not Given Documented by: Sodium Chloride (Normal Saline) 1,000 mls @ 999 mls/hr IV NOW STA Stop: 02/12/21 22:32 Last Admin: 02/12/21 22:06 Dose: 999 mls/hr Documented by: Sodium Chloride (Normal Saline) 1,000 mls @ 999 mls/hr IV .Bolus ONE Stop: 02/12/21 22:49 Last Admin: 02/12/21 22:07 Dose: 999 mls/hr Documented by: Vancomycin HCl 1.5 gm/ (Dextrose/Water) 250 mls @ 167 mls/hr IV ONETIME ONE Stop: 02/12/21 23:23 Last Admin: 02/12/21 22:50 Dose: Not Given Documented by: Piperacillin Sod/Tazobactam (Sod 3.375 gm/ Sodium Chloride) 50 mls @ 100 mls/hr IV ONETIME ONE Stop: 02/12/21 22:26 Last Admin: 02/12/21 22:07 Dose: 100 mls/hr Documented by: Vancomycin HCl 1.5 gm/ Premix 300 mls @ 200 mls/hr IV ONETIME ONE Stop: 02/12/21 23:59 Last Admin: 02/12/21 22:40 Dose: 200 mls/hr Documented by: Piperacillin Sod/Tazobactam (Sod 3.375 gm/ Sodium Chloride) 50 mls @ 100 mls/hr IV Q8H [facility] Last Admin: 02/13/21 16:00 Dose: 100 mls/hr Documented by: Vancomycin HCl (Vancomycin 1.25 Gm/250 Ml) 250 mls @ 250 mls/hr IV Q8H [facility] Last Admin: 02/13/21 07:39 Dose: Not Given Documented by: Acetaminophen 1,000 mg/ Premix 100 mls @ 400 mls/hr IV Q6H PRN PRN Reason: Pain Last Admin: 02/13/21 12:33 Dose: 400 mls/hr Documented by: Iopamidol (Iopamidol 755 Mg/Ml 500 Ml Multipack Bottle) 100 ml IVPUSH ONETIME STA Stop: 02/12/21 22:40 Last Admin: 02/12/21 22:39 Dose: 100 ml Documented by: Ketorolac Tromethamine (Ketorolac 30 Mg/Ml Sdv) Confirm Administered Dose 0 mg .ROUTE .STK-MED ONE Stop: 02/13/21 11:15 Lidocaine (Lidocaine 2% 5 Ml Sdv) Confirm Administered Dose 5 ml .ROUTE .STK-MED ONE Stop: 02/13/21 11:15 Methylergonovine Maleate (Methylergonovine 0.2 Mg/1 Ml Amp) Confirm Administered Dose 0.2 mg .ROUTE .STK-MED ONE Stop: 02/13/21 11:58 Midazolam HCl (Midazolam 1 Mg/Ml 2 Ml Sdv) Confirm Administered Dose 2 mg .ROUTE .STK-MED ONE Stop: 02/13/21 11:14 Ondansetron HCl (Ondansetron 4 Mg/2 Ml Sdv) 4 mg IVPUSH ONETIME ONE Stop: 02/12/21 21:50 Last Admin: 02/12/21 22:07 Dose: 4 mg Documented by: Ondansetron HCl (Ondansetron 4 Mg/2 Ml Sdv) Confirm Administered Dose 4 mg .ROUTE .STK-MED ONE Stop: 02/13/21 11:15 Pantoprazole Sodium (Pantoprazole 40 Mg Vial) 40 mg IVPUSH Q12H [facility] Last Admin: 02/12/21 22:07 Dose: 40 mg Documented by: Propofol (Propofol 200 Mg/20 Ml Sdv) Confirm Administered Dose 200 mg .ROUTE .STK-MED ONE Stop: 02/13/21 11:13 - Exam General: Alert, Oriented Neck: Supple Lungs: Normal Respiratory Effort GI/Abdominal Exam: Soft, Non-Tender, No Mass Extremities: Non-Tender, No Pedal Edema Neurological: No New Focal Deficit Psy/Mental Status: Alert, Labile Mood, Anxious Sepsis Event Note - Evaluation Sepsis Screening Result: No Definite Risk - Focused Exam Vital Signs: Vital Signs Temp Temp Pulse Resp BP Pulse Ox 02/14/21 07:36 36.4 C 82 16 102/62 100 02/14/21 04:00 36.4 C 64 17 90/52 L 96 02/14/21 00:00 36.6 C 66 16 93/46 L 96 - Problem List & Annotations (1) Retained products of conception after delivery with complications SNOMED Code(s): 763657593, 540967513 Code(s): O73.1 - RETAINED PORTIONS OF PLACENTA AND MEMBRANES, W/O HEMORRHAGE Status: Acute Current Visit: Yes (2) Acute endomyometritis SNOMED Code(s): 08222766 Code(s): N71.0 - ACUTE INFLAMMATORY DISEASE OF UTERUS Status: Acute Current Visit: Yes - Problem List Review Problem List Initiated/Reviewed/Updated: Yes - My Orders Last 24 Hours: Active Orders 24 hr Category Date Time Status Verify Patient Consent Obtain [RC] PER UNIT ROUTINE Care 02/13/21 08:38 Active Regular Diet [DIET] Diet 02/13/21 Dinner Active CULTURE BLOOD [BC] Routine Lab 02/14/21 06:16 Received CULTURE BLOOD [BC] Routine Lab 02/14/21 06:27 Received RED BLOOD CELLS LP [BBK] Routine Lab 02/13/21 09:00 Results VANCOMYCIN TROUGH [CHEM] Routine Lab 02/14/21 07:30 Stop Req Acetaminophen [TylenoL] Med 02/13/21 16:33 Active 650 mg PO Q4H PRN Piperacillin/Tazobactam [Piperacil-Tazobact] 3.375 gm Med 02/14/21 00:00 Active Sodium Chloride 0.9% [Normal Saline] 50 ml IV Q8H Vancomycin 1.25 gm Med 02/13/21 08:00 Active Sodium Chloride 0.9% [Normal Saline (AdvBag)] 250 ml IV Q8H Vancomycin [Vancocin 125 MG Capsule] Med 02/14/21 08:00 Active 125 mg PO Q6H Peripheral IV Insertion Adult [OM.PC] Urgent Oth 02/13/21 08:38 Ordered Medication Orders Acetaminophen (Acetaminophen 325 Mg Tab) 650 mg PO Q4H PRN PRN Reason: Pain Last Admin: 02/14/21 00:19 Dose: 650 mg Documented by: Admin: 02/13/21 16:49 Dose: 650 mg Documented by: NISREEN Hydromorphone HCl (Hydromorphone 1 Mg/Ml Syringe) 0.5 mg IVPUSH ONETIME PRN PRN Reason: Other Last Admin: 02/13/21 03:13 Dose: 0.5 mg Documented by: TARIK Lactated Ringer's (Ringers, Lactated) 1,000 mls @ 150 mls/hr IV ASDIRECTED [facility] Last Admin: 02/14/21 03:00 Dose: 150 mls/hr Documented by: Infusion: 02/13/21 23:34 Dose: 150 mls/hr Documented by: Admin: 02/13/21 16:53 Dose: 150 mls/hr Documented by: Infusion: 02/13/21 14:34 Dose: 125 mls/hr Documented by: Admin: 02/13/21 06:34 Dose: 125 mls/hr Documented by: RUSTY Pantoprazole Sodium 40 mg/ (Sodium Chloride) 10 mls @ 300 mls/hr IV DAILY@0700 [facility] Last Admin: 02/14/21 06:40 Dose: 300 mls/hr Documented by: Infusion: 02/13/21 06:28 Dose: 300 mls/hr Documented by: Admin: 02/13/21 06:26 Dose: 300 mls/hr Documented by: RUSTY Vancomycin HCl 1.25 gm/ Sodium (Chloride) 250 mls @ 166.667 mls/hr IV Q8H [facility] Last Admin: 02/14/21 00:21 Dose: 166.667 mls/hr Documented by: Infusion: 02/13/21 17:30 Dose: 166.667 mls/hr Documented by: Admin: 02/13/21 16:00 Dose: 166.667 mls/hr Documented by: Infusion: 02/13/21 09:35 Dose: 166.667 mls/hr Documented by: Admin: 02/13/21 08:05 Dose: 166.667 mls/hr Documented by: NISREEN Piperacillin Sod/Tazobactam (Sod 3.375 gm/ Sodium Chloride) 50 mls @ 100 mls/hr IV Q8H [facility] Last Admin: 02/13/21 23:17 Dose: 100 mls/hr Documented by: RUSTY Morphine Sulfate (Morphine 2 Mg/Ml Syringe) 2 mg IVPUSH Q2H PRN PRN Reason: Pain Last Admin: 02/13/21 22:36 Dose: 2 mg Documented by: Admin: 02/13/21 09:22 Dose: 2 mg Documented by: Admin: 02/13/21 05:21 Dose: 2 mg Documented by: RUSTY Ondansetron HCl (Ondansetron 4 Mg/2 Ml Sdv) 4 mg IVPUSH Q6H PRN PRN Reason: Nausea/Vomiting Last Admin: 02/13/21 23:00 Dose: 4 mg Documented by: Admin: 02/13/21 09:24 Dose: 4 mg Documented by: Admin: 02/13/21 05:25 Dose: 4 mg Documented by: RUSTY Vancomycin HCl (Pharmacy To Dose - Vancomycin) 1 dose .XX ASDIRECTED [facility] Vancomycin HCl (Vancomycin 125 Mg Cap) 125 mg PO Q6H [facility] - Assessment Assessment (Free Text/Narrative):: POD#1 after uterine evacuation for retained products of conception, pathology pending, WBC is normal, afebrile since surgery blood culture X1 day is negative for aerobic and anaerobic bacteria. - Plan Plan (Free Text/Narrative):: Recommend completing 24 hours of IV antibiotics postop, continue doxycycline orally for 2 weeks (rx sent) Recommend non-narcotic pain medications only Anemic at admission following IV hydration. Postoperative hemoglobin is appropriate and lochia is very scant. Continue oral iron at discharge Follow up in clinic with me in 2 weeks, discharge precautions given Further care per hospitalist team regarding diarrhea and sepsis protocol and other medical issues.
--- NOTE | 2021-02-14 09:42 | PCM48HPAN ---
Post Anesthesia Note - EVALUATION WITHIN 48HRS OF ANESTHETIC Vital Signs in Normal Range: Yes Patient Participated in Evaluation: Yes Respiratory Function Stable: Yes Airway Patent: Yes Cardiovascular Function Stable: Yes Hydration Status Stable: Yes Pain Control Satisfactory: Yes Nausea and Vomiting Control Satisfactory: Yes Mental Status Recovered: Yes Vital Signs: Last Vital Signs Temp 97.6 F 02/14/21 07:36 Pulse 82 02/14/21 07:36 Resp 16 02/14/21 07:36 BP 102/62 02/14/21 07:36 Pulse Ox 100 02/14/21 07:36
--- NOTE | 2021-02-14 11:39 | PCM.PN ---
<Oleg Salazar - Last Filed: 02/14/21 11:45> - General Info Date of Service: 02/14/21 - Review of Systems General: Denies: Fever, Chills Pulmonary: Denies: Shortness of Breath, Cough Cardiovascular: Denies: Chest Pain Gastrointestinal: Reports: No Symptoms, Other (mild abdominal tenderness on palpatation). Denies: Abdominal Pain, Decreased Appetite, Nausea, Vomiting Musculoskeletal: Reports: Neck Pain (patinet states neck tension secondary to stress) Neurological: Denies: Confusion, Headache Psychiatric: Denies: Confusion - Patient Data Vitals - Most Recent: Last Vital Signs Temp 98.1 F 02/14/21 11:06 Pulse 82 02/14/21 07:36 Resp 15 02/14/21 11:06 BP 100/78 02/14/21 11:06 Pulse Ox 93 L 02/14/21 11:06 Weight - Most Recent: 76.1 kg I&O - Last 24 Hours: Intake & Output 02/13/21 02/14/21 02/14/21 22:59 06:59 14:59 Intake Total 2260 820 Output Total 1400 800 Balance 860 20 Lab Results Last 24 Hours: Laboratory Results - last 24 hr 02/13/21 02/13/21 02/14/21 Range/Units 09:00 15:25 05:04 WBC 6.85 (4.0-11.0) K/uL RBC 3.07 L (4.30-5.90) M/uL Hgb 9.5 L 8.8 L (12.0-16.0) g/dL Hct 29.3 L 28.0 L (36.0-46.0) % MCV 91.2 (80.0-98.0) fL MCH 28.7 (27.0-32.0) pg MCHC 31.4 (31.0-37.0) g/dL RDW Std Deviation 46.5 (28.0-62.0) fl RDW Coeff of Leslee 14 (11.0-15.0) % Plt Count 233 (150-400) K/uL MPV 10.00 (7.40-12.00) fL Neut % (Auto) 62.6 (48.0-80.0) % Lymph % (Auto) 28.2 (16.0-40.0) % Vigo % (Auto) 5.1 (0.0-15.0) % Eos % (Auto) 3.8 (0.0-7.0) % Baso % (Auto) 0.3 (0.0-1.5) % Neut # (Auto) 4.3 (1.4-5.7) K/uL Lymph # (Auto) 1.9 (0.6-2.4) K/uL Vigo # (Auto) 0.4 (0.0-0.8) K/uL Eos # (Auto) 0.3 (0.0-0.7) K/uL Baso # (Auto) 0.0 (0.0-0.1) K/uL Nucleated RBC % 0.0 /100WBC Nucleated RBCs # 0 K/uL Sodium (136-145) mmol/L Potassium (3.5-5.1) mmol/L Chloride (98-107) mmol/L Carbon Dioxide (21.0-32.0) mmol/L BUN (7.0-18.0) mg/dL Creatinine (0.6-1.0) mg/dL Est Cr Clr Drug Dosing mL/min Estimated GFR (MDRD) ml/min Glucose (74-106) mg/dL Calcium (8.5-10.1) mg/dL Crossmatch See Detail 02/14/21 Range/Units 05:04 WBC (4.0-11.0) K/uL RBC (4.30-5.90) M/uL Hgb (12.0-16.0) g/dL Hct (36.0-46.0) % MCV (80.0-98.0) fL MCH (27.0-32.0) pg MCHC (31.0-37.0) g/dL RDW Std Deviation (28.0-62.0) fl RDW Coeff of Leslee (11.0-15.0) % Plt Count (150-400) K/uL MPV (7.40-12.00) fL Neut % (Auto) (48.0-80.0) % Lymph % (Auto) (16.0-40.0) % Vigo % (Auto) (0.0-15.0) % Eos % (Auto) (0.0-7.0) % Baso % (Auto) (0.0-1.5) % Neut # (Auto) (1.4-5.7) K/uL Lymph # (Auto) (0.6-2.4) K/uL Vigo # (Auto) (0.0-0.8) K/uL Eos # (Auto) (0.0-0.7) K/uL Baso # (Auto) (0.0-0.1) K/uL Nucleated RBC % /100WBC Nucleated RBCs # K/uL Sodium 144 (136-145) mmol/L Potassium 4.0 (3.5-5.1) mmol/L Chloride 111 H (98-107) mmol/L Carbon Dioxide 22.4 (21.0-32.0) mmol/L BUN 3 L (7.0-18.0) mg/dL Creatinine 0.7 (0.6-1.0) mg/dL Est Cr Clr Drug Dosing 109.78 mL/min Estimated GFR (MDRD) > 60.0 ml/min Glucose 78 (74-106) mg/dL Calcium 8.0 L (8.5-10.1) mg/dL Crossmatch Chava Results Last 24 Hours: Microbiology 02/12/21 21:15 Urine Culture - Preliminary Urine, Clean Catch Positive For Group B Strep 02/12/21 21:23 Aerobic Blood Culture - Preliminary Blood - Venous NO GROWTH AFTER 1 DAY Anaerobic Blood Culture - Preliminary 02/12/21 22:04 Aerobic Blood Culture - Preliminary Blood - Venous - Lab Draw NO GROWTH AFTER 1 DAY Anaerobic Blood Culture - Preliminary NO GROWTH AFTER 1 DAY 02/12/21 16:25 C. difficile Antigen & Toxins A,B - Final Stool / Feces Med Orders - Current: Current Medications Acetaminophen (Acetaminophen 325 Mg Tab) 650 mg PO Q4H PRN PRN Reason: Pain Last Admin: 02/14/21 00:19 Dose: 650 mg Documented by: Hydromorphone HCl (Hydromorphone 1 Mg/Ml Syringe) 0.5 mg IVPUSH ONETIME PRN PRN Reason: Other Last Admin: 02/13/21 03:13 Dose: 0.5 mg Documented by: Lactated Ringer's (Ringers, Lactated) 1,000 mls @ 150 mls/hr IV ASDIRECTED [facility] Last Admin: 02/14/21 03:00 Dose: 150 mls/hr Documented by: Pantoprazole Sodium 40 mg/ (Sodium Chloride) 10 mls @ 300 mls/hr IV DAILY@0700 [facility] Last Admin: 02/14/21 06:40 Dose: 300 mls/hr Documented by: Vancomycin HCl 1.25 gm/ Sodium (Chloride) 250 mls @ 166.667 mls/hr IV Q8H [facility] Last Admin: 02/14/21 09:59 Dose: 166.667 mls/hr Documented by: Piperacillin Sod/Tazobactam (Sod 3.375 gm/ Sodium Chloride) 50 mls @ 100 mls/hr IV Q8H [facility] Last Admin: 02/14/21 09:00 Dose: 100 mls/hr Documented by: Morphine Sulfate (Morphine 2 Mg/Ml Syringe) 2 mg IVPUSH Q2H PRN PRN Reason: Pain Last Admin: 02/13/21 22:36 Dose: 2 mg Documented by: Ondansetron HCl (Ondansetron 4 Mg/2 Ml Sdv) 4 mg IVPUSH Q6H PRN PRN Reason: Nausea/Vomiting Last Admin: 02/13/21 23:00 Dose: 4 mg Documented by: Vancomycin HCl (Pharmacy To Dose - Vancomycin) 1 dose .XX ASDIRECTED [facility] Vancomycin HCl (Vancomycin 125 Mg Cap) 125 mg PO Q6H [facility] Last Admin: 02/14/21 09:05 Dose: 125 mg Documented by: Discontinued Medications Fentanyl (Fentanyl 50 Mcg/Ml Sdv) 100 mcg IVPUSH ONETIME ONE Stop: 02/12/21 21:50 Last Admin: 02/12/21 22:07 Dose: 100 mcg Documented by: Fentanyl (Fentanyl 100 Mcg/2 Ml Sdv) 50 mcg IVPUSH Q5M PRN PRN Reason: Pain Last Admin: 02/13/21 12:40 Dose: 50 mcg Documented by: Fentanyl (Fentanyl 100 Mcg/2 Ml Sdv) Confirm Administered Dose 100 mcg .ROUTE .STK-MED ONE Stop: 02/13/21 11:13 Fentanyl (Fentanyl 100 Mcg/2 Ml Sdv) Confirm Administered Dose 100 mcg .ROUTE .STK-MED ONE Stop: 02/13/21 11:52 Glycopyrrolate (Glycopyrrolate 0.2 Mg/Ml Sdv) Confirm Administered Dose 0.2 mg .ROUTE .STK-MED ONE Stop: 02/13/21 11:15 Hydromorphone HCl (Hydromorphone 1 Mg/Ml Syringe) 1 mg IVPUSH ONETIME ONE Stop: 02/12/21 23:49 Last Admin: 02/13/21 00:04 Dose: 1 mg Documented by: Hydromorphone HCl (Hydromorphone 1 Mg/Ml Syringe) 1 mg IVPUSH ONETIME ONE Stop: 02/13/21 04:07 Last Admin: 02/13/21 04:08 Dose: 1 mg Documented by: Hydromorphone HCl (Hydromorphone 1 Mg/Ml Syringe) Confirm Administered Dose 1 mg .ROUTE .STK-MED ONE Stop: 02/13/21 04:07 Last Admin: 02/13/21 05:33 Dose: Not Given Documented by: Sodium Chloride (Normal Saline) 1,000 mls @ 999 mls/hr IV NOW STA Stop: 02/12/21 22:32 Last Admin: 02/12/21 22:06 Dose: 999 mls/hr Documented by: Sodium Chloride (Normal Saline) 1,000 mls @ 999 mls/hr IV .Bolus ONE Stop: 02/12/21 22:49 Last Admin: 02/12/21 22:07 Dose: 999 mls/hr Documented by: Vancomycin HCl 1.5 gm/ (Dextrose/Water) 250 mls @ 167 mls/hr IV ONETIME ONE Stop: 02/12/21 23:23 Last Admin: 02/12/21 22:50 Dose: Not Given Documented by: Piperacillin Sod/Tazobactam (Sod 3.375 gm/ Sodium Chloride) 50 mls @ 100 mls/hr IV ONETIME ONE Stop: 02/12/21 22:26 Last Admin: 02/12/21 22:07 Dose: 100 mls/hr Documented by: Vancomycin HCl 1.5 gm/ Premix 300 mls @ 200 mls/hr IV ONETIME ONE Stop: 02/12/21 23:59 Last Admin: 02/12/21 22:40 Dose: 200 mls/hr Documented by: Piperacillin Sod/Tazobactam (Sod 3.375 gm/ Sodium Chloride) 50 mls @ 100 mls/hr IV Q8H [facility] Last Admin: 02/13/21 16:00 Dose: 100 mls/hr Documented by: Vancomycin HCl (Vancomycin 1.25 Gm/250 Ml) 250 mls @ 250 mls/hr IV Q8H [facility] Last Admin: 02/13/21 07:39 Dose: Not Given Documented by: Acetaminophen 1,000 mg/ Premix 100 mls @ 400 mls/hr IV Q6H PRN PRN Reason: Pain Last Admin: 02/13/21 12:33 Dose: 400 mls/hr Documented by: Iopamidol (Iopamidol 755 Mg/Ml 500 Ml Multipack Bottle) 100 ml IVPUSH ONETIME STA Stop: 02/12/21 22:40 Last Admin: 02/12/21 22:39 Dose: 100 ml Documented by: Ketorolac Tromethamine (Ketorolac 30 Mg/Ml Sdv) Confirm Administered Dose 0 mg .ROUTE .STK-MED ONE Stop: 02/13/21 11:15 Lidocaine (Lidocaine 2% 5 Ml Sdv) Confirm Administered Dose 5 ml .ROUTE .STK-MED ONE Stop: 02/13/21 11:15 Methylergonovine Maleate (Methylergonovine 0.2 Mg/1 Ml Amp) Confirm Administered Dose 0.2 mg .ROUTE .STK-MED ONE Stop: 02/13/21 11:58 Midazolam HCl (Midazolam 1 Mg/Ml 2 Ml Sdv) Confirm Administered Dose 2 mg .ROUTE .STK-MED ONE Stop: 02/13/21 11:14 Ondansetron HCl (Ondansetron 4 Mg/2 Ml Sdv) 4 mg IVPUSH ONETIME ONE Stop: 02/12/21 21:50 Last Admin: 02/12/21 22:07 Dose: 4 mg Documented by: Ondansetron HCl (Ondansetron 4 Mg/2 Ml Sdv) Confirm Administered Dose 4 mg .ROUTE .STK-MED ONE Stop: 02/13/21 11:15 Pantoprazole Sodium (Pantoprazole 40 Mg Vial) 40 mg IVPUSH Q12H [facility] Last Admin: 02/12/21 22:07 Dose: 40 mg Documented by: Propofol (Propofol 200 Mg/20 Ml Sdv) Confirm Administered Dose 200 mg .ROUTE .STK-MED ONE Stop: 02/13/21 11:13 - Exam General: Alert, Oriented Lungs: Clear to Auscultation, Normal Respiratory Effort Cardiovascular: Regular Rate, Regular Rhythm GI/Abdominal Exam: Soft, Tender (mild, improved from yesterday) Extremities: No Pedal Edema Psy/Mental Status: Alert - Patient Data Lab Results Last 24 hrs: Laboratory Results - last 24 hr 02/13/21 02/13/21 02/14/21 Range/Units 09:00 15:25 05:04 WBC 6.85 (4.0-11.0) K/uL RBC 3.07 L (4.30-5.90) M/uL Hgb 9.5 L 8.8 L (12.0-16.0) g/dL Hct 29.3 L 28.0 L (36.0-46.0) % MCV 91.2 (80.0-98.0) fL MCH 28.7 (27.0-32.0) pg MCHC 31.4 (31.0-37.0) g/dL RDW Std Deviation 46.5 (28.0-62.0) fl RDW Coeff of Leslee 14 (11.0-15.0) % Plt Count 233 (150-400) K/uL MPV 10.00 (7.40-12.00) fL Neut % (Auto) 62.6 (48.0-80.0) % Lymph % (Auto) 28.2 (16.0-40.0) % Vigo % (Auto) 5.1 (0.0-15.0) % Eos % (Auto) 3.8 (0.0-7.0) % Baso % (Auto) 0.3 (0.0-1.5) % Neut # (Auto) 4.3 (1.4-5.7) K/uL Lymph # (Auto) 1.9 (0.6-2.4) K/uL Vigo # (Auto) 0.4 (0.0-0.8) K/uL Eos # (Auto) 0.3 (0.0-0.7) K/uL Baso # (Auto) 0.0 (0.0-0.1) K/uL Nucleated RBC % 0.0 /100WBC Nucleated RBCs # 0 K/uL Sodium (136-145) mmol/L Potassium (3.5-5.1) mmol/L Chloride (98-107) mmol/L Carbon Dioxide (21.0-32.0) mmol/L BUN (7.0-18.0) mg/dL Creatinine (0.6-1.0) mg/dL Est Cr Clr Drug Dosing mL/min Estimated GFR (MDRD) ml/min Glucose (74-106) mg/dL Calcium (8.5-10.1) mg/dL Crossmatch See Detail 02/14/21 Range/Units 05:04 WBC (4.0-11.0) K/uL RBC (4.30-5.90) M/uL Hgb (12.0-16.0) g/dL Hct (36.0-46.0) % MCV (80.0-98.0) fL MCH (27.0-32.0) pg MCHC (31.0-37.0) g/dL RDW Std Deviation (28.0-62.0) fl RDW Coeff of Leslee (11.0-15.0) % Plt Count (150-400) K/uL MPV (7.40-12.00) fL Neut % (Auto) (48.0-80.0) % Lymph % (Auto) (16.0-40.0) % Vigo % (Auto) (0.0-15.0) % Eos % (Auto) (0.0-7.0) % Baso % (Auto) (0.0-1.5) % Neut # (Auto) (1.4-5.7) K/uL Lymph # (Auto) (0.6-2.4) K/uL Vigo # (Auto) (0.0-0.8) K/uL Eos # (Auto) (0.0-0.7) K/uL Baso # (Auto) (0.0-0.1) K/uL Nucleated RBC % /100WBC Nucleated RBCs # K/uL Sodium 144 (136-145) mmol/L Potassium 4.0 (3.5-5.1) mmol/L Chloride 111 H (98-107) mmol/L Carbon Dioxide 22.4 (21.0-32.0) mmol/L BUN 3 L (7.0-18.0) mg/dL Creatinine 0.7 (0.6-1.0) mg/dL Est Cr Clr Drug Dosing 109.78 mL/min Estimated GFR (MDRD) > 60.0 ml/min Glucose 78 (74-106) mg/dL Calcium 8.0 L (8.5-10.1) mg/dL Crossmatch Result Diagrams: 02/14/21 05:04 02/14/21 05:04 Chava Results Last 24 hrs: Microbiology 02/12/21 21:15 Urine Culture - Preliminary Urine, Clean Catch Positive For Group B Strep 02/12/21 21:23 Aerobic Blood Culture - Preliminary Blood - Venous NO GROWTH AFTER 1 DAY Anaerobic Blood Culture - Preliminary 02/12/21 22:04 Aerobic Blood Culture - Preliminary Blood - Venous - Lab Draw NO GROWTH AFTER 1 DAY Anaerobic Blood Culture - Preliminary NO GROWTH AFTER 1 DAY 02/12/21 16:25 C. difficile Antigen & Toxins A,B - Final Stool / Feces Sepsis Event Note - Evaluation Sepsis Screening Result: No Definite Risk - Focused Exam Vital Signs: Vital Signs Temp Temp Pulse Resp BP Pulse Ox 02/14/21 11:06 98.1 F 15 100/78 93 L 02/14/21 07:36 97.6 F 82 16 102/62 100 02/14/21 04:00 97.5 F 64 17 90/52 L 96 02/14/21 00:00 97.9 F 66 16 93/46 L 96 - Problem List & Annotations (1) Abdominal pain SNOMED Code(s): 30014608 Code(s): R10.9 - UNSPECIFIED ABDOMINAL PAIN Status: Acute (2) History of hemorrhage SNOMED Code(s): 076491426 Code(s): Z87.59 - PERSONAL HISTORY OF COMP OF PREG, CHLDBRTH AND THE PUERP Status: Acute (3) hemorrhage of vagina SNOMED Code(s): 39862767 Code(s): O72.1 - OTHER IMMEDIATE HEMORRHAGE Status: Acute (4) urinary tract infection SNOMED Code(s): 529826661 Code(s): O86.20 - URINARY TRACT INFECTION FOLLOWING DELIVERY, UNSPECIFIED Status: Acute (5) Sepsis SNOMED Code(s): 81986890 Code(s): A41.9 - SEPSIS, UNSPECIFIED ORGANISM Status: Acute (6) Migraine SNOMED Code(s): 90558362 Code(s): G43.909 - MIGRAINE, UNSP, NOT INTRACTABLE, WITHOUT STATUS MIGRAINOSUS Status: Acute Qualifiers: Migraine type: other Status migrainosus presence: without status migrainosus Intractability: not intractable Qualified Code(s): G43.809 - Other migraine, not intractable, without status migrainosus (7) Urinary tract infection SNOMED Code(s): 44148916 Code(s): N39.0 - URINARY TRACT INFECTION, SITE NOT SPECIFIED Status: Acute Qualifiers: Urinary tract infection type: acute cystitis Hematuria presence: without hematuria Qualified Code(s): N30.00 - Acute cystitis without hematuria - Problem List Review Problem List Initiated/Reviewed/Updated: Yes - My Orders Last 24 Hours: My Active Orders 02/13/21 16:33 Acetaminophen [TylenoL] 650 mg PO Q4H PRN 02/14/21 08:00 Vancomycin [Vancocin 125 MG Capsule] 125 mg PO Q6H - Plan Plan:: Sepsis- Resolved. S/p day 1 after uterine evacuation for retained products of conception. WBC 6.8, Afebrile, continue IV fluids, vancomycin, Zosyn, Tylenol for pain and fever, morphine for severe pain, Zofran for nausea, PPI. Regular Diet UTI-Positive for Group B strep. Continue vancomycin and Zosyn antibiotics. Bacteremia- gram-positive cocci in clusters and pairs in anaerobic blood culture, 1 of 4 bottles, Continue vancomycin, Zosyn C. difficile infection- PO Vanc 125mg Q6 <Rubi Robison - Last Filed: 02/18/21 15:39> - Patient Data Vitals - Most Recent: Last Vital Signs Temp 36.4 C 02/15/21 08:00 Pulse 67 02/15/21 08:00 Resp 16 02/15/21 08:00 BP 107/65 02/15/21 08:00 Pulse Ox 100 02/15/21 08:00 Chava Results Last 24 Hours: Microbiology 02/12/21 16:25 Stool Culture - Final Stool / Feces - Stool, Liquid Shiga Toxin I & II - Final 02/14/21 06:27 Aerobic Blood Culture - Preliminary Blood NO GROWTH AFTER 4 DAYS Anaerobic Blood Culture - Preliminary NO GROWTH AFTER 4 DAYS 02/14/21 06:16 Aerobic Blood Culture - Preliminary Blood NO GROWTH AFTER 4 DAYS Anaerobic Blood Culture - Preliminary NO GROWTH AFTER 4 DAYS 02/12/21 22:04 Aerobic Blood Culture - Final Blood - Venous - Lab Draw NO GROWTH AFTER 5 DAYS Anaerobic Blood Culture - Final NO GROWTH AFTER 5 DAYS 02/12/21 21:23 Aerobic Blood Culture - Final Blood - Venous NO GROWTH AFTER 5 DAYS Anaerobic Blood Culture - Preliminary Med Orders - Current: Current Medications Discontinued Medications Acetaminophen (Acetaminophen 325 Mg Tab) 650 mg PO Q4H PRN PRN Reason: Pain Last Admin: 02/14/21 11:38 Dose: 650 mg Documented by: Fentanyl (Fentanyl 50 Mcg/Ml Sdv) 100 mcg IVPUSH ONETIME ONE Stop: 02/12/21 21:50 Last Admin: 02/12/21 22:07 Dose: 100 mcg Documented by: Fentanyl (Fentanyl 100 Mcg/2 Ml Sdv) 50 mcg IVPUSH Q5M PRN PRN Reason: Pain Last Admin: 02/13/21 12:40 Dose: 50 mcg Documented by: Fentanyl (Fentanyl 100 Mcg/2 Ml Sdv) Confirm Administered Dose 100 mcg .ROUTE .STK-MED ONE Stop: 02/13/21 11:13 Fentanyl (Fentanyl 100 Mcg/2 Ml Sdv) Confirm Administered Dose 100 mcg .ROUTE .STK-MED ONE Stop: 02/13/21 11:52 Glycopyrrolate (Glycopyrrolate 0.2 Mg/Ml Sdv) Confirm Administered Dose 0.2 mg .ROUTE .STK-MED ONE Stop: 02/13/21 11:15 Hydromorphone HCl (Hydromorphone 1 Mg/Ml Syringe) 1 mg IVPUSH ONETIME ONE Stop: 02/12/21 23:49 Last Admin: 02/13/21 00:04 Dose: 1 mg Documented by: Hydromorphone HCl (Hydromorphone 1 Mg/Ml Syringe) 0.5 mg IVPUSH ONETIME PRN PRN Reason: Other Last Admin: 02/13/21 03:13 Dose: 0.5 mg Documented by: Hydromorphone HCl (Hydromorphone 1 Mg/Ml Syringe) 1 mg IVPUSH ONETIME ONE Stop: 02/13/21 04:07 Last Admin: 02/13/21 04:08 Dose: 1 mg Documented by: Hydromorphone HCl (Hydromorphone 1 Mg/Ml Syringe) Confirm Administered Dose 1 mg .ROUTE .STK-MED ONE Stop: 02/13/21 04:07 Last Admin: 02/13/21 05:33 Dose: Not Given Documented by: Sodium Chloride (Normal Saline) 1,000 mls @ 999 mls/hr IV NOW STA Stop: 02/12/21 22:32 Last Admin: 02/12/21 22:06 Dose: 999 mls/hr Documented by: Sodium Chloride (Normal Saline) 1,000 mls @ 999 mls/hr IV .Bolus ONE Stop: 02/12/21 22:49 Last Admin: 02/12/21 22:07 Dose: 999 mls/hr Documented by: Vancomycin HCl 1.5 gm/ (Dextrose/Water) 250 mls @ 167 mls/hr IV ONETIME ONE Stop: 02/12/21 23:23 Last Admin: 02/12/21 22:50 Dose: Not Given Documented by: Piperacillin Sod/Tazobactam (Sod 3.375 gm/ Sodium Chloride) 50 mls @ 100 mls/hr IV ONETIME ONE Stop: 02/12/21 22:26 Last Admin: 02/12/21 22:07 Dose: 100 mls/hr Documented by: Vancomycin HCl 1.5 gm/ Premix 300 mls @ 200 mls/hr IV ONETIME ONE Stop: 02/12/21 23:59 Last Admin: 02/12/21 22:40 Dose: 200 mls/hr Documented by: Piperacillin Sod/Tazobactam (Sod 3.375 gm/ Sodium Chloride) 50 mls @ 100 mls/hr IV Q8H [facility] Last Admin: 02/13/21 16:00 Dose: 100 mls/hr Documented by: Lactated Ringer's (Ringers, Lactated) 1,000 mls @ 150 mls/hr IV ASDIRECTED [facility] Last Admin: 02/14/21 21:30 Dose: 150 mls/hr Documented by: Pantoprazole Sodium 40 mg/ (Sodium Chloride) 10 mls @ 300 mls/hr IV DAILY@0700 [facility] Last Admin: 02/15/21 09:09 Dose: Not Given Documented by: Vancomycin HCl (Vancomycin 1.25 Gm/250 Ml) 250 mls @ 250 mls/hr IV Q8H [facility] Last Admin: 02/13/21 07:39 Dose: Not Given Documented by: Vancomycin HCl 1.25 gm/ Sodium (Chloride) 250 mls @ 166.667 mls/hr IV Q8H [facility] Last Admin: 02/15/21 09:10 Dose: Not Given Documented by: Acetaminophen 1,000 mg/ Premix 100 mls @ 400 mls/hr IV Q6H PRN PRN Reason: Pain Last Admin: 02/13/21 12:33 Dose: 400 mls/hr Documented by: Piperacillin Sod/Tazobactam (Sod 3.375 gm/ Sodium Chloride) 50 mls @ 100 mls/hr IV Q8H [facility] Last Admin: 02/15/21 09:10 Dose: Not Given Documented by: Iopamidol (Iopamidol 755 Mg/Ml 500 Ml Multipack Bottle) 100 ml IVPUSH ONETIME STA Stop: 02/12/21 22:40 Last Admin: 02/12/21 22:39 Dose: 100 ml Documented by: Ketorolac Tromethamine (Ketorolac 30 Mg/Ml Sdv) Confirm Administered Dose 0 mg .ROUTE .STK-MED ONE Stop: 02/13/21 11:15 Lidocaine (Lidocaine 2% 5 Ml Sdv) Confirm Administered Dose 5 ml .ROUTE .STK-MED ONE Stop: 02/13/21 11:15 Methylergonovine Maleate (Methylergonovine 0.2 Mg/1 Ml Amp) Confirm Administered Dose 0.2 mg .ROUTE .STK-MED ONE Stop: 02/13/21 11:58 Midazolam HCl (Midazolam 1 Mg/Ml 2 Ml Sdv) Confirm Administered Dose 2 mg .ROUTE .STK-MED ONE Stop: 02/13/21 11:14 Morphine Sulfate (Morphine 2 Mg/Ml Syringe) 2 mg IVPUSH Q2H PRN PRN Reason: Pain Last Admin: 02/13/21 22:36 Dose: 2 mg Documented by: Ondansetron HCl (Ondansetron 4 Mg/2 Ml Sdv) 4 mg IVPUSH ONETIME ONE Stop: 02/12/21 21:50 Last Admin: 02/12/21 22:07 Dose: 4 mg Documented by: Ondansetron HCl (Ondansetron 4 Mg/2 Ml Sdv) 4 mg IVPUSH Q6H PRN PRN Reason: Nausea/Vomiting Last Admin: 02/13/21 23:00 Dose: 4 mg Documented by: Ondansetron HCl (Ondansetron 4 Mg/2 Ml Sdv) Confirm Administered Dose 4 mg .ROUTE .STK-MED ONE Stop: 02/13/21 11:15 Pantoprazole Sodium (Pantoprazole 40 Mg Vial) 40 mg IVPUSH Q12H [facility] Last Admin: 02/12/21 22:07 Dose: 40 mg Documented by: Propofol (Propofol 200 Mg/20 Ml Sdv) Confirm Administered Dose 200 mg .ROUTE .STK-MED ONE Stop: 02/13/21 11:13 Vancomycin HCl (Pharmacy To Dose - Vancomycin) 1 dose .XX ASDIRECTED [facility] Vancomycin HCl (Vancomycin 125 Mg Cap) 125 mg PO Q6H [facility] Last Admin: 02/15/21 09:10 Dose: 125 mg Documented by: - Patient Data Result Diagrams: 02/15/21 09:13 02/15/21 09:13 Chava Results Last 24 hrs: Microbiology 02/12/21 16:25 Stool Culture - Final Stool / Feces - Stool, Liquid Shiga Toxin I & II - Final 02/14/21 06:27 Aerobic Blood Culture - Preliminary Blood NO GROWTH AFTER 4 DAYS Anaerobic Blood Culture - Preliminary NO GROWTH AFTER 4 DAYS 02/14/21 06:16 Aerobic Blood Culture - Preliminary Blood NO GROWTH AFTER 4 DAYS Anaerobic Blood Culture - Preliminary NO GROWTH AFTER 4 DAYS 02/12/21 22:04 Aerobic Blood Culture - Final Blood - Venous - Lab Draw NO GROWTH AFTER 5 DAYS Anaerobic Blood Culture - Final NO GROWTH AFTER 5 DAYS 02/12/21 21:23 Aerobic Blood Culture - Final Blood - Venous NO GROWTH AFTER 5 DAYS Anaerobic Blood Culture - Preliminary - Plan Plan:: I have seen and evaluated the patient. I have discussed findings and treatment plan with resident. I agree with the assessment and plan in the following note
[2021-02-15] MEDS: Vancomycin 125 MG Cap PO SCH ×2 (02:21→09:10)
--- NOTE | 2021-02-15 02:51 | PCM.SN.2 ---
- Free Text/Narrative Note: Requested for IV start on patient with history of being uncooperative with the procedure. Discussed procedure, tourniquet applied, veins adequate. Attempted using local anesthetic with 27g needle. Patient pulled away and refused. Discussed again, patient still refused. Procedure aborted.
[2021-02-15] MEDS: Piperacillin/Tazobactam 3.375 GM in Sodium Chloride 0.9% 50 ML IV SCH ×2 (03:18→09:10)
[2021-02-15] MEDS: Pantoprazole 40 MG in Sodium Chloride 0.9% 10 ML IV SCH (09:09)
[2021-02-15 09:49] LABS: BLOOD UREA NITROGEN,BUN 3 mg/dL (7.0-18.0); CHLORIDE,CL 106 mmol/L (98-107); GLUCOSE RANDOM 98 mg/dL (74-106); POTASSIUM,K 3.4 mmol/L (3.5-5.1); SODIUM,NA 143 mmol/L (136-145)
--- NOTE | 2021-02-15 12:29 | PCM.DCSUM1 ---
Discharge Summary - Hospital Course Free Text/Narrative:: 20-year-old G1, P1, 6-week , admitted for medical management for sepsis. Past medical history to include admission for sepsis, UTI, hemorrhage, blood transfusion post delivery. Patient presented to the ER with complaints of abdominal pain in the suprapubic, fever, chills. Patient states abdominal pain for roughly 5 days but fever and chills have increased since this morning. Patient is with delivery on 01/12/2021. Patient did have complications resulting in urosepsis requiring admission to the hospital. On admission patient states headache, fever, chills, abdominal pain, nausea. Patient denies chest pain or shortness of breath. WBC 19 on admission, hgb 11.5. CT abdomen/pelvis-enlargement of the uterus consistent with recent status with hypoechoic material from the lower uterine segment spanning the uterus with thinning of the wall measuring 7 cm. Likely represents hematoma. Transvaginal ultrasound- hematoma versus retained proximal conception. Dr. Oakes SURVEILLANCE TECHNICIAN was consulted and patient underwent uterine evacuation for retained products of conception. Patient tolerated the procedure and was stable on the medical floor. IV fluids, and vancomycin, Zosyn resumed. Patient also noted to have positive urine culture for Group B strep and C.Diff infection. Patients blood culture grew gram-positive cocci in clusters and pairs in 1 of 4 bottles which was suspected to be contaminant. Patient discharged home on Keflex for UTI, p.o. vancomycin for C. difficile, doxycycline for any intrauterine infection. Patient to follow-up with SURVEILLANCE TECHNICIAN in 2 weeks. - Discharge Data Discharge Date: 02/15/21 Discharge Disposition: Home, Self-Care 01 Condition: Stable - Referral to Home Health Primary Care Physician: PCP None - Discharge Diagnosis/Problem(s) (1) Abdominal pain SNOMED Code(s): 72361704 ICD Code: R10.9 - UNSPECIFIED ABDOMINAL PAIN Status: Acute (2) History of hemorrhage SNOMED Code(s): 075438145 ICD Code: Z87.59 - PERSONAL HISTORY OF COMP OF PREG, CHLDBRTH AND THE PUERP Status: Acute (3) hemorrhage of vagina SNOMED Code(s): 12795867 ICD Code: O72.1 - OTHER IMMEDIATE HEMORRHAGE Status: Acute (4) urinary tract infection SNOMED Code(s): 651051748 ICD Code: O86.20 - URINARY TRACT INFECTION FOLLOWING DELIVERY, UNSPECIFIED Status: Acute (5) Sepsis SNOMED Code(s): 49323553 ICD Code: A41.9 - SEPSIS, UNSPECIFIED ORGANISM Status: Acute (6) Migraine SNOMED Code(s): 15272999 ICD Code: G43.909 - MIGRAINE, UNSP, NOT INTRACTABLE, WITHOUT STATUS MIGRAINOSUS Status: Acute Qualifiers: Migraine type: other Status migrainosus presence: without status migrainosu s Intractability: not intractable Qualified Code(s): G43.809 - Other migraine, not intractable, without status migrainosus (7) Urinary tract infection SNOMED Code(s): 54029056 ICD Code: N39.0 - URINARY TRACT INFECTION, SITE NOT SPECIFIED Status: Acute Qualifiers: Urinary tract infection type: acute cystitis Hematuria presence: without hematuria Qualified Code(s): N30.00 - Acute cystitis without hematuria - Patient Summary/Data Operative Procedure(s) Performed: suction dilatation and curettage Consults: Consultations 02/13/21 05:32 Consult to Physician [CONS] Routine - Patient Instructions Diet: Regular Diet as Tolerated Activity: No Strenuous Activities, Rest and Relax Today Driving: May Drive Today Showering/Bathing: May Shower Notify Provider of: Fever, Increased Pain Other/Special Instructions: Nothing per vagina for 2 weeks. Call if temp over 101, uncontrolled pain or bleeding through a large pad per hour for 2 hours. Continue iron supplement for an other month. - Discharge Plan Prescriptions/Med Rec: cephALEXin [Keflex] 500 mg PO BID 3 Days #6 cap Vancomycin [Vancocin 125 MG Capsule] 125 mg PO Q6H 8 Days #32 cap Doxycycline [Vibra-Tabs] 100 mg PO Q12HR 14 Days #28 tab Home Medications: Home Meds Doxycycline [Vibra-Tabs] 100 mg PO Q12HR 14 Days #28 tab 02/13/21 [Rx] Vancomycin [Vancocin 125 MG Capsule] 125 mg PO Q6H 8 Days #32 cap 02/15/21 [Rx] cephALEXin [Keflex] 500 mg PO BID 3 Days #6 cap 02/15/21 [Rx] Patient Handouts: Urinary Tract Infection, Adult, [id number], Doxycycline tablets or capsules, Cephalexin Tablets or Capsules, Sepsis, Self Care, Adult, Vancomycin capsules Referrals: Keena Oakes MD [Physician] - 03/04/21 2:00 pm - Discharge Summary/Plan Comment DC Time >30 min.: Yes - General Info Date of Service: 02/15/21 Subjective Update: Patient states she slept better overnight. Did have concerns with nursing staff overnight regarding IV placement and blood draws. Patient states that she just wants to have one blood draw one time during the day for all labs. Patient also states that IV sticks have been very painful and would prefer not to have an IV placed if not needed. Patient denies fever, chills, nausea, vomit, abdominal pain, dizziness, lightheadedness. - Review of Systems General: Denies: Fever, Chills Pulmonary: Denies: Shortness of Breath, Cough Cardiovascular: Denies: Chest Pain Gastrointestinal: Denies: Abdominal Pain, Nausea, Vomiting Neurological: Denies: Confusion Psychiatric: Denies: Confusion - Patient Data Vitals - Most Recent: Last Vital Signs Temp 97.5 F 02/15/21 08:00 Pulse 67 02/15/21 08:00 Resp 16 02/15/21 08:00 BP 107/65 02/15/21 08:00 Pulse Ox 100 02/15/21 08:00 Weight - Most Recent: 167 lb 12.348 oz I&O - Last 24 hours: Intake & Output 02/14/21 02/15/21 02/15/21 22:59 06:59 14:59 Intake Total 2970 650 Output Total 1250 1700 Balance 1720 -1050 Lab Results - Last 24 hrs: Laboratory Results - last 24 hr 02/15/21 02/15/21 02/15/21 Range/Units 09:13 09:13 09:13 WBC 4.70 (4.0-11.0) K/uL RBC 3.54 L (4.30-5.90) M/uL Hgb 10.0 L (12.0-16.0) g/dL Hct 31.6 L (36.0-46.0) % MCV 89.3 (80.0-98.0) fL MCH 28.2 (27.0-32.0) pg MCHC 31.6 (31.0-37.0) g/dL RDW Std Deviation 44.6 (28.0-62.0) fl RDW Coeff of Leslee 14 (11.0-15.0) % Plt Count 255 (150-400) K/uL MPV 9.70 (7.40-12.00) fL Neut % (Auto) 47.3 L (48.0-80.0) % Lymph % (Auto) 40.6 H (16.0-40.0) % Harlan % (Auto) 6.6 (0.0-15.0) % Eos % (Auto) 4.9 (0.0-7.0) % Baso % (Auto) 0.6 (0.0-1.5) % Neut # (Auto) 2.2 (1.4-5.7) K/uL Lymph # (Auto) 1.9 (0.6-2.4) K/uL Harlan # (Auto) 0.3 (0.0-0.8) K/uL Eos # (Auto) 0.2 (0.0-0.7) K/uL Baso # (Auto) 0.0 (0.0-0.1) K/uL Nucleated RBC % 0.0 /100WBC Nucleated RBCs # 0 K/uL INR 1.09 APTT 26.2 (18.6-31.3) SEC Fibrinogen 443 H (215-411) mg/dL Sodium 143 (136-145) mmol/L Potassium 3.4 L (3.5-5.1) mmol/L Chloride 106 (98-107) mmol/L Carbon Dioxide 26.0 (21.0-32.0) mmol/L BUN 3 L (7.0-18.0) mg/dL Creatinine 0.7 (0.6-1.0) mg/dL Est Cr Clr Drug Dosing 109.78 mL/min Estimated GFR (MDRD) > 60.0 ml/min Glucose 98 (74-106) mg/dL Calcium 8.9 (8.5-10.1) mg/dL BAKARI Results - Last 24 hrs: Microbiology 02/12/21 21:23 Aerobic Blood Culture - Preliminary Blood - Venous NO GROWTH AFTER 2 DAYS Anaerobic Blood Culture - Preliminary 02/12/21 16:25 Clostridioides difficile (PCR) - Final Stool / Feces 02/12/21 16:25 Shiga Toxin I & II - Final Stool / Feces - Stool, Liquid 02/12/21 21:15 Urine Culture - Final Urine, Clean Catch Escherichia Coli Positive For Group B Strep Normal Urogenital Maddison 02/14/21 06:27 Aerobic Blood Culture - Preliminary Blood NO GROWTH AFTER 1 DAY Anaerobic Blood Culture - Preliminary NO GROWTH AFTER 1 DAY 02/14/21 06:16 Aerobic Blood Culture - Preliminary Blood NO GROWTH AFTER 1 DAY Anaerobic Blood Culture - Preliminary NO GROWTH AFTER 1 DAY 02/12/21 22:04 Aerobic Blood Culture - Preliminary Blood - Venous - Lab Draw NO GROWTH AFTER 2 DAYS Anaerobic Blood Culture - Preliminary NO GROWTH AFTER 2 DAYS Med Orders - Current: Current Medications Acetaminophen (Acetaminophen 325 Mg Tab) 650 mg PO Q4H PRN PRN Reason: Pain Last Admin: 02/14/21 11:38 Dose: 650 mg Documented by: Hydromorphone HCl (Hydromorphone 1 Mg/Ml Syringe) 0.5 mg IVPUSH ONETIME PRN PRN Reason: Other Last Admin: 02/13/21 03:13 Dose: 0.5 mg Documented by: Lactated Ringer's (Ringers, Lactated) 1,000 mls @ 150 mls/hr IV ASDIRECTED [facility] Last Admin: 02/14/21 21:30 Dose: 150 mls/hr Documented by: Pantoprazole Sodium 40 mg/ (Sodium Chloride) 10 mls @ 300 mls/hr IV DAILY@0700 [facility] Last Admin: 02/15/21 09:09 Dose: Not Given Documented by: Vancomycin HCl 1.25 gm/ Sodium (Chloride) 250 mls @ 166.667 mls/hr IV Q8H [facility] Last Admin: 02/15/21 09:10 Dose: Not Given Documented by: Piperacillin Sod/Tazobactam (Sod 3.375 gm/ Sodium Chloride) 50 mls @ 100 mls/hr IV Q8H [facility] Last Admin: 02/15/21 09:10 Dose: Not Given Documented by: Morphine Sulfate (Morphine 2 Mg/Ml Syringe) 2 mg IVPUSH Q2H PRN PRN Reason: Pain Last Admin: 02/13/21 22:36 Dose: 2 mg Documented by: Ondansetron HCl (Ondansetron 4 Mg/2 Ml Sdv) 4 mg IVPUSH Q6H PRN PRN Reason: Nausea/Vomiting Last Admin: 02/13/21 23:00 Dose: 4 mg Documented by: Vancomycin HCl (Pharmacy To Dose - Vancomycin) 1 dose .XX ASDIRECTED [facility] Vancomycin HCl (Vancomycin 125 Mg Cap) 125 mg PO Q6H [facility] Last Admin: 02/15/21 09:10 Dose: 125 mg Documented by: Discontinued Medications Fentanyl (Fentanyl 50 Mcg/Ml Sdv) 100 mcg IVPUSH ONETIME ONE Stop: 02/12/21 21:50 Last Admin: 02/12/21 22:07 Dose: 100 mcg Documented by: Fentanyl (Fentanyl 100 Mcg/2 Ml Sdv) 50 mcg IVPUSH Q5M PRN PRN Reason: Pain Last Admin: 02/13/21 12:40 Dose: 50 mcg Documented by: Fentanyl (Fentanyl 100 Mcg/2 Ml Sdv) Confirm Administered Dose 100 mcg .ROUTE .STK-MED ONE Stop: 02/13/21 11:13 Fentanyl (Fentanyl 100 Mcg/2 Ml Sdv) Confirm Administered Dose 100 mcg .ROUTE .STK-MED ONE Stop: 02/13/21 11:52 Glycopyrrolate (Glycopyrrolate 0.2 Mg/Ml Sdv) Confirm Administered Dose 0.2 mg .ROUTE .STK-MED ONE Stop: 02/13/21 11:15 Hydromorphone HCl (Hydromorphone 1 Mg/Ml Syringe) 1 mg IVPUSH ONETIME ONE Stop: 02/12/21 23:49 Last Admin: 02/13/21 00:04 Dose: 1 mg Documented by: Hydromorphone HCl (Hydromorphone 1 Mg/Ml Syringe) 1 mg IVPUSH ONETIME ONE Stop: 02/13/21 04:07 Last Admin: 02/13/21 04:08 Dose: 1 mg Documented by: Hydromorphone HCl (Hydromorphone 1 Mg/Ml Syringe) Confirm Administered Dose 1 mg .ROUTE .STK-MED ONE Stop: 02/13/21 04:07 Last Admin: 02/13/21 05:33 Dose: Not Given Documented by: Sodium Chloride (Normal Saline) 1,000 mls @ 999 mls/hr IV NOW STA Stop: 02/12/21 22:32 Last Admin: 02/12/21 22:06 Dose: 999 mls/hr Documented by: Sodium Chloride (Normal Saline) 1,000 mls @ 999 mls/hr IV .Bolus ONE Stop: 02/12/21 22:49 Last Admin: 02/12/21 22:07 Dose: 999 mls/hr Documented by: Vancomycin HCl 1.5 gm/ (Dextrose/Water) 250 mls @ 167 mls/hr IV ONETIME ONE Stop: 02/12/21 23:23 Last Admin: 02/12/21 22:50 Dose: Not Given Documented by: Piperacillin Sod/Tazobactam (Sod 3.375 gm/ Sodium Chloride) 50 mls @ 100 mls/hr IV ONETIME ONE Stop: 02/12/21 22:26 Last Admin: 02/12/21 22:07 Dose: 100 mls/hr Documented by: Vancomycin HCl 1.5 gm/ Premix 300 mls @ 200 mls/hr IV ONETIME ONE Stop: 02/12/21 23:59 Last Admin: 02/12/21 22:40 Dose: 200 mls/hr Documented by: Piperacillin Sod/Tazobactam (Sod 3.375 gm/ Sodium Chloride) 50 mls @ 100 mls/hr IV Q8H [facility] Last Admin: 02/13/21 16:00 Dose: 100 mls/hr Documented by: Vancomycin HCl (Vancomycin 1.25 Gm/250 Ml) 250 mls @ 250 mls/hr IV Q8H [facility] Last Admin: 02/13/21 07:39 Dose: Not Given Documented by: Acetaminophen 1,000 mg/ Premix 100 mls @ 400 mls/hr IV Q6H PRN PRN Reason: Pain Last Admin: 02/13/21 12:33 Dose: 400 mls/hr Documented by: Iopamidol (Iopamidol 755 Mg/Ml 500 Ml Multipack Bottle) 100 ml IVPUSH ONETIME STA Stop: 02/12/21 22:40 Last Admin: 02/12/21 22:39 Dose: 100 ml Documented by: Ketorolac Tromethamine (Ketorolac 30 Mg/Ml Sdv) Confirm Administered Dose 0 mg .ROUTE .STK-MED ONE Stop: 02/13/21 11:15 Lidocaine (Lidocaine 2% 5 Ml Sdv) Confirm Administered Dose 5 ml .ROUTE .STK-MED ONE Stop: 02/13/21 11:15 Methylergonovine Maleate (Methylergonovine 0.2 Mg/1 Ml Amp) Confirm Administered Dose 0.2 mg .ROUTE .STK-MED ONE Stop: 02/13/21 11:58 Midazolam HCl (Midazolam 1 Mg/Ml 2 Ml Sdv) Confirm Administered Dose 2 mg .ROUTE .STK-MED ONE Stop: 02/13/21 11:14 Ondansetron HCl (Ondansetron 4 Mg/2 Ml Sdv) 4 mg IVPUSH ONETIME ONE Stop: 02/12/21 21:50 Last Admin: 02/12/21 22:07 Dose: 4 mg Documented by: Ondansetron HCl (Ondansetron 4 Mg/2 Ml Sdv) Confirm Administered Dose 4 mg .ROUTE .STK-MED ONE Stop: 02/13/21 11:15 Pantoprazole Sodium (Pantoprazole 40 Mg Vial) 40 mg IVPUSH Q12H [facility] Last Admin: 02/12/21 22:07 Dose: 40 mg Documented by: Propofol (Propofol 200 Mg/20 Ml Sdv) Confirm Administered Dose 200 mg .ROUTE .STK-MED ONE Stop: 02/13/21 11:13 - Exam General: Reports: Alert, Oriented Lungs: Reports: Clear to Auscultation, Normal Respiratory Effort Cardiovascular: Reports: Regular Rate, Regular Rhythm GI/Abdominal Exam: Soft, Non-Tender Back Exam: Denies: CVA Tenderness (L), CVA Tenderness (R) Extremities: No: No Pedal Edema Psy/Mental Status: Reports: Alert
== END 2021-02-15 12:50 | disposition home or self-care (01) ==
LOC: MW.ED 21:03 → MW.MS 02-13 03:25
PROVIDERS: ADMIT Student in an Organized Health Care Education/Training Program; ATTEND Student in an Organized Health Care Education/Training Program
DX: O72.1 Other immediate postpartum hemorrhage (principal); A41.9 Sepsis, unspecified organism; O86.20 Urinary tract infection following delivery, unspecified; O90.89 Other complications of the puerperium, not elsewhere classified; G43.809 Other migraine, not intractable, without status migrainosus; B96.89 Other specified bacterial agents as the cause of diseases classified elsewhere; Z86.16 Personal history of COVID-19; Z01.812 Encounter for preprocedural laboratory examination; Z20.822 Contact with and (suspected) exposure to COVID-19
CPT/HCPCS: 36415; 59160; 71045; 74177; 76830; 80048; 80053; 81001; 81025; 83605; 83630; 84702; 85014; 85018; 85025; 85384; 85610; 85730; 86850; 86900; 86901; 86920; 86921; 86922; 87040; 87045; 87046; 87086; 87088; 87186; 87324; 87449; 87493; 87635; 87899; 88307; 93005; 96365; 96367; 96375; 96376; 99285; A9270; C9113; J0131; J1170; J2210; J2250; J2270; J2405; J2543; J2704; J3010; J3370; J3490; J7030; J7050; J7120; Q9967; 01965; 93010; 99291; J1885; U0002

== ENCOUNTER 2021-09-13 08:09 | Day surgery (SDC) | payer BC ==
[~2021-09-13 08:09] MED LIST: Lactated Ringers 1,000 ML IV SCH
--- NOTE | 2021-09-13 08:44 | PCM.PREANE ---
Preanesthetic Assessment - Procedure Proposed Procedure: EGD, Colonoscopy - Anesthesia/Transfusion/Family Hx Anesthesia History: No Prior Anesthesia Family History of Anesthesia Reaction: No Transfusion History: Prior Transfusion Without Reaction - Review of Systems General: No Symptoms Pulmonary: No Symptoms Cardiovascular: No Symptoms Gastrointestinal: No Symptoms (GERD-on no meds) Neurological: No Symptoms Other: Reports: None - Physical Assessment NPO Status Date: 09/11/21 NPO Status Time: 20:00 (Solids, >8Hr Liq) Height: 5 ft 4 in Weight: 76.657 kg ASA Class: 2 Mental Status: Alert & Oriented x3 Airway Class: Mallampati = 1 Dentition: Reports: Normal Dentition Thyro-Mental Finger Breadths: 3 Mouth Opening Finger Breadths: 4 ROM/Head Extension: Full Lungs: Clear to Auscultation, Normal Respiratory Effort Cardiovascular: Regular Rate, Regular Rhythm - Allergies Allergies/Adverse Reactions: Allergies Allergy/AdvReac Type Severity Reaction Status Date / Time No Known Allergies Allergy Verified 09/09/21 15:01 - Acknowledgements Anesthesia Type Planned: General Anesthesia Pt an Appropriate Candidate for the Planned Anesthesia: Yes Alternatives and Risks of Anesthesia Discussed w Pt/Guardian: Yes Pt/Guardian Understands and Agrees with Anesthesia Plan: Yes PreAnesthesia Questionnaire - Past Health History Medical/Surgical History: Denies Medical/Surgical History HEENT History: Reports: None Cardiovascular History: Reports: None Respiratory History: Reports: None Gastrointestinal History: Reports: None Genitourinary History: Reports: None DIRECTOR TELEVISION NEWS History: Reports: Musculoskeletal History: Reports: None Neurological History: Reports: None Psychiatric History: Reports: Anxiety Endocrine/Metabolic History: Reports: None Other Endocrine/Metabolic History: states she has a "low functioning thyroid" but does not take any medication Hematologic History: Reports: Anemia, Blood Transfusion(s) Immunologic History: Reports: None Oncologic (Cancer) History: Reports: None Dermatologic History: Reports: None - Infectious Disease History Infectious Disease History: Reports: Novel Coronavirus - Past Surgical History Female Surgical History: Reports: None - SUBSTANCE USE Tobacco Use Status *Q: Never Tobacco User Recreational Drug Use History: No - HOME MEDS Home Medications: Home Meds Cholecalciferol (Vitamin D3) [Vitamin D3] 50,000 unit PO ASDIRECTED 09/09/21 [History] - CURRENT (IN HOUSE) MEDS Current Meds: Current Medications Lactated Ringer's (Ringers, Lactated) 1,000 mls @ 125 mls/hr IV ASDIRECTED [facility]
[2021-09-13] MEDS ORDERED: Propofol 200 MG/20 ML SDV ONE ×3 (09:46→10:53)
[2021-09-13] MEDS ORDERED: fentaNYL 100 MCG/2 ML SDV ONE ×2 (10:06→10:46)
[2021-09-13] MEDS ORDERED: Lidocaine 2% 5 ML SDV ONE (10:06)
[2021-09-13] MEDS ORDERED: ePHEDrine 50 MG/ML SDV ONE (10:30)
--- NOTE | 2021-09-13 11:14 | PCM.OPNOTE ---
- General Post-Op/Procedure Note Date of Surgery/Procedure: 09/13/21 Operative Procedure(s): Esophagogastroduodenoscopy with biopsy. Colonoscopy. Pre Op Diagnosis: Epigastric pain with heartburn, fatty food intolerance and abdominal bloating. Rectal bleeding. Post-Op Diagnosis: Mild chronic gastritis. No evidence of colonic neoplasia. Anesthesia Technique: MAC (ASA I) Primary Surgeon: Brayden Crisostomo Hoop Flaring Machine Operator: Karan Ghosh Condition: Good Free Text/Narrative:: DICTATION [id number] CPT CODE [id number]
[2021-09-13] MEDS ORDERED: Lactated Ringers 1,000 ML IV SCH (11:15)
--- NOTE | 2021-09-13 11:18 | PCM.POSTAN ---
POST ANESTHESIA ASSESSMENT - MENTAL STATUS Mental Status: Alert, Oriented - VITAL SIGNS Vital Signs: Last Vital Signs Temp 98.8 F 09/13/21 08:25 Pulse 105 H 09/13/21 08:25 Resp 16 09/13/21 08:25 BP 104/62 09/13/21 08:25 Pulse Ox 99 09/13/21 08:25 - RESPIRATORY Respiratory Status: Respiratory Rate WNL, Airway Patent, O2 Saturation Stable - CARDIOVASCULAR CV Status: Pulse Rate WNL, Blood Pressure Stable - GASTROINTESTINAL GI Status: No Symptoms - PAIN Pain Score: 0 - POST OP HYDRATION Hydration Status: Adequate & Stable
--- NOTE | 2021-09-13 11:21 | PCM48HPAN ---
Post Anesthesia Note - EVALUATION WITHIN 48HRS OF ANESTHETIC Vital Signs in Normal Range: Yes Patient Participated in Evaluation: Yes Respiratory Function Stable: Yes Airway Patent: Yes Cardiovascular Function Stable: Yes Hydration Status Stable: Yes Pain Control Satisfactory: Yes Nausea and Vomiting Control Satisfactory: Yes Mental Status Recovered: Yes Vital Signs: Last Vital Signs Temp 98.8 F 09/13/21 08:25 Pulse 105 H 09/13/21 08:25 Resp 16 09/13/21 08:25 BP 104/62 09/13/21 08:25 Pulse Ox 99 09/13/21 08:25 - COMMENTS/OBSERVATIONS Free Text/Narrative:: Pt doing well post-op. VSS. No apparent anesthetic complications. Dr. Oscar cShwartz
--- NOTE | 2021-09-13 16:22 | OR ---
SURGEON: Brayden Crisostomo M.D. DATE OF PROCEDURE: 09/13/2021 OPERATION PERFORMED: Esophagogastroduodenoscopy with gastric biopsy. PRIMARY SURGEON: Brayden Crisostomo M.D. THROW OUT CLERK: Marketing Rotation Associate: GITA Cee student. ANESTHESIA: MAC. ASA CLASSIFICATION: I. PREOPERATIVE DIAGNOSIS: Persistent epigastric pain with heartburn and fatty food intolerance with abdominal bloating. POSTOPERATIVE DIAGNOSIS: Mild chronic gastritis. DESCRIPTION OF PROCEDURE: The patient was taken to the endoscopy room, positioned on the endoscopy table in the left lateral decubitus position. Time-out was called for appropriate identification of the patient and procedure. Monitored anesthesia care was provided. The bite block was placed between the patient's teeth. The gastroscope was inserted through the bite block into the oropharynx and advanced without difficulty through the esophagus and stomach into the duodenum where examination was now carried out in a retrograde fashion. The duodenum showed no acute inflammatory changes or ulcerations. The stomach did show mild to moderate gastritis without ulceration. Antral biopsies were obtained to look for the presence of Helicobacter pylori. The gastroscope was retroflexed to visualize the proximal stomach. No tumors or polyps were noted and there were no ulcerations. The gastroscope was then straightened and slowly withdrawn, aspirating the stomach as the scope was withdrawn. The GE junction was well defined and showed no acute inflammatory changes or ulcerations. The esophagus demonstrated good contractility. No mid or proximal lesions were identified. The vocal cords were briefly visualized as the scope was withdrawn and noted to move symmetrically. The gastroscope was then removed with the patient having tolerated this portion of the procedure well. Following colonoscopy, she was taken to recovery room in stable condition. RICKEY DOMINIQUE /[id number]
--- NOTE | 2021-09-13 16:28 | OR ---
SURGEON: Brayden Crisostomo M.D. DATE OF PROCEDURE: 09/13/2021 OPERATION PERFORMED: Colonoscopy. PRIMARY SURGEON: Brayden Crisostomo M.D. MOBILE HEAVY EQUIPMENT MECHANIC: Costume Specialist: GITA Cee student. ANESTHESIA: MAC. ASA CLASSIFICATION: I. PREOPERATIVE DIAGNOSIS: Rectal bleeding. POSTOPERATIVE DIAGNOSIS: No evidence of neoplasia or angiodysplasia. DESCRIPTION OF PROCEDURE: With the patient maintained in the left lateral decubitus position following esophagogastroduodenoscopy, colonoscopy was accomplished. The colonoscope was inserted into the rectum and advanced with minimal difficulty to the cecum. The cecum was identified by internal landmarks and external pressure. The colonoscope was retroflexed to visualize the ascending colon from below and then straightened and slowly withdrawn. The cecum, ascending colon, hepatic flexure, transverse colon, splenic flexure, descending colon, sigmoid colon, and rectum were very well visualized. No tumors, polyps, diverticula, or angiodysplastic changes were noted anywhere in the lower gastrointestinal tract. Once the colonoscope was withdrawn to the rectum, it was retroflexed to visualize the anal orifice from above. Again, no tumors or polyps were seen. There were no acute hemorrhoidal changes. The colonoscope was then straightened, the rectum aspirated, and the colonoscope removed. The patient tolerated the procedure well and was taken to recovery room in stable condition. RICKEY / TRIP /[id number]
== END 2021-09-13 11:50 | disposition home or self-care (01) ==
LOC: MW.SDS 08:09
PROVIDERS: ATTEND Surgery
DX: K62.5 Hemorrhage of anus and rectum (principal); K90.49 Malabsorption due to intolerance, not elsewhere classified; R10.13 Epigastric pain; Z79.899 Other long term (current) drug therapy
CPT/HCPCS: 43239; 45378; 81025; J2704; J3010; J7120; 00813

== ENCOUNTER 2021-12-09 11:37 | Emergency (ER) | payer BC | END 2021-12-09 14:41 | disposition home or self-care (01) | LOC: MW.ED 11:37 | DX: N93.9 Abnormal uterine and vaginal bleeding, unspecified (principal); Z86.16 Personal history of COVID-19 | CPT/HCPCS: 36415; 84702; 85025; 99284 ==

== ENCOUNTER 2022-03-25 18:20 | Emergency (ER) | payer BC ==
[2022-03-25] MEDS ORDERED: Metoclopramide 10 MG/2 ML SDV IVPUSH ONE (18:29)
[2022-03-25] MEDS ORDERED: Sodium Chloride 0.9% 2.5 ML Syringe FLUSH PRN (18:29)
[2022-03-25] MEDS ORDERED: Sodium Chloride 0.9% 10 ML Syringe FLUSH PRN (18:29)
[2022-03-25] MEDS ORDERED: Sodium Chloride 0.9% 1,000 ML IV STA (18:29)
[2022-03-25] MEDS ORDERED: Sodium Chloride 0.9% 20 ML SDV IV PRN (18:29)
[2022-03-25 18:55] LABS: BLOOD UREA NITROGEN,BUN 15 mg/dL (7.0-18.0); CARBON DIOXIDE,CO2 26.2 mmol/L (21.0-32.0); CHLORIDE,CL 103 mmol/L (98-107); GLUCOSE RANDOM 81 mg/dL (74-106); POTASSIUM,K 3.8 mmol/L (3.5-5.1); SODIUM,NA 139 mmol/L (136-145)
[2022-03-25] MEDS ORDERED: Ketorolac 30 MG/ML SDV IVPUSH STA (19:25)
== END 2022-03-25 22:32 | disposition home or self-care (01) ==
LOC: MW.ED 18:20
DX: G43.809 Other migraine, not intractable, without status migrainosus (principal)
CPT/HCPCS: 36415; 70450; 71045; 80053; 80305; 80307; 81003; 81025; 85025; 93005; 96374; 99284; J2765; J3490; J7030

== ENCOUNTER 2023-12-05 01:26 | Emergency (ER) | payer BC ==
[2023-12-05] MEDS ORDERED: Sodium Chloride 0.9% 10 ML Syringe FLUSH PRN (02:09)
[2023-12-05] MEDS ORDERED: Sodium Chloride 0.9% 2.5 ML Syringe FLUSH PRN (02:09)
[2023-12-05] MEDS ORDERED: Iopamidol 755 MG/ML 500 ML Multipack Bottle IVPUSH ONE (02:16)
[2023-12-05 02:34] LABS: BASOPHILS ABSOLUTE AUTO 0.03 K/uL (0.00-0.20); BASOPHILS PERCENT AUTO 0.4 % (0.0-1.0); EOSINOPHILS ABSOLUTE AUTO 0.06 K/uL (0.00-0.45); EOSINOPHILS PERCENT AUTO 0.8 % (0.0-6.0); HEMATOCRIT 39.5 % (37.0-47.0); HEMOGLOBIN 12.8 g/dL (12.0-16.0); IMMATURE GRAN ABSOLUTE AUTO 0.01 K/uL (0.00-0.05); IMMATURE GRAN PERCENT AUTO 0.1 % (0.0-0.4); LYMPHOCYTES ABSOLUTE AUTO 2.36 K/uL (1.00-4.80); LYMPHOCYTES PERCENT AUTO 31.1 % (24.0-44.0); MEAN CORPUSCULAR HEMOGLOBIN 28.6 pg (28.0-32.0); MEAN CORPUSCULAR HGB CONC 32.4 g/dL (32.0-36.0); MEAN CORPUSCULAR VOLUME 88.4 fL (83.0-99.0); MEAN PLATELET VOLUME 10.8 fL (9.4-12.3); MONOCYTES ABSOLUTE AUTO 0.41 K/uL (0.00-0.80); MONOCYTES PERCENT AUTO 5.4 % (0.0-8.0); NEUTROPHILS ABSOLUTE AUTO 4.73 K/uL (1.80-7.70); NEUTROPHILS PERCENT AUTO 62.2 % (41.0-71.0); PLATELET COUNT,PLT 173 K/uL (150-400); RED BLOOD CELL COUNT 4.47 M/uL (4.10-5.30)
[2023-12-05 02:58] LABS: CALCIUM 9.2 mg/dL (8.5-10.1); CARBON DIOXIDE,CO2 29.2 mmol/L (21.0-32.0); CREATININE 0.8 mg/dL (0.6-1.0); EST CRCL DRUG DOSING (CG) 93.64 mL/min; POTASSIUM,K 3.3 mmol/L (3.5-5.1)
[2023-12-05 03:14] LABS: CORONAVIRUS COVID-19 NAA NEGATIVE (NEGATIVE); INFLUENZA A NAA NEGATIVE (NEGATIVE); INFLUENZA B NAA NEGATIVE (NEGATIVE)
== END 2023-12-05 04:23 | disposition home or self-care (01) ==
LOC: MW.ED 01:26
DX: J02.9 Acute pharyngitis, unspecified (principal); Z20.822 Contact with and (suspected) exposure to COVID-19; Z86.16 Personal history of COVID-19
CPT/HCPCS: 0240U; 36415; 70491; 80048; 84703; 85025; 87651; 99283; J3490; Q9967; 99284

== ENCOUNTER 2023-12-09 13:27 | Emergency (ER) | payer BC ==
[2023-12-09 14:23] LABS: BASOPHILS ABSOLUTE AUTO 0.04 K/uL (0.00-0.20); BASOPHILS PERCENT AUTO 0.4 % (0.0-1.0); EOSINOPHILS ABSOLUTE AUTO 0.01 K/uL (0.00-0.45); EOSINOPHILS PERCENT AUTO 0.1 % (0.0-6.0); HEMATOCRIT 43.5 % (37.0-47.0); HEMOGLOBIN 14.3 g/dL (12.0-16.0); IMMATURE GRAN ABSOLUTE AUTO 0.02 K/uL (0.00-0.05); IMMATURE GRAN PERCENT AUTO 0.2 % (0.0-0.4); LYMPHOCYTES ABSOLUTE AUTO 1.67 K/uL (1.00-4.80); LYMPHOCYTES PERCENT AUTO 16.4 % (24.0-44.0); MEAN CORPUSCULAR HEMOGLOBIN 28.8 pg (28.0-32.0); MEAN CORPUSCULAR HGB CONC 32.9 g/dL (32.0-36.0); MEAN CORPUSCULAR VOLUME 87.5 fL (83.0-99.0); MEAN PLATELET VOLUME 10.8 fL (9.4-12.3); MONOCYTES ABSOLUTE AUTO 0.63 K/uL (0.00-0.80); MONOCYTES PERCENT AUTO 6.2 % (0.0-8.0); NEUTROPHILS ABSOLUTE AUTO 7.79 K/uL (1.80-7.70); NEUTROPHILS PERCENT AUTO 76.7 % (41.0-71.0); PLATELET COUNT,PLT 185 K/uL (150-400); RED BLOOD CELL COUNT 4.97 M/uL (4.10-5.30); WHITE BLOOD CELL COUNT,WBC 10.16 K/uL (3.9-11.3)
[2023-12-09 14:25] LABS: BILIRUBIN,URINE NEGATIVE (NEGATIVE); COLOR,URINE YELLOW; GLUCOSE,URINE NEGATIVE (NEGATIVE); KETONES,URINE >=80 mg/dL (NEGATIVE); LEUKOCYTE ESTERASE,URINE NEGATIVE (NEGATIVE); NITRITE,URINE NEGATIVE (NEGATIVE); OCCULT BLOOD,URINE NEGATIVE (NEGATIVE); PROTEIN,URINE 30 mg/dL (NEGATIVE); UROBILINOGEN,URINE 0.2 EU/dL (<2.0)
[2023-12-09 14:35] LABS: AMPHETAMINES SCREEN, URINE NEGATIVE (CUTOFF=500); APPEARANCE,URINE HAZY; BARBITURATE SCREEN,URINE NEGATIVE (CUTOFF=200); BENZODIAZEPINES SCREEN,URINE NEGATIVE (CUTOFF=150); BUPRENORPHINE SCREEN,URINE NEGATIVE (CUTOFF=10); METHADONE SCREEN, URINE NEGATIVE (CUTOFF=200); METHAMPHETAMINES SCREEN, URINE NEGATIVE (CUTOFF=500); OXYCODONE SCREEN,URINE NEGATIVE (CUT0FF=100); PCP SCREEN,URINE NEGATIVE (CUTOFF=25); THC SCREEN,URINE 20 NG/ML NEGATIVE (CUTOFF=50)
[2023-12-09 14:36] LABS: BACTERIA,URINE 1+ (NEGATIVE); EPITHELIAL CELLS,URINE MODERATE (NONE-FEW); MUCUS,URINE MANY (NONE-MOD); RBC,URINE 0-5 (0-2/HPF)
[2023-12-09 14:37] LABS: INR 1.22 (0.86-1.11); PTT,PARTIAL THROMBOPLSTIN TIME 25.4 SEC (23.9-30.7)
[2023-12-09 14:51] LABS: LACTIC ACID 3.1 mmol/L (0.4-2.0)
[2023-12-09 15:00] LABS: A/G RATIO 1.3 (0.9-1.6); ACETAMINOPHEN <2.0 ug/mL; ALANINE AMINOTRANSFERASE,ALT 11 IU/L (14-63); ALBUMIN 4.7 g/dL (3.4-5.0); ALKALINE PHOSPHATASE 53 U/L (46-116); ASPARTATE AMNIOTRANSFERASE,AST 11 IU/L (15-37); BLOOD UREA NITROGEN,BUN 5 mg/dL (7.0-18.0); CALCIUM 9.6 mg/dL (8.5-10.1); CARBON DIOXIDE,CO2 18.2 mmol/L (21.0-32.0); CHLORIDE,CL 103 mmol/L (98-107); CREATININE 0.9 mg/dL (0.6-1.0); EST CRCL DRUG DOSING (CG) 86.73 mL/min; ETHANOL BLOOD MEDICAL 4 mg/dL; GLUCOSE RANDOM 90 mg/dL (74-106); MAGNESIUM 1.8 mg/dL (1.8-2.4); POTASSIUM,K 3.6 mmol/L (3.5-5.1); PROTEIN TOTAL,TP 8.2 g/dL (6.4-8.2); SALICYLATE 0.8 mg/dL (0.0-20.0); SODIUM,NA 141 mmol/L (136-145); T3 FREE 1.79 pg/mL (2.18-3.98); T4 FREE 1.28 ng/dL (0.76-1.46); TSH ULTRASENSITIVE 5.22 uIU/mL (0.36-3.74)
[2023-12-09 15:01] LABS: ESTIMATED GFR 92 mL/min (>60)
== END 2023-12-09 18:59 ==
LOC: MW.ED 13:27
DX: F29 Unspecified psychosis not due to a substance or known physiological condition (principal)
CPT/HCPCS: 36415; 80053; 80143; 80179; 80305-QW; 80307; 81001; 83605; 83735; 84439; 84443; 84481; 84703; 85025; 85610; 85730; 93005; 93010; 99284; 99285

== ENCOUNTER 2024-01-02 15:03 | Emergency (ER) | payer BC ==
[2024-01-02 16:33] LABS: BASOPHILS ABSOLUTE AUTO 0.05 K/uL (0.00-0.20); BASOPHILS PERCENT AUTO 0.6 % (0.0-1.0); EOSINOPHILS ABSOLUTE AUTO 0.14 K/uL (0.00-0.45); EOSINOPHILS PERCENT AUTO 1.7 % (0.0-6.0); HEMOGLOBIN 13.3 g/dL (12.0-16.0); IMMATURE GRAN ABSOLUTE AUTO 0.02 K/uL (0.00-0.05); IMMATURE GRAN PERCENT AUTO 0.2 % (0.0-0.4); LYMPHOCYTES ABSOLUTE AUTO 2.45 K/uL (1.00-4.80); LYMPHOCYTES PERCENT AUTO 29.6 % (24.0-44.0); MEAN CORPUSCULAR HEMOGLOBIN 29.2 pg (28.0-32.0); MEAN CORPUSCULAR HGB CONC 32.4 g/dL (32.0-36.0); MEAN CORPUSCULAR VOLUME 90.1 fL (83.0-99.0); MEAN PLATELET VOLUME 10.4 fL (9.4-12.3); NEUTROPHILS ABSOLUTE AUTO 5.13 K/uL (1.80-7.70); NEUTROPHILS PERCENT AUTO 61.9 % (41.0-71.0); PLATELET COUNT,PLT 193 K/uL (150-400); RED BLOOD CELL COUNT 4.55 M/uL (4.10-5.30); WHITE BLOOD CELL COUNT,WBC 8.29 K/uL (3.9-11.3)
[2024-01-02 17:12] LABS: A/G RATIO 1.1 (0.9-1.6); ACETAMINOPHEN <2.0 ug/mL; ALANINE AMINOTRANSFERASE,ALT 25 IU/L (14-63); ALBUMIN 3.8 g/dL (3.4-5.0); ALKALINE PHOSPHATASE 57 U/L (46-116); ASPARTATE AMNIOTRANSFERASE,AST 8 IU/L (15-37); BILIRUBIN TOTAL 0.3 mg/dL (0.2-1.0); BLOOD UREA NITROGEN,BUN 8 mg/dL (7.0-18.0); CALCIUM 8.9 mg/dL (8.5-10.1); CHLORIDE,CL 105 mmol/L (98-107); CREATININE 0.8 mg/dL (0.6-1.0); EST CRCL DRUG DOSING (CG) 93.64 mL/min; ETHANOL BLOOD MEDICAL <3 mg/dL; GLUCOSE RANDOM 95 mg/dL (74-106); POTASSIUM,K 4.4 mmol/L (3.5-5.1); PROTEIN TOTAL,TP 7.3 g/dL (6.4-8.2); SODIUM,NA 145 mmol/L (136-145); TSH ULTRASENSITIVE 1.69 uIU/mL (0.36-3.74)
[2024-01-02 17:28] LABS: ESTIMATED GFR 105 mL/min (>60)
[2024-01-02 17:41] LABS: CARBON DIOXIDE,CO2 29.5 mmol/L (21.0-32.0)
[2024-01-02 17:59] LABS: AMPHETAMINES SCREEN, URINE NEGATIVE (CUTOFF=500); BARBITURATE SCREEN,URINE NEGATIVE (CUTOFF=200); BENZODIAZEPINES SCREEN,URINE NEGATIVE (CUTOFF=150); BUPRENORPHINE SCREEN,URINE NEGATIVE (CUTOFF=10); METHADONE SCREEN, URINE NEGATIVE (CUTOFF=200); METHAMPHETAMINES SCREEN, URINE NEGATIVE (CUTOFF=500); OXYCODONE SCREEN,URINE NEGATIVE (CUT0FF=100); PCP SCREEN,URINE NEGATIVE (CUTOFF=25); THC SCREEN,URINE 20 NG/ML NEGATIVE (CUTOFF=50)
[2024-01-02] MEDS: Sodium Chloride 0.9% 1,000 ML IV ONE (18:12)
[2024-01-02] MEDS: Sodium Chloride 0.9% 10 ML Syringe FLUSH PRN (18:13)
[2024-01-02] MEDS: diphenhydrAMINE 50 MG/ML SDV IVPUSH ONE (18:13)
[2024-01-02] MEDS: Sodium Chloride 0.9% 2.5 ML Syringe FLUSH PRN (18:13)
[2024-01-02] MEDS: droPERidol 5 MG/2 ML SDV IVPUSH ONE (18:13)
[2024-01-02] MEDS: Iopamidol 755 MG/ML 500 ML Multipack Bottle IVPUSH STA (18:25)
[2024-01-02 20:04] LABS: BILIRUBIN,URINE NEGATIVE (NEGATIVE); COLOR,URINE YELLOW; GLUCOSE,URINE NEGATIVE (NEGATIVE); KETONES,URINE NEGATIVE (NEGATIVE); LEUKOCYTE ESTERASE,URINE NEGATIVE (NEGATIVE); NITRITE,URINE NEGATIVE (NEGATIVE); OCCULT BLOOD,URINE NEGATIVE (NEGATIVE); PROTEIN,URINE NEGATIVE (NEGATIVE); UROBILINOGEN,URINE 0.2 EU/dL (<2.0)
[2024-01-02 20:07] LABS: APPEARANCE,URINE HAZY
== END 2024-01-02 20:55 | disposition home or self-care (01) ==
LOC: MW.ED 15:03
DX: R51.9 Headache, unspecified (principal); R10.9 Unspecified abdominal pain; R07.9 Chest pain, unspecified; Z86.16 Personal history of COVID-19
CPT/HCPCS: 36415; 70450; 71275; 74177; 80053; 80143; 80179; 80305; 80307; 81003; 84443; 84484; 84703; 85025; 87635; 93005; 96374; 96375; 99285; J1200; J1790; J3490; J7030; Q9967; 93010; 99284; U0002